=== PATIENT | female | born 1985 | race Caucasian/White ===

== ENCOUNTER 2021-10-28 14:12 | Emergency (ER) | payer OTHER, SELFPAY ==
[2021-10-28 14:22] VITALS: BP 106/66; PULSE 83; RESP 18; TEMP 37; O2SAT 99
--- NOTE | 2021-10-28 15:03 | ED.DENTAL ---
HPI - Dental/Oral General Chief complaint: Dental/Oral Stated complaint: tooth pain Time Seen by Provider: 10/28/21 14:50 Source: patient, family, RN notes reviewed and old records reviewed Mode of arrival: ambulatory Limitations: no limitations History of Present Illness HPI Narrative: 36 year old female who presents to [facility] care with complaints of dental pain to right upper gum area for the past 2 days with swelling to gum area with redness and raised area along side of gum by #14 tooth which is broken off at the gum line. Patient reports that she has some swelling noted to her left cheek also, denies any known fever chills or sweats.Patient denies any difficulty with her breathing or with swallowing. She denies any fevers chills or sweats or any difficulty with opening her mouth. Location: Tooth # (on gum above #14 tooth) Onset (ago): day(s) (2) Severity scale (1-10): 3 Treatment prior to arrival: oral analgesic Related Data Home Medications Medication Instructions Recorded Confirmed escitalopram oxalate 20 mg tablet 20 mg PO DAILY 08/21/21 10/28/21 trazodone 50 mg tablet 50 mg PO QHS PRN Anxiety 08/21/21 10/28/21 Allergies Allergy/AdvReac Type Severity Reaction Status Date / Time No Known Allergies Allergy Unknown Verified 10/28/21 14:25 Review of Systems Review of Systems: CONSTITUTIONAL: Denies fever, chills, or sweats. EYES: Denies visual changes, redness, or discharge. ENT: Denies rhinorrhea, congestion, sore throat, or otalgia.pain to gum area above #14 tooth with swelling and redness of gum CARDIOVASCULAR: Denies chest pain, palpitations, or edema. RESPIRATORY: Denies cough or dyspnea. GASTROINTESTINAL: Denies abdominal pain, nausea, vomiting, or diarrhea. GENITOURINARY: Denies dysuria or hematuria. SKIN: Denies rash or itching. MUSCULOSKELETAL: Denies back pain, joint pain, or myalgia. NEUROLOGIC: Denies headache, numbness, or weakness. PSYCHIATRIC: Positive for anxiety or depression. All systems reviewed & are unremarkable except as noted in HPI and below PMFSH Past Medical History Medical History Anxiety Arm fracture Depression Frequent UTI Nexplanon insertion (12/18/12) Nexplanon removal (12/23/15) Pneumonia Surgical History Surgical History History of bilateral breast reduction surgery (06/23/12) History of 04/10/07 primary c/s--arrest of descent 11/30/10 rpt c/s w/tubal ligation History of dilation and curettage (05/17/16) hscope d&c/endometrial ablation--menometrorrhagia, dysmenorrhea--benign History of ovarian cystectomy (09/25/12) rt ovarian cystectomy History of tonsillectomy (~2002) History of tubal ligation (11/30/10) Family History Family History Grandparent Hypertension paternal grandfather paternal grandmother Diabetes mellitus paternal grandmother paternal grandfather Cerebrovascular accident maternal grandmother paternal grandmother Heart disease paternal grandfather Mother Alcoholism Social History Social History (Updated 08/21/21 @ 08:58 by MARK Dimas) Smoking status: Former smoker Alcohol intake: current Alcohol use details: 1-2 year Substance use: never Substance use type: does not use Additional living arrangements comments: 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 There is no relevant family history pertinent to the presenting complaint Exam Narrative: GENERAL: Well-appearing, well-nourished, and in no acute distress. HEAD: Normocephalic, atraumatic.
== END 2021-10-28 15:15 | disposition home or self-care (01) ==
PROVIDERS: Emergency Provider Registered Nurse
DX: K04.7 Periapical abscess without sinus (principal); K02.9 Dental caries, unspecified; Z87.891 Personal history of nicotine dependence; F41.9 Anxiety disorder, unspecified; F32.A Depression, unspecified
CPT/HCPCS: 99213; G0463

== ENCOUNTER 2021-11-06 11:02 | Outpatient (CLI) | payer OTHER, SELFPAY ==
[2021-11-06 11:48] LABS: Hematocrit 38.7 % (37.0-47.0); Hemoglobin 12.7 g/dL (12.0-15.0); Mean Corpuscular HGB Conc 32.8 g/dl (32-36); Mean Corpuscular Hemoglobin 30.8 pg (26-34); Mean Corpuscular Volume 93.7 fl (80-100); Mean Platelet Volume 9.8 fl (7.4-10.4); Platelet Count Result 231 k/mm3 (150-375); Red Blood Count 4.13 M/mm3 (4.2-5.4); Red Cell Distribution Width 11.9 % (11.5-14.5); White Blood Count 9.9 K/mm3 (4.5-10.0)
== END 2021-11-06 11:03 | disposition home or self-care (01) ==
LOC: ANHLAB 11:06
PROVIDERS: Visit Provider Obstetrics & Gynecology
DX: N92.1 Excessive and frequent menstruation with irregular cycle (principal)
CPT/HCPCS: 36415; 85027

== ENCOUNTER 2021-11-10 13:06 | Outpatient (CLI) | payer OTHER, SELFPAY ==
--- NOTE | ~2021-11-10 | US_ITS ---
EXAMINATION: US pelvic complete w TV DATE: 11/10/2021 13:58 INDICATION: Excessive and frequent and irregular menstruation. TECHNIQUE: Multiple transabdominal and transvaginal sonographic images of the pelvis were obtained. COMPARISON: None. FINDINGS: TRANSABDOMINAL ULTRASOUND: The uterus measures 7.4 x 3.8 x 3.5 cm. There is no free fluid in the pelvis. TRANSVAGINAL ULTRASOUND: The endometrial complex measures 6 mm in thickness. There is a 1.3 cm intramural fibroid. There are n abothian cysts in the cervix. The right ovary measures 2.8 x 1.8 x 1.9 cm. The left ovary measures 3. 4 x 1.8 x 2.8 cm. There is normal vascular flow in the ovaries. IMPRESSION: 1. 1.3 cm uterine fibroid. Reviewed, dictated and finalized at location A. IMPRESSION: 1. 1.3 cm uterine fibroid.
== END 2021-11-10 13:07 | disposition home or self-care (01) ==
PROVIDERS: PCP Internal Medicine; Visit Provider Obstetrics & Gynecology
DX: N92.1 Excessive and frequent menstruation with irregular cycle (principal); D25.9 Leiomyoma of uterus, unspecified
CPT/HCPCS: 76830; 76856

== ENCOUNTER 2021-12-15 12:33 | Emergency (ER) | payer OTHER, SELFPAY ==
[2021-12-15 12:43] VITALS: BP 105/63; PULSE 83; RESP 18; TEMP 37.2; O2SAT 98
--- NOTE | 2021-12-15 13:21 | ED.NAVMDI ---
HPI - Nausea/Vomiting/Diarrhea General Chief complaint: Nausea/Vomiting/Diarrhea Stated complaint: nausea headache aches Time Seen by Provider: 12/15/21 13:22 Source: patient, RN notes reviewed and old records reviewed Mode of arrival: ambulatory Limitations: no limitations History of Present Illness HPI Narrative: 36 year old female presents to [facility] care with complaints of f nausea this morning with headache all weak ,diarrhea X3 yesterday and body aches. Patient denies any known ill contacts, has had Covid vaccinations and flu shot. Patient reports that she has taken Ibuprofen and aso some TUMs for her symptoms. MD elicited complaint: nausea, diarrhea and other (headache and body aches) Onset (ago): day(s) (day 2 of symptoms) Pain scale (0-10): 4 Treatment prior to arrival: NSAIDs and other (Tums) Related Data Home Medications Medication Instructions Recorded Confirmed escitalopram oxalate 20 mg tablet 20 mg PO DAILY 08/21/21 12/15/21 trazodone 50 mg tablet 50 mg PO QHS PRN Anxiety 08/21/21 12/15/21 Allergies Allergy/AdvReac Type Severity Reaction Status Date / Time No Known Allergies Allergy Unknown Verified 12/15/21 12:59 Review of Systems Review of Systems: CONSTITUTIONAL: Denies malaise, chills, sweats, or fever. EYES: Denies visual changes, redness, or discharge. ENT: Reports rhinorrhea, congestion, sinus pain, otalgia and sore throat. CARDIOVASCULAR: Denies chest pain, palpitations, or edema. RESPIRATORY:Denies cough.? Denies dyspnea. GASTROINTESTINAL: Denies abdominal pain, reports nausea, no vomiting reports episodes of diarrhea X3 yesterday. SKIN: Denies rash or itching. MUSCULOSKELETAL: Reports myalgia. NEUROLOGIC: Reports headache. All systems reviewed & are unremarkable except as noted in HPI and below PMFSH Past Medical History Medical History Anxiety Arm fracture Depression Encounter for annual routine gynecological examination Frequent UTI Nexplanon insertion (12/18/12) Nexplanon removal (12/23/15) Pneumonia Surgical History Surgical History History of bilateral breast reduction surgery (06/23/12) History of 04/10/07 primary c/s--arrest of descent 11/30/10 rpt c/s w/tubal ligation History of dilation and curettage (05/17/16) hscope d&c/endometrial ablation--menometrorrhagia, dysmenorrhea--benign History of ovarian cystectomy (09/25/12) rt ovarian cystectomy History of tonsillectomy (~2002) History of tubal ligation (11/30/10) Family History Family History Grandparent Hypertension paternal grandfather paternal grandmother Diabetes mellitus paternal grandmother paternal grandfather Cerebrovascular accident maternal grandmother paternal grandmother Heart disease paternal grandfather Mother Alcoholism Social History Social History (Updated 12/17/21 @ 18:55 by Charis Hager NP) Smoking status: Former smoker Alcohol intake: current Alcohol use details: 1-2 year Substance use: never Substance use type: does not use Gender identity (if verbalized by the patient): Female Sexual Orientation (if Verbalized by the Patient): Straight or Heterosexual Comments At time of signature, agree with nursing past medical, surgical, social and family history. There is no relevant family history pertinent to the presenting complaint Exam Narrative: GENERAL: Well-appearing, well-nourished, and in no acute distress. HEAD: Normocephalic EYES: PERRLA, conjunctivae clear ENT: Nares clear, turbinates edematous and erythematous, clear discharge. Mucous membranes moist. TM pearly verduzco with dull light reflex bilaterally; no tragal tenderness. Oropharynx pink without lesions. Tonsils not present and without exudate tp pharynx, no drooling, no
== END 2021-12-15 14:10 | disposition home or self-care (01) ==
PROVIDERS: Emergency Provider Registered Nurse; PCP Internal Medicine
DX: K52.9 Noninfective gastroenteritis and colitis, unspecified (principal); Z20.822 Contact with and (suspected) exposure to COVID-19; Z87.891 Personal history of nicotine dependence; F41.9 Anxiety disorder, unspecified; F32.A Depression, unspecified
CPT/HCPCS: 87426; 87804; 99213; C9803; G0463

== ENCOUNTER 2022-01-07 18:22 | Emergency (ER) | payer OTHER, SELFPAY ==
--- NOTE | ~2022-01-07 | XR_ITS ---
XR heel RT min 2V DATE: 01/07/2022 18:48 INDICATION: Plantar heel pain with standing TECHNIQUE: Axial and lateral views COMPARISON: None FINDINGS: Minimal plantar calcaneal enthesopathy without associated erosive change or periostitis. No fracture or bone destruction of the calcaneus. IMPRESSION: Minimal plantar calcaneal enthesopathy Reviewed, dictated and finalized at location A. 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
[2022-01-07 18:26] VITALS: BP 102/70; PULSE 84; RESP 20; TEMP 36.8; O2SAT 100
--- NOTE | 2022-01-07 18:30 | ED.EXTPRO ---
HPI - Extremity Problem General Chief complaint: Extremity Problem,Nontraumatic Stated complaint: bottom of right foot pain Time Seen by Provider: 01/07/22 18:33 Source: patient, RN notes reviewed and old records reviewed Mode of arrival: ambulatory Limitations: no limitations History of Present Illness HPI Narrative: 36-year-old female presents to the [facility] with complaints of calcaneal distal aspect pain for 3 days. has taken Tylenol. Related Data Home Medications Medication Instructions Recorded Confirmed buspirone 10 mg tablet 10 mg PO BID 01/07/22 01/07/22 escitalopram oxalate 20 mg tablet 20 mg PO DAILY 01/07/22 01/07/22 hydroxyzine HCl 25 mg tablet 25 mg PO BID 01/07/22 01/07/22 Allergies Allergy/AdvReac Type Severity Reaction Status Date / Time No Known Allergies Allergy Unknown Verified 01/07/22 18:50 Review of Systems Review of Systems: All systems reviewed & are unremarkable except as noted in HPI and below Constitutional: Constitutional: Reports no additional constitutional complaints, Denies chills and Denies fever(s) Eyes: Eyes: Reports no additional eye complaints ENT: Reports system reviewed and no additional complaints, except as documented Cardiovascular: Cardiovascular: Reports no additional cardiovascular complaints Respiratory: Respiratory: Reports no additional respiratory complaints Gastrointestinal: Gastrointestinal: Reports no additional gastrointestinal complaints Musculoskeletal: Musculoskeletal: Reports as per HPI Integumentary/Breasts: Skin/Breast: Reports system reviewed and no additional complaints, except as docu Neurologic: Reports system reviewed and no additional complaints, except as documented Psychiatric: Psychiatric: Reports no additional psychiatric complaints Allergic/Immunologic: Allergic/Immunologic: Reports no additional allergic/immunologic complaints [facility] Past Medical History Medical History Anxiety Arm fracture Depression Encounter for annual routine gynecological examination Frequent UTI Nexplanon insertion (12/18/12) Nexplanon removal (12/23/15) Pneumonia Surgical History Surgical History History of bilateral breast reduction surgery (06/23/12) History of 04/10/07 primary c/s--arrest of descent 11/30/10 rpt c/s w/tubal ligation History of dilation and curettage (03/23/17) hscope d&c/endometrial ablation--menometrorrhagia, dysmenorrhea--benign History of ovarian cystectomy (09/25/12) rt ovarian cystectomy History of tonsillectomy (~2002) History of tubal ligation (11/30/10) Family History Family History Grandparent Hypertension paternal grandfather paternal grandmother Diabetes mellitus paternal grandmother paternal grandfather Cerebrovascular accident maternal grandmother paternal grandmother Heart disease paternal grandfather Mother Alcoholism Social History Social History Smoking status: Former smoker Alcohol intake: current Alcohol use details: 1-2 year Substance use: never Substance use type: does not use Gender identity (if verbalized by the patient): Female Sexual Orientation (if Verbalized by the Patient): Straight or Heterosexual Comments At the time of my signature, I reviewed and agree with the nursing past medical, surgical, social, and family history. There is no relevant family history pertinent to the patient complaint. Exam Const: General: healthy appearing, comfortable, no acute distress, well developed, alert and well nourished Nutritional Appearance: well nourished and obese Orientation/consciousness: patient oriented x3 Limitations: no limitations HENMT: Head: normal to inspection Ears: external ears normal Eyes:
[2022-01-07 18:48] VITALS: BP 102/70; PULSE 84; RESP 20; TEMP 36.8; O2SAT 100
== END 2022-01-07 19:00 | disposition home or self-care (01) ==
PROVIDERS: Emergency Provider Nurse Practitioner; PCP Internal Medicine
DX: M77.31 Calcaneal spur, right foot (principal); Z87.891 Personal history of nicotine dependence; F41.9 Anxiety disorder, unspecified; F32.A Depression, unspecified
CPT/HCPCS: 73650; 99213; G0463

== ENCOUNTER 2022-02-02 19:21 | Emergency (ER) | payer OTHER, SELFPAY ==
[2022-02-02 19:25] VITALS: BP 123/72; PULSE 104; RESP 16; TEMP 37.7; O2SAT 99
--- NOTE | 2022-02-02 19:38 | ED.URI ---
HPI - URI/Sore Throat General Chief Complaint: Upper Respiratory Infection Stated Complaint: cough Time Seen by Provider: 02/02/22 19:30 Source: patient and RN notes reviewed Mode of arrival: ambulatory Limitations: no limitations History of Present Illness HPI Narrative: 36-year-old female presents with concern for cough. Reports symptoms started yesterday. She reports she has been taking ibuprofen. She reports body aches. Denies fever, chills, sweats, shortness of breath. Reports she had COVID at the end of December. MD elicited complaint: cough Related Data Home Medications Medication Instructions Recorded Confirmed buspirone 10 mg tablet 10 mg PO BID 01/07/22 02/02/22 escitalopram oxalate 20 mg tablet 20 mg PO DAILY 01/07/22 02/02/22 hydroxyzine HCl 25 mg tablet 25 mg PO BID 01/07/22 02/02/22 trazodone 100 mg tablet 100 mg PO HS 02/02/22 02/02/22 Allergies Allergy/AdvReac Type Severity Reaction Status Date / Time No Known Allergies Allergy Unknown Verified 02/02/22 19:35 Review of Systems Review of Systems: CONSTITUTIONAL: Denies malaise, chills, sweats, or fever. EYES: Denies visual changes, redness, or discharge. ENT: Reports rhinorrhea, congestion. Denies sinus pain, otalgia and sore throat. CARDIOVASCULAR: Denies chest pain, palpitations, or edema. RESPIRATORY: Reports cough. Denies dyspnea. GASTROINTESTINAL: Denies abdominal pain, nausea, vomiting, diarrhea SKIN: Denies rash or itching. MUSCULOSKELETAL: Reports myalgia. NEUROLOGIC: Denies headache. All systems reviewed & are unremarkable except as noted in HPI and below PMFSH Past Medical History Medical History Anxiety Arm fracture Depression Encounter for annual routine gynecological examination Frequent UTI Nexplanon insertion (12/18/12) Nexplanon removal (12/23/15) Pneumonia Surgical History Surgical History History of bilateral breast reduction surgery (06/23/12) History of 04/10/07 primary c/s--arrest of descent 11/30/10 rpt c/s w/tubal ligation History of dilation and curettage (05/17/16) hscope d&c/endometrial ablation--menometrorrhagia, dysmenorrhea--benign History of ovarian cystectomy (09/25/12) rt ovarian cystectomy History of tonsillectomy (~2002) History of tubal ligation (11/30/10) Family History Family History Grandparent Hypertension paternal grandfather paternal grandmother Diabetes mellitus paternal grandmother paternal grandfather Cerebrovascular accident maternal grandmother paternal grandmother Heart disease paternal grandfather Mother Alcoholism Social History Social History Smoking status: Former smoker Alcohol intake: current Alcohol use details: 1-2 year Substance use: never Substance use type: does not use Gender identity (if verbalized by the patient): Female Sexual Orientation (if Verbalized by the Patient): Straight or Heterosexual Comments At time of signature, agree with nursing past medical, surgical, social and family history. There is no relevant family history pertinent to the presenting complaint Exam Narrative: GENERAL: Well-appearing, well-nourished, and in no acute distress. HEAD: Normocephalic EYES: PERRLA, conjunctivae clear ENT: Nares clear, clear discharge. Mucous membranes moist. TM pearly verduzco with sharp light reflex bilaterally; no tragal tenderness. Oropharynx not erythematous without lesions. Tonsils not enlarged and without exudate, no drooling, no hoarseness, no trismus, uvula midline. NECK: Supple. No lymphadenopathy CHEST: Clear to auscultation, breath sounds equal. No wheezing, rhonchi, rales, or stridor. No respiratory distress, speaks in full sentences. Cough noted HEART: Regular rat
== END 2022-02-02 19:50 | disposition home or self-care (01) ==
PROVIDERS: Emergency Provider Nurse Practitioner; PCP Internal Medicine
DX: J06.9 Acute upper respiratory infection, unspecified (principal); Z87.891 Personal history of nicotine dependence
CPT/HCPCS: 87804; 99213; G0463

== ENCOUNTER 2022-04-05 01:13 | Day surgery (SDC) | payer OTHER, SELFPAY ==
--- NOTE | 2022-03-26 13:58 | PC.NURSE ---
Report to the Outpatient Waiting Room, entrance under the green pavilion located off [facility], at time _0600_ on date _04/05/22_. Planned Procedure Time: _0730__. Time changes happen often and if your time is changed the preop area will call you the afternoon before. - You and your visitor will be asked to self-screen and do not enter if you have any COVID symptoms. - Only one visitor is requested with a max of two and NO children visitors are allowed at this time. - The patient visitor may be requested to leave or wait in car when not with patient due to distancing restrictions. - A mask is optional within the hospital at this time. Patients may have clear liquids (water, carbonated beverages, clear teas, apple juice) until 3 hours prior to surgery with a maximum of 20 ounces. - No food from midnight until time of surgery - Infants may have breast milk until 4 hours before surgery, formula 6 hours prior to surgery. - Children will be allowed to drink immediately following surgery. If applicable, please bring a bottle or sippy cup to assist with drinking. Juice, water, soda, and popsicles are readily available. For infants on formula, please bring formula the day of surgery. Pacifiers are allowed. Take the following medications with a SIP of water the morning of surgery: _Buspirone and Hydoxyzine___ DO NOT STOP ANY OF YOUR OTHER PRESCRIPTION MEDICATIONS PRIOR TO SURGERY ?EXCEPT THE FOLLOWING Medications to discontinue per physician __vitamins or supplements 3 days prior___ Date to take last dose Please no make-up, nail cymraes, hairspray, perfume, deodorant, or body powder the day of surgery. No jewelry (including any body piercings) or valuables the day of surgery, leave them at home. Please take a shower or bath the night before, or the morning of, surgery with an antibacterial soap. Wear comfortable, loose fitting clothing. Children are encouraged to wear pajamas. - Jewelry must be removed prior to entering the operating room. Rings and piercings that are not removed may be cut off. - The hospital will not accept responsibility for valuables. - Please leave all valuables, including medications, at home the day of surgery. If you are going home after surgery, a licensed delivery route driver must drive you home. - NO public transportation without another adult if you receive anesthesia. - We recommend that an adult stay with you for 24 hours following discharge. - We also recommend that you do not drive, make important decision, drink alcoholic beverages, or take any drugs that were not prescribed by your health care provider for at least 24 hours after your discharge time. For Pediatric surgeries, we recommend two adults accompany the child home. Follow any additional instructions given to you from your surgeon. If you or anyone in your household have experienced Covid symptoms in the past week, please notify your surgeon or the nurse liaison at the phone number below for possible testing. Telephone instructions given to _patient__and asked if any additional questions and then verbalized understanding. Patient advised to call surgeon office or pre surgery nurse liaison [phone] if any additional questions.
[2022-03-26 14:05] VITALS: BMI 33.9
[2022-04-05] VITALS (11 sets, daily range): BP systolic 97–130; BP diastolic 45–74; PULSE 68–95; RESP 12–18; TEMP 36.5–36.9; O2SAT 95–100; BMI 34.2
[2022-04-05] MEDS: LACTATED RINGERS 1,000 ML 30 ML IV CONT ×2 (06:25→09:35)
--- NOTE | 2022-04-05 06:34 | WPDANESEPPF ---
Anes - Initial Pre Proc Eval Procedure: Operation Date: 04/05/22 07:30 Proposed Procedures p Robotic Assisted Total Laparoscopic Hysterectomy, Bilateral Salpingectomy - Perry Marvin MD Date/Time: 04/05/22 06:34 Surgeon: Perry Marvin MD Pre Op Diagnosis: uterine fibroid Patient Data Age: 37 Gender: F Height: 1.5 m Weight: 76.2 kg Allergies Allergy/AdvReac Type Severity Reaction Status Date / Time No Known Allergies Allergy Unknown Verified 03/30/22 10:46 Home Medications Medication Instructions Recorded Confirmed Type buspirone 10 mg tablet 10 mg PO BID 01/07/22 03/30/22 History escitalopram oxalate 20 mg tablet 20 mg PO DAILY 01/07/22 03/30/22 History hydroxyzine HCl 25 mg tablet 25 mg PO BID 01/07/22 03/30/22 History trazodone 100 mg tablet 100 mg PO HS 02/02/22 03/30/22 History Patient hx anesthesia problems: none Family hx anesthesia problems: none Results Review: All pre-operative results and documents have been reviewed as part of the pre-operative evaluation. [facility] Past Medical History Medical History Anxiety Arm fracture Depression Encounter for annual routine gynecological examination Frequent UTI Nexplanon insertion (12/18/12) Nexplanon removal (12/23/15) Pneumonia Surgical History Surgical History History of bilateral breast reduction surgery (06/23/12) History of 04/10/07 primary c/s--arrest of descent 11/30/10 rpt c/s w/tubal ligation History of dilation and curettage (05/17/16) hscope d&c/endometrial ablation--menometrorrhagia, dysmenorrhea--benign History of ovarian cystectomy (09/25/12) rt ovarian cystectomy History of tonsillectomy (~2002) History of tubal ligation (11/30/10) Family History Family History Grandparent Hypertension paternal grandfather paternal grandmother Diabetes mellitus paternal grandmother paternal grandfather Cerebrovascular accident maternal grandmother paternal grandmother Heart disease paternal grandfather Mother Alcoholism Social History Social History Smoking status: Former smoker Tobacco type: cigarettes Additional smoking assessment comments: Pt stated on and off socially, does not currently Alcohol intake: never Alcohol use details: 1-2 year Substance use: never Substance use type: does not use Living arrangements: with roommate(s) Additional living arrangements comments: Occupation/Education: unemployed 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 Gender identity (if verbalized by the patient): Female Sexual Orientation (if Verbalized by the Patient): Straight or Heterosexual Spiritual care concerns: No Anes - Eval Final PreProcedure Day of Procedure 04/05/22 06:34 Patient weight: obese Heart: regular rate and rhythm Lungs: clear to auscultation Airway: Mallampati scale class II and special considerations poor dentition Neurological: alert and oriented Last oral intake: >/= 8 hours ASA classification: II Emergent: no Anesthetic plan: proceed Anesthesia type and monitoring: general ETT and standard monitoring Results Review: All pre-operative results and documents have been reviewed as part of the pre-operative evaluation. Informed Consent: The patient's anesthetic plan and its attendant risks and benefits were discussed with the patient/family/POA. Questions were solicited and answers provided to the satisfaction of the patient/family/POA.
[2022-04-05 06:36] LABS: Hematocrit 42.1 % (37.0-47.0); Hemoglobin 13.9 g/dL (12.0-15.0); Mean Corpuscular Volume 93.8 fl (80-100); Mean Platelet Volume 9.4 fl (7.4-10.4); Platelet Count Result 244 k/mm3 (150-375); Red Blood Count 4.49 M/mm3 (4.2-5.4); Red Cell Distribution Width 12.1 % (11.5-14.5); White Blood Count 8.7 K/mm3 (4.5-10.0)
[2022-04-05] MEDS: ACETAMINOPHEN 500 MG TABLET 1000 MG PO (06:45)
[2022-04-05] MEDS: KETOROLAC 15 MG/ML VIAL (*BKC) IV PUSH (06:45)
--- NOTE | 2022-04-05 07:18 | WPDHPUPDATE1 ---
History and Physical Update Update Date/Time: 04/05/22 07:18 Plan: Robotic total hysterectomy/ovarian preservation. Tubal segment removal if present. History and Physical has been reviewed, including an updated exam of the patient. There are NO changes in the patient's condition. Risks, benefits, and alternatives have been discussed and questions answered. Patient agrees to proceed with procedure.
[2022-04-05] MEDS: ceFAZolin 2 GM/D5W 50 ML 2 GM/50 ML BAG IVPB (07:27)
[2022-04-05] MEDS: METHYLENE BLUE 0.5% INJ 10 ML AMPULE 5 ML IRRIGATION (09:05)
--- NOTE | 2022-04-05 09:06 | W.PM.PROC2 ---
Procedure Note - Detailed Date of Procedure 04/05/22 Pre-op Diagnosis 1. Enlarged uterus 2. Uterine fibroid 3. Menometrorrhagia 4. Prior section x2 Post-op Diagnosis Same Procedure Performed 1. Robotic assisted total laparoscopic hysterectomy 2. Bilateral salpingectomy Surgeon Perry Marvin MD Anesthesia General Findings 1. Uterus mildly enlarged 2. Adhesions her bladder flap to the anterior portion of the uterus 3. Bilateral tubal distal segments noted Description of Procedure Patient was prepped in usual manner for this procedure. Cervical instruments were placed for uterine mobility throughout the case. Abdominal trocar sites were then marked and placed under direct visualization. Patient was placed in Trendelenburg position and the DA Denise system was attached to the trocars, followed by instruments being placed under direct visualization. Surgeon moved to the console and mesial salpinx bilaterally was cauterized and cut and tubal segments were removed. Utero-ovarian ligament was then cauterized and cut bilaterally round ligament cauterized and cut bilaterally. Bladder flap was developed. Scarring was noted on the bladder flap with this was dissected sharply and bluntly and bladder ultimately was readily deflected out of the operative field. Uterine vessels were skeletonized cauterized and cut and at this point the posterior colpotomy incision was made. This was then carried around circumferentially to separate the cervix from the vagina. Uterus was delivered into the vagina. Cuff was closed using V lock suture from the right angle to midline and from the left angle to the midline as well. Bladder was back filled and distended without evidence of leakage. Ute was then placed on all the raw surgical areas with good hemostasis noted. Patient trocars were then removed and incisions approximated using 4-0 Monocryl. Patient was then sent to the recovery room in stable condition. Estimated Blood Loss 120 Drains No Packing No Pathology Yes Complications No immediate complications Condition Stable Disposition PACU [facility] Billing Surgery - Charge Forward: Surgery Billing
[2022-04-05] MEDS: fentaNYL CITRATE INJ (*CRX) 100 MCG/2 ML VIAL 25 MCG IV PUSH ×5 (09:52→10:39)
--- NOTE | 2022-04-05 11:18 | PC.NURSE ---
This patient, Amie East, was received from PACU via abed on 04/05/22 at 1118. Patient/family oriented to unit policies and routines.
[2022-04-05] MEDS: KETOROLAC 30 MG/ML VIAL (*BKC) IV PUSH (11:58)
[2022-04-05] MEDS: DEXTROSE 5%/LACTATED RINGERS 1,000 ML 125 ML IV CONT (11:59)
[2022-04-05] MEDS: HYDROcodone/acetaminophen (*CRX) 5-325 MG TABLET 1 TAB PO ×2 (12:55→16:42)
[2022-04-05] MEDS: hydrOXYzine HCL 25 MG TABLET PO (16:42)
[2022-04-05] MEDS: busPIRone HCL 10 MG TABLET PO (16:42)
[2022-04-05] MEDS: traZODone HCL 50 MG TABLET 100 MG PO (20:00)
[2022-04-06] MEDS: IBUPROFEN 600 MG TABLET PO ×2 (01:15→08:13)
[2022-04-06] MEDS: HYDROcodone/acetaminophen (*CRX) 5-325 MG TABLET 1 TAB PO ×2 (01:15→10:16)
[2022-04-06 05:00] VITALS: BP 110/66; PULSE 77; RESP 16; TEMP 36.7
[2022-04-06 05:39] LABS: Basophils Percent Auto 0.1 % (0.2-1.2); Eosinophils Percent Auto 0.1 % (0-4.4); Hematocrit 36.4 % (37.0-47.0); Hemoglobin 11.9 g/dL (12.0-15.0); Immature Granulocyte Absolute 0.09 K/mm3 (0.00-0.031); Immature Granulocyte Percent A 0.5 % (0-0.5); Lymphocytes Percent Auto 12.5 % (18.3-44.2); Mean Corpuscular HGB Conc 32.7 g/dl (32-36); Mean Corpuscular Hemoglobin 30.4 pg (26-34); Mean Corpuscular Volume 93.1 fl (80-100); Mean Platelet Volume 9.7 fl (7.4-10.4); Monocytes Absolute Auto 1.1 K/mm3 (0.1-0.6); Monocytes Percent Auto 5.5 % (2.6-8.5); Neutrophils Absolute Auto 15.7 K/mm3 (1.3-6.7); Neutrophils Percent Auto 81.3 % (45.5-73.1); Platelet Count Result 280 k/mm3 (150-375); Red Blood Count 3.91 M/mm3 (4.2-5.4); Red Cell Distribution Width 11.9 % (11.5-14.5); White Blood Count 19.2 K/mm3 (4.5-10.0)
[2022-04-06 07:36] VITALS: BP 124/58; PULSE 91; RESP 16; TEMP 36.3; O2SAT 97
[2022-04-06] MEDS: hydrOXYzine HCL 25 MG TABLET PO (08:12)
[2022-04-06] MEDS: busPIRone HCL 10 MG TABLET PO (08:13)
--- NOTE | 2022-04-06 09:09 | P.PNAN_ITS ---
Anes - Prog Note Post-Op Date/Time: 04/06/22 09:09 Cardiovascular status: normal Respiratory status: normal Airway patency: baseline Mental status: baseline Post-Op hydration status: normal Vital Signs: Last Vital Signs Temp 97.4 F L 04/06/22 07:36 Pulse 91 04/06/22 07:36 Resp 16 04/06/22 07:36 BP 124/58 L 04/06/22 07:36 Pulse Ox 97 04/06/22 07:36 O2 Del Method Room Air 04/05/22 11:00 O2 Flow Rate 8 04/05/22 09:45 Pain Score (VAS): 2 I/O: Intake & Output 04/05/22 04/06/22 04/06/22 23:59 07:59 15:59 Intake Total 580 Balance 580 Laboratory Tests 04/06/22 05:02 04/06/22 05:02 WBC 19.2 H RBC 3.91 L Hgb 11.9 L Hct 36.4 L MCV 93.1 MCH 30.4 MCHC 32.7 RDW 11.9 Plt Count 280 MPV 9.7 Immature Gran % (Auto) 0.5 Neut % (Auto) 81.3 H Lymph % (Auto) 12.5 L [place] % (Auto) 5.5 Eos % (Auto) 0.1 Baso % (Auto) 0.1 L Lymph # (Auto) 2.40 [place] # (Auto) 1.1 H Eos # (Auto) 0.0 Baso # (Auto) 0.0 Abs Immat Gran (auto) 0.09 H Absolute Neuts (auto) 15.7 H Absolute Nucleated RBC 0.0 Nucleated RBC % 0.0 Patient Feedback: Patient satisfied with anesthetic care.
== END 2022-04-06 10:18 | disposition home or self-care (01) ==
LOC: ANHSURGERY 05:58 → ANHOB2 14:01
PROVIDERS: PCP Internal Medicine; Visit Provider Obstetrics & Gynecology
PROC: (CPT 58571; principal; 2022-04-05 07:30)
DX: N92.1 Excessive and frequent menstruation with irregular cycle (principal); N72 Inflammatory disease of cervix uteri; N83.8 Other noninflammatory disorders of ovary, fallopian tube and broad ligament; N73.6 Female pelvic peritoneal adhesions (postinfective); N76.89 Other specified inflammation of vagina and vulva; F32.A Depression, unspecified; F41.9 Anxiety disorder, unspecified; Z87.891 Personal history of nicotine dependence; E66.9 Obesity, unspecified; Z68.34 Body mass index [BMI] 34.0-34.9, adult
CPT/HCPCS: 58571; S2900; 36415; 85025; 85027; 86850; 86900; 86901; 88307; 99199; A9270; J0690; J1100; J1170; J1885; J2250; J2370; J2405; J2704; J2710; J3010; J7030; J7120; J7121; Q9968

== ENCOUNTER 2022-10-01 09:03 | Emergency (ER) | payer OTHER, SELFPAY ==
[2022-10-01 09:10] VITALS: BP 120/63; PULSE 86; RESP 20; TEMP 37.1; O2SAT 100
--- NOTE | 2022-10-01 09:25 | ED.FEMALEGU ---
HPI - Female Genitourinary General Chief complaint: Urogenital-Female Stated complaint: Urinary Problem Time Seen by Provider: 10/01/22 09:25 Source: patient Mode of arrival: ambulatory Limitations: no limitations History of Present Illness HPI Narrative: 37-year-old female presents with complaint urinary frequency, dysuria, urgency for 1 week. No abdominal or back pain. Also concerned she has vaginal yeast infection. Reports itching, irritation. Took an [id number] yeast pill from [facility] that she states is not helping. Reports white discharge. No concern for STI. All systems reviewed and negative except as noted above. Related Data Home Medications Medication Instructions Recorded Confirmed escitalopram oxalate 20 mg tablet 20 mg PO DAILY 01/07/22 10/01/22 hydroxyzine HCl 25 mg tablet 25 mg PO BID 01/07/22 10/01/22 trazodone 100 mg tablet 100 mg PO HS 02/02/22 10/01/22 aripiprazole 5 mg tablet (Abilify) 5 mg PO DAILY 05/22/22 10/01/22 Allergies Allergy/AdvReac Type Severity Reaction Status Date / Time No Known Allergies Allergy Unknown Verified 10/01/22 09:24 Review of Systems Review of Systems: CONSTITUTIONAL: Denies fever, chills, or sweats. EYES: Denies visual changes, redness, or discharge. ENT: Denies rhinorrhea, congestion, sore throat, or otalgia. CARDIOVASCULAR: Denies chest pain, palpitations, or edema. RESPIRATORY: Denies cough or dyspnea. GASTROINTESTINAL: Denies abdominal pain, nausea, vomiting, or diarrhea. GENITOURINARY: Reports dysuria, frequency, urgency. Denies hematuria. Reports vaginal itching and irritation. SKIN: Denies rash or itching. MUSCULOSKELETAL: Denies back pain, joint pain, or myalgia. NEUROLOGIC: Denies headache, numbness, or weakness. PSYCHIATRIC: Denies anxiety or depression. All other systems reviewed are negative, except as documented in HPI. [facility] Past Medical History Medical History Anxiety Arm fracture Depression Encounter for annual routine gynecological examination Frequent UTI Nexplanon insertion (12/18/12) Nexplanon removal (12/23/15) Pneumonia Surgical History Surgical History History of bilateral breast reduction surgery (06/23/12) History of 04/10/07 primary c/s--arrest of descent 11/30/10 rpt c/s w/tubal ligation History of dilation and curettage (05/17/16) hscope d&c/endometrial ablation--menometrorrhagia, dysmenorrhea--benign History of ovarian cystectomy (09/25/12) rt ovarian cystectomy History of robot-assisted laparoscopic hysterectomy (04/05/22) Robotic assisted total laparoscopic hysterectomy Bilateral salpingectomy History of tonsillectomy (~2002) History of tubal ligation (11/30/10) Family History Family History Grandparent Hypertension paternal grandfather paternal grandmother Diabetes mellitus paternal grandmother paternal grandfather Cerebrovascular accident maternal grandmother paternal grandmother Heart disease paternal grandfather Mother Alcoholism Social History Social History Smoking status: Former smoker Tobacco type: cigarettes Additional smoking assessment comments: Pt stated on and off socially, does not currently Alcohol intake: never Alcohol use details: 1-2 year Substance use: never Substance use type: does not use Living arrangements: with roommate(s) Additional living arrangements comments: Occupation/Education: unemployed 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
== END 2022-10-01 09:47 | disposition home or self-care (01) ==
PROVIDERS: Emergency Provider Nurse Practitioner Family; PCP Internal Medicine
DX: B37.31 Acute candidiasis of vulva and vagina (principal); N39.0 Urinary tract infection, site not specified; Z87.891 Personal history of nicotine dependence; F41.9 Anxiety disorder, unspecified
CPT/HCPCS: 81003; 87077; 87086; 87186; 99213; G0463

== ENCOUNTER 2023-08-07 12:47 | Emergency (ER) | payer OTHER, SELFPAY ==
[2023-08-07 12:56] VITALS: BP 116/65; PULSE 83; RESP 16; TEMP 37.1; O2SAT 100
--- NOTE | 2023-08-07 13:36 | PC.NURSE ---
not in rm upon initial exam, was seen by other staff leaving. no exam done.
== END 2023-08-07 13:37 | disposition left against medical advice (07) ==
PROVIDERS: Emergency Provider Nurse Practitioner Family
DX: Z53.21 Procedure and treatment not carried out due to patient leaving prior to being seen by health care provider (principal)
CPT/HCPCS: 99199

== ENCOUNTER 2023-08-16 12:40 | Emergency (ER) | payer OTHER, SELFPAY ==
[2023-08-16 12:45] VITALS: BP 124/74; PULSE 76; RESP 18; TEMP 36.3; O2SAT 100
--- NOTE | 2023-08-16 13:56 | ED.NAVMDI ---
HPI - Nausea/Vomiting/Diarrhea General Chief complaint: Nausea/Vomiting/Diarrhea Stated complaint: nausea Time Seen by Provider: 08/16/23 13:30 Source: patient, RN notes reviewed and old records reviewed Mode of arrival: ambulatory Limitations: no limitations History of Present Illness HPI Narrative: 38-year-old female who presents [facility] complaints nausea starting yesterday evening. Patient reports no vomiting,diarrhea, no fevers, denies any abdominal pain or any burning with urination.Patient reports no changes in elimination last BM yesterday.. 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 She reports that she went to work this morning and was so nauseated she had to leave. Patient has had a hysterectomy, abdomen is soft with no pain on palpation.. MD elicited complaint: nausea Onset (ago): day(s) (1) Associated nausea: Yes Treatment prior to arrival: none Related Data Home Medications Medication Instructions Recorded Confirmed escitalopram oxalate 20 mg tablet 20 mg PO DAILY 01/07/22 10/01/22 trazodone 100 mg tablet 100 mg PO HS 02/02/22 10/01/22 aripiprazole 5 mg tablet (Abilify) 5 mg PO DAILY 05/22/22 10/01/22 clonidine HCl 0.1 mg tablet mg 08/07/23 fluoxetine 20 mg capsule mg 08/07/23 tizanidine 4 mg tablet mg 08/07/23 Allergies Allergy/AdvReac Type Severity Reaction Status Date / Time No Known Allergies Allergy Unknown Verified 08/16/23 13:14 Review of Systems Review of Systems: CONSTITUTIONAL: Denies fever, chills, or sweats. EYES: Denies visual changes, redness, or discharge. ENT: Denies rhinorrhea, congestion, sore throat, or otalgia. CARDIOVASCULAR: Denies chest pain, palpitations, or edema. RESPIRATORY: Denies cough or dyspnea. GASTROINTESTINAL: Denies abdominal pain, positive for nausea,no vomiting, or diarrhea. GENITOURINARY: Denies dysuria or hematuria. SKIN: Denies rash or itching. MUSCULOSKELETAL: reports chronic back pain,no joint pain, or myalgia. NEUROLOGIC: Denies headache, numbness, or weakness. PSYCHIATRIC: Positive for history of anxiety or depression. All systems reviewed & are unremarkable except as noted in HPI and below PMFSH Past Medical History Medical History (Updated 08/17/23 @ 18:39 by Charis Hager NP) Anxiety Arm fracture Back pain Depression Encounter for annual routine gynecological examination Frequent UTI Nexplanon insertion (12/18/12) Nexplanon removal (12/23/15) Pneumonia Surgical History Surgical History History of bilateral breast reduction surgery (06/23/12) History of 04/10/07 primary c/s--arrest of descent 11/30/10 rpt c/s w/tubal ligation History of dilation and curettage (05/17/16) hscope d&c/endometrial ablation--menometrorrhagia, dysmenorrhea--benign History of ovarian cystectomy (09/25/12) rt ovarian cystectomy History of robot-assisted laparoscopic hysterectomy (04/05/22) Robotic assisted total laparoscopic hysterectomy Bilateral salpingectomy History of tonsillectomy (~2002) History of tubal ligation (11/30/10) Family History Family History Grandparent Hypertension paternal grandfather paternal grandmother Diabetes mellitus paternal grandmother paternal grandfather Cerebrovascular accident maternal grandmother paternal grandmother Heart disease paternal grandfather Mother Alcoholism Social History Social History (Updated 08/17/23 @ 18:40 by Charis Hager NP) Smoking status: Former smoker Tobacco type: cigarettes Additional smoking assessment comments: Pt stated on and off socially, does not currently Alcohol intake: current Alcohol use details: 1-2 year rare use Substance use: never Substance use type: does not use Living arrangements: with roomma
== END 2023-08-16 14:20 | disposition home or self-care (01) ==
PROVIDERS: Emergency Provider Registered Nurse
DX: R11.0 Nausea (principal); Z87.891 Personal history of nicotine dependence; F41.9 Anxiety disorder, unspecified; F32.A Depression, unspecified; Z87.440 Personal history of urinary (tract) infections
CPT/HCPCS: 87081; 87880; 99213; G0463

== ENCOUNTER 2023-09-19 15:07 | Emergency (ER) | payer OTHER, SELFPAY ==
[2023-09-19 15:15] VITALS: BP 129/57; PULSE 80; RESP 18; TEMP 36.6; O2SAT 100
--- NOTE | 2023-09-19 15:53 | ED.URI ---
HPI - URI/Sore Throat General Chief Complaint: Upper Respiratory Infection Stated Complaint: Headache/Nausea/Sore Throat/Fever History of Present Illness HPI Narrative: Patient is a 38-year-old female, presents to [facility] with approximately 4 hour history of URI symptoms, including sore throat, nasal congestion, body aches, nausea and malaise. She has a slight cough. She states that she woke this morning feeling well and took a nap, waking feeling unwell. She schedule work tomorrow, prompting her visit. She denies known sick contacts, she has not taken any medication for symptom relief. She has not tested for COVID at home. She has no additional complaints. She is not . Related Data Home Medications Medication Instructions Recorded Confirmed escitalopram oxalate 20 mg tablet 20 mg PO DAILY 01/07/22 10/01/22 trazodone 100 mg tablet 100 mg PO HS 02/02/22 10/01/22 aripiprazole 5 mg tablet (Abilify) 5 mg PO DAILY 05/22/22 10/01/22 clonidine HCl 0.1 mg tablet mg 08/07/23 fluoxetine 20 mg capsule mg 08/07/23 tizanidine 4 mg tablet mg 08/07/23 methocarbamol 750 mg tablet mg 09/19/23 naproxen 500 mg tablet mg 09/19/23 Allergies Allergy/AdvReac Type Severity Reaction Status Date / Time No Known Allergies Allergy Unknown Verified 08/16/23 13:14 Review of Systems ENT: Comments: Refer to HPI Respiratory: Comments: refer to HPI Musculoskeletal: Comments: refer to HPI [facility] Past Medical History Medical History (Updated 09/19/23 @ 16:28 by CONSUELO Hauser) Anxiety Arm fracture Back pain Depression Encounter for annual routine gynecological examination Frequent UTI Nexplanon insertion (12/18/12) Nexplanon removal (12/23/15) Pneumonia Surgical History Surgical History History of bilateral breast reduction surgery (06/23/12) History of 04/10/07 primary c/s--arrest of descent 11/30/10 rpt c/s w/tubal ligation History of dilation and curettage (05/17/16) hscope d&c/endometrial ablation--menometrorrhagia, dysmenorrhea--benign History of ovarian cystectomy (09/25/12) rt ovarian cystectomy History of robot-assisted laparoscopic hysterectomy (04/05/22) Robotic assisted total laparoscopic hysterectomy Bilateral salpingectomy History of tonsillectomy (~2002) History of tubal ligation (11/30/10) Family History Family History Grandparent Hypertension paternal grandfather paternal grandmother Diabetes mellitus paternal grandmother paternal grandfather Cerebrovascular accident maternal grandmother paternal grandmother Heart disease paternal grandfather Mother Alcoholism Social History Social History (Updated 08/17/23 @ 18:40 by Charis Hager NP) Smoking status: Former smoker Tobacco type: cigarettes Additional smoking assessment comments: Pt stated on and off socially, does not currently Alcohol intake: current Alcohol use details: 1-2 year rare use Substance use: never Substance use type: does not use Living arrangements: with roommate(s) Additional living arrangements comments: Occupation/Education: unemployed 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
--- NOTE | 2023-09-24 12:44 | PC.NURSE ---
poc covid order vorb from 09/19/23 reordered and entered per [facility] manager developmental.
== END 2023-09-19 16:32 | disposition home or self-care (01) ==
PROVIDERS: Emergency Provider Nurse Practitioner Family
DX: J06.9 Acute upper respiratory infection, unspecified (principal); Z87.891 Personal history of nicotine dependence; F41.9 Anxiety disorder, unspecified; F32.A Depression, unspecified
CPT/HCPCS: 87426; 87636; 99213; G0463

== ENCOUNTER 2023-09-22 13:33 | Emergency (ER) | payer OTHER, SELFPAY ==
[2023-09-22 13:38] VITALS: BP 120/53; PULSE 78; RESP 20; TEMP 36.6; O2SAT 99
--- NOTE | 2023-09-22 13:44 | ED.URI ---
HPI - URI/Sore Throat General Chief Complaint: Upper Respiratory Infection Stated Complaint: throat/cough History of Present Illness HPI Narrative: Patient was here 3 days ago with same symptoms. Patient presents today with continued sore throat nasal congestion and cough. No fever no body aches no shortness of breath and no chest pain. Patient is not taking anything [id number] for her symptoms. Patient is here today requesting a work note. Related Data Home Medications Medication Instructions Recorded Confirmed clonidine HCl 0.1 mg tablet 0.1 mg PO DAILY 09/22/23 09/22/23 fluoxetine 20 mg capsule 20 mg PO DAILY 09/22/23 09/22/23 methocarbamol 750 mg tablet See Rx Instructions .Route .COMPLEX 09/22/23 09/22/23 naproxen 500 mg tablet See Rx Instructions .Route .COMPLEX 09/22/23 09/22/23 tizanidine 4 mg tablet 4 mg PO BID 09/22/23 09/22/23 trazodone 50 mg tablet 50 mg PO DAILY 09/22/23 09/22/23 Allergies Allergy/AdvReac Type Severity Reaction Status Date / Time No Known Allergies Allergy Unknown Verified 09/22/23 13:40 Review of Systems Review of Systems: CONSTITUTIONAL: Denies fever, chills, or sweats. EYES: Denies visual changes, redness, or discharge. ENT: Denies rhinorrhea, congestion, sore throat, or otalgia. CARDIOVASCULAR: Denies chest pain, palpitations, or edema. RESPIRATORY: Denies cough or dyspnea. GASTROINTESTINAL: Denies abdominal pain, nausea, vomiting, or diarrhea. GENITOURINARY: Denies dysuria or hematuria. SKIN: Denies rash or itching. MUSCULOSKELETAL: Denies back pain, joint pain, or myalgia. NEUROLOGIC: Denies headache, numbness, or weakness. PSYCHIATRIC: Denies anxiety or depression. [facility] Past Medical History Medical History (Updated 09/22/23 @ 13:53 by CONSUELO Tanner) Anxiety Arm fracture Back pain Depression Encounter for annual routine gynecological examination Frequent UTI Nexplanon insertion (12/18/12) Nexplanon removal (12/23/15) Pneumonia Surgical History Surgical History History of bilateral breast reduction surgery (06/23/12) History of 02/14/08 primary c/s--arrest of descent 11/30/10 rpt c/s w/tubal ligation History of dilation and curettage (05/17/16) hscope d&c/endometrial ablation--menometrorrhagia, dysmenorrhea--benign History of ovarian cystectomy (09/25/12) rt ovarian cystectomy History of robot-assisted laparoscopic hysterectomy (04/05/22) Robotic assisted total laparoscopic hysterectomy Bilateral salpingectomy History of tonsillectomy (~2002) History of tubal ligation (11/30/10) Family History Family History Grandparent Hypertension paternal grandfather paternal grandmother Diabetes mellitus paternal grandmother paternal grandfather Cerebrovascular accident maternal grandmother paternal grandmother Heart disease paternal grandfather Mother Alcoholism Social History Social History (Updated 08/17/23 @ 18:40 by Charis Hager NP) Smoking status: Former smoker Tobacco type: cigarettes Additional smoking assessment comments: Pt stated on and off socially, does not currently Alcohol intake: current Alcohol use details: 1-2 year rare use Substance use: never Substance use type: does not use Living arrangements: with roommate(s) Additional living arrangements comments: Occupation/Education: unemployed Additional occupation/education comments: [employer] Gender identity (if verbalized by the patient): Female Sexual Orientation (if Verbalized by the Patient): Straight or Heterosexual Spiritual care concerns: No Comments At time of signature, agree with nursing past medical, surgical, social and family history. There is no relevant family history pertinent to the presenting complaint Exam Narrative: The patient is a well-developed, w
== END 2023-09-22 14:10 | disposition home or self-care (01) ==
PROVIDERS: Emergency Provider Nurse Practitioner Family
DX: J02.9 Acute pharyngitis, unspecified (principal); J06.9 Acute upper respiratory infection, unspecified; Z87.891 Personal history of nicotine dependence; F41.9 Anxiety disorder, unspecified; F32.A Depression, unspecified
CPT/HCPCS: 87070; 99213; G0463

== ENCOUNTER 2023-09-25 12:27 | Emergency (ER) | payer OTHER, SELFPAY ==
[2023-09-25 12:36] VITALS: BP 113/53; PULSE 74; RESP 16; TEMP 36.6; O2SAT 99
[2023-09-25 12:59] LABS: EDUAAPPEAR Cloudy; EDUABILI Negative; EDUABLOOD Trace; EDUACOLOR1 Yellow; EDUAGLUCOSE Negative; EDUAKETONE Negative; EDUALEUKO 3+; EDUANITRATE Positive; EDUAPROTEIN Negative; EDUAUROBILI 0.2
--- NOTE | 2023-09-25 13:02 | ED.FEMALEGU ---
HPI - Female Genitourinary General Chief complaint: Urogenital-Female Stated complaint: poss UTI Source: patient and RN notes reviewed Mode of arrival: ambulatory Limitations: no limitations History of Present Illness HPI Narrative: 30-year-old female presented for complaint of burning with urination, onset over the past few days. States she noted urine to be cloudy with foul odor And white vaginal discharge with occasional itching today. denies hematuria, nausea, vomiting, abdominal pain, flank pain, constipation, diarrhea, fevers or chills. history of hysterectomy. Denies concern for STD. Related Data Home Medications Medication Instructions Recorded Confirmed clonidine HCl 0.1 mg tablet 0.1 mg PO DAILY 09/22/23 09/22/23 fluoxetine 20 mg capsule 20 mg PO DAILY 09/22/23 09/22/23 methocarbamol 750 mg tablet See Rx Instructions .Route .COMPLEX 09/22/23 09/22/23 naproxen 500 mg tablet See Rx Instructions .Route .COMPLEX 09/22/23 09/22/23 tizanidine 4 mg tablet 4 mg PO BID 09/22/23 09/22/23 trazodone 50 mg tablet 50 mg PO DAILY 09/22/23 09/22/23 Allergies Allergy/AdvReac Type Severity Reaction Status Date / Time No Known Allergies Allergy Unknown Verified 09/22/23 13:40 Review of Systems Review of Systems: CONSTITUTIONAL: Denies body aches, fever, chills, or sweats. CARDIOVASCULAR: Denies chest pain, palpitations, or edema. RESPIRATORY: Denies cough or dyspnea. GASTROINTESTINAL: Denies abdominal pain, nausea, vomiting, or diarrhea. GENITOURINARY: Reports dysuria, frequency, urgency, denieshematuria, flank pain SKIN: Denies rash, itching, or wounds. MUSCULOSKELETAL: Denies back pain or myalgia. [facility] Past Medical History Medical History Anxiety Arm fracture Back pain Depression Encounter for annual routine gynecological examination Frequent UTI Nexplanon insertion (12/18/12) Nexplanon removal (12/23/15) Pneumonia Surgical History Surgical History History of bilateral breast reduction surgery (06/23/12) History of 04/10/07 primary c/s--arrest of descent 11/30/10 rpt c/s w/tubal ligation History of dilation and curettage (05/17/16) hscope d&c/endometrial ablation--menometrorrhagia, dysmenorrhea--benign History of ovarian cystectomy (09/25/12) rt ovarian cystectomy History of robot-assisted laparoscopic hysterectomy (04/05/22) Robotic assisted total laparoscopic hysterectomy Bilateral salpingectomy History of tonsillectomy (~2002) History of tubal ligation (11/30/10) Family History Family History Grandparent Hypertension paternal grandfather paternal grandmother Diabetes mellitus paternal grandmother paternal grandfather Cerebrovascular accident maternal grandmother paternal grandmother Heart disease paternal grandfather Mother Alcoholism Social History Social History Smoking status: Former smoker Tobacco type: cigarettes Additional smoking assessment comments: Pt stated on and off socially, does not currently Alcohol intake: current Alcohol use details: 1-2 year rare use Substance use: never Substance use type: does not use Living arrangements: with roommate(s) Additional living arrangements comments: Occupation/Education: unemployed 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 Please see nursing chart for further information. There is no relevant family history pertinent t
== END 2023-09-25 13:18 | disposition home or self-care (01) ==
PROVIDERS: Emergency Provider Nurse Practitioner Family
DX: N39.0 Urinary tract infection, site not specified (principal); B96.20 Unspecified Escherichia coli [E. coli] as the cause of diseases classified elsewhere; Z87.891 Personal history of nicotine dependence; F41.9 Anxiety disorder, unspecified; F32.A Depression, unspecified
CPT/HCPCS: 81003; 87077; 87086; 87088; 87186; 99213; G0463

== ENCOUNTER 2023-11-21 11:12 | Emergency (ER) | payer OTHER, SELFPAY ==
[2023-11-21 11:18] VITALS: BP 112/43; PULSE 73; RESP 20; TEMP 37.1; O2SAT 100
--- NOTE | 2023-11-21 11:35 | ED.UPPEXIN ---
HPI - Extremity Injury (Upper) General Chief Complaint: Extremity Injury, Upper Stated Complaint: WC left shoulder injury Time Seen by Provider: 11/21/23 11:35 Source: patient Mode of arrival: ambulatory Limitations: no limitations History of Present Illness HPI narrative: 38 yo F presents with c/o pain to L shoulder. Thinks he pulled a muscle. Was transferring a pt from his bed to a chair. Was not using any type of lift machine or gait belt. States she she turned with pt and sat him into chair with felt pulling in L shoulder. Was sent her by her work due to injury. All systems reviewed and negative except as noted above. Related Data Home Medications Medication Instructions Recorded Confirmed clonidine HCl 0.1 mg tablet 0.1 mg PO DAILY 09/22/23 09/22/23 fluoxetine 20 mg capsule 20 mg PO DAILY 09/22/23 09/22/23 methocarbamol 750 mg tablet See Rx Instructions .Route .COMPLEX 09/22/23 09/22/23 naproxen 500 mg tablet See Rx Instructions .Route .COMPLEX 09/22/23 09/22/23 tizanidine 4 mg tablet 4 mg PO BID 09/22/23 09/22/23 trazodone 50 mg tablet 50 mg PO DAILY 09/22/23 09/22/23 Allergies Allergy/AdvReac Type Severity Reaction Status Date / Time No Known Allergies Allergy Unknown Verified 09/22/23 13:40 Review of Systems Review of Systems: CONSTITUTIONAL: Denies fever, chills, or sweats. EYES: Denies visual changes, redness, or discharge. ENT: Denies rhinorrhea, congestion, sore throat, or otalgia. CARDIOVASCULAR: Denies chest pain, palpitations, or edema. RESPIRATORY: Denies cough or dyspnea. GASTROINTESTINAL: Denies abdominal pain, nausea, vomiting, or diarrhea. GENITOURINARY: Denies dysuria or hematuria. SKIN: Denies rash or itching. MUSCULOSKELETAL: Denies back pain or myalgia. Reports left shoulder pain. NEUROLOGIC: Denies headache, numbness, or weakness. PSYCHIATRIC: Denies anxiety or depression. All other systems reviewed are negative, except as documented in HPI. [facility] Past Medical History Medical History Anxiety Arm fracture Back pain Depression Encounter for annual routine gynecological examination Frequent UTI Nexplanon insertion (12/18/12) Nexplanon removal (12/23/15) Pneumonia Surgical History Surgical History History of bilateral breast reduction surgery (06/23/12) History of 04/10/07 primary c/s--arrest of descent 11/30/10 rpt c/s w/tubal ligation History of dilation and curettage (05/17/16) hscope d&c/endometrial ablation--menometrorrhagia, dysmenorrhea--benign History of ovarian cystectomy (09/25/12) rt ovarian cystectomy History of robot-assisted laparoscopic hysterectomy (04/05/22) Robotic assisted total laparoscopic hysterectomy Bilateral salpingectomy History of tonsillectomy (~2002) History of tubal ligation (11/30/10) Family History Family History Grandparent Hypertension paternal grandfather paternal grandmother Diabetes mellitus paternal grandmother paternal grandfather Cerebrovascular accident maternal grandmother paternal grandmother Heart disease paternal grandfather Mother Alcoholism Social History Social History Smoking status: Former smoker Tobacco type: cigarettes Additional smoking assessment comments: Pt stated on and off socially, does not currently Alcohol intake: current Alcohol use details: 1-2 year rare use Substance use: never Substance use type: does not use Living arrangements: with roommate(s) Additional living arrangements comments: Occupation/Education: unemployed Additional occupation/education comments: [employer] Gender identity (if verbalized by the patient): Female Sexual Orientation (if Verbalized by the Patient): Straight or Heterosexual
== END 2023-11-21 11:51 | disposition home or self-care (01) ==
PROVIDERS: Emergency Provider Nurse Practitioner Family
DX: S46.912A Strain of unspecified muscle, fascia and tendon at shoulder and upper arm level, left arm, initial encounter (principal); Z87.891 Personal history of nicotine dependence; X50.9XXA Other and unspecified overexertion or strenuous movements or postures, initial encounter; Y99.0 Civilian activity done for income or pay
CPT/HCPCS: 99212; G0463

== ENCOUNTER 2024-01-09 11:45 | Emergency (ER) | payer OTHER, SELFPAY ==
--- NOTE | 2024-01-09 12:09 | ED.GENADULT ---
HPI - General Adult General Chief complaint: Nausea/Vomiting/Diarrhea Stated complaint: Nausea/Chills/Body Aches/Headache Time Seen by Provider: 01/09/24 12:09 Source: patient, RN notes reviewed and old records reviewed Mode of arrival: ambulatory Limitations: no limitations History of Present Illness HPI narrative: 38-year-old female to Express Care with complaint headache and loose stools since Saturday, subjective fever, and vomiting once today while at work. Patient has not attempted to treat symptoms at home. Patient denies pertinent medical history, allergies, abdominal pain. Patient resting comfortably in exam room in no acute distress. Patient requesting work note. Related Data Home Medications Medication Instructions Recorded Confirmed clonidine HCl 0.1 mg tablet 0.1 mg PO DAILY 09/22/23 09/22/23 fluoxetine 20 mg capsule 20 mg PO DAILY 09/22/23 09/22/23 methocarbamol 750 mg tablet See Rx Instructions .Route .COMPLEX 09/22/23 09/22/23 naproxen 500 mg tablet See Rx Instructions .Route .COMPLEX 09/22/23 09/22/23 tizanidine 4 mg tablet 4 mg PO BID 09/22/23 09/22/23 trazodone 50 mg tablet 50 mg PO DAILY 09/22/23 09/22/23 Allergies Allergy/AdvReac Type Severity Reaction Status Date / Time No Known Allergies Allergy Unknown Verified 09/22/23 13:40 Review of Systems Review of Systems: All systems reviewed & are unremarkable except as noted in HPI and below Constitutional: Constitutional: Reports as per HPI, Reports fever(s) ( Subjective) and Reports headache(s) Eyes: Eyes: Reports no additional eye complaints ENT: Reports system reviewed and no additional complaints, except as documented Cardiovascular: Cardiovascular: Reports no additional cardiovascular complaints, Denies chest pain and Denies dyspnea Respiratory: Respiratory: Reports no additional respiratory complaints, Denies cough and Denies dyspnea Gastrointestinal: Gastrointestinal: Reports as per HPI, Reports loose stools and Reports vomiting Musculoskeletal: Musculoskeletal: Reports no additional musculoskeletal complaints Neurologic: Reports system reviewed and no additional complaints, except as documented Psychiatric: Psychiatric: Reports no additional psychiatric complaints PMFSH Past Medical History Medical History Anxiety Arm fracture Back pain Depression Encounter for annual routine gynecological examination Frequent UTI Nexplanon insertion (12/18/12) Nexplanon removal (12/23/15) Pneumonia Surgical History Surgical History History of bilateral breast reduction surgery (06/23/12) History of 04/10/07 primary c/s--arrest of descent 11/30/10 rpt c/s w/tubal ligation History of dilation and curettage (05/17/16) hscope d&c/endometrial ablation--menometrorrhagia, dysmenorrhea--benign History of ovarian cystectomy (09/25/12) rt ovarian cystectomy History of robot-assisted laparoscopic hysterectomy (04/05/22) Robotic assisted total laparoscopic hysterectomy Bilateral salpingectomy History of tonsillectomy (~2002) History of tubal ligation (11/30/10) Family History Family History Grandparent Hypertension paternal grandfather paternal grandmother Diabetes mellitus paternal grandmother paternal grandfather Cerebrovascular accident maternal grandmother paternal grandmother Heart disease paternal grandfather Mother Alcoholism Social History Social History Smoking status: Former smoker Tobacco type: cigarettes Additional smoking assessment comments: Pt stated on and off socially, does not currently Alcohol intake: current Alcohol use details: 1-2 year rare use Substance use: never Substance use type: does not use Living arrangements: with roommate(s) Additional living arrangements comments: Occupation/Education: unemployed 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 There is no relevant family history pertinent to the patient complaint. Exam Const: General: cooperative, comfortable, no acute distress, alert and well nourished Nutritional Appearance: well nourished Orientation/consciousness: patient oriented x3 Limitations: no limitations HENMT: Head: normal to inspection Ears: external ears normal Face/Nose/Sinus: Normal external nose present, Normal nares present, normal facial exam, No erythema and No edema Face and sinus: normal facial exam, no erythema and no edema Mouth: Yes Normal oral and palatal mucosa present Eyes: General: appearance normal, both eyes and all related structures Neck: Neck: normal visual inspection, full ROM and no meningeal signs Lymphatic: no lymphadenopathy noted and no lymphedema noted Chest: Chest palpation & inspection: normal inspection of the chest Resp: Effort & Inspection: normal respiratory effort and able to speak in complete sentences Auscultation: clear to auscultation bilaterally Cardio: Jugular venous distension: no JVD Rate: regular rate Rhythm: regular rhythm GI: Inspection: normal to inspection Back/Spine/Pelvis: Cervical Spine: cervical ROM normal Skin: General skin exam: normal color, no rashes or lesions noted and turgor normal Neuro: General: patient oriented x3, gait normal, moves all extremities and no meningeal signs Speech: normal speech Gait exam (Neuro): Normal gait present Extrem: General: normal to inspection, full ROM and capillary refill normal Psych: Appearance: grossly normal and well kempt Course Course Emergency Course: Some parts of this dictation were generated by voice recognition software and may contain typographical and/or grammatical inaccuracies. Level of Care: Express Care Visit Vital Signs Vital signs: Vital Signs Temperature 36.7 C 01/09/24 12:13 Pulse Rate 77 01/09/24 12:13 Respiratory Rate 20 01/09/24 12:13 Blood Pressure 101/52 L 01/09/24 12:13 Pulse Oximetry 100 01/09/24 12:13 Oxygen Delivery Room Air 01/09/24 12:13 Temperature 36.7 C 01/09/24 12:13 Pulse Rate 77 01/09/24 12:13 Respiratory Rate 20 01/09/24 12:13 Blood Pressure 101/52 L 01/09/24 12:13 Pulse Oximetry 100 01/09/24 12:13 Oxygen Delivery Room Air 01/09/24 12:13 reviewed Medical Decision Making MDM Narrative Medical decision making narrative: 38-year-old female to Express Care with complaint headache and loose stools since Saturday, subjective fever, and vomiting once today while at work. Patient has not attempted to treat symptoms at home. Patient denies pertinent medical history, allergies, abdominal pain. Patient resting comfortably in exam room in no acute distress. Patient requesting work note. Patient is sitting comfortably in exam room nontoxic in appearance. patient exam unremarkable. Patient appropriate for outpatient treatment and follow-up. Discharge instructions reviewed with patient, as well as provided in writing per nursing staff. The instructions also include specific and strict return/GO TO THE ER as well as f/u information. All questions have been answered, and the patient deny any further questions with discharge and discharge plan. Some parts of this dictation were generated by voice recognition software and may contain typographical and/or grammatical inaccuracies. Differential Diagnosis Differential Diagnosis: Gastroenteritis, viral infection, appendicitis, food poisoning, COVID, influenza Vital Signs Vital Signs: Vital Signs Temperature 36.7 C 01/09/24 12:13 Pulse Rate 77 01/09/24 12:13 Respiratory Rate 20 01/09/24 12:13 Blood Pressure 101/52 L 01/09/24 12:13 Pulse Oximetry 100 01/09/24 12:13 Oxygen Delivery Room Air 01/09/24 12:13 Temperature 36.7 C 01/09/24 12:13 Pulse Rate 77 01/09/24 12:13 Respiratory Rate 20 01/09/24 12:13 Blood Pressure 101/52 L 01/09/24 12:13 Pulse Oximetry 100 01/09/24 12:13 Oxygen Delivery Room Air 01/09/24 12:13 Discharge Plan Discharge Clinical Impression: Gastroenteritis Patient Disposition: Home, Self-Care Condition: Stable Instructions: Gastroenteritis (ED) Additional Instructions: please review attached instructions regarding gastroenteritis implement suggestions as tolerated for new or worsening symptoms go directly to the emergency department Prescriptions: No Action clonidine HCl 0.1 mg tablet 0.1 mg PO DAILY trazodone 50 mg tablet 50 mg PO DAILY fluoxetine 20 mg capsule 20 mg PO DAILY tizanidine 4 mg tablet 4 mg PO BID methocarbamol 750 mg tablet See Rx Instructions .ROUTE .COMPLEX Rx Instructions: as prescribed naproxen 500 mg tablet See Rx Instructions .ROUTE .COMPLEX Rx Instructions: as prescribed fluticasone propionate [Flonase Allergy Relief] 50 mcg/actuation spray,suspension 2 spray NASAL BID 14 Days Qty: 9.9 0RF Rx Instructions: administer into each nostril nitrofurantoin monohyd/m-cryst [Macrobid] 100 mg capsule 100 mg PO Q12H 5 Days Qty: 10 0RF Rx Instructions: must administer with a meal/food Follow-up/Referrals: Mary Ellen Kim, RN [Primary Care Provider] - Stand Alone Forms: Work/School Release IP
[2024-01-09 12:13] VITALS: BP 101/52; PULSE 77; RESP 20; TEMP 36.7; O2SAT 100
== END 2024-01-09 12:41 | disposition home or self-care (01) ==
PROVIDERS: Emergency Provider Nurse Practitioner Family
DX: K52.9 Noninfective gastroenteritis and colitis, unspecified (principal); Z87.891 Personal history of nicotine dependence; F41.9 Anxiety disorder, unspecified; F32.A Depression, unspecified
CPT/HCPCS: 99211; G0463

== ENCOUNTER 2024-03-09 12:35 | Emergency (ER) | payer OTHER, SELFPAY ==
[2024-03-09 12:42] VITALS: BP 130/57; PULSE 81; RESP 20; TEMP 36.8; O2SAT 100
--- NOTE | 2024-03-09 12:54 | ED.DIZZY ---
HPI - Dizziness General Chief Complaint: Dizziness Stated Complaint: dizzy/nausea/vertigo Time Seen by Provider: 03/09/24 12:55 Source: patient and RN notes reviewed Mode of arrival: ambulatory Limitations: no limitations History of Present Illness HPI Narrative: 39-year-old female presented for complaint of dizziness since 0600 today. Patient says she was at work when it started, when she stood up from a chair. Dizziness was worse with movement of the head or walking. Described as room spinning sensation earlier, rating it 7/10 but is now improving. Also reports feeling off balance. States she was scheduled with her PCP today for this complaint, but did not feel safe to drive to the PCP office due to the dizziness. Pt states this is the 3rd episode of dizziness in the past few months, has had normal labs and EKG. Scheduled with occupational therapy tomorrow per pt. Took 2 meclizine since onset. Denies associated chest pain, palpitations, nausea, vomiting, sweating, cough or fever. Related Data Home Medications ?Medication ?Instructions ?Recorded ?Confirmed ?Last Taken ?Type fluoxetine 20 mg capsule 20 mg PO DAILY 09/22/23 09/22/23 Unknown History trazodone 50 mg tablet 50 mg PO DAILY 09/22/23 09/22/23 Unknown History amitriptyline 10 mg tablet 10 mg PO DAILY 03/09/24 Unknown History meloxicam 15 mg tablet 15 mg PO DAILY 03/09/24 Unknown History Allergies Allergy/AdvReac Type Severity Reaction Status Date / Time No Known Allergies Allergy Unknown Verified 03/09/24 12:48 Review of Systems Review of Systems: CONSTITUTIONAL: Denies body aches, fever, chills, or sweats. EYES: Denies visual changes, photophobia, redness, or discharge. ENT: Denies rhinorrhea, congestion, sore throat, or otalgia. CARDIOVASCULAR: Denies chest pain, palpitations, or edema. RESPIRATORY: Denies cough or dyspnea. GASTROINTESTINAL: Denies abdominal pain, nausea, vomiting, or diarrhea. SKIN: Denies rash MUSCULOSKELETAL: Denies back pain, joint pain, or myalgia. NEUROLOGIC: Endorses dizziness denies headache, numbness, tingling, or weakness, All systems reviewed & are unremarkable except as noted in HPI and below PMFSH Past Medical History Medical History Back pain Encounter for annual routine gynecological examination Nexplanon removal (12/23/15) Nexplanon insertion (12/18/12) Arm fracture Pneumonia Frequent UTI Depression Anxiety Surgical History Surgical History History of robot-assisted laparoscopic hysterectomy (04/05/22) Robotic assisted total laparoscopic hysterectomy Bilateral salpingectomy History of dilation and curettage (05/17/16) hscope d&c/endometrial ablation--menometrorrhagia, dysmenorrhea--benign History of ovarian cystectomy (09/25/12) rt ovarian cystectomy History of bilateral breast reduction surgery (06/23/12) History of tubal ligation (11/30/10) History of 04/10/07 primary c/s--arrest of descent 11/30/10 rpt c/s w/tubal ligation History of tonsillectomy (~2002) Family History Family History Grandparent Hypertension paternal grandfather paternal grandmother Diabetes mellitus paternal grandmother paternal grandfather Cerebrovascular accident maternal grandmother paternal grandmother Heart disease paternal grandfather Mother Alcoholism Social History Social History Smoking status: Former smoker Tobacco type: cigarettes Additional smoking assessment comments: Pt stated on and off socially, does not currently Alcohol intake: current Alcohol use details: 1-2 year rare use Substance use: never Substance use type: does not use Living arrangements: with roommate(s) Additional living arrangements comments: Occupation/Education: unemployed 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 Please see nursing chart for further information. There is no relevant family history pertinent to the presenting complaint Exam Narrative: GENERAL: Well-appearing HEAD: Normocephalic, atraumatic. EYES: PERRLA, EOMI. ENT: Mucous membranes pink and moist. No rhinorrhea. TMs normal bilaterally. NECK: Normal AROM. Supple. No lymphadenopathy. CHEST: No respiratory distress. Clear to auscultation. HEART: Regular rate and rhythm. No murmur appreciated. Normal peripheral pulses. ABDOMEN: Soft, nontender, nondistended, normal active bowel sounds. SKIN: Warm, dry, no rash. Capillary refill normal. Normal skin turgor. NEURO:No focal deficits. Alert and oriented x3. Finger to nose intact bilaterally. EOMs intact without nystagmus. No facial droop/asymmetry noted bilaterally. Grimace intact. Intact sensation in face. Hearing intact bilaterally. Shoulder shrug intact. Strength 5/5 bilateral upper extremities. Strength 5/5 bilateral lower extremities. Ambulatory exam with a normal based, steady gait. PSYCH: Normal affect. No signs of depression or anxiety. Course Course Emergency Course: Patient is aware of diagnosis, understands and agrees to treatment plan. Anticipatory guidance given. Patient agrees to follow-up as directed and is aware of reasons to seek care at the emergency department. Portions of this record may have been created with voice recognition software Level of Care: Express Care Visit Vital Signs Vital signs: Vital Signs Temperature 98.3 F 03/09/24 12:42 Pulse Rate 81 03/09/24 12:42 Respiratory Rate 20 03/09/24 12:42 Blood Pressure 130/57 L 03/09/24 12:42 Pulse Oximetry 100 03/09/24 12:42 Oxygen Delivery Room Air 03/09/24 12:42 Temperature 98.3 F 03/09/24 12:42 Pulse Rate 81 03/09/24 12:42 Respiratory Rate 20 03/09/24 12:42 Blood Pressure 130/57 L 03/09/24 12:42 Pulse Oximetry 100 03/09/24 12:42 Oxygen Delivery Room Air 03/09/24 12:42 MDM - Dizziness MDM Narrative Medical decision making narrative: Discussed physical exam findings, most c/w bppv. Offered ER transfer, pt declined stating symptoms are better and she just mostly needs a work note for today. Advised against driving. Reviewed RX and Yesika maneuver. Advised supportive measures and signs/symptoms to go to the ER. Pt is appropriate for outpt treatment and f/u with pcp cirilo. Differential Diagnosis Differential diagnosis: Likely benign paroxysmal positional vertigo, orthostatic hypotension, vertebral basilar insufficiency, cerebrovascular accident, acute vestibular neuronitis and transient cerebral ischemia Discharge Plan Discharge Clinical Impression: Benign paroxysmal positional vertigo Qualifiers: Laterality: unspecified laterality Qualified Code(s): H81.10 - Benign paroxysmal vertigo, unspecified ear Patient Disposition: Home, Self-Care Condition: Stable Instructions: Antibiotic Form, Benign Paroxysmal Positional Vertigo (ED) Additional Instructions: Do not drive when you are feeling dizzy. Change positions slowly Sit down immediately if you feel dizzy or lightheaded Increase water intake, stay hydrated Take medication as directed You can try the repositioning maneuvers Watch for worsening symptoms (headache, vision changes, dizziness that does not go away, chest pain, heart racing, sweating) Go to the ER for these symptoms or any other concerns. follow-up with your primary care provider, call today to schedule an appointment. Patient Language: Serbian Prescriptions: New meclizine 25 mg tablet 25 mg PO TID Qty: 30 0RF No Action trazodone 50 mg tablet 50 mg PO DAILY fluoxetine 20 mg capsule 20 mg PO DAILY amitriptyline 10 mg tablet 10 mg PO DAILY meloxicam 15 mg tablet 15 mg PO DAILY Follow-up/Referrals: Mary Ellen Kim RN [Primary Care Provider] - Stand Alone Forms: Work/School Release IP Quality Bowman Coma Scale Verbal: Oriented and Alert Motor: Follows Commands Acute Stroke Pre-Treatment Evaluation Acute Ischemic Stroke Pretreatment Evaluation: Acute Ischemic Stroke Pre-Treatment Evaluation Inclusion Criteria (must answer yes to questions 1 and 2) 1. Age 18 Years Or Older: No 2. Onset Of Stroke Symptoms Well Established To Be Less Than 3 Hours: No 3. Clinical Diagnosis Of Ischemic Stroke Causing Measureable Neurological Deficit And A Non-Contrast Head CT Showing NO Hemorrage: No Contraindications (0-3 Hours) 5. Stroke Or Severe Head Trauma Within Past 3 Months: No 6. Known History Of Intracranial Hemorrage: No 7. Symptoms Or Clinical Presentation Suggestion Of Subarachnoid hemorrhage: No 8. Gastrointestinal Or Urinary Tract hemorrhage Within 21 Days: No 9. Prothrombin Time (TP) Greater Than 15 Seconds or An INR Greater Than 1.7 Or An Elevated Activated Partial Throboplastin Time (aPTT): No 10. Platelet Count <100,000/ml: No 11. Glucose Lower Than 50mg/dl Or Greater than 400mg/dl: No 12. Seizure At Onset Stroke: No 13. Acute Myocardial Infarction Or Post Myocardial Infarction Pericarditis: No 14. Arterial Puncture At A Non-Compressible Site, Biopsy of Internal Organ, Within The Preceding 7 Days: No 15. Major Surgery Or Serious Trauma (Besides Head) In The Previous 14 Days: No 16. Uncontrolled Or Sustained SBP (systolic>185 mmHg) or DBP (diastolic>110 mmHg) Or Requiring Aggressive Treatment To Lower: No 17. : No Contraindications (3-4.5 Hours) 1. Age Less Than 18 or Greater Than 80 years: No 2. Severe Stroke Assessed Clinically (NIHSS Score Greater Than 25): No 3. Combination Or Previous Stroke Or Diabetes Mellitus: No 4. Symptoms Minor Or Rapidly Improving: No
== END 2024-03-09 13:15 | disposition home or self-care (01) ==
PROVIDERS: Emergency Provider Nurse Practitioner Family
DX: H81.10 Benign paroxysmal vertigo, unspecified ear (principal); Z87.891 Personal history of nicotine dependence; F41.9 Anxiety disorder, unspecified; F32.A Depression, unspecified
CPT/HCPCS: 99213; G0463

== ENCOUNTER 2024-03-23 13:17 | Emergency (ER) | payer OTHER, SELFPAY ==
[2024-03-23 13:25] VITALS: BP 131/71; PULSE 90; RESP 20; TEMP 36.6; O2SAT 98
--- OUTSIDE RECORDS SUMMARY | 2024-03-23 13:58 | XMS_ITS | Continuity of Care Document ---
Author Organization [facility] Address [address] [place] [address] Phone Care Team Providers Care Private Investigator Surveillance Name Role Phone Ara Herman DO Unavailable [...] Diagnoses Date Provider Providers Copied on Encounter [facility], [address], [place], [place], [id number] , [place] tel:[phone] [facility] No Information 2 Batsheva Bullock. [address], [place], [place], [id number] , [place]. tel:[phone] [facility], [address], [place], [place], [id number] , [place] tel: [phone] [facility] No Information 2 Batsheva Ara. [address], [place], [place], [address] , [place]. tel: [phone] [facility], [address], [place], [place], [id number] , [place] tel: [phone] [facility] No Information 2 Batsheva Ara. [address], [place], [place], [id number] , [place]. tel: [phone] [facility], [address], [place], [place], [id number] , [place] tel: [phone] [facility] No Information 2 Batsheva Ara. [address], [place], [place], [id number] , [place]. tel: [phone] [facility], [address], [place], [place], [address] , [place] tel: [phone] [facility] No Information 1 Batsheva Ara. [address], [place], [place], [address] , [place]. tel: [phone] OFFICE/OUTPA TIENT VISIT, [facility] IV [facility], [address], [place], [place], [address] , [place] tel: [phone] [facility] anxiety (chief complaint) insomnia (chief complaint) Body mass index (BMI) 33.0-33.9, adultAnxiety and depressionSituational insomnia 1 Batsheva Ara. [address], [place], [place], [id number] , [place]. tel: [phone] Referring Provider: Ara Mann, [address], [place], [address] . tel:[phone] OFFICE/OUTPA TIENT VISIT, NEW IV [facility], [address], [place], [place], [address] , tel:[phone] [facility] anxiety (chief complaint) Anxiety and depressionDepression, unspecifiedSituationa l insomnia Batsheva Bullock. [address], [place], [place], [address] , [place]. tel:[phone] Referring Provider: Ara Mann, [address], [place], [address] . tel:[phone] Family History Family Member Type Diagnosis Age At Onset Father Problem alcoholism Mother Problem alcoholism Father Problem depression Mother Problem depression Immunizations Vaccine Date Status Comments Influenza, injectable, MDCK, preservative free, quadrivalent administered Source: Other Provider Influenza, injectable, quadr ivalent with preservative, MDCK, 0.5 mL dosage, Flucelvax Quad administered Source: Public Agency Payers Payer name Insurance type Covered republican ID Authorarnolda marii(s) [facility] [id number] Social History Type Description Quantity Date Captured [...] Influenza vaccine. Due on No due Goal Td vaccine. Due on due Goal Lifestyle education mathew [...]
--- OUTSIDE RECORDS SUMMARY | 2024-03-23 13:58 | XMS_ITS | Continuity of Care Document ---
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 [address], [address], [place], [place], [address] , [place]. tel:[phone] Referring Provider: [address], [place], [place], [address]. tel:[phone] OFFICE/OUTPA TIENT VISIT, [facility], [address], [place], [place], [address], [place] tel:[phone] [facility] UTI1 (chief complaint) insmonia1 (chief complaint) anxiety1 (chief complaint) Generalized Anxiety DisorderInsomniaUri nary tract infection Alexandre Rae. [address], [address], [place], [place], [address] , [place]. [phone] Referring Provider: [address], [place], [place], [address]. tel:[phone] OFFICE/OUTPA TIENT VISIT, [facility], [address], [place], [place], [address], [place] tel:[phone] [facility] anxiety1 (chief complaint) sleep apnea1 (chief complaint) InsomniaGeneralized Anxiety DisorderBody mass index (BMI) 32.0-32.9, adult Alexandre Cabrera [address], [address], [place], [place], [address] , [place]. tel:[phone] Referring Provider: [address], [place], [place], [address]. tel:[phone] OFFICE/OUTPA TIENT VISIT, [facility], [address], [place], [place], [address], [place] tel:[phone] [facility] HLP (chief complaint) vitmai D (chief complaint) anxiety1 (chief complaint) insomnia1 (chief complaint) hand weakness1 (chief complaint) InsomniaHyperlipide miaVitamin D deficiency, unspecifiedGenerali zed Anxiety Disorder Alexandre Cabrera [address], [address], [place], [place], [address] , [place]. tel:[phone] Referring Provider: [address], [place], [place], [address]. tel:[phone] PREV VISIT, NEW, AGE 18-39 [facility], [address], [place], [place], [address], [place] tel:[phone] [facility] Physical (chief complaint) Encounter for general adult medical exam w abnormal findingsGeneralized Anxiety DisorderInsomniaSle ep apnea May-0 7 Aelxandre Rae. [address], [address], [place], [place], [address] , [place]. [phone] Referring Provider: [address], [place], [place], [address]. tel:[phone] PREV VISIT, EST, AGE 18-39 [facility], [address], [place], [place], [address], [place] tel:[phone] [facility] Physical (chief complaint) Dietary surveillance and counselingRoutine Medical ExamRoutine Medical Exam Sep-0 3 Alexandre Rae. [address], [address], [place], [place], [address] , [place]. [phone] Referring Provider: [address], [place], [place], [address]. tel:[phone] OFFICE/OUTPA TIENT VISIT, EST [facility], [address], [place], [place], [address], [place] [phone] [facility] ganglion cyst (chief complaint) Dietary surveillance and counselingGanglion, unspecified 3 Alexandre Rae. [address], [address], [place], [place], [address] , [place]. [phone] Referring Provider: [address], [place], [place], [address]. tel:[phone] Family History Family Member Type Diagnosis Age At Onset Mother Problem (finding) cancer, skin Brother Problem (finding) Alive and well Father Problem (finding) early age unknown causes Payers Payer name Insurance type Covered green party ID Authoralex colvin(s) No Information Social [...] Insomnia) ordered Referral Referred To: SARAH CASAREZ [id number] [facility]
[address], [id number] Ordered: Referrals: SARAH CASAREZ. Evaluate and treat ordered Referral Ordered: Otolaryngology (related to Sleep apnea) ordered Referral Ordered: Referrals: Otolaryngology. Evaluate and treat ordered Referral Ordered: Referral: Plastic Surg. ordered History Of Present Illness Encounter Date Complaint History Of Prese nt Illness anxiety1 Pt has chronic a nxiety and [...] Pt denies any suicidal or homicdial thought insmonia1 pt takse ativan qhs PRN for insomnia Pt states that she has been taking 1-2 per day due to severe anxiety recenlty pt has depression also. Pt also takes lexapro. Pt denies any suicidal or homicidal thought Pt run out of ativan. . UTI1 Pt states that s he notices urinary burning and frequency for 4 days. Pt denies any flank pain, fever, chill. Pt denies any pelvic pain anxiety1 Pt has been havi ng anxiety and depression Pt is getting and she has been having severe stress at work. Pt works up to 80 hours per week at the [employer]. Pt recently had a emotinal breakdown at [...] and ativan and doing ok until recenlty sleep apnea1 Pt has snoring a nd fatigue and he has not done the sleep study yet Pt states that she is too busy at work to make appointment with [facility] hand weakness1 Pt states that s he has mild bilateral hand weakness. NO numbness for several months. Pt denies any wiggins or injury insomnia1 Pt states that a tivan is helping her falling asleep but she keeps waking up at night. Pt does snore. Pt feels fatigue in AM anxiety1 Pt has chronic a nxiety and depression Pt states that lexapro is helping her pt denies any suicidal or homicidal thought vitmai D Pt has low D. Pt denies any bony fracture HLP Pt has mild HLP. pt is not on any diet Physical Pt needs annual physical. Pt has [...]
--- OUTSIDE RECORDS SUMMARY | 2024-03-23 13:58 | XMS_ITS | Clinical Summary ---
Author Organization [facility] Address [address] [place] [address] Phone Care Team Providers Care Client Operations Manager Name Role Phone Sasha Martinez DPM Unavailable [phone] Mary Ellen Kim RETORT FEEDER GROUND BONE, VALET RUNNER Primary Care Provider + Allergies No known active allergies Medications Diclofenac Sodium (VOLTAREN) 1 % Gel Apply 2 g 4 times daily. 1 g 1 4 Active Additional Information Patient not taking.Reported on 03/10/2024 FLUoxetine (PROzac) 20 MG CapsuleIndicati ons:Major depressive disorder, recurrent episode, moderate (HCC) Take 1 Capsule by mouth daily. 90 Capsule 1 4 Active meclizine (ANTIVERT) 25 MG TabletIndicatio ns:Vertigo Take 1 Tablet by mouth 3 times daily as needed for Dizziness. Indications: Sensation of Spinning or Whirling 30 Tablet 4 Active amitriptyline (ELAVIL) 10 MG TabletIndicatio ns:Insomnia, unspecified type Take 1 Tablet by mouth nightly. 90 Tablet 5 Active meloxicam (MOBIC) 15 MG Tablet 5 Active traZODone (DESYREL) 50 MG Tablet Take 1 Tablet by mouth nightly. 30 Tablet 4 025 Discontin ued(Med List Clean Up) Active Problems No known active problems Encounters Date Type Department Care Team Description 03/21/2024 Travel 03/12/2024 Refill [facility] [address] [place] [address] Mary Ellen Kim APRN, EMILY Medication Refill 03/10/2024 10:30 AM CREW TRAINER Occupational Therapy [facility] [address], [place] [address] [place] [address] Justa Frances PAC Embyessica, Kim, OT Vertigo Discharge Disposition: Discharged to home or Selfcare 03/10/2024 8:30 AM CREW TRAINER Office Visit [facility] [address] [place] [address] Tuan Vasquez APRN, EMILY Vertigo (Primary Dx) Discharge Disposition: Discharged to home or Selfcare 03/10/2024 Plan of Care Documentation [facility] at [address], [address] [place] [address] 03/10/2024 Travel 03/06/2024 10:45 AM CREW TRAINER Office Visit [facility] [address] [place] [address] Mary Ellen Kim APRN, EMILY Anxiety (Primary Dx); Major depressive disorder, recurrent episode, moderate (HCC); Insomnia, unspecified type; Dental caries; Acute pain of right shoulder; Obesity (BMI 30-39.9) Discharge Disposition: Discharged to home or Selfcare 03/06/2024 Travel 03/01/2024 [facility]phone [facility] [address], [place] [address] [place] [address] Alin Pretty, WILDLIFE MANAGEMENT PROFESSOR Appointment 02/25/2024 Telephone [facility] [address], [place] [address] [place] [address] Embyessica, Kim, OT cancel 02/11/2024 Results Follow-Up [facility] [address] [place] [address] Mary Ellen Kim APRN, EMILY Hematuria, unspecified type (Primary Dx) 02/11/2024 [facility] [address] [place] [address] Mary Ellen Kim APRN, EMILY Dizziness 02/07/2024 11:15 AM CREW TRAINER Office Visit [facility] [address] [place] [address] Justa Frances PAC Vertigo (Primary Dx) Discharge Disposition: Discharged to home or Selfcare 02/07/2024 9:11 AM CREW TRAINER - 02/07/2024 11:59 PM CREW TRAINER Hospital Encounter [facility] [address] [place] [address] Mary Ellen Kim APRN, VALET RUNNER Discharge Disposition: Discharged to home or Selfcare 02/07/2024 Travel 02/01/2024 Travel 01/31/2024 3:15 PM CREW TRAINER Office Visit [facility] [address] [place] [address] Mary Ellen Kim APRN, EMILY Dizziness (Primary Dx); Anxiety Discharge Disposition: Discharged to home or Selfcare 01/28/2024 1:00 PM CREW TRAINER Office Visit [facility] [address] [place] [address] Mary Ellen Kim APRN, VALET RUNNER Left arm pain (Primary Dx) Discharge Disposition: Discharged to home or Selfcare 01/28/2024 7:45 AM CREW TRAINER Physical Therapy [facility] at [address], [address] [address] Mary Ellen Kim, RETORT FEEDER GROUND BONE, VALET RUNNER Magdalena Fitzpatrick, PT Abnormal posture (Primary Dx); Weakness; Left arm pain Discharge Disposition: Discharged to home or Selfcare 01/28/2024 [facility] [place] [address] [place] [address] Mary Ellen Kim, YEISON, VALET RUNNER Medication Refill 01/28/2024 Travel 01/24/2024 8:30 AM CREW TRAINER Clinical Support [facility] [address] [place] [phone] Nurse, [facility] Visit for TB skin test Discharge Disposition: Discharged to home or Selfcare 01/24/2024 7:30 AM CREW TRAINER Physical Therapy [facility] [address], [address] [place] [address] Mary Ellen Kim, YEISON, VALET RUNNER Magdalena Fitzpatrick, PT Discharge Disposition: Discharged to home or Selfcare 01/22/2024 3:00 PM CREW TRAINER [facility] [place] [address] [place] [address] [employer] [place], Primary Seo Assistant Clinic Visit for TB skin test (Primary Dx) Discharge Disposition: Discharged to home or Selfcare 01/22/2024 Travel 01/15/2024 10:45 AM CREW TRAINER Physical Therapy [facility] [address], [address] [address] [place] [phone] Mary Ellen Kim APRN, VALET RUNNER Alin Pretty, WILDLIFE MANAGEMENT PROFESSOR Left arm pain (Primary Dx) Discharge Disposition: Discharged to home or Selfcare 01/15/2024 Travel 01/13/2024 Telephone [facility] [address], [place] [address] [place] [phone] Alin Pretty, WILDLIFE MANAGEMENT PROFESSOR Appointment 01/08/2024 7:45 AM CREW TRAINER Physical Therapy [facility] [address], [place] [address] [place] [address] Mary Ellen KimYEISON, Alin Oneal, WILDLIFE MANAGEMENT PROFESSOR Left arm pain (Primary Dx) Discharge Disposition: Discharged to home or Selfcare 01/07/2024 Plan of Care [facility]ation [facility] [address], [place] [address] [place] [address] 01/06/2024 11:30 AM CREW TRAINER Physical Therapy [facility] [address], [place] [address] [place] [address] Mary Ellen Kim APRN, Magdalena Boateng, PT Abnormal posture (Primary Dx); Left arm pain; Weakness Discharge Disposition: Discharged to home or Selfcare 01/06/2024 Travel 01/01/2024 7:00 AM CREW TRAINER Office Visit [facility] [address] [place] [address] Mary Ellen Kim APRN, CNP Left arm pain (Primary Dx) Discharge Disposition: Discharged to home or Selfcare 01/01/2024 Travel 12/31/2023 Telephone [facility] Central Call Center [address] [place] [address] Mary Ellen Kim APRN, CNP 12/24/2023 7:15 AM CDT Office Visit [facility] [address] [place] [address] Mary Ellen Kim APRN, CNP Left arm pain (Primary Dx) Discharge Disposition: Discharged to home or Selfcare 12/24/2023 Travel from Last 3 Months Immunizations Immunization Administration Dates Next Due Influenza Vaccine, MDCK,quadrivalent, pres free 10/12/2021 Influenza, Injectable, Quadrivalent 01/01/2023 Influenza, Seasonal, Injectable, Undefined 12/11 Influenza, Trivalent, Adjuvanted, PF 10/26/2021 TDAP Vaccine 01/14/2016 Family History Medical History Relation Name Comments No Known Problems Brother No Known Problems Father Anxiety disorder Maternal Grandfather Jc Diabetes Maternal Grandfather Jc Stroke Maternal Grandmother Shelley Patience erickson rokes Skin Cancer Mother Depression Paternal Aunt Congestive Heart Failure Paternal Grandfather Jc Diabetes Paternal Grandfather cJ High Cholesterol Paternal Grandfather Jc Hypertension Paternal Grandfather Jc Anxiety disorder Paternal Grandmother Shelley Depression Paternal Grandmother Shelley Diabetes Paternal Grandmother Shelley High Cholesterol Paternal Grandmother Shelley Hypertension Paternal Grandmother Shelley No Known Problems Sister Relation Name Status Comments Brother Alive Father Maternal Grandfather Jc Maternal Grandmother Shelley Mother Alive Paternal Aunt Paternal Grandfather Jc Paternal Grandmother Shelley Sister Alive Social History Tobacco Use Types Packs/Day Years Used Date Smoking Tobacco: Never Smokeless Tobacco: Never Tobacco Cessation:Counseling Given: No Alcohol Use Standard Drinks/Week Comments Not Currently 0 (1 standard drink = 0.6 oz pure alcohol) occasionally, three times per year [facility] Utilities Answer Date Recorded In the past 12 months has e electric, gas, oil, or water company threatened to shut off services in your home? No 03/10/2024 Social Connection and Isolation Panel [NHANES] A nswer Date Recorded In a typical week, how many times do you talk on the phone with family, friends, or neighbors? Once a week 03/10/19 How often do you get togethe r with friends or relatives? Once a week 03/10/2024 How often do you attend chur ch or presybeterian services? Never 03/10/2024 Do you belong to any clubs o r organizations such as amish groups, unions, fraternal or athletic groups, or school groups? No 03/10/2024 How often do you attend meet ings of the clubs or organizations you belong to? Never 03/10/2024 Are you , , di vorced, , never , or living with a partner? Living with partner 03/10/2024 AUDIT-C Answer Date Recorded Q1: How often do you have a drink containing alcohol? Never 03/10/2024 Q2: How many drinks containi ng alcohol do you have on a typical day when you are drinking? Patient does not drink Q3: How often do you have si x or more drinks on one occasion? Never 03/10/2024 Overall Financial Resource Strain (CARDIA) Answe r Date Recorded How hard is it for you to pa y for the very basics like food, housing, medical care, and heating? Not hard at all 03/10/2024 PHQ-2 Answer Date Recorded Total Score - Questions 1-9 0 02/25 [facility] - Occupational Stress Questionnaire Answer Date Recorded Do you feel stress - tense, restless, nervous, or anxious, or unable to sleep at night because your mind is troubled all the time - these days? To some extent 03/10/2024 Exercise Vital Sign Answer Date Recorde d On average, how many days pe r week do you engage in moderate to strenuous exercise (like a brisk walk)? 5 days 03/10/2024 On average, how many minutes do you engage in exercise at this level? 30 min 03/10/2024 Hunger Vital Sign Answer Date Recorded Within the past 12 months, y ou worried that your food would run out before you got the money to buy more. Never true 03/10/19 25 Within the past 12 months, t he food you bought just didn't last and you didn't have money to get more. Never true 03/10/2024 PRAPARE - Transportation Answer Date Re corded In the past 12 months, has l ack of transportation kept you from medical appointments or from getting medications? No 02/25 In the past 12 months, has l ack of transportation kept you from meetings, work, or from getting things needed for daily living? No 03/10/2024 Housing Stability Vital Sign Answer Jayce e Recorded In the last 12 months, was t here a time when you were not able to pay the mortgage or rent on time? No 03/10/2024 In the past 12 months, how m any times have you moved where you were living? 1 03/10/2024 At any time in the past 12 m [facility], were you homeless or living in a snf (including now)? No 03/10/2024 Sexually Active Control Partners Comments Yes Other Male Hysterectomy Comments No Sex and Gender Information Value Date Recorded Sex Assigned at Female 01/06/2023 5:01 AM CREW TRAINER Legal Sex Female 11:17 PM CDT Gender Identity Female 01/06/2023 5:01 AM CREW TRAINER Sexual Orientation Not on file Last Filed Vital Signs Vital Sign Reading Time Taken Comments Blood Pressure 122/78 03/10/2024 8:19 AM CREW TRAINER Pulse 81 03/10/2024 8:19 AM CREW TRAINER Temperature 36.6 ??C (97.8 ??F) 03/10/2024 8:19 AM CS T Respiratory Rate 16 03/10/2024 8:19 AM CREW TRAINER Oxygen Saturation 99% 03/10/2024 8:19 AM CREW TRAINER Inhaled Oxygen Concentration - - Weight 73.8 kg (162 lb 9.6 oz) 03/10/2024 8:19 A M CREW TRAINER Height 149.9 cm (4' 11 ) 03/10/2024 8:19 AM CREW TRAINER Body Mass Index 32.84 03/10/2024 8:19 AM CREW TRAINER Plan of Treatment Upcoming Encounters Date Type Department Care Team (Latest Contact Info) Description 03/24/2024 4:00 PM CREW TRAINER [facility]ational [facility] [address], [place] [address] [address] Justa Frances, PAC [address] [place] [address] Kim Leary, OT [place] Discharge Disposition: Discharged to home or Selfcare 03/31/2024 3:15 PM CREW TRAINER Occupational Therapy [facility] at [address], [place] [address] [address] Justa Frances, PAC [address] [place] [address] Kim Leary, OT [place] 04/07/2024 4:00 PM CREW TRAINER Occupational Therapy [facility] [address], [place] [address] [place] [address] Justa Frances, PAC [address] [place] [address] Kim Leary, OT [place] 04/08/2024 8:15 AM CREW TRAINER Office Visit [facility] [address] [place] [address] Geoff Wood MD [address] [facility] [address] [place] [address] 04/14/2024 4:00 PM CREW TRAINER Occupational Therapy [facility] [address], [facility] [address] [place] [address] Justa Frances, PAC [address] [place] [address] Kim Leary OT [place] 04/22/2024 12:30 PM CREW TRAINER [facility] [place] [address] [place] [address] Mary Ellen Kim, RETORT FEEDER GROUND BONE, VALET RUNNER [address] [place] [address] Health Maintenance Due Date Last Done Comments Hepatitis B Immunization (1 of 3 - 19+ 3-dose series) 02/15/2004 Influenza Immunization (#1) 2023 11/0 08/2022, 10/26/2021, 10/12/2021 SARS-COV-2 Immunization ( - 2023- season) 2023 02/11/2021, 03/04/2020 Td Immunization Every 10 Years (Adults With 1 Tdap) 01/13/2026 01/14/2016 Respiratory Syncytial Virus (RSV) Immunization (Adult) (1 - 1-dose 75+ series) 02/15/2060 DTaP/Tdap/Td Immunization Discontinued 01/14/2016 Hepatitis C Virus (HCV) Screening Completed 06/26/2023 Meningococcal Immunization (ACWY) Aged Out No longer eligible based on patient's age to complete this topic Pneumococcal Immunization Combined Aged Out No longer eligible based on patient's age to complete this topic Rotavirus Immunization Aged Out No lo nger eligible based on patient's age to complete this topic Goals Goal Patient Goal Type Associated Problems Recent Progress Patient-Stated? 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 Procedures Procedure Name Priority Date/Time Associated Diagnosis Comments LIPID PANEL Routine 03/21/2024 8:26 AM CREW TRAINER Obesity (BMI 30-39.9) EKG 12 LEAD Routine 02/07/2024 9:15 AM CREW TRAINER Dizziness THYROID SCREEN WITH REFLEX Routine 02/01/2024 8:15 AM CREW TRAINER Dizziness CBC WITH AUTO DIFFERENTIAL Routine 02/01/2024 8:15 AM CREW TRAINER Dizziness URINALYSIS REFLEX IF INDICATED BY ABNORMAL RESULTS Routine 02/01/2024 8:15 AM CREW TRAINER Dizziness THYROID SCREEN WITH REFLEX Routine 02/01/2024 8:15 AM CREW TRAINER Dizziness COMPLETE BLOOD COUNT (CBC) WITH DIFF Routine 02/01/2024 8:15 AM CREW TRAINER Dizziness CMP (COMPREHENSIVE METABOLIC PANEL) Routine 02/01/2024 8:15 AM CREW TRAINER Dizziness TB INTRADERMAL TEST Routine 01/24/2024 8 :27 AM CREW TRAINER Visit for TB skin test HEPATITIS C ANTIBODY Routine 06/26/2023 8:04 AM CDT Need for hepatitis C screening test from Last 3 Months or Most Recently Relevant to Health Maintenance Results * (ABNORMAL) LIPID PANEL (03/21/2024 8:26 AM CREW TRAINER) CHOLESTEROL 201(H) <200 mg/dL 03/21/2024 9:44 AM CREW TRAINER [facility] TRIGLYCERIDES 100 <150 mg/dL 03/21/2024 9:44 AM CREW TRAINER [facility] HDL CHOLESTEROL 48 >40 mg/dL 9:44 AM CREW TRAINER [facility] LDL 133(H) <130 mg/dL 03/21/2024 9:44 AM CREW TRAINER [facility] VLDL 20 10 - 50 mg/dL 03/21/2024 9:44 AM [facility] CHOL/HDL RATIO 4.2 0.0 - 4.4 03/21/2024 9:44 AM [facility] NON-HDL CHOLESTEROL 153(H) <130 mg/dL 03/21/2024 9:44 AM [facility] IS THE PATIENT REQUIRED TO BE FASTING? Yes 03/21/2024 9:44 AM [facility] HAS THE PATIENT BEEN FASTING? Yes 03/21/2024 9:44 AM [facility] Blood Venipuncture / Unknown 03/21/2024 8:26 AM CREW TRAINER 03/21/2024 9:22 AM CREW TRAINER us Mary Ellen Kim RETORT FEEDER GROUND BONE, VALET RUNNER CHEMISTRY ORDERABLES Fin al Result [facility] [address] [place] [address] * EKG 12 LEAD (02/07/2024 9:15 AM CREW TRAINER) Ventricular Rate 86 BPM EXTERNAL EKG Atrial Rate 86 BPM EXTERNAL EKG P-R Interval 120 ms EXTERNAL EKG QRS Duration 70 ms EXTERNAL EKG Q-T Duration 354 ms EXTERNAL EKG QTC CALCULATION 423 ms EXTERNAL EKG P [place] 23 degrees EXTERNAL EKG R [place] 2 degrees EXTERNAL EKG T [place] 22 degrees EXTERNAL EKG 02/07/2024 9:15 AM CREW TRAINER Impressions EXTERNAL EKG - 02/08/2024 9:49 PM CREW TRAINER Normal sinus rhythm Normal ECG When compared with ECG of 31-OCT-2023 10:44, No significant change was found Confirmed by Fabio Pelaez ([id number]) on 02/08/2024 9:49:05 PM Narrative Procedure Note Fabio Pelaez MD PhD - 02/08/2024 IMPRESSION: Normal sinus rhythm Normal ECG When compared with ECG of 31-OCT-2023 10:44, No significant change was found Confirmed by Fabio Pelaez ([id number]) on 02/08/2024 9:49:05 PM Mary Ellen Kim APRN, VALET RUNNER IMG ECG ORDERABLES Final Result Performing Organization Address City/[facility] Co de Phone Number EXTERNAL EKG * THYROID SCREEN WITH REFLEX (02/01/2024 8:15 AM CREW TRAINER) Pathologist [facility] TSH 1.556 0.300 - 5.000 mIU/L 02/01/2024 9:24 AM CREW TRAINER [facility] Blood Venipuncture / Unknown 02/01/2024 8:15 AM CREW TRAINER 02/01/2024 8:38 AM CREW TRAINER Mary Ellen Kim APRN, EMILY CHEMISTRY ORDERABLES Fin al Result Performing Organization Address [facility] de Phone Number [facility] [address] [place] [address] * (ABNORMAL) URINALYSIS REFLEX IF INDICATED BY ABNORMAL RESULTS (02/01/2024 8:15 AM CREW TRAINER) Pathologist [facility] SPECIFIC GRAVITY 1.010 1.003 - 1.030 02/01/2024 9:53 AM CREW TRAINER [facility] URINE PH 7.0 5.0 - 9.0 02/01/2024 9:53 AM CREW TRAINER [facility] WBC ESTERASE Negative Negative 02/01/2024 9:53 AM CREW TRAINER [facility] NITRITE Negative Negative 02/01/2024 9:53 AM CREW TRAINER [facility] PROTEIN, RANDOM URINE 15 mg/dL(A) Negative 02/01/2024 9:53 AM CREW TRAINER [facility] URINE GLUCOSE, QUAL Negative Negative 02/01/2024 9:53 AM CREW TRAINER [facility] URINE KETONES Negative Negative 02/01/2024 9:53 AM CREW TRAINER [facility] UROBILINOGEN Normal Normal mg/dL 02/01/2024 9:53 AM CREW TRAINER [facility] URINE BLOOD 25 /uL(A) Negative young/ul 02/01/2024 9:53 AM CREW TRAINER [facility] URINALYSIS COLOR Yellow 02/01/20 9:53 AM CREW TRAINER [facility] URINALYSIS CLARITY Clear 02/01/2024 9:53 AM CREW TRAINER [facility] WBC (Urine) 0-5 Negative, 0-5 /hpf 02/01/2024 9:53 AM CREW TRAINER [facility] URINE RBC'S 0-2 Negative, 0-2 /hpf 02/01/2024 9:53 AM CREW TRAINER [facility] EPITHELIAL CELLS Small amount /lpf 2023 9:53 AM CREW TRAINER [facility] BACTERIA, URINE Negative Negative /hpf 02/01/2024 9:53 AM [facility] Urine URINE SPECIMEN COLLECTION, CLEAN CATCH / Unknown Non-Phlebotomy Collection / Unknown 02/01/2024 8:15 AM CREW TRAINER 02/01/2024 8:38 AM CREW TRAINER us Mary Ellen Kim RETORT FEEDER GROUND BONE, VALET RUNNER URINE ORDERABLES Final R esult [facility] [address] [place] [address] * (ABNORMAL) CBC WITH AUTO DIFFERENTIAL (02/01/2024 8:15 AM CREW TRAINER) WBC 10.22 4.00 - 12.00 10(3)/mcL 02/01/2024 8:42 AM CREW TRAINER [facility] RBC 4.76 3.80 - 5.30 10(6)/mcL 02/01/2024 8:42 AM CREW TRAINER [facility] HEMOGLOBIN (HGB) 14.1 12.0 - 15.8 g/dL 02/01/2024 8:42 AM [facility] HEMATOCRIT (HCT) 44.2 36.0 - 47.0 % 02/01/2024 8:42 AM [facility] MCV 92.9 82.0 - 96.0 fL 02/01/2024 8:42 AM [facility] MCH 29.6 26.0 - 34.0 pg 02/01/2024 8:42 AM [facility] MCHC 31.9 31.0 - 36.0 g/dL 02/01/2024 8:42 AM [facility] PLATELET COUNT 394 140 - 440 10(3)/mcL 02/01/2024 8:42 AM [facility] RDW 11.9 11.8 - 15.5 % 02/01/2024 8:42 AM [facility] MPV 9.6(L) 9.7 - 12.4 fL 02/01/2024 8:42 AM [facility] NEUTROPHILS 67.3 47.0 - 73.0 % 02/01/2024 8:42 AM [facility] LYMPHOCYTES 26.4 18.0 - 42.0 % 02/01/2024 8:42 AM [facility] MONOCYTES 4.9 4.0 - 12.0 % 02/01/2024 8:42 AM [facility] EOSINOPHILS 1.2 0.0 - 5.0 % 02/01/2024 8:42 AM [facility] BASOPHILS 0.2 0.0 - 1.0 % 02/01/2024 8:42 AM [facility] ABSOLUTE NEUTROPHILS 6.88 1.60 - 7.70 10(3)/mcL 02/01/2024 8:42 AM [facility] ABSOLUTE LYMPHOCYTES 2.70 1.30 - 3.20 10(3)/mcL 02/01/2024 8:42 AM [facility] ABSOLUTE MONOCYTES 0.50 0.20 - 1.00 10(3)/mcL 02/01/2024 8:42 AM CREW TRAINER [facility] ABSOLUTE EOSINOPHIL 0.12 0.00 - 0.40 10(3)/mcL 02/01/2024 8:42 AM CREW TRAINER [facility] ABSOLUTE BASOPHILS 0.02 0.00 - 0.10 10(3)/mcL 02/01/2024 8:42 AM CREW TRAINER [facility] NRBC PER 100 WBC 0 02/01/20 8:42 AM CREW TRAINER [facility] Blood Venipuncture / Unknown 02/01/2024 8:15 AM CREW TRAINER 02/01/2024 8:38 AM CREW TRAINER us Mary Ellen Kim RETORT FEEDER GROUND BONE, VALET RUNNER HEMATOLOGY ORDERABLES Fi nal Result [facility] [address] [place] [address] * CMP (COMPREHENSIVE METABOLIC PANEL) (02/01/2024 8:15 AM CREW TRAINER) SODIUM 139 136 - 145 mmol/L 02/01/2024 9:11 AM [facility] POTASSIUM 3.9 3.5 - 5.1 mmol/L 02/01/2024 9:11 AM [facility] CHLORIDE 106 98 - 107 mmol/L 02/01/2024 9:11 AM [facility] CO2, VENOUS 24 22 - 30 mmol/L 02/01/2024 9:11 AM [facility] ANION GAP 12.9 <18.0 mmol/L 02/01/2024 9:11 AM [facility] GLUCOSE 90 70 - 99 mg/dL 02/01/2024 9:11 AM [facility] BUN 13 5 - 18 mg/dL 02/01/2024 9:11 AM [facility] CREATININE, BLOOD 0.83 0.60 - 1.00 mg/dL 02/01/2024 9:11 AM [facility] BUN/CREATININE RATIO 16 12 - 20 ratio 02/01/2024 9:11 AM [facility] TOTAL PROTEIN 8.0 6.3 - 8.2 g/dL 02/01/2024 9:11 AM [facility] ALBUMIN 4.4 3.5 - 5.0 g/dL 02/01/2024 9:11 AM [facility] A/G RATIO 1.2 1.0 - 2.2 02/01/2024 9:11 AM [facility] CALCIUM 9.3 8.7 - 10.5 mg/dL 02/01/2024 9:11 AM [facility] T BILI 0.5 0.2 - 1.2 mg/dL 02/01/2024 9:11 AM [facility] SGOT (AST) 16 5 - 34 U/L 02/01/2024 9:11 AM [facility] SGPT (ALT) 17 0 - 55 U/L 02/01/2024 9:11 AM [facility] ALKALINE PHOSPHATASE 91 40 - 150 U/L 02/01/2024 9:11 AM [facility] IS THE PATIENT REQUIRED TO BE FASTING? No 02/01/2024 9:11 AM [facility] GFR, ESTIMATED >60 >=60 02/01/2024 9:11 AM [facility] Comment: Creatinine Clearance is the preferred criteria for selecting drug dose adjustments in renally impaired patients. ??The GFR is provided as additional pertinent clinical information. GFR is reported in mL/min/1.73 sq m. Calculation based on the Chronic Kidney Disease Epidemiology Collaboration (CKD- EPI) equation refit without adjustment for race. GFR, EST. >60 >=60 024 9:11 AM [facility] GFR, EST. NONAFRICAN >60 >=60 02/01/2024 9:11 AM [facility] Blood Venipuncture / Unknown 02/01/2024 8:15 AM CREW TRAINER 02/01/2024 8:38 AM CREW TRAINER Mary Ellen Kim RETORT FEEDER GROUND BONE, VALET RUNNER CHEMISTRY ORDERABLES Fin al Result [facility] [address] [place] [address] * TB INTRADERMAL TEST (01/24/2024 8:27 AM CREW TRAINER) TB SKIN TEST 0 mm Comment:negative 01/24/2024 8:27 AM CREW TRAINER Mary Ellen Kim RETORT FEEDER GROUND BONE, VALET RUNNER POINT OF CARE TESTING (M ANUAL) Final Result * HEPATITIS C ANTIBODY (06/26/2023 8:04 AM CDT) hepatitis C antibody 0.08 <1 S/CO 06/26/2023 11:33 PM CDT [facility] Comment: Signal/Cutoff ratio ??< 0.79 is Nondetected Signal/Cutoff ratio 0.80-0.99 is Grayzone Signal/Cutoff ratio > 0.99 is Detected Supplemental assays are recommended if signal/cutoff ratio is >/=1.00. ??Signal/cutoff ratio result >/= 5.00 is 97% predictive of positivity for recombinant immunoblot assay (RIBA) and will be reported to the [place] Department of Public Health as required. Blood Venipuncture / Unknown 06/26/2023 8:04 AM CDT 06/26/2023 8:05 AM CDT Mary Ellen Kim RETORT FEEDER GROUND BONE, VALET RUNNER CHEMISTRY ORDERABLES Fin al Result [facility] [address] [place] [address], [place] from Last 3 Months or Most Recently Relevant to Health Maintenance Insurance MEDICAID [place] Care Teams Client Operations Manager Relationship Specialty Start Date End Date Mary Ellen Kim, RETORT FEEDER GROUND BONE, VALET RUNNER [address] [place] [address] PCP - General Advanced Practice Nurse 02/08/23 Sasha Martinez DPM Consulting Physician Podiatry 02/27/22
--- OUTSIDE RECORDS SUMMARY | 2024-03-23 13:58 | XMS_ITS | Encounter Summary ---
Author Organization [facility] Address [address] [place] [address] Phone Care Team Providers Care Store Stock Associate Name Role Phone MichelleSasha Chuck DPM Unavailable [phone] Mary Ellen Kim SPLICER APPRENTICE, CLINIC ASSISTANT Primary Care Provider + Reason for Visit * Reason Comments Medication Refill Encounter Details Date Type Department Care Team (Late st Contact Info) Description 01/28/2024 [facility]ill [facility] [address] [place] [address] Mary Ellen Kim, YEISON, CLINIC ASSISTANT [address] [place] [address] Medication Refill Social History Tobacco Use Types Packs/Day Years Used Date Smoking Tobacco: Never Smokeless Tobacco: Never Alcohol Use Standard Drinks/Week Comments Not Currently 0 (1 standard drink = 0.6 oz pure alcohol) occasionally, three times per year [facility] Utilities Answer Date Recorded In the past 12 months has [employer], gas, oil, or water [employer] threatened to shut off services in your home? Patient declined 10/30/2023 Social Connection and Isolation Panel [NHANES] A nswer Date Recorded In a typical week, how many times do you talk on the phone with family, friends, or neighbors? Patient declined 10/30/2023 How often do you get togethe r with friends or relatives? Patient declined 10/30/2023 How often do you attend congregational or lutheran serv ices? Patient declined 10/30/2023 Do you belong to any clubs o r organizations such as congregational groups, unions, fraternal or athletic groups, or school groups? Patient declined 10/30/2023 How often do you attend meet ings of the clubs or organizations you belong to? Patient declined 10/30/2023 Are you , , di vorced, , never , or living with a partner? Patient declined 10/30/2023 AUDIT-C Answer Date Recorded Q1: How often do you have a drink containing alcohol? Never 10/30/2023 Q2: How many drinks containi ng alcohol do you have on a typical day when you are drinking? Patient does not drink Q3: How often do you have si x or more drinks on one occasion? Never 10/30/2023 Overall Financial Resource Strain (CARDIA) Answe r Date Recorded How hard is it for you to pa y for the very basics like food, housing, medical care, and heating? Patient declined 10/30/2023 PHQ-2 Answer Date Recorded Total Score - Questions 1-9 0 11/25 [facility] - Occupational Stress Questionnaire Answer Date Recorded Do you feel stress - tense, restless, nervous, or anxious, or unable to sleep at night because your mind is troubled all the time - these days? Patient declined 10/30/2023 Exercise Vital Sign Answer Date Recorde d On average, how many days pe r week do you engage in moderate to strenuous exercise (like a brisk walk)? Patient declined On average, how many minutes do you engage in exercise at this level? Patient declined 10/30/2023 Hunger Vital Sign Answer Date Recorded Within the past 12 months, y ou worried that your food would run out before you got the money to buy more. Patient declined Within the past 12 months, t he food you bought just didn't last and you didn't have money to get more. Patient declined 05/2023 PRAPARE - Transportation Answer Date Re corded In the past 12 months, has l ack of transportation kept you from medical appointments or from getting medications? Patient declined 10/30/2023 In the past 12 months, has l ack of transportation kept you from meetings, work, or from getting things needed for daily living? Patient declined 10/30/2023 Housing Stability Vital Sign Answer Jayce e Recorded In the last 12 months, was t here a time when you were not able to pay the mortgage or rent on time? Patient declined 10/30/19 24 Number of Times Moved in the Last Year Not on fi le 10/30/2023 At any time in the past 12 m ont, were you homeless or living in a [place] (including now)? Patient declined 10/30/2023 Sexually Active Control Partners Comments Yes Other Male Hysterectomy Comments No Sex and Gender Information Value Date Recorded Sex Assigned at Female 01/06/2023 5:01 AM PHOTOENGRAVING SUPERVISOR Legal Sex Female 11:17 PM CDT Gender Identity Female 01/06/2023 5:01 AM PHOTOENGRAVING SUPERVISOR Sexual Orientation Not on file documented as of this encounter Plan of Treatment Upcoming Encounters Date Type Department Care Team (Latest Contact Info) Description 03/24/2024 4:00 PM PHOTOENGRAVING SUPERVISOR Occupational [facility] [address], [place] [address] [address] Justa Frances, PAC [address] [place] [address] Kim Leary OT [place] Discharge Disposition: Discharged to home or Selfcare 03/31/2024 3:15 PM PHOTOENGRAVING SUPERVISOR Occupational Therapy [facility] at [address], [place] [address] [address] Justa Frances, PAC [address] [place] [address] Kim Leary, OT [place] 04/07/2024 4:00 PM PHOTOENGRAVING SUPERVISOR Occupational Therapy [facility] [address], [place] [address] [place] [address] Jusat Frances, PAC [address] [place] [address] Kim Leary, OT [place] 04/08/2024 8:15 AM PHOTOENGRAVING SUPERVISOR Office Visit [facility] [address] [place] [address] Geoff Wood MD [address]2 [facility], [facility] [address] [place] [address] 04/14/2024 4:00 PM PHOTOENGRAVING SUPERVISOR Occupational Therapy [facility] [address], [facility] [address] [place] [address] Justa Frances, [facility] [address] [place] [address] Kim Leary, OT [place] 04/22/2024 12:30 PM PHOTOENGRAVING SUPERVISOR Office Visit [facility] - Family Medicine - [address] [place] [address] Mary Ellen Kmi, SPLICER APPRENTICE, CLINIC ASSISTANT [address] [place] [address] documented as of this encounter Goals Goal Patient Goal Type Associated Problems Recent Progress Patient-Stated? Author Behavioral Health Behavioral Health Yes Fish Deras, LICENSED MIDWIFE Note: I need reassurance that all the bad things that have happened to me are not my fault. documented as of this encounter Visit Diagnoses Not on filedocumented in this encounter Additional Health Concerns Assessment Noted Time PHQ-9 Depression Total Score: 0 12/09/19 24 2:58 PM CDT documented as of this encounter Care Teams Store Stock Associate Relationship Specialty Start Date End Date Mary Ellen Kim, SPLICER APPRENTICE, CLINIC ASSISTANT [address] [place] [address] PCP - General Advanced Practice Nurse 02/08/23 Sasha Martinez DPM Consulting Physician Podiatry 02/27/22 documented as of this encounter
--- OUTSIDE RECORDS SUMMARY | 2024-03-23 13:58 | XMS_ITS | Encounter Summary ---
Author Organization [facility] Address [address] [place] [address] Phone Care Team Providers Care Investment Strategist Name Role Phone MichelleSasha Chuck DPM Unavailable [phone] Mary Ellen Kim AIRWAYS OPERATIONS SPECIALIST, EDGER LINER Primary Care Provider + Reason for Visit * Reason Comments Medication Refill Encounter Details Date Type Department Care Team (Late st Contact Info) Description 03/12/2024 Refill [facility] [address] [place] [address] Mary Ellen Kim, YEISON, EDGER LINER [address] [place] [address] Medication Refill Social History Tobacco Use Types Packs/Day Years Used Date Smoking Tobacco: Never Smokeless Tobacco: Never Alcohol Use Standard Drinks/Week Comments Not Currently 0 (1 standard drink = 0.6 oz pure alcohol) occasionally, three times per year [facility] Utilities Answer Date Recorded In the past 12 months has [employer], gas, oil, or water [employer] threatened to shut off services in your home? No 03/10/2024 Social Connection and Isolation Panel [NHANES] A nswer Date Recorded In a typical week, how many times do you talk on the phone with family, friends, or neighbors? Once a week 03/10/19 How often do you get togethe r with friends or relatives? Once a week 03/10/2024 How often do you attend [facility] or pentecostal services? Never 03/10/2024 Do you belong to any clubs o r organizations such as shinto groups, unions, fraternal or athletic groups, or [...] Total Score - Questions 1-9 0 02/25 [facility] Occupat ional Health - Occupational Stress [...] any time in the past 12 m onths, were you homeless or living in a prison (including now)? No 03/10/2024 Sexually Active Control Partners Comments Yes Other Male Hysterectomy Comments No Sex and Gender Information Value Date Recorded Sex Assigned at Female 01/06/2023 5:01 AM TELEPHONE CLERKS SUPERVISOR Legal Sex Female 11:17 PM CDT Gender Identity Female 01/06/2023 5:01 AM TELEPHONE CLERKS SUPERVISOR Sexual Orientation Not on file documented as of this encounter Miscellaneous Notes * Telephone Encounter - Norma Pan RN - 03/12/2024 11:18 AM CST Name from pharmacy: TRAZODONE 50 MG TABLET Will file in chart as: traZODone (DESYREL) 50 MG Tablet The original prescription was discontinued on 03/06/2024 by Mary Ellen Kim, AIRWAYS OPERATIONS SPECIALIST, EDGER LINER Insomnia. Taking Trazodone 50 mg nightly. Medication is no longer helpful. Difficulty falling asleep. No problem staying asleep. PHONE CLERKS SUPERVISOR documented in this encounter Plan of Treatment Upcoming Encounters Date Type Department Care Team (Latest Contact Info) Description 03/24/2024 4:00 PM TELEPHONE CLERKS SUPERVISOR [facility] [address], [place] [address] [place] [address] Justa Frances, PAC [address] [place] [address] Kim Leary OT [place] Discharge Disposition: Discharged to home or Selfcare 03/31/2024 3:15 PM TELEPHONE CLERKS SUPERVISOR Occupational [facility] [address], [place] [address] [place] [address] Justa Frances, PAC [address] [place] [address] Kim Leary, OT [place] 04/07/2024 4:00 PM TELEPHONE CLERKS SUPERVISOR Occupational Therapy [facility] [address] [facility], [place] [address] [place] [address] Justa Frances, PAC [address] [place] [address] Kim Leary, OT [place] 04/08/2024 8:15 AM TELEPHONE CLERKS SUPERVISOR Office Visit [facility] [address] [place] [phone] Geoff Wood MD [address] [phone] 04/14/2024 4:00 PM TELEPHONE CLERKS SUPERVISOR Occupational Therapy [facility] at [address], [place] [address] [place] [address] Justa Frances, PAC [address] [place] [address] Kim Leary, OT [place] 04/22/2024 12:30 PM TELEPHONE CLERKS SUPERVISOR Office Visit [facility] - [facility] [address] [place] [address] Mary Ellen Kim APRN, EDGER LINER [address] [place] [address] documented as of this encounter Goals Goal Patient Goal Type Associated Problems Recent Progress Patient-Stated? Author Behavioral Health Behavioral Health Yes Deras, Kren K, INSPECTOR FIREARMS Note: I need reassurance that all the bad things that have happened to me are not my fault. documented as of this encounter Visit Diagnoses Not on filedocumented in this encounter Additional Health Concerns Assessment Noted Time PHQ-9 Depression Total Score: 0 03/10/19 25 8:19 AM TELEPHONE CLERKS SUPERVISOR documented as of this encounter Care Teams Investment Strategist Relationship Specialty Start Date End Date Mary Ellen Kim, AIRWAYS OPERATIONS SPECIALIST, EDGER LINER [address] [place] [address] PCP - General Advanced Practice Nurse 02/08/23 Sasha Martinez DPM Consulting Physician Podiatry 02/27/22 documented as of this encounter
--- OUTSIDE RECORDS SUMMARY | 2024-03-23 14:00 | XMS_ITS | Continuity of Care Document ---
Author Organization [facility] Address [address] [place] [address] Phone Care Team Providers Care Rn Transfer Name Role Phone Ara Herman DO Unavailable [...] Diagnoses Date Provider Providers Copied on Encounter [facility], [address], [place], [place], [id number] , [place] tel:[phone] [facility] No Information 2 Batsheva Bullock. [address], [place], [place], [address] , [place]. tel:[phone] [facility], [address], [place], [place], [address] , [place] tel: [phone] [facility] No Information 2 Batsheva Ara. [address], [place], [place], [address] , [place]. tel: [phone] [facility], [address], [place], [place], [address] , [place] tel: [phone] [facility] No Information 2 Batsheva Ara. [address], [place], [place], [address] , [place]. tel: [phone] [facility], [address], [place], [place], [address] , [place] tel: [phone] [facility] No Information 2 Batsheva Ara. [address], [place], [place], [address] , [place]. tel: [phone] [facility], [address], [place], [place], [address] , [place] tel: [phone] [facility] No Information 1 Batsheva Ara. [address], [place], [place], [address] , [place]. tel: [phone] OFFICE/OUTPA TIENT VISIT, [facility] IV [facility], [address], [place], [place], [address] , [place] tel: [phone] [facility] anxiety (chief complaint) insomnia (chief complaint) Body mass index (BMI) 33.0-33.9, adultAnxiety and depressionSituational insomnia 1 Batsheva Ara. [address], [place], [place], [address] , [place]. tel: [phone] Referring Provider: Ara Mann, [address], [place], [address] . tel:[phone] OFFICE/OUTPA TIENT VISIT, NEW [facility], [address], [place], [place], [address] , tel:[phone] [facility] anxiety (chief complaint) Anxiety and depressionDepression, unspecifiedSituationa l insomnia Batsehva Bullock. [address], [place], [place], [address] , [place]. tel:[phone] Referring Provider: Ara Mann, [address], [place], [address] . tel:[phone] Family History Family Member Type Diagnosis Age At Onset Father Problem alcoholism Mother Problem alcoholism Father Problem depression Mother Problem depression Immunizations Vaccine Date Status Comments Influenza, injectable, MDCK, preservative free, quadrivalent administered Source: Other Provider Influenza, injectable, quadr ivalent with preservative, MDCK, 0.5 mL dosage, Flucelvax Quad administered Source: Public Agency Payers Payer name Insurance type Covered green party ID Authorarnolda marii(s) [facility] [id number] Social History Type Description Quantity Date Captured Comments Sex Female Smoking Status No Information Gender Identity Female Chief Complaint And Reason For Visit No Information Reason For Referral Reason For Referral No Information Plan Of Treatment Date Type Action Status Goal Pap/HPV testing. Due on due Goal Influenza vaccine. Due on No due Goal Tdap. Due on due Goal Td vaccine. Due on due Goal Td vaccine. Due on due Goal Influenza vaccine. Due [...]
--- OUTSIDE RECORDS SUMMARY | 2024-03-23 14:00 | XMS_ITS | Continuity of Care Document ---
Author Organization [facility] Address [address] [facility] [place] [address] Phone Care Team Providers Care Agile Tester Name Role Phone Butch Schroeder MD Unavailable [...] Diagnoses Date Provider Providers Copied on Encounter [facility], [address] [place], [place], [address], [place] tel:[phone] [facility] No Information Alexandre Rae. [address], [place], [place], [address] , [place]. tel:[phone] Referring Provider: [address], [place], [place], [address]. tel:[phone] OFFICE/OUTPA TIENT VISIT, [facility], [address], [place], [place], [address], [place] tel:[phone] [facility] UTI1 (chief complaint) insmonia1 (chief complaint) anxiety1 (chief complaint) Generalized Anxiety DisorderInsomniaUri nary tract infection Alexandre Rae. [address], [place], [place], [address] , [place]. [phone] Referring Provider: [address], [place], [place], [address]. tel:[phone] OFFICE/OUTPA TIENT VISIT, [facility], [address], [place], [place], [address], [place] tel:[phone] [facility] anxiety1 (chief complaint) sleep apnea1 (chief complaint) InsomniaGeneralized Anxiety DisorderBody mass index (BMI) 32.0-32.9, adult Alexandre Cabrera [address], [place], [place], [address] , [place]. tel:[phone] Referring Provider: [address], [place], [place], [address]. tel:[phone] OFFICE/OUTPA TIENT VISIT, [facility], [address], [place], [place], [address], [place] tel:[phone] [facility] HLP (chief complaint) vitmai D (chief complaint) anxiety1 (chief complaint) insomnia1 (chief complaint) hand weakness1 (chief complaint) InsomniaHyperlipide miaVitamin D deficiency, unspecifiedGenerali zed Anxiety Disorder Alexandre Cabrera [address], [place], [place], [address] , [place]. tel:[phone] Referring Provider: [address], [place], [place], [address]. tel:[phone] PREV VISIT, NEW, AGE 18-39 [facility], [address], [place], [place], [address], [place] tel:[phone] [facility] Physical (chief complaint) Encounter for general adult medical exam w abnormal findingsGeneralized Anxiety DisorderInsomniaSle ep apnea May-0 7 Alexandre Rae. [address], [place], [place], [address] , [place]. [phone] Referring Provider: [address], [place], [place], [address]. tel:[phone] PREV VISIT, EST, AGE 18-39 [facility], [address], [place], [place], [address], [place] tel:[phone] [facility] Physical (chief complaint) Dietary surveillance and counselingRoutine Medical ExamRoutine Medical Exam Sep-0 3 Alexandre Rae. [address], [place], [place], [address] , [place]. [phone] Referring Provider: [address], [place], [place], [address]. tel:[phone] OFFICE/OUTPA TIENT VISIT, EST [facility], [address], [place], [place], [address], [place] [phone] [facility] ganglion cyst (chief complaint) Dietary surveillance and counselingGanglion, unspecified 3 Alexandre Rae. [address], [place], [place], [address] , [place]. [phone] Referring Provider: [address], [place], [place], [address]. tel:[phone] Family History Family Member Type Diagnosis Age [...] Insomnia) ordered Referral Referred To: SARAH CASAREZ [id number] [facility]
[address], [id number] Ordered: Referrals: SARAH CASAREZ. Evaluate and treat [...] busy at work to make appointment with [facility] anxiety1 Pt has been havi ng anxiety and depression Pt is getting and she has been having severe stress at work. 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 Pt recently had a emotinal breakdown at [...]
== END 2024-03-23 14:17 | disposition left against medical advice (07) ==
PROVIDERS: Emergency Provider Registered Nurse
DX: Z53.21 Procedure and treatment not carried out due to patient leaving prior to being seen by health care provider (principal)
CPT/HCPCS: 99199

== ENCOUNTER 2024-03-24 08:41 | Emergency (ER) | payer OTHER, SELFPAY ==
[2024-03-24 08:49] VITALS: BP 129/65; PULSE 86; RESP 16; TEMP 36.6; O2SAT 100
--- OUTSIDE RECORDS SUMMARY | 2024-03-24 08:55 | XMS_ITS | Clinical Summary ---
Author Organization [facility] Address [address] [place] [address] Phone Care Team Providers Care Ultrasonic Hand Solderer Name Role Phone Sasha Martinez DPM Unavailable [phone] Mary Ellen Kim LAND SALES AGENT, SURGICAL SERVICES MANAGER Primary Care Provider + Allergies No known [...] Refill [facility] [address] [place] [address] Mary Ellen Kim APRN, EMILY Medication Refill 03/10/2024 10:30 AM PRODUCTION SUPPORT ENGINEER Occupational Therapy [facility] [address], [place] [address] [place] [address] Justa Frances PAC Embyessica, Kim, OT Vertigo Discharge Disposition: Discharged to home or Selfcare 03/10/2024 8:30 AM PRODUCTION SUPPORT ENGINEER Office Visit [facility] [address] [place] [address] Tuan Vasquez APRN, EMILY Vertigo (Primary Dx) Discharge Disposition: Discharged to home or Selfcare 03/10/2024 Plan of Care Documentation [facility] at [address], [address] [place] [address] 03/10/2024 Travel 03/06/2024 10:45 AM PRODUCTION SUPPORT ENGINEER Office Visit [facility] [address] [place] [address] Mary Ellen Kim APRN, EMILY Anxiety (Primary Dx); Major depressive disorder, recurrent episode, moderate (HCC); Insomnia, unspecified type; Dental caries; Acute pain of right shoulder; Obesity (BMI 30-39.9) Discharge Disposition: Discharged to home or Selfcare 03/06/2024 Travel 03/01/2024 [facility]phone [facility] [address], [place] [address] [place] [address] Alin Pretty, COOKER [employer]AL Appointment 02/25/2024 Telephone [facility] [address], [place] [address] [place] [address] Embyessica, Kim, OT cancel 02/11/2024 Results Follow-Up [facility] [address] [place] [address] Mary Ellen Kim APRN, EMILY Hematuria, unspecified type (Primary Dx) 02/11/2024 [facility] [address] [place] [address] Mary Ellen Kim APRN, EMILY Dizziness 02/07/2024 11:15 AM PRODUCTION SUPPORT ENGINEER Office Visit [facility] [address] [place] [address] Justa Frances PAC Vertigo (Primary Dx) Discharge Disposition: Discharged to home or Selfcare 02/07/2024 9:11 AM PRODUCTION SUPPORT ENGINEER - 02/07/2024 11:59 PM PRODUCTION SUPPORT ENGINEER Hospital Encounter [facility] [address] [place] [address] Mary Ellen Kim APRN, SURGICAL SERVICES MANAGER Discharge Disposition: Discharged to home or Selfcare 02/07/2024 Travel 02/01/2024 Travel 01/31/2024 3:15 PM PRODUCTION SUPPORT ENGINEER Office Visit [facility] [address] [place] [address] Mary Ellen Kim APRN, EMILY Dizziness (Primary Dx); Anxiety Discharge Disposition: Discharged to home or Selfcare 01/28/2024 1:00 PM PRODUCTION SUPPORT ENGINEER Office Visit [facility] [address] [place] [address] Mary Ellen Kim APRN, SURGICAL SERVICES MANAGER Left arm pain (Primary Dx) Discharge Disposition: Discharged to home or Selfcare 01/28/2024 7:45 AM PRODUCTION SUPPORT ENGINEER Physical Therapy [facility] at [address], [address] [address] Mary Ellen Kim, LAND SALES AGENT, SURGICAL SERVICES MANAGER Magdalena Fitzpatrick, PT Abnormal posture (Primary Dx); Weakness; Left arm pain Discharge Disposition: Discharged to home or Selfcare 01/28/2024 [facility] [place] [address] [place] [address] Mary Ellen Kim, YEISON, SURGICAL SERVICES MANAGER Medication Refill 01/28/2024 Travel 01/24/2024 8:30 AM PRODUCTION SUPPORT ENGINEER Clinical Support [facility] [place] [address] [place] [phone] Nurse, [facility] Visit for TB skin test Discharge Disposition: Discharged to home or Selfcare 01/24/2024 7:30 AM PRODUCTION SUPPORT ENGINEER [facility] [address], [place] [address] [place] [address] Mary Ellen Kim, YEISON, SURGICAL SERVICES MANAGER Magdalena Fitzpatrick, PT Discharge Disposition: Discharged to home or Selfcare 01/22/2024 3:00 PM PRODUCTION SUPPORT ENGINEER [facility] [place] [address] [place] [address] [employer] [place], 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 Visit for TB skin test (Primary Dx) Discharge Disposition: Discharged to home or Selfcare 01/22/2024 Travel 01/15/2024 10:45 AM PRODUCTION SUPPORT ENGINEER Physical Therapy [facility] [address], [place] [address] [place] [phone] Mary Ellen Kim APRN, SURGICAL SERVICES MANAGER Alin Pretty, COOKER MEAL Left arm pain (Primary Dx) Discharge Disposition: Discharged to home or Selfcare 01/15/2024 Travel 01/13/2024 Telephone [facility] [address], [place] [address] [place] [address] Alin Pretty, COOKER [employer]AL Appointment 01/08/2024 7:45 AM PRODUCTION SUPPORT ENGINEER Physical Therapy [facility] [address], [place] [address] [place] [phone] Mary Ellen KimYEISON, Alin Oneal, COOKER MEAL Left arm pain (Primary Dx) Discharge Disposition: Discharged to home or Selfcare 01/07/2024 Plan of Care Documentation [facility] [address], [place] [address] [place] [address] 01/06/2024 11:30 AM PRODUCTION SUPPORT ENGINEER Physical Therapy [facility] [address], [place] [address] [place] [address] Mary Ellen Kim APRN, Magdalena Boateng, PT Abnormal posture (Primary Dx); Left arm pain; Weakness Discharge Disposition: Discharged to home or Selfcare 01/06/2024 Travel 01/01/2024 7:00 AM PRODUCTION SUPPORT ENGINEER Office Visit [facility] [address] [place] [address] Mary Ellen Kim APRN, CNP Left arm pain (Primary Dx) Discharge Disposition: Discharged to home or Selfcare 01/01/2024 Travel 12/31/2023 Telephone [facility] [address] [place] [address] Mary Ellen Kim APRN, CNP 12/24/2023 7:15 AM CDT Office Visit [facility] [address] [place] [address] Mary Ellen Kim APRN, CNP Left arm [...] Failure Paternal Grandfather Jc Diabetes Paternal Grandfather Jc High Cholesterol Paternal Grandfather Jc Hypertension Paternal [...] pure alcohol) occasionally, three times per year [facility] Utilities Answer Date Recorded In the [...] often do you attend chur ch or tenriism services? Never 03/10/2024 Do you belong to any clubs o r organizations such as worship groups, unions, fraternal or athletic groups, or [...] Total Score - Questions 1-9 0 02/25 [facility] - Occupational Stress [...] any time in the past 12 m [facility], were you homeless or living in a snf (including now)? No 03/10/2024 Sexually Active Control Partners Comments Yes Other Male Hysterectomy Comments No Sex and Gender Information Value Date Recorded Sex Assigned at Female 01/06/2023 5:01 AM PRODUCTION SUPPORT ENGINEER Legal Sex Female 11:17 PM CDT Gender Identity Female 01/06/2023 5:01 AM PRODUCTION SUPPORT ENGINEER Sexual Orientation Not on file Last Filed Vital Signs Vital Sign Reading Time Taken Comments Blood Pressure 122/78 03/10/2024 8:19 AM PRODUCTION SUPPORT ENGINEER Pulse 81 03/10/2024 8:19 AM PRODUCTION SUPPORT ENGINEER Temperature 36.6 ??C (97.8 ??F) 03/10/2024 8:19 AM CS T Respiratory Rate 16 03/10/2024 8:19 AM PRODUCTION SUPPORT ENGINEER Oxygen Saturation 99% 03/10/2024 8:19 AM PRODUCTION SUPPORT ENGINEER Inhaled Oxygen Concentration - - Weight 73.8 kg (162 lb 9.6 oz) 03/10/2024 8:19 A M PRODUCTION SUPPORT ENGINEER Height 149.9 cm (4' 11 ) 03/10/2024 8:19 AM PRODUCTION SUPPORT ENGINEER Body Mass Index 32.84 03/10/2024 8:19 AM PRODUCTION SUPPORT ENGINEER Plan of Treatment Upcoming Encounters Date Type Department Care Team (Latest Contact Info) Description 03/24/2024 4:00 PM PRODUCTION SUPPORT ENGINEER [facility] [address], [place] [address] [address] Justa Frances, PAC [address] [place] [address] Kim Leary, OT [place] Discharge Disposition: Discharged to home or Selfcare 03/31/2024 3:15 PM PRODUCTION SUPPORT ENGINEER Occupational Therapy [facility] at [address], [place] [address] [address] Justa Frances, PAC [address] [place] [address] Kim Leary, OT [place] 04/07/2024 4:00 PM PRODUCTION SUPPORT ENGINEER [facility]ational [facility] [address], [place] [address] [place] [address] Justa Frances, PAC [address] [place] [address] Kim Leary, OT [place] 04/08/2024 8:15 AM PRODUCTION SUPPORT ENGINEER Office Visit [facility] [address] [place] [address] Geoff Wood MD #[address] [facility], [facility] [address] [place] [address] 04/14/2024 4:00 PM PRODUCTION SUPPORT ENGINEER Occupational [facility] [address], [facility] [address] [place] [address] Justa Frances, PAC [address] [place] [address] Kim Leary OT [place] 04/22/2024 12:30 PM PRODUCTION SUPPORT ENGINEER [facility] [place] [address] [place] [address] Mary Ellen Kim, LAND SALES AGENT, SURGICAL SERVICES MANAGER [address] [place] [address] Health Maintenance Due Date Last Done Comments [...] Behavioral Health Behavioral Health Yes Fish Deras, BIG DATA SOLUTIONS ARCHITECT Note: I need reassurance that all the bad things that have happened to me are not my fault. Procedures Procedure Name Priority Date/Time Associated Diagnosis Comments LIPID PANEL Routine 03/21/2024 8:26 AM PRODUCTION SUPPORT ENGINEER Obesity (BMI 30-39.9) EKG 12 LEAD Routine 02/07/2024 9:15 AM PRODUCTION SUPPORT ENGINEER Dizziness THYROID SCREEN WITH REFLEX Routine 02/01/2024 8:15 AM PRODUCTION SUPPORT ENGINEER Dizziness CBC WITH AUTO DIFFERENTIAL Routine 02/01/2024 8:15 AM PRODUCTION SUPPORT ENGINEER Dizziness URINALYSIS REFLEX IF INDICATED BY ABNORMAL RESULTS Routine 02/01/2024 8:15 AM PRODUCTION SUPPORT ENGINEER Dizziness THYROID SCREEN WITH REFLEX Routine 02/01/2024 8:15 AM PRODUCTION SUPPORT ENGINEER Dizziness COMPLETE BLOOD COUNT (CBC) WITH DIFF Routine 02/01/2024 8:15 AM PRODUCTION SUPPORT ENGINEER Dizziness CMP (COMPREHENSIVE METABOLIC PANEL) Routine 02/01/2024 8:15 AM PRODUCTION SUPPORT ENGINEER Dizziness TB INTRADERMAL TEST Routine 01/24/2024 8 :27 AM PRODUCTION SUPPORT ENGINEER Visit for TB skin test HEPATITIS C ANTIBODY Routine 06/26/2023 8:04 AM CDT Need for hepatitis C screening test from Last 3 Months or Most Recently Relevant to Health Maintenance Results * (ABNORMAL) LIPID PANEL (03/21/2024 8:26 AM PRODUCTION SUPPORT ENGINEER) CHOLESTEROL 201(H) <200 mg/dL 03/21/2024 9:44 AM PRODUCTION SUPPORT ENGINEER [facility] TRIGLYCERIDES 100 <150 mg/dL 03/21/2024 9:44 AM PRODUCTION SUPPORT ENGINEER [facility] HDL CHOLESTEROL 48 >40 mg/dL 9:44 AM PRODUCTION SUPPORT ENGINEER [facility] LDL 133(H) <130 mg/dL 03/21/2024 9:44 AM PRODUCTION SUPPORT ENGINEER [facility] VLDL 20 10 - 50 mg/dL 03/21/2024 9:44 AM [facility] CHOL/HDL RATIO 4.2 0.0 - 4.4 03/21/2024 9:44 AM [facility] NON-HDL CHOLESTEROL 153(H) <130 mg/dL 03/21/2024 9:44 AM [facility] IS THE PATIENT REQUIRED TO BE FASTING? Yes 03/21/2024 9:44 AM [facility] HAS THE PATIENT BEEN FASTING? Yes 03/21/2024 9:44 AM [facility] Blood Venipuncture / Unknown 03/21/2024 8:26 AM PRODUCTION SUPPORT ENGINEER 03/21/2024 9:22 AM PRODUCTION SUPPORT ENGINEER us Mary Ellen Kim LAND SALES AGENT, SURGICAL SERVICES MANAGER CHEMISTRY ORDERABLES Fin al Result [facility] [address] [place] [address] * EKG 12 LEAD (02/07/2024 9:15 AM PRODUCTION SUPPORT ENGINEER) Ventricular Rate 86 BPM EXTERNAL EKG Atrial Rate 86 BPM EXTERNAL EKG P-R Interval 120 ms EXTERNAL EKG QRS Duration 70 ms EXTERNAL EKG Q-T Duration 354 ms EXTERNAL EKG QTC CALCULATION 423 ms EXTERNAL EKG P [place] 23 degrees EXTERNAL EKG R [place] 2 degrees EXTERNAL EKG T [place] 22 degrees EXTERNAL EKG 02/07/2024 9:15 AM PRODUCTION SUPPORT ENGINEER Impressions EXTERNAL EKG - 02/08/2024 9:49 PM PRODUCTION SUPPORT ENGINEER Normal sinus rhythm Normal ECG When compared with ECG of 31-OCT-2023 10:44, No significant change was found Confirmed by Fabio Pelaez ([id number]) on 02/08/2024 9:49:05 PM Narrative Procedure Note Fabio Pelaez MD PhD - 02/08/2024 IMPRESSION: Normal sinus rhythm Normal ECG When compared with ECG of 31-OCT-2023 10:44, No significant change was found Confirmed by Fabio Pelaez ([id number]) on 02/08/2024 9:49:05 PM Mary Ellen Kim APRN, SURGICAL SERVICES MANAGER IMG ECG ORDERABLES Final Result Performing Organization Address [facility] Co de Phone Number EXTERNAL EKG * THYROID SCREEN WITH REFLEX (02/01/2024 8:15 AM PRODUCTION SUPPORT ENGINEER) Pathologist [facility] TSH 1.556 0.300 - 5.000 mIU/L 02/01/2024 9:24 AM PRODUCTION SUPPORT ENGINEER [facility] Blood Venipuncture / Unknown 02/01/2024 8:15 AM PRODUCTION SUPPORT ENGINEER 02/01/2024 8:38 AM PRODUCTION SUPPORT ENGINEER Mary Ellen Kim APRN, EMILY CHEMISTRY ORDERABLES Fin al Result Performing Organization Address [facility]/[place] de Phone Number [facility] [address] [place] [address] * (ABNORMAL) URINALYSIS REFLEX IF INDICATED BY ABNORMAL RESULTS (02/01/2024 8:15 AM PRODUCTION SUPPORT ENGINEER) Pathologist [facility] SPECIFIC GRAVITY 1.010 1.003 - 1.030 02/01/2024 9:53 AM PRODUCTION SUPPORT ENGINEER [facility] URINE PH 7.0 5.0 - 9.0 02/01/2024 9:53 AM PRODUCTION SUPPORT ENGINEER [facility] WBC ESTERASE Negative Negative 02/01/2024 9:53 AM PRODUCTION SUPPORT ENGINEER [facility] NITRITE Negative Negative 02/01/2024 9:53 AM PRODUCTION SUPPORT ENGINEER [facility] PROTEIN, RANDOM URINE 15 mg/dL(A) Negative 02/01/2024 9:53 AM PRODUCTION SUPPORT ENGINEER [facility] URINE GLUCOSE, QUAL Negative Negative 02/01/2024 9:53 AM PRODUCTION SUPPORT ENGINEER [facility] URINE KETONES Negative Negative 02/01/2024 9:53 AM PRODUCTION SUPPORT ENGINEER [facility] UROBILINOGEN Normal Normal mg/dL 02/01/2024 9:53 AM PRODUCTION SUPPORT ENGINEER [facility] URINE BLOOD 25 /uL(A) Negative young/ul 02/01/2024 9:53 AM PRODUCTION SUPPORT ENGINEER [facility] URINALYSIS COLOR Yellow 02/01/20 9:53 AM PRODUCTION SUPPORT ENGINEER [facility] URINALYSIS CLARITY Clear 02/01/2024 9:53 AM PRODUCTION SUPPORT ENGINEER [facility] WBC (Urine) 0-5 Negative, 0-5 /hpf 02/01/2024 9:53 AM PRODUCTION SUPPORT ENGINEER [facility] URINE RBC'S 0-2 Negative, 0-2 /hpf 02/01/2024 9:53 AM PRODUCTION SUPPORT ENGINEER [facility] EPITHELIAL CELLS Small amount /lpf 2023 9:53 AM PRODUCTION SUPPORT ENGINEER [facility] BACTERIA, URINE Negative Negative /hpf 02/01/2024 9:53 AM [facility] Urine URINE SPECIMEN COLLECTION, CLEAN CATCH / Unknown Non-Phlebotomy Collection / Unknown 02/01/2024 8:15 AM PRODUCTION SUPPORT ENGINEER 02/01/2024 8:38 AM PRODUCTION SUPPORT ENGINEER us Mary Ellen Kim LAND SALES AGENT, SURGICAL SERVICES MANAGER URINE ORDERABLES Final R esult [facility] [address] [place] [address] * (ABNORMAL) CBC WITH AUTO DIFFERENTIAL (02/01/2024 8:15 AM PRODUCTION SUPPORT ENGINEER) WBC 10.22 4.00 - 12.00 10(3)/mcL 02/01/2024 8:42 AM PRODUCTION SUPPORT ENGINEER [facility] RBC 4.76 3.80 - 5.30 10(6)/mcL 02/01/2024 8:42 AM PRODUCTION SUPPORT ENGINEER [facility] HEMOGLOBIN (HGB) 14.1 12.0 - 15.8 g/dL 02/01/2024 8:42 AM [facility] HEMATOCRIT (HCT) 44.2 36.0 - 47.0 % 02/01/2024 8:42 AM [facility] MCV 92.9 82.0 - 96.0 fL 02/01/2024 8:42 AM [facility] MCH 29.6 26.0 - 34.0 pg 02/01/2024 8:42 AM [facility] MCHC 31.9 31.0 - 36.0 g/dL 02/01/2024 8:42 AM [facility] PLATELET COUNT 394 140 - 440 10(3)/mcL 02/01/2024 8:42 AM [facility] RDW 11.9 11.8 - 15.5 % 02/01/2024 8:42 AM [facility] MPV 9.6(L) 9.7 - 12.4 fL 02/01/2024 8:42 AM [facility] NEUTROPHILS 67.3 47.0 - 73.0 % 02/01/2024 8:42 AM [facility] LYMPHOCYTES 26.4 18.0 - 42.0 % 02/01/2024 8:42 AM [facility] MONOCYTES 4.9 4.0 - 12.0 % 02/01/2024 8:42 AM [facility] EOSINOPHILS 1.2 0.0 - 5.0 % 02/01/2024 8:42 AM [facility] BASOPHILS 0.2 0.0 - 1.0 % 02/01/2024 8:42 AM [facility] ABSOLUTE NEUTROPHILS 6.88 1.60 - 7.70 10(3)/mcL 02/01/2024 8:42 AM [facility] ABSOLUTE LYMPHOCYTES 2.70 1.30 - 3.20 10(3)/mcL 02/01/2024 8:42 AM [facility] ABSOLUTE MONOCYTES 0.50 0.20 - 1.00 10(3)/mcL 02/01/2024 8:42 AM PRODUCTION SUPPORT ENGINEER [facility] ABSOLUTE EOSINOPHIL 0.12 0.00 - 0.40 10(3)/mcL 02/01/2024 8:42 AM PRODUCTION SUPPORT ENGINEER [facility] ABSOLUTE BASOPHILS 0.02 0.00 - 0.10 10(3)/mcL 02/01/2024 8:42 AM PRODUCTION SUPPORT ENGINEER [facility] NRBC PER 100 WBC 0 02/01/20 8:42 AM PRODUCTION SUPPORT ENGINEER [facility] Blood Venipuncture / Unknown 02/01/2024 8:15 AM PRODUCTION SUPPORT ENGINEER 02/01/2024 8:38 AM PRODUCTION SUPPORT ENGINEER us Mary Ellen Kim LAND SALES AGENT, SURGICAL SERVICES MANAGER HEMATOLOGY ORDERABLES Fi nal Result [facility] [address] [place] [address] * CMP (COMPREHENSIVE METABOLIC PANEL) (02/01/2024 8:15 AM PRODUCTION SUPPORT ENGINEER) SODIUM 139 136 - 145 mmol/L 02/01/2024 9:11 AM [facility] POTASSIUM 3.9 3.5 - 5.1 mmol/L 02/01/2024 9:11 AM [facility] CHLORIDE 106 98 - 107 mmol/L 02/01/2024 9:11 AM [facility] CO2, VENOUS 24 22 - 30 mmol/L 02/01/2024 9:11 AM [facility] ANION GAP 12.9 <18.0 mmol/L 02/01/2024 9:11 AM [facility] GLUCOSE 90 70 - 99 mg/dL 02/01/2024 9:11 AM [facility] BUN 13 5 - 18 mg/dL 02/01/2024 9:11 AM [facility] CREATININE, BLOOD 0.83 0.60 - 1.00 mg/dL 02/01/2024 9:11 AM [facility] BUN/CREATININE RATIO 16 12 - 20 ratio 02/01/2024 9:11 AM [facility] TOTAL PROTEIN 8.0 6.3 - 8.2 g/dL 02/01/2024 9:11 AM [facility] ALBUMIN 4.4 3.5 - 5.0 g/dL 02/01/2024 9:11 AM [facility] A/G RATIO 1.2 1.0 - 2.2 02/01/2024 9:11 AM [facility] CALCIUM 9.3 8.7 - 10.5 mg/dL 02/01/2024 9:11 AM [facility] T BILI 0.5 0.2 - 1.2 mg/dL 02/01/2024 9:11 AM [facility] SGOT (AST) 16 5 - 34 U/L 02/01/2024 9:11 AM [facility] SGPT (ALT) 17 0 - 55 U/L 02/01/2024 9:11 AM [facility] ALKALINE PHOSPHATASE 91 40 - 150 U/L 02/01/2024 9:11 AM [facility] IS THE PATIENT REQUIRED TO BE FASTING? No 02/01/2024 9:11 AM [facility] GFR, ESTIMATED >60 >=60 02/01/2024 9:11 AM [facility] Comment: Creatinine Clearance is the preferred criteria for selecting drug dose adjustments in renally impaired patients. ??The GFR is provided as additional pertinent clinical information. GFR is reported in mL/min/1.73 sq m. Calculation based on the Chronic Kidney Disease Epidemiology Collaboration (CKD- EPI) equation refit without adjustment for race. GFR, EST. >60 >=60 024 9:11 AM [facility] GFR, EST. NONAFRICAN >60 >=60 02/01/2024 9:11 AM [facility] Blood Venipuncture / Unknown 02/01/2024 8:15 AM PRODUCTION SUPPORT ENGINEER 02/01/2024 8:38 AM PRODUCTION SUPPORT ENGINEER Mary Ellen Kim LAND SALES AGENT, SURGICAL SERVICES MANAGER CHEMISTRY ORDERABLES Fin al Result [facility] [address] [place] [address] * TB INTRADERMAL TEST (01/24/2024 8:27 AM PRODUCTION SUPPORT ENGINEER) TB SKIN TEST 0 mm Comment:negative 01/24/2024 8:27 AM PRODUCTION SUPPORT ENGINEER Mary Ellen Kim LAND SALES AGENT, SURGICAL SERVICES MANAGER POINT OF CARE TESTING (M ANUAL) Final Result * HEPATITIS C ANTIBODY (06/26/2023 8:04 AM CDT) hepatitis C antibody 0.08 <1 S/CO 06/26/2023 11:33 PM CDT [facility] Comment: Signal/Cutoff ratio ??< 0.79 is Nondetected Signal/Cutoff ratio 0.80-0.99 is Grayzone Signal/Cutoff ratio > 0.99 is Detected Supplemental assays are recommended if signal/cutoff ratio is >/=1.00. ??Signal/cutoff ratio result >/= 5.00 is 97% predictive of positivity for recombinant immunoblot assay (RIBA) and will be reported to the [place] Department [facility] Public [facility] as required. Blood Venipuncture / Unknown 06/26/2023 8:04 AM CDT 06/26/2023 8:05 AM CDT Mary Ellen Kim LAND SALES AGENT, SURGICAL SERVICES MANAGER CHEMISTRY ORDERABLES Fin al Result [facility] [address] [place] [address], [place] from Last 3 Months or Most Recently Relevant to Health Maintenance Insurance [place]ICAID [place] Care Teams Ultrasonic Hand Solderer Relationship Specialty Start Date End Date Mary Ellen Kim, LAND SALES AGENT, SURGICAL SERVICES MANAGER [address] [place] [address] PCP - General Advanced Practice Nurse 02/08/23 Sasha Martinez DPM Consulting Physician Podiatry 02/27/22
--- OUTSIDE RECORDS SUMMARY | 2024-03-24 08:55 | XMS_ITS | Continuity of Care Document ---
Author Organization [facility] Address [address] [place] [address] Phone Care Team Providers Care Behavioral Health Consultant Name Role Phone Ara Herman DO Unavailable [...] Diagnoses Date Provider Providers Copied on Encounter [facility], [address], [place], [place], [address] , [place] tel:[phone] [facility] No Information 2 Batsheva Bullock. [address], [place], [place], [address] , [place]. tel:[phone] [facility], [address], [place], [place], [address] , [place] tel: [phone] [facility] No Information 2 Batsheva Ara. [address], [place], [place], [address] , [place]. tel: [phone] [facility], [address], [place], [place], [address] , [place] tel: [phone] [facility] No Information 2 Batsheva Ara. [address], [place], [place], [address] , [place]. tel: [phone] [facility], [address], [place], [place], [address] , [place] tel: [phone] [facility] No Information 2 Batsheva Ara. [address], [place], [place], [address] , [place]. tel: [phone] [facility], [address], [place], [place], [address] , [place] tel: [phone] [facility] No Information 1 Batsheva Ara. [address], [place], [place], [address] , [place]. tel: [phone] OFFICE/OUTPA TIENT VISIT, [facility] IV [facility], [address], [place], [place], [address] , [place] tel: [phone] [facility] anxiety (chief complaint) insomnia (chief complaint) Body mass index (BMI) 33.0-33.9, adultAnxiety and depressionSituational insomnia 1 Batsheva Ara. [address], [place], [place], [address] , [place]. tel: [phone] Referring Provider: Ara Mann, [address], [place], [address] . tel:[phone] OFFICE/OUTPA TIENT VISIT, NEW [facility], [address], [place], [place], [address] , tel:[phone] [facility] anxiety (chief complaint) Anxiety and depressionDepression, unspecifiedSituationa l insomnia Batsheva Bullock. [address], [place], [place], [address] , [place]. tel:[phone] Referring Provider: Ara Mann, [address], [place], [address] . tel:[phone] Family History Family Member Type Diagnosis Age At Onset Father Problem alcoholism Mother Problem alcoholism Father Problem depression Mother Problem depression Immunizations Vaccine Date Status Comments Influenza, injectable, MDCK, preservative free, quadrivalent administered Source: Other Provider Influenza, injectable, quadr ivalent with preservative, MDCK, 0.5 mL dosage, Flucelvax Quad administered Source: Public Agency Payers Payer name Insurance type Covered alliance party ID Authorarnolda marii(s) [facility] [id number] Social History Type Description Quantity Date Captured [...]
--- OUTSIDE RECORDS SUMMARY | 2024-03-24 08:55 | XMS_ITS | Encounter Summary ---
Author Organization [facility] Address [address] [place] [address] Phone Care Team Providers Care Prison Warden Name Role Phone MichelleSasha Chuck DPM Unavailable [phone] Mary Ellen Kim INFRASTRUCTURE DEVELOPER, HOMEMAKER COMPANION Primary Care Provider + Reason for Visit * Reason Comments Medication Refill Encounter Details Date Type Department Care Team (Late st Contact Info) Description 03/12/2024 [facility]ill [facility] [address] [place] [address] Mary Ellen Kim, YEISON, HOMEMAKER COMPANION [address] [place] [address] Medication Refill Social History Tobacco Use Types Packs/Day Years Used Date Smoking Tobacco: Never Smokeless Tobacco: Never Alcohol Use Standard Drinks/Week Comments Not Currently 0 (1 standard drink = 0.6 oz pure alcohol) occasionally, three times per year [facility] Utilities Answer Date Recorded In the past 12 months has [employer], gas, oil, or water [employer] threatened to shut off services in your home? No 03/10/2024 Social Connection and Isolation Panel [NHANES] A nswer Date Recorded In a typical week, how many times do you talk on the phone with family, friends, or neighbors? Once a week 03/10/19 How often do you get togethe r with friends or relatives? Once a week 03/10/2024 How often do you attend [facility] or hinduism services? Never 03/10/2024 Do you belong to any clubs o r organizations such as religion groups, unions, fraternal or athletic groups, or [...] Total Score - Questions 1-9 0 02/25 [facility] - Occupational [...] were you homeless or living in a usp (including now)? No 03/10/2024 Sexually Active Control Partners Comments Yes Other Male Hysterectomy Comments No Sex and Gender Information Value Date Recorded Sex Assigned at Female 01/06/2023 5:01 AM POUCH MAKER Legal Sex Female 11:17 PM CDT Gender Identity Female 01/06/2023 5:01 AM POUCH MAKER Sexual Orientation Not on file documented as of this encounter Miscellaneous Notes * Telephone Encounter - Norma Pan RN - 03/12/2024 11:18 AM CST Name from pharmacy: TRAZODONE 50 MG TABLET Will file in chart as: traZODone (DESYREL) 50 MG Tablet The original prescription was discontinued on 03/06/2024 by Mary Ellen Kim, INFRASTRUCTURE DEVELOPER, HOMEMAKER COMPANION Insomnia. Taking Trazodone 50 mg nightly. Medication is no longer helpful. Difficulty falling asleep. No problem staying asleep. H MAKER documented in this encounter Plan of Treatment Upcoming Encounters Date Type Department Care Team (Latest Contact Info) Description 03/24/2024 4:00 PM POUCH MAKER Occupational [facility] [address], [address] [place] [address] Justa Frances, PAC [address] [place] [address] Kim Leary OT [place] Discharge Disposition: Discharged to home or Selfcare 03/31/2024 3:15 PM POUCH MAKER Occupational Therapy [facility] at [facility] [address], [address] [place] [address] Justa Frances, PAC [address] [place] [address] Kim Leary, OT [place] 04/07/2024 4:00 PM POUCH MAKER Occupational Therapy [facility] at [facility] [address] [facility] [address] [place] [address] Justa Frances, PAC [address] [place] [address] Kim Leary, OT [place] 04/08/2024 8:15 AM POUCH MAKER Office Visit [facility] [address] [place] [address] Geoff Wood MD [address] [id number] 04/14/2024 4:00 PM POUCH MAKER Occupational Therapy [facility] at [address], [address] [place] [address] Justa Frances, PAC [address] [place] [address] Kim Leary, OT [place] 04/22/2024 12:30 PM POUCH MAKER Office Visit [facility] - Family Medicine [facility] [address] [place] [address] Mary Ellen Kim APRN, HOMEMAKER COMPANION [address] [place] [address] documented as of this encounter Goals Goal Patient Goal Type Associated Problems Recent Progress Patient-Stated? Author Behavioral Health Behavioral Health Yes Deras, Kren K, COMPOSITE LAMINATOR Note: I need reassurance that all the bad things that have happened to me are not my fault. documented as of this encounter Visit Diagnoses Not on filedocumented in this encounter Additional Health Concerns Assessment Noted Time PHQ-9 Depression Total Score: 0 03/10/19 25 8:19 AM POUCH MAKER documented as of this encounter Care Teams Prison Warden Relationship Specialty Start Date End Date Mary Ellen Kim, INFRASTRUCTURE DEVELOPER, HOMEMAKER COMPANION [address] [place] [address] PCP - General Advanced Practice Nurse 02/08/23 Sasha Martinez DPM Consulting Physician Podiatry 02/27/22 documented as of this encounter
--- OUTSIDE RECORDS SUMMARY | 2024-03-24 08:55 | XMS_ITS | Encounter Summary ---
Author Organization [facility] Address [address] [place] [address] Phone Care Team Providers Care Lehr Operator Name Role Phone MichelleSasha Chuck DPM Unavailable [phone] Mary Ellen Kim STAFF INTERPRETER, LEHR ATTENDANT Primary Care Provider + Reason for Visit * Reason Comments Medication Refill Encounter Details Date Type Department Care Team (Late st Contact Info) Description 01/28/2024 Refill [facility] [address] [place] [address] Mary Ellen Kim, YEISON, LEHR ATTENDANT [address] [place] [address] Medication Refill Social History Tobacco Use Types Packs/Day Years Used Date Smoking Tobacco: Never Smokeless Tobacco: Never Alcohol Use Standard Drinks/Week Comments Not Currently 0 (1 standard drink = 0.6 oz pure alcohol) occasionally, three times per year [facility] Utilities Answer Date Recorded In the past 12 months has [employer], gas, oil, or water [employer] threatened to shut off services in your home? Patient declined 10/30/2023 Social Connection and Isolation Panel [NHANES] A nswer Date Recorded In a typical week, how many times do you talk on the phone with family, friends, or neighbors? Patient declined 10/30/2023 How often do you get togethe r with friends or relatives? Patient declined 10/30/2023 How often do you attend mormonism or taoism serv ices? Patient declined 10/30/2023 Do you belong to any clubs o r organizations such as mormonism groups, unions, fraternal or athletic groups, or [...] Total Score - Questions 1-9 0 11/25 [facility] ional [facility] - Occupational Stress Questionnaire Answer Date Recorded [...] were you homeless or living in a skilled nursing (including now)? Patient declined 10/30/2023 Sexually Active Control Partners Comments Yes Other Male Hysterectomy Comments No Sex and Gender Information Value Date Recorded Sex Assigned at Female 01/06/2023 5:01 AM EVENT SPECIALIST Legal Sex Female 11:17 PM CDT Gender Identity Female 01/06/2023 5:01 AM EVENT SPECIALIST Sexual Orientation Not on file documented as of this encounter Plan of Treatment Upcoming Encounters Date Type Department Care Team (Latest Contact Info) Description 03/24/2024 4:00 PM EVENT SPECIALIST Occupational [facility] at [address], [place] [address] [address] Justa Frances, PAC [address] [place] [address] Kim Leary OT [place] Discharge Disposition: Discharged to home or Selfcare 03/31/2024 3:15 PM EVENT SPECIALIST Occupational [facility] at [address], [place] [address] [address] Justa Frances, PAC [address] [place] [address] Kim Leary, OT [place] 04/07/2024 4:00 PM EVENT SPECIALIST Occupational Therapy [facility] at [facility] [address], [address] [place] [address] Justa Frances, PAC [address] [place] [address] Kim Leary, OT [place] 04/08/2024 8:15 AM EVENT SPECIALIST Office Visit [facility] [address]2 [facility] [place] [address] Geoff Wood MD [address]2 [facility] [address] [place] [address] 04/14/2024 4:00 PM EVENT SPECIALIST Occupational Therapy [facility] at [facility] [address] [facility] [address] [place] [address] Justa Frances, [facility] [address] [place] [address] Kim Leary, OT [place] 04/22/2024 12:30 PM EVENT SPECIALIST Office Visit [facility] Medical Group - Family Medicine - [address] [place] [address] Mary Ellen Kim, STAFF INTERPRETER, LEHR ATTENDANT [address] [place] [address] documented as of this encounter Goals Goal Patient Goal Type Associated Problems Recent Progress Patient-Stated? Author Behavioral Health Behavioral Health Yes Fish Deras, BULB ASSEMBLER Note: I need reassurance that all the bad things that have happened to me are not my fault. documented as of this encounter Visit Diagnoses Not on filedocumented in this encounter Additional Health Concerns Assessment Noted Time PHQ-9 Depression Total Score: 0 12/09/19 24 2:58 PM CDT documented as of this encounter Care Teams Lehr Operator Relationship Specialty Start Date End Date Mary Ellen Kim, STAFF INTERPRETER, LEHR ATTENDANT [address] [place] [address] PCP - General Advanced Practice Nurse 02/08/23 Sasha Martinez DPM Consulting Physician Podiatry 02/27/22 documented as of this encounter
--- OUTSIDE RECORDS SUMMARY | 2024-03-24 08:55 | XMS_ITS | Continuity of Care Document ---
Author Organization [facility] Address [address] [place] [address] Phone Care Team Providers Care Housekeeping Supervisor Hotel Name Role Phone Butch Schroedre MD Unavailable Unavailable Allergies, Adverse Reactions, Alerts [...] Diagnoses Date Provider Providers Copied on Encounter [facility], [address] [place], [place], [address], [place] tel:[phone] [facility] No Information Alexandre Rae. [address], [place], [place], [address] , [place]. tel:[phone] Referring Provider: [address], [place], [place], [address]. tel:[phone] OFFICE/OUTPA TIENT VISIT, [facility] [place], [address], [place], [place], [address], [place] tel:[phone] [facility] UTI1 (chief complaint) insmonia1 (chief complaint) anxiety1 (chief complaint) Generalized Anxiety DisorderInsomniaUri nary tract infection Alexandre Rae. [address], [place], [place], [address] , [place]. [phone] Referring Provider: [address], [place], [place], [address]. tel:[phone] OFFICE/OUTPA TIENT VISIT, [facility] [place], [address], [place], [place], [address], [place] tel:[phone] [facility] anxiety1 (chief complaint) sleep apnea1 (chief complaint) InsomniaGeneralized Anxiety DisorderBody mass index (BMI) 32.0-32.9, adult Alexandre Cabrera [address], [place], [place], [address] , [place]. tel:[phone] Referring Provider: [address], [place], [address]. tel:[phone] OFFICE/OUTPA TIENT VISIT, [facility] [place], [address], [place], [place], [address], [place] tel:[phone] [facility] HLP (chief complaint) vitmai D (chief complaint) anxiety1 (chief complaint) insomnia1 (chief complaint) hand weakness1 (chief complaint) InsomniaHyperlipide miaVitamin D deficiency, unspecifiedGenerali zed Anxiety Disorder Alexandre Cabrera [address], [place], [place], [address] , [place]. tel:[phone] Referring Provider: [address], [place], [place], [address]. tel:[phone] PREV VISIT, NEW, AGE 18-39 [facility], [address], [place], [place], [address], [place] tel:[phone] [facility] Physical (chief complaint) Encounter for general adult medical exam w abnormal findingsGeneralized Anxiety DisorderInsomniaSle ep apnea May-0 7 Alexandre Rae. [address], [place], [place], [address] , [place]. [phone] Referring Provider: [address], [place], [place], [address]. tel:[phone] PREV VISIT, EST, AGE 18-39 [facility], [address], [place], [place], [address], [place] tel:[phone] [facility] Physical (chief complaint) Dietary surveillance and counselingRoutine Medical ExamRoutine Medical Exam Sep-0 3 Alexandre Rae. [address], [place], [place], [address] , [place]. [phone] Referring Provider: [address], [place], [place], [address]. tel:[phone] OFFICE/OUTPA TIENT VISIT, EST [facility], [address], [place], [place], [address], [place] [phone] [facility] ganglion cyst (chief complaint) Dietary surveillance and counselingGanglion, unspecified 3 Alexandre Rae. [address], [place], [place], [address] , [place]. [phone] Referring Provider: [address], [place], [place], [address]. tel:[phone] Family History Family Member Type Diagnosis Age At Onset Mother Problem (finding) cancer, skin Brother Problem (finding) Alive and well Father Problem (finding) early age unknown causes Payers Payer name Insurance type Covered democrat ID Authoralex colvin(s) No Information Social History [...] Insomnia) ordered Referral Referred To: SARAH CASAREZ [id number], [id number] Ordered: Referrals: SARAH CASAREZ. Evaluate and treat [...] busy at work to make appointment with [facility] anxiety1 Pt has been havi ng anxiety and depression Pt is getting and she has been having severe stress at work. 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 Pt recently had a emotinal breakdown [...]
--- OUTSIDE RECORDS SUMMARY | 2024-03-24 08:57 | XMS_ITS | Continuity of Care Document ---
Author Organization [facility] Address [address] [place] [address] Phone Care Team Providers Care Manager Of Creative Services Name Role Phone Ara Herman DO Unavailable [...] Diagnoses Date Provider Providers Copied on Encounter [facility], [address], [place], [place], [address] , [place] tel:[phone] [facility] No Information 2 Batsheva Bullock. [address], [place], [place], [address] , [place]. tel:[phone] [facility], [address], [place], [place], [address] , [place] tel: [phone] [facility] No Information 2 Batsheva Ara. [address], [place], [place], [address] , [place]. tel: [phone] [facility], [address], [place], [place], [address] , [place] tel: [phone] [facility] No Information 2 Batsheva Ara. [address], [place], [place], [address] , [place]. tel: [phone] [facility], [address], [place], [place], [address] , [place] tel: [phone] [facility] No Information 2 Batsheva Ara. [address], [place], [place], [address] , [place]. tel: [phone] [facility], [address], [place], [place], [address] , [place] tel: [phone] [facility] No Information 1 Batsheva Ara. [address], [place], [place], [address] , [place]. tel: [phone] OFFICE/OUTPA TIENT VISIT, [facility] IV [facility], [address], [place], [place], [address] , [place] tel: [phone] [facility] anxiety (chief complaint) insomnia (chief complaint) Body mass index (BMI) 33.0-33.9, adultAnxiety and depressionSituational insomnia 1 Batsheva Ara. [address], [place], [place], [address] , [place]. tel: [phone] Referring Provider: Ara Mann, [address], [place], [address] . tel:[phone] OFFICE/OUTPA TIENT VISIT, NEW IV [facility], [address], [place], [place], [address] , tel:[phone] [facility] anxiety (chief complaint) Anxiety and depressionDepression, unspecifiedSituationa l insomnia Batsheva Bullock. [address], [place], [place], [address] , [place]. tel:[phone] Referring Provider: Ara Mann, [address], [place], [address] . tel:[phone] Family History Family Member Type Diagnosis Age At Onset Father Problem alcoholism Mother Problem alcoholism Father Problem depression Mother Problem depression Immunizations Vaccine Date Status Comments Influenza, injectable, MDCK, preservative free, quadrivalent administered Source: Other Provider Influenza, injectable, quadr ivalent with preservative, MDCK, 0.5 mL dosage, Flucelvax Quad administered Source: Public Agency Payers Payer name Insurance type Covered democrat ID Authorarnolda marii(s) [facility] [id number] Social History Type Description Quantity Date Captured [...]
--- OUTSIDE RECORDS SUMMARY | 2024-03-24 08:57 | XMS_ITS | Continuity of Care Document ---
Author Organization [facility] Address [address] [place] [address] Phone Care Team Providers Care School Traffic Guard Name Role Phone Butch Schroeder MD Unavailable [...] Diagnoses Date Provider Providers Copied on Encounter [facility], [address], [place], [address], [place] tel:[phone] [facility] No Information Alexandre Rae. [address], [place], [place], [address] , [place]. tel:[phone] Referring Provider: [address], [place], [place], [address]. tel:[phone] OFFICE/OUTPA TIENT VISIT, [facility] [place], [address], [place], [place], [address], [place] tel:[phone] [facility] UTI1 (chief complaint) insmonia1 (chief complaint) anxiety1 (chief complaint) Generalized Anxiety DisorderInsomniaUri nary tract infection Alexandre Rae. [address], [place], [place], [address] , [place]. [phone] Referring Provider: More [address], [place], [place], [address]. tel:[phone] OFFICE/OUTPA TIENT VISIT, [facility] [place], [address], [place], [place], [address], [place] tel:[phone] [facility] anxiety1 (chief complaint) sleep apnea1 (chief complaint) InsomniaGeneralized Anxiety DisorderBody mass index (BMI) 32.0-32.9, adult Alexandre Cabrera [address], [place], [place], [address] , [place]. tel:[phone] Referring Provider: [address], [place], [place], [address]. tel:[phone] OFFICE/OUTPA TIENT VISIT, [facility] [place], [address], [place], [place], [address], [place] tel:[phone] [facility] HLP (chief complaint) vitmai D (chief complaint) anxiety1 (chief complaint) insomnia1 (chief complaint) hand weakness1 (chief complaint) InsomniaHyperlipide miaVitamin D deficiency, unspecifiedGenerali zed Anxiety Disorder Alexandre Cabrera [address], [place], [place], [address] , [place]. tel:[phone] Referring Provider: [address], [place], [place], [address]. tel:[phone] PREV VISIT, NEW, AGE 18-39 [facility], [address], [place], [place], [address], [place] tel:[phone] [facility] Physical (chief complaint) Encounter for general adult medical exam w abnormal findingsGeneralized Anxiety DisorderInsomniaSle ep apnea May-0 7 Alexandre Rae. [address], [place], [place], [address] , [place]. [phone] Referring Provider: [address], [place], [place], [address]. tel:[phone] PREV VISIT, EST, AGE 18-39 [facility], [address], [place], [place], [address], [place] tel:[phone] [facility] Physical (chief complaint) Dietary surveillance and counselingRoutine Medical ExamRoutine Medical Exam Sep-0 3 Alexandre Rae. [address], [place], [place], [address] , [place]. [phone] Referring Provider: [address], [place], [place], [address]. tel:[phone] OFFICE/OUTPA TIENT VISIT, EST [facility], [address], [place], [place], [address], [place] [phone] [facility] ganglion cyst (chief complaint) Dietary surveillance and counselingGanglion, unspecified 3 Alexandre Rae. [address], [place], [place], [address] , [place]. [phone] Referring Provider: [address], [place], [place], [address]. tel:[phone] Family History Family Member Type Diagnosis Age [...] Insomnia) ordered Referral Referred To: SARAH CASAREZ [id number] [facility]
[address], [id number] Ordered: Referrals: SARAH CASAREZ. Evaluate and treat [...] busy at work to make appointment with [facility] anxiety1 Pt has been havi ng anxiety and depression Pt is getting and she has been having severe stress at work. Pt works up to 80 hours per week at the [employer]. Pt recently had a emotinal breakdown at [...]
[2024-03-24 09:02] LABS: EDUAAPPEAR Cloudy; EDUABILI Negative (Negative); EDUABLOOD 1+ (Negative); EDUACOLOR1 Yellow; EDUAGLUCOSE Negative (Negative); EDUAKETONE Negative (Negative); EDUALEUKO 1+ (Negative); EDUANITRATE Negative (Negative); EDUAPROTEIN Trace (Negative); EDUAUROBILI 0.2
--- NOTE | 2024-03-24 09:50 | ED.DENTAL ---
HPI - Dental/Oral General Chief complaint: Dental/Oral Stated complaint: Jaw Pain Right/Urinary Problem Source: patient Mode of arrival: ambulatory Limitations: no limitations History of Present Illness HPI Narrative: Patient presents for evaluation of dental pain and urinary symptoms. She has experienced right lower dental pain for the last week. She had seen a dentist for a general check-up a day before symptom onset. She reports swelling in the right side of her jaw. No fever, chills, nausea, vomiting, sore throat. She also reports dysuria for the past two days. No abdominal pain, low back pain, urinary frequency, hematuria or other urinary symptoms. She has had urinary tract infections in the past and this seems similar. Related Data Home Medications ?Medication ?Instructions ?Recorded ?Confirmed ?Last Taken ?Type fluoxetine 20 mg capsule 20 mg PO DAILY 09/22/23 09/22/23 Unknown History amitriptyline 10 mg tablet 10 mg PO DAILY 03/09/24 Unknown History Allergies Allergy/AdvReac Type Severity Reaction Status Date / Time No Known Allergies Allergy Unknown Verified 03/23/24 13:31 Review of Systems Review of Systems: CONSTITUTIONAL: Denies fever, chills, or sweats. EYES: Denies visual changes, redness, or discharge. ENT: Reports right lower dental pain and swelling in the jaw. Denies rhinorrhea, congestion, sore throat, or otalgia. CARDIOVASCULAR: Denies chest pain, palpitations, or edema. RESPIRATORY: Denies cough or dyspnea. GASTROINTESTINAL: Denies abdominal pain, nausea, vomiting, or diarrhea. GENITOURINARY: Reports dysuria. Denies hematuria, urinary frequency or other urinary symptoms. SKIN: Denies rash or itching. MUSCULOSKELETAL: Denies back pain, joint pain, or myalgia. NEUROLOGIC: Denies headache, numbness, dizziness, or weakness. PSYCHIATRIC: Denies anxiety or depression. COUNT INCLUDES [facility] Past Medical History Medical History Back pain Encounter for annual routine gynecological examination Nexplanon removal (12/23/15) Nexplanon insertion (12/18/12) Arm fracture Pneumonia Frequent UTI Depression Anxiety Surgical History Surgical History History of robot-assisted laparoscopic hysterectomy (04/05/22) Robotic assisted total laparoscopic hysterectomy Bilateral salpingectomy History of dilation and curettage (05/17/16) hscope d&c/endometrial ablation--menometrorrhagia, dysmenorrhea--benign History of ovarian cystectomy (09/25/12) rt ovarian cystectomy History of bilateral breast reduction surgery (06/23/12) History of tubal ligation (11/30/10) History of 04/10/07 primary c/s--arrest of descent 11/30/10 rpt c/s w/tubal ligation History of tonsillectomy (~2002) Family History Family History Grandparent Hypertension paternal grandfather paternal grandmother Diabetes mellitus paternal grandmother paternal grandfather Cerebrovascular accident maternal grandmother paternal grandmother Heart disease paternal grandfather Mother Alcoholism Social History Social History Smoking status: Former smoker Tobacco type: cigarettes Additional smoking assessment comments: Pt stated on and off socially, does not currently Alcohol intake: current Alcohol use details: 1-2 year rare use Substance use: never Substance use type: does not use Living arrangements: with roommate(s) Additional living arrangements comments: Occupation/Education: unemployed 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 HEAD: Normocephalic, atraumatic. EYES: PERRLA and EOMI. ENT: Nares clear, no rhinorrhea or epistaxis. Mucous membranes moist. Oropharynx without tonsillar hypertrophy exudate or other lesions. Poor dentition. There is decay of tooth #27 and tooth #28. No visible or palpable abscess. Bilateral TMs pearly verduzco nonbulging NECK: Supple. No adenopathy or masses. No carotid bruits or JVD CHEST: Clear to auscultation. No respiratory distress. No wheezes rales or rhonchi HEART: Regular rate and rhythm. No murmur heard. Normal peripheral pulses. ABDOMEN: Soft, nontender, nondistended, normal active bowel sounds. BACK: No CVA tenderness EXTREMITIES: Normal range of motion. No edema. SKIN: Warm, dry, no rash. NEURO: No focal deficits. Alert and oriented x3. PSYCH: Normal mood and affect. Course Course Emergency Course: This is a 39 year old female who presented for evaluation of urinary symptoms and dental pain. She has evidence of UTI today on dipstick. Will send urine culture. Will tx dental pain and UTI with cefdinir. Increase hydration. [id number] agents for symptom management. Follow up with primary provider. Go to the ER for worsening symptoms. Patient in agreement with plan of care. Level of Care: Express Care Visit Vital Signs Vital signs: Vital Signs Temperature 36.6 C 03/24/24 08:49 Pulse Rate 86 03/24/24 08:49 Respiratory Rate 16 03/24/24 08:49 Blood Pressure 129/65 03/24/24 08:49 Pulse Oximetry 100 03/24/24 08:49 Oxygen Delivery Room Air 03/24/24 08:49 Temperature 36.6 C 03/24/24 08:49 Pulse Rate 86 03/24/24 08:49 Respiratory Rate 16 03/24/24 08:49 Blood Pressure 129/65 03/24/24 08:49 Pulse Oximetry 100 03/24/24 08:49 Oxygen Delivery Room Air 03/24/24 08:49 MDM - Dental/Oral Lab Data Labs: Lab Results 03/24/24 Range/Units 09:00 POC Urine Color Yellow POC Urine Clarity Cloudy POC Urine pH 7.0 POC Ur Specif Embudo 1.020 POC Urine Protein Trace (Negative) POC Ur Glucose (UA) Negative (Negative) POC Urine Ketones Negative (Negative) POC Urine Blood 1+ (Negative) POC Urine Nitrite Negative (Negative) POC Urine Bilirubin Negative (Negative) POC Urine Urobilinogen 0.2 POC U Leukocyte Esteras 1+ (Negative) Discharge Plan Discharge Clinical Impression: Dental decay, UTI (urinary tract infection) Patient Disposition: Home, Self-Care Condition: Stable Instructions: Antibiotic Form, Urinary Tract Infection in Women (DC), Toothache (ED) Patient Language: Persian Prescriptions: New cefdinir 300 mg capsule 300 mg PO Q12H Qty: 20 0RF phenazopyridine [Pyridium] 200 mg tablet 200 mg PO TID Qty: 6 0RF No Action fluoxetine 20 mg capsule 20 mg PO DAILY amitriptyline 10 mg tablet 10 mg PO DAILY meclizine 25 mg tablet 25 mg PO TID Qty: 30 0RF Follow-up/Referrals: Mary Ellen Kim RN [Primary Care Provider] - Stand Alone Forms: Work/School Release IP Time of Disposition: 09:13
== END 2024-03-24 09:19 | disposition home or self-care (01) ==
PROVIDERS: Emergency Provider Nurse Practitioner
DX: K02.9 Dental caries, unspecified (principal); N39.0 Urinary tract infection, site not specified; B96.20 Unspecified Escherichia coli [E. coli] as the cause of diseases classified elsewhere; Z87.891 Personal history of nicotine dependence; F41.9 Anxiety disorder, unspecified; F32.A Depression, unspecified
CPT/HCPCS: 81003; 87086; 87186; 99213; G0463

== ENCOUNTER 2024-04-01 09:14 | Emergency (ER) | payer OTHER, SELFPAY ==
[2024-04-01 09:17] VITALS: BP 128/58; PULSE 83; RESP 16; TEMP 36.8; O2SAT 99
--- OUTSIDE RECORDS SUMMARY | 2024-04-01 09:42 | XMS_ITS | Encounter Summary ---
Author Organization [facility] Address [address] [place] [address] Phone Care Team Providers Care Health Plan Advisor Name Role Phone MichelleSasha Chuck DPM Unavailable [phone] Mary Ellen Kim DOCTOR OF VETERINARY MEDICINE, INSPECTOR CASING Primary Care Provider + Reason for Visit * Reason Comments Medication Refill Encounter Details Date Type Department Care Team (Late st Contact Info) Description 01/28/2024 Refill [facility] [address] [place] [address] Mary Ellen Kim, YEISON, INSPECTOR CASING [address] [place] [address] Medication Refill Social History Tobacco Use Types Packs/Day Years Used Date Smoking Tobacco: Never Smokeless Tobacco: Never Alcohol Use Standard Drinks/Week Comments Not Currently 0 (1 standard drink = 0.6 oz pure alcohol) occasionally, three times per year [facility] Utilities Answer Date Recorded In the past 12 months has [employer], gas, oil, or water [employer] threatened to shut off services in your home? Patient declined 10/30/2023 Social Connection and Isolation Panel [NHANES] A nswer Date Recorded In a typical week, how many times do you talk on the phone with family, friends, or neighbors? Patient declined 10/30/2023 How often do you get togethe r with friends or relatives? Patient declined 10/30/2023 How often do you attend anglican or presybeterian serv ices? Patient declined 10/30/2023 Do you belong to any clubs o r organizations such as anglican groups, unions, fraternal or athletic groups, or [...] [facility] of Occupat ional [facility] - Occupational Stress Questionnaire Answer Date Recorded [...] or living in a prison (including now)? Patient declined 10/30/2023 Sexually Active Control Partners Comments Yes Other Male Hysterectomy Comments No Sex and Gender Information Value Date Recorded Sex Assigned at Female 01/06/2023 5:01 AM CONTINUITY PERSON Legal Sex Female 11:17 PM CDT Gender Identity Female 01/06/2023 5:01 AM CONTINUITY PERSON Sexual Orientation Not on file documented as of this encounter Plan of Treatment Upcoming Encounters Date Type Department Care Team (Late st Contact Info) Description 04/07/2024 4:00 PM CONTINUITY PERSON Occupational Therapy [facility] [address], [facility] [address] [place] [address] Justa Frances, PAC [address] [place] [address] Kim Leary, OT [place] 04/08/2024 8:15 AM CONTINUITY PERSON Office Visit [facility] [address] [place] [address] Geoff Wood MD [address] [facility] [address] [place] [address] 04/14/2024 4:00 PM CONTINUITY PERSON Occupational Therapy [facility] [address], [address] [place] [address] Justa Frances, PAC [address] [place] [address] EmbKim juan OT [place] 04/22/2024 12:30 PM CONTINUITY PERSON Office Visit [facility] [address] [place] [address] Mary Ellen Kim, DOCTOR OF VETERINARY MEDICINE, INSPECTOR CASING [address] [place] [address] documented as of this encounter Goals Goal Patient Goal Type Associated Problems Recent Progress Patient-Stated? Author Behavioral Health Behavioral Health Yes Fish Deras, [employer] OFFICER Note: I need reassurance that all the bad things that have happened to me are not my fault. documented as of this encounter Visit Diagnoses Not on filedocumented in this encounter Additional Health Concerns Assessment Noted Time PHQ-9 Depression Total Score: 0 12/09/19 24 2:58 PM CDT documented as of this encounter Care Teams Health Plan Advisor Relationship Specialty Start Date End Date Mary Ellen Kim, DOCTOR OF VETERINARY MEDICINE, INSPECTOR CASING [address] [place] [address] PCP - General Advanced Practice Nurse 02/08/23 Sasha Martinez DPM Consulting Physician Podiatry 02/27/22 documented as of this encounter
--- OUTSIDE RECORDS SUMMARY | 2024-04-01 09:42 | XMS_ITS | Continuity of Care Document ---
Author Organization [facility] Address [address] [place] [address] Phone Care Team Providers Care Supervisor Metal Cans Name Role Phone Ara Herman DO Unavailable [...] Diagnoses Date Provider Providers Copied on Encounter [facility], [address], [place], [place], [address] , [place] tel:[phone] [facility] No Information 2 Batsheva Bullock. [address], [place], [place], [address] , [place]. tel:[phone] [facility], [address], [place], [place], [address] , [place] tel: [phone] [facility] No Information 2 Batsheva Ara. [address], [place], [place], [address] , [place]. tel: [phone] [facility], [address], [place], [place], [address] , [place] tel: [phone] [facility] No Information 2 Batsheva Ara. [address], [place], [place], [address] , [place]. tel: [phone] [facility], [address], [place], [place], [address] , [place] tel: [phone] [facility] No Information 2 Batsheva Ara. [address], [place], [place], [address] , [place]. tel: [phone] [facility], [address], [place], [place], [address] , [place] tel: [phone] [facility] No Information 1 Batsheva Ara. [address], [place], [place], [address] , [place]. tel: [phone] OFFICE/OUTPA TIENT VISIT, [facility] IV [facility], [address], [place], [place], [address] , [place] tel: [phone] [facility] anxiety (chief complaint) insomnia (chief complaint) Body mass index (BMI) 33.0-33.9, adultAnxiety and depressionSituational insomnia 1 Batsheva Ara. [address], [place], [place], [address] , [place]. tel: [phone] Referring Provider: Ara Mann, [address], [place], [address] . tel:[phone] OFFICE/OUTPA TIENT VISIT, [facility], [address], [place], [place], [address] , tel:[phone] [facility] anxiety (chief complaint) Anxiety and depressionDepression, unspecifiedSituationa l insomnia Batsheva Bullock. [address], [place], [place], [address] , [place]. tel:[phone] Referring Provider: Ara Mann, [address], [place], [address] . tel:[phone] Family History Family Member Type Diagnosis Age At Onset Father Problem alcoholism Mother Problem alcoholism Father Problem depression Mother Problem depression Immunizations Vaccine Date Status Comments Influenza, injectable, MDCK, preservative free, quadrivalent administered Source: Other Provider Influenza, injectable, quadr ivalent with preservative, MDCK, 0.5 mL dosage, Flucelvax Quad administered Source: Public Agency Payers Payer name Insurance type Covered constitution party ID Authorarnolda marii(s) [facility] [id number] Social History Type Description Quantity Date Captured [...]
--- OUTSIDE RECORDS SUMMARY | 2024-04-01 09:42 | XMS_ITS | Clinical Summary ---
Author Organization [facility] Address [address] [facility] [place] [address] Phone Care Team Providers Care Die Sinker Name Role Phone Sasha Martinez DPM Unavailable [phone] Mary Ellen Kim MACHINE FILLER SHREDDER, GAMING COMMISSIONER Primary Care Provider + Allergies No known [...] Encounters Date Type Department Care Team Description 03/31/2024 Telephone [facility] Re[facility] at [facility] [address] [place] [address] Embick, Kim, OT cancel 03/26/2024 Telephone [facility] Call [facility] [address] [place] [phone] Mary Ellen Kim, YEISON, GAMING COMMISSIONER Referral 03/24/2024 4:00 PM TRANSPORTATION AGENT Occupational Therapy [facility] Rehab at [facility] [address] [place] [address] Justa Frances, PAC Embick, Kim, OT Discharge Disposition: Discharged to home or Selfcare 03/21/2024 Travel 03/12/2024 Refill [facility] [address] [place] [address] Mary Ellen Kim APRN, GAMING COMMISSIONER Medication Refill 03/10/2024 10:30 AM TRANSPORTATION AGENT Occupational Therapy [facility] Rehab at [facility] [address] [address] Justa Frances, PAC Embick, Kim, OT Vertigo Discharge Disposition: Discharged to home or Selfcare 03/10/2024 8:30 AM TRANSPORTATION AGENT Office Visit [facility] [address] [place] [address] Tuan Vasquez APRN, EMILY Vertigo (Primary Dx) Discharge Disposition: Discharged to home or Selfcare 03/10/2024 Plan of Care Documentation [facility] Rehab at [facility] [address] [place] [address] 03/10/2024 Travel 03/06/2024 10:45 AM TRANSPORTATION AGENT Office Visit [facility] [address] [place] [address] Mary Ellen Kim APRN, GAMING COMMISSIONER Anxiety (Primary Dx); Major depressive disorder, recurrent episode, moderate (HCC); Insomnia, unspecified type; Dental caries; Acute pain of right shoulder; Obesity (BMI 30-39.9) Discharge Disposition: Discharged to home or Selfcare 03/06/2024 Travel 03/01/2024 Telephone [facility] Rehab at [facility] [address] [place] [phone] Alin Pretty, ASSISTANT SERVICE MANAGER Appointment 02/25/2024 Telephone [facility]hab at [facility] [address] [place] [phone] Kim Leary, OT cancel 02/11/2024 Results Follow-Up [facility] [address] [place] [address] Mary Ellen Kim APRN, EMILY Hematuria, unspecified type (Primary Dx) 02/11/2024 Nurse Triage [facility] Central Call Center [address] [place] [phone] Mary Ellen Kim APRN, GAMING COMMISSIONER Dizziness 02/07/2024 11:15 AM TRANSPORTATION AGENT Office Visit [facility] [address] [place] [phone] Justa Frances PAC Vertigo (Primary Dx) Discharge Disposition: Discharged to home or Selfcare 02/07/2024 9:11 AM TRANSPORTATION AGENT - 02/07/2024 11:59 PM TRANSPORTATION AGENT Hospital Encounter [facility] Cardiology Services [address] [place] [phone] Mary Ellen Kim APRN, GAMING COMMISSIONER Discharge Disposition: Discharged to home or Selfcare 02/07/2024 Travel 02/01/2024 Travel 01/31/2024 3:15 PM TRANSPORTATION AGENT Office Visit [facility] [place] [address] [place] [phone] Mary Ellen Kim APRN, GAMING COMMISSIONER Dizziness (Primary Dx); Anxiety Discharge Disposition: Discharged to home or Selfcare 01/28/2024 1:00 PM TRANSPORTATION AGENT Office Visit [facility] [address] [place] [address] Mary Ellen Kim APRN, EMILY Left arm pain (Primary Dx) Discharge Disposition: Discharged to home or Selfcare 01/28/2024 7:45 AM TRANSPORTATION AGENT Physical Therapy [facility] at [facility] [address] [place] [address] Mary Ellen Kim, MACHINE FILLER SHREDDER, Magdalena Boateng, PT Abnormal posture (Primary Dx); Weakness; Left arm pain Discharge Disposition: Discharged to home or Selfcare 01/28/2024 Refill [facility] [address] [place] [address] Mary Ellen Kim APRN, GAMING COMMISSIONER Medication Refill 01/28/2024 Travel 01/24/2024 8:30 AM TRANSPORTATION AGENT Clinical Support [facility] [address] [place] [phone] NurseNadine [facility] Visit for TB skin test Discharge Disposition: Discharged to home or Selfcare 01/24/2024 7:30 AM TRANSPORTATION AGENT Physical Therapy [facility] Rehab at [facility] [address] [place] [phone] Mary Ellen Kim, MACHINE FILLER SHREDDER, GAMING COMMISSIONER Magdalena Fitzpatrick, PT Discharge Disposition: Discharged to home or Selfcare 01/22/2024 3:00 PM TRANSPORTATION AGENT Immunization [facility] [address] [place] [address] [facility] Visit for TB skin test (Primary Dx) Discharge Disposition: Discharged to home or Selfcare 01/22/2024 Travel 01/15/2024 10:45 AM TRANSPORTATION AGENT Physical Therapy [facility] Rehab at [place] [address] [facility], [address] [place] [address] Mary Ellen Kim, MACHINE FILLER SHREDDER, Alin Oneal, ASSISTANT SERVICE MANAGER Left arm pain (Primary Dx) Discharge Disposition: Discharged to home or Selfcare 01/15/2024 Travel 01/13/2024 [facility]phone [facility] [address] [facility], [address] [place] [phone] Alin Pretty, ASSISTANT SERVICE MANAGER Appointment 01/08/2024 7:45 AM TRANSPORTATION AGENT [facility] at [address], [address] [place] [phone] Mary Ellen Kim, MACHINE FILLER SHREDDER, Alin Oneal, ILZ Left arm pain (Primary Dx) Discharge Disposition: Discharged to home or Selfcare 01/07/2024 Plan of Care Documentation [facility] [address] [facility], [address] [place] [phone] 01/06/2024 11:30 AM TRANSPORTATION AGENT Physical Therapy [facility] at [address], [address] [place] [phone] Mary Ellen Kim, MACHINE FILLER SHREDDER, GAMING COMMISSIONER Magdalena Fitzpatrick, PT Abnormal posture (Primary Dx); Left arm pain; Weakness Discharge Disposition: Discharged to home or Selfcare 01/06/2024 Travel 01/01/2024 7:00 AM TRANSPORTATION AGENT Office Visit [facility] - [facility] [address] [place] [address] Mary Ellen Kim, MACHINE FILLER SHREDDER, GAMING COMMISSIONER Left arm pain (Primary Dx) Discharge Disposition: Discharged to home or Selfcare 01/01/2024 Travel 12/31/2023 [facility] [address] [place] [address] Mary Ellen Kim, MACHINE FILLER SHREDDER, GAMING COMMISSIONER from Last 3 Months Immunizations Immunization Administration Dates Next Due Influenza Vaccine, MDCK,quadrivalent, pres free 10/12/2021 Influenza, Injectable, Quadrivalent 01/01/2023 Influenza, Seasonal, Injectable, Undefined 12/11 Influenza, Trivalent, Adjuvanted, PF 10/26/2021 TDAP Vaccine 01/14/2016 Family History Medical History Relation Name Comments No Known Problems Brother No Known Problems Father Anxiety disorder Maternal Grandfather Jc Diabetes Maternal Grandfather Jc Stroke Maternal Grandmother Shelley Mini st rokes Skin Cancer Mother Depression Paternal Aunt [...] pure alcohol) occasionally, three times per year [place] Utilities Answer Date Recorded In the past 12 months has [place], gas, oil, or water L2 threatened to shut off services in your [...] often do you attend chur ch or confucianist services? Never 03/10/2024 Do you belong to any clubs o r organizations such as voodoo groups, unions, fraternal or athletic groups, or [...] Total Score - Questions 1-9 0 02/25 [facility] of Occupat ional [facility] - Occupational Stress Questionnaire Answer Date Recorded [...] any time in the past 12 m [facility], were you homeless or living in a nursing home (including now)? No 03/10/2024 Sexually Active Control Partners Comments Yes Other Male Hysterectomy Comments No Sex and Gender Information Value Date Recorded Sex Assigned at Female 01/06/2023 5:01 AM TRANSPORTATION AGENT Legal Sex Female 11:17 PM CDT Gender Identity Female 01/06/2023 5:01 AM TRANSPORTATION AGENT Sexual Orientation Not on file Last Filed Vital Signs Vital Sign Reading Time Taken Comments Blood Pressure 122/78 03/10/2024 8:19 AM TRANSPORTATION AGENT Pulse 81 03/10/2024 8:19 AM TRANSPORTATION AGENT Temperature 36.6 ??C (97.8 ??F) 03/10/2024 8:19 AM CS T Respiratory Rate 16 03/10/2024 8:19 AM TRANSPORTATION AGENT Oxygen Saturation 99% 03/10/2024 8:19 AM TRANSPORTATION AGENT Inhaled Oxygen Concentration - - Weight 73.8 kg (162 lb 9.6 oz) 03/10/2024 8:19 A M TRANSPORTATION AGENT Height 149.9 cm (4' 11 ) 03/10/2024 8:19 AM TRANSPORTATION AGENT Body Mass Index 32.84 03/10/2024 8:19 AM TRANSPORTATION AGENT Plan of Treatment Upcoming Encounters Date Type Department Care Team (Late st Contact Info) Description 04/07/2024 4:00 PM TRANSPORTATION AGENT Occupational [facility] [address] [facility], [address] [address] Justa Frances, PAC [address] [place] [address] Kim Leary OT [place] 04/08/2024 8:15 AM TRANSPORTATION AGENT Office Visit [facility] #2 [place] [phone] Geoff Wood MD [address] [phone] 04/14/2024 4:00 PM TRANSPORTATION AGENT Occupational Therapy [facility] at [facility] [address] [place] [phone] Justa Frances, PAC [address] [place] [address] TerranceyessicaKim OT [place] 04/22/2024 12:30 PM TRANSPORTATION AGENT Office Visit [facility] [address] [address] [place] [address] Mary Ellen Kim, MACHINE FILLER SHREDDER, GAMING COMMISSIONER [address] [place] [address] Health Maintenance Due Date Last Done Comments Hepatitis B Immunization (1 of 3 - 19+ 3-dose series) 02/15/2004 Influenza Immunization (#1) 10/27/20230 08/2022, 10/26/2021, 10/12/2021 SARS-COV-2 Immunization (2023- season) 2023 02/11/2021, 03/04/2020 Td Immunization Every [...] Behavioral Health Behavioral Health Yes Fish Deras, AERIAL APPLICATOR PILOT Note: I need reassurance that all the bad things that have happened to me are not my fault. Procedures Procedure Name Priority Date/Time Associated Diagnosis Comments LIPID PANEL Routine 03/21/2024 8:26 AM TRANSPORTATION AGENT Obesity (BMI 30-39.9) EKG 12 LEAD Routine 02/07/2024 9:15 AM TRANSPORTATION AGENT Dizziness THYROID SCREEN WITH REFLEX Routine 02/01/2024 8:15 AM TRANSPORTATION AGENT Dizziness CBC WITH AUTO DIFFERENTIAL Routine 02/01/2024 8:15 AM TRANSPORTATION AGENT Dizziness URINALYSIS REFLEX IF INDICATED BY ABNORMAL RESULTS Routine 02/01/2024 8:15 AM TRANSPORTATION AGENT Dizziness THYROID SCREEN WITH REFLEX Routine 02/01/2024 8:15 AM TRANSPORTATION AGENT Dizziness COMPLETE BLOOD COUNT (CBC) WITH DIFF Routine 02/01/2024 8:15 AM TRANSPORTATION AGENT Dizziness CMP (COMPREHENSIVE METABOLIC PANEL) Routine 02/01/2024 8:15 AM TRANSPORTATION AGENT Dizziness TB INTRADERMAL TEST Routine 01/24/2024 8 :27 AM TRANSPORTATION AGENT Visit for TB skin test HEPATITIS C ANTIBODY Routine 06/26/2023 8:04 AM CDT Need for hepatitis C screening test from Last 3 Months or Most Recently Relevant to Health Maintenance Results * (ABNORMAL) LIPID PANEL (03/21/2024 8:26 AM TRANSPORTATION AGENT) CHOLESTEROL 201(H) <200 mg/dL 03/21/2024 9:44 AM TRANSPORTATION AGENT [facility] TRIGLYCERIDES 100 <150 mg/dL 03/21/2024 9:44 AM TRANSPORTATION AGENT [facility] HDL CHOLESTEROL 48 >40 mg/dL 9:44 AM TRANSPORTATION AGENT [facility] LDL 133(H) <130 mg/dL 03/21/2024 9:44 AM TRANSPORTATION AGENT [facility] VLDL 20 10 - 50 mg/dL 03/21/2024 9:44 AM TRANSPORTATION AGENT [facility] CHOL/HDL RATIO 4.2 0.0 - 4.4 03/21/2024 9:44 AM TRANSPORTATION AGENT [facility] NON-HDL CHOLESTEROL 153(H) <130 mg/dL 03/21/2024 9:44 AM TRANSPORTATION AGENT [facility] IS THE PATIENT REQUIRED TO BE FASTING? Yes 03/21/2024 9:44 AM TRANSPORTATION AGENT [facility] HAS THE PATIENT BEEN FASTING? Yes 03/21/2024 9:44 AM TRANSPORTATION AGENT [facility] Blood Venipuncture / Unknown 03/21/2024 8:26 AM TRANSPORTATION AGENT 03/21/2024 9:22 AM TRANSPORTATION AGENT us Mary Ellen Kim APRN, GAMING COMMISSIONER CHEMISTRY ORDERABLES Fin al Result Performing Organization Address [facility] Co de Phone Number [facility] [facility] [place] [address] * EKG 12 LEAD (02/07/2024 9:15 AM TRANSPORTATION AGENT) Ventricular Rate 86 BPM EXTERNAL EKG Atrial Rate 86 BPM EXTERNAL EKG P-R Interval 120 ms EXTERNAL EKG QRS Duration 70 ms EXTERNAL EKG Q-T Duration 354 ms EXTERNAL EKG QTC CALCULATION 423 ms EXTERNAL EKG P [place] 23 degrees EXTERNAL EKG R [place] 2 degrees EXTERNAL EKG T [place] 22 degrees EXTERNAL EKG 02/07/2024 9:15 AM TRANSPORTATION AGENT Impressions EXTERNAL EKG - 02/08/2024 9:49 PM TRANSPORTATION AGENT Normal sinus rhythm Normal ECG When compared with ECG of 31-OCT-2023 10:44, No significant change was found Confirmed by Fabio Pelaez ([id number]) on 02/08/2024 9:49:05 PM Narrative Procedure Note Fabio Pelaez MD PhD - 02/08/2024 IMPRESSION: Normal sinus rhythm Normal ECG When compared with ECG of 31-OCT-2023 10:44, No significant change was found Confirmed by Fabio Pelaez ([id number]) on 02/08/2024 9:49:05 PM us Mary Ellen Kim APRN, GAMING COMMISSIONER IMG ECG ORDERABLES Final Result EXTERNAL EKG * THYROID SCREEN WITH REFLEX (02/01/2024 8:15 AM TRANSPORTATION AGENT) Pathologist [facility] TSH 1.556 0.300 - 5.000 mIU/L 02/01/2024 9:24 AM TRANSPORTATION AGENT [facility] Blood Venipuncture / Unknown 02/01/2024 8:15 AM TRANSPORTATION AGENT 02/01/2024 8:38 AM TRANSPORTATION AGENT us Mary Ellen Kim MACHINE FILLER SHREDDER, GAMING COMMISSIONER CHEMISTRY ORDERABLES Fin al Result [facility] [address] [place] [address] * (ABNORMAL) URINALYSIS REFLEX IF INDICATED BY ABNORMAL RESULTS (02/01/2024 8:15 AM TRANSPORTATION AGENT) Pathologist [facility] SPECIFIC GRAVITY 1.010 1.003 - 1.030 02/01/2024 9:53 AM TRANSPORTATION AGENT [facility] URINE PH 7.0 5.0 - 9.0 02/01/2024 9:53 AM TRANSPORTATION AGENT [facility] WBC ESTERASE Negative Negative 02/01/2024 9:53 AM TRANSPORTATION AGENT [facility] NITRITE Negative Negative 02/01/2024 9:53 AM TRANSPORTATION AGENT [facility] PROTEIN, RANDOM URINE 15 mg/dL(A) Negative 02/01/2024 9:53 AM TRANSPORTATION AGENT [facility] URINE GLUCOSE, QUAL Negative Negative 02/01/2024 9:53 AM TRANSPORTATION AGENT [facility] URINE KETONES Negative Negative 02/01/2024 9:53 AM TRANSPORTATION AGENT [facility] UROBILINOGEN Normal Normal mg/dL 02/01/2024 9:53 AM TRANSPORTATION AGENT [facility] URINE BLOOD 25 /uL(A) Negative young/ul 02/01/2024 9:53 AM TRANSPORTATION AGENT [facility] URINALYSIS COLOR Yellow 02/01/20 9:53 AM TRANSPORTATION AGENT [facility] URINALYSIS CLARITY Clear 02/01/2024 9:53 AM TRANSPORTATION AGENT [facility] WBC (Urine) 0-5 Negative, 0-5 /hpf 02/01/2024 9:53 AM TRANSPORTATION AGENT [facility] URINE RBC'S 0-2 Negative, 0-2 /hpf 02/01/2024 9:53 AM TRANSPORTATION AGENT [facility] EPITHELIAL CELLS Small amount /lpf 2023 9:53 AM TRANSPORTATION AGENT [facility] BACTERIA, URINE Negative Negative /hpf 02/01/2024 9:53 AM TRANSPORTATION AGENT [facility] Urine URINE SPECIMEN COLLECTION, CLEAN CATCH / Unknown Non-Phlebotomy Collection / Unknown 02/01/2024 8:15 AM TRANSPORTATION AGENT 02/01/2024 8:38 AM TRANSPORTATION AGENT us Mary Ellen Kim MACHINE FILLER SHREDDER, GAMING COMMISSIONER URINE ORDERABLES Final R esult [facility] [address] [place] [address] * (ABNORMAL) CBC WITH AUTO DIFFERENTIAL (02/01/2024 8:15 AM TRANSPORTATION AGENT) WBC 10.22 4.00 - 12.00 10(3)/mcL 02/01/2024 8:42 AM TRANSPORTATION AGENT [facility] RBC 4.76 3.80 - 5.30 10(6)/mcL 02/01/2024 8:42 AM TRANSPORTATION AGENT [facility] HEMOGLOBIN (HGB) 14.1 12.0 - 15.8 g/dL 02/01/2024 8:42 AM TRANSPORTATION AGENT [facility] HEMATOCRIT (HCT) 44.2 36.0 - 47.0 % 02/01/2024 8:42 AM TRANSPORTATION AGENT [facility] MCV 92.9 82.0 - 96.0 fL 02/01/2024 8:42 AM [facility] MCH 29.6 26.0 - 34.0 pg 02/01/2024 8:42 AM TRANSPORTATION AGENT [facility] MCHC 31.9 31.0 - 36.0 g/dL 02/01/2024 8:42 AM [facility] PLATELET COUNT 394 140 - 440 10(3)/[facility] 02/01/2024 8:42 AM [facility] RDW 11.9 11.8 - 15.5 % 02/01/2024 8:42 AM [facility] MPV 9.6(L) 9.7 - 12.4 fL 02/01/2024 8:42 AM [facility] NEUTROPHILS 67.3 47.0 - 73.0 % 02/01/2024 8:42 AM [facility] LYMPHOCYTES 26.4 18.0 - 42.0 % 02/01/2024 8:42 AM [facility] MONOCYTES 4.9 4.0 - 12.0 % 02/01/2024 8:42 AM [facility] EOSINOPHILS 1.2 0.0 - 5.0 % 02/01/2024 8:42 AM [facility] BASOPHILS 0.2 0.0 - 1.0 % 02/01/2024 8:42 AM [facility] ABSOLUTE NEUTROPHILS 6.88 1.60 - 7.70 10(3)/[facility] 02/01/2024 8:42 AM [facility] ABSOLUTE LYMPHOCYTES 2.70 1.30 - 3.20 10(3)/[facility] 02/01/2024 8:42 AM [facility] ABSOLUTE MONOCYTES 0.50 0.20 - 1.00 10(3)/[facility] 02/01/2024 8:42 AM [facility] ABSOLUTE EOSINOPHIL 0.12 0.00 - 0.40 10(3)/[facility] 02/01/2024 8:42 AM [facility] ABSOLUTE BASOPHILS 0.02 0.00 - 0.10 10(3)/[facility] 02/01/2024 8:42 AM [facility] NRBC PER 100 WBC 0 02/01/20 8:42 AM [facility] Blood Venipuncture / Unknown 02/01/2024 8:15 AM TRANSPORTATION AGENT 02/01/2024 8:38 AM TRANSPORTATION AGENT us Mary Ellen Kim APRN, GAMING COMMISSIONER HEMATOLOGY ORDERABLES Fi nal Result [facility] [address] [place] [address] * CMP (COMPREHENSIVE METABOLIC PANEL) (02/01/2024 8:15 AM TRANSPORTATION AGENT) SODIUM 139 136 - 145 mmol/L 02/01/2024 9:11 AM [facility] POTASSIUM 3.9 3.5 - 5.1 mmol/L 02/01/2024 9:11 AM [facility] CHLORIDE 106 98 - 107 mmol/L 02/01/2024 9:11 AM [facility] CO2, VENOUS 24 22 - 30 mmol/L 02/01/2024 9:11 AM [facility] ANION GAP 12.9 <18.0 mmol/L 02/01/2024 9:11 AM [facility] GLUCOSE 90 70 - 99 mg/dL 02/01/2024 9:11 AM [facility] BUN 13 5 - 18 mg/dL 02/01/2024 9:11 AM [facility] CREATININE, BLOOD 0.83 0.60 - 1.00 mg/dL 02/01/2024 9:11 AM [facility] BUN/CREATININE RATIO 16 12 - 20 ratio 02/01/2024 9:11 AM [facility] TOTAL PROTEIN 8.0 6.3 - 8.2 g/dL 02/01/2024 9:11 AM [facility] ALBUMIN 4.4 3.5 - 5.0 g/dL 02/01/2024 9:11 AM [facility] A/G RATIO 1.2 1.0 - 2.2 02/01/2024 9:11 AM [facility] CALCIUM 9.3 8.7 - 10.5 mg/dL 02/01/2024 9:11 AM TRANSPORTATION AGENT [facility] T BILI 0.5 0.2 - 1.2 mg/dL 02/01/2024 9:11 AM TRANSPORTATION AGENT [facility] SGOT (AST) 16 5 - 34 U/L 02/01/2024 9:11 AM [facility] SGPT (ALT) 17 0 - 55 U/L 02/01/2024 9:11 AM TRANSPORTATION AGENT [facility] ALKALINE PHOSPHATASE 91 40 - 150 U/L 02/01/2024 9:11 AM [facility] IS THE PATIENT REQUIRED TO BE FASTING? No 02/01/2024 9:11 AM [facility] GFR, ESTIMATED >60 >=60 02/01/2024 9:11 AM [facility] Comment: Creatinine Clearance is the preferred criteria for selecting drug dose adjustments in renally impaired patients. ??The GFR is provided as additional pertinent clinical information. GFR is reported in mL/min/1.73 sq m. Calculation based on the Chronic Kidney Disease Epidemiology Collaboration (CKD- EPI) equation refit without adjustment for race. GFR, EST. >60 >=60 024 9:11 AM [facility] GFR, EST. NONAFRICAN >60 >=60 02/01/2024 9:11 AM [facility] Blood Venipuncture / Unknown 02/01/2024 8:15 AM TRANSPORTATION AGENT 02/01/2024 8:38 AM TRANSPORTATION AGENT us Mary Ellen Kim MACHINE FILLER SHREDDER, GAMING COMMISSIONER CHEMISTRY ORDERABLES Fin al Result [facility] [address] [place] [address] * TB INTRADERMAL TEST (01/24/2024 8:27 AM TRANSPORTATION AGENT) TB SKIN TEST 0 mm Comment:negative 01/24/2024 8:27 AM TRANSPORTATION AGENT Mary Ellen Kim APRN, CNP POINT OF CARE TESTING (M ANUAL) Final Result * HEPATITIS C ANTIBODY (06/26/2023 8:04 AM CDT) hepatitis C antibody 0.08 <1 S/CO 06/26/2023 11:33 PM CDT [facility] Comment: Signal/Cutoff ratio ??< 0.79 is Nondetected Signal/Cutoff ratio 0.80-0.99 is Grayzone Signal/Cutoff ratio > 0.99 is Detected Supplemental assays are recommended if signal/cutoff ratio is >/=1.00. ??Signal/cutoff ratio result >/= 5.00 is 97% predictive of positivity for recombinant immunoblot assay (RIBA) and will be reported to the [place] Department of Public Health as required. Blood Venipuncture / Unknown 06/26/2023 8:04 AM CDT 06/26/2023 8:05 AM CDT Mary Ellen Kim APRN, CNP CHEMISTRY ORDERABLES Fin al Result [facility] [address] [place] [address], from Last 3 Months or Most Recently Relevant to Health Maintenance Insurance [place] Care Teams Die Sinker Relationship Specialty Start Date End Date Mary Ellen Kim, MACHINE FILLER SHREDDER, GAMING COMMISSIONER [address] [place] [address] PCP - General Advanced Practice Nurse 02/08/23 Sasha Martinez DPM Consulting Physician Podiatry 02/27/22
--- OUTSIDE RECORDS SUMMARY | 2024-04-01 09:42 | XMS_ITS | Encounter Summary ---
Author Organization [facility] Address [address] [place] [address] Phone Care Team Providers Care Senior Product Consultant Name Role Phone MichelleSasha Chuck DPM Unavailable Mary Ellen Kim MENTALLY RETARDED TEACHER, JEWEL CUPPING MACHINE OPERATOR Primary Care Provider + Reason for Visit * Reason Comments Medication Refill Encounter Details Date Type Department Care Team (Late st Contact Info) Description 03/12/2024 [facility]ill [facility] [address] [place] [address] Mary Ellen Kim, YEISON, JEWEL CUPPING MACHINE OPERATOR [address] [place] [address] Medication Refill Social History Tobacco Use Types Packs/Day Years Used Date Smoking Tobacco: Never Smokeless Tobacco: Never Alcohol Use Standard Drinks/Week Comments Not Currently 0 (1 standard drink = 0.6 oz pure alcohol) occasionally, three times per year [facility] Utilities Answer Date Recorded In the past 12 months has [employer], gas, oil, or water [employer] threatened to shut off services in your home? No 03/10/2024 Social Connection and Isolation Panel [NHANES] A nswer Date Recorded In a typical week, how many times do you talk on the phone with family, friends, or neighbors? Once a week 03/10/19 How often do you get togethe r with friends or relatives? Once a week 03/10/2024 How often do you attend [facility] or caodaism services? Never 03/10/2024 Do you belong to any clubs o r organizations such as rastafari groups, unions, fraternal or athletic groups, or [...] Total Score - Questions 1-9 0 02/25 [facility] - [...] a [place] health care facility (including now)? No 03/10/2024 Sexually Active Control Partners Comments Yes Other Male Hysterectomy Comments No Sex and Gender Information Value Date Recorded Sex Assigned at Female 01/06/2023 5:01 AM DEVOPS CONSULTANT Legal Sex Female 11:17 PM CDT Gender Identity Female 01/06/2023 5:01 AM DEVOPS CONSULTANT Sexual Orientation Not on file documented as of this encounter Miscellaneous Notes * Telephone Encounter - Norma Pan RN - 03/12/2024 11:18 AM CST Name from pharmacy: TRAZODONE 50 MG TABLET Will file in chart as: traZODone (DESYREL) 50 MG Tablet The original prescription was discontinued on 03/06/2024 by Mary Ellen Kim, MENTALLY RETARDED TEACHER, JEWEL CUPPING MACHINE OPERATOR Insomnia. Taking Trazodone 50 mg nightly. Medication is no longer helpful. Difficulty falling asleep. No problem staying asleep. PS CONSULTANT documented in this encounter Plan of Treatment Upcoming Encounters Date Type Department Care Team (Late st Contact Info) Description 04/07/2024 4:00 PM DEVOPS CONSULTANT Occupational Therapy [facility] at [facility] [address], [address] [place] [address] Justa Frances, PAC [address] [place] [address] Kim Leary OT [place] 04/08/2024 8:15 AM DEVOPS CONSULTANT Office Visit [facility] [address] [place] [address] Geoff Wood MD [address]2 [facility], [address] [place] [address] 04/14/2024 4:00 PM DEVOPS CONSULTANT [facility] [address] [place] [address] Justa Frances, LISA [address] [place] [address] Kim Leary OT [place] 04/22/2024 12:30 PM DEVOPS CONSULTANT Office Visit [facility] - Family Medicine - [place] [address] [place] [address] Mary Ellen Kim, YEISON, JEWEL CUPPING MACHINE OPERATOR [address] [place] [address] documented as of this encounter Goals Goal Patient Goal Type Associated Problems Recent Progress Patient-Stated? Author Behavioral Health Behavioral Health Yes Fish Deras, FOLDER SEAMER AUTOMATIC Note: I need reassurance that all the bad things that have happened to me are not my fault. documented as of this encounter Visit Diagnoses Not on filedocumented in this encounter Additional Health Concerns Assessment Noted Time PHQ-9 Depression Total Score: 0 03/10/19 25 8:19 AM DEVOPS CONSULTANT documented as of this encounter Care Teams Senior Product Consultant Relationship Specialty Start Date End Date Mary Ellen Kim, MENTALLY RETARDED TEACHER, JEWEL CUPPING MACHINE OPERATOR [address] [place] [address] PCP - General Advanced Practice Nurse 02/08/23 Sasha Martinez DPM Consulting Physician Podiatry 02/27/22 documented as of this encounter
--- OUTSIDE RECORDS SUMMARY | 2024-04-01 09:42 | XMS_ITS | Continuity of Care Document ---
Author Organization [facility] Address [address] [place] [address] Phone Care Team Providers Care Lawn Caretaker Name Role Phone Butch Schroeder MD Unavailable [...] Diagnoses Date Provider Providers Copied on Encounter [facility] [place], [address], [place], [address], [place] tel:[phone] [facility] [place] No Information Alexandre Rae. [address], [place], [place], [address] , [place]. tel:[phone] Referring Provider: [address], [place], [place], [address]. tel:[phone] OFFICE/OUTPA TIENT VISIT, [facility] [place], [address], [place], [place], [address], [place] tel:[phone] [facility] [place] UTI1 (chief complaint) insmonia1 (chief complaint) anxiety1 (chief complaint) Generalized Anxiety DisorderInsomniaUri nary tract infection Alexandre Rae. [address], [place], [place], [address] , [place]. [phone] Referring Provider: [address], [place], [place], [address]. tel:[phone] OFFICE/OUTPA TIENT VISIT, [facility] [place], [address], [place], [place], [address], [place] tel:[phone] [facility] [place] anxiety1 (chief complaint) sleep apnea1 (chief complaint) InsomniaGeneralized Anxiety DisorderBody mass index (BMI) 32.0-32.9, adult Alexandre Cabrera [address], [place], [place], [address] , [place]. tel:[phone] Referring Provider: [address], [place], [place], [address]. tel:[phone] OFFICE/OUTPA TIENT VISIT, [facility] [place], [address], [place], [place], [address], [place] tel:[phone] [facility] [place] HLP (chief complaint) vitmai D (chief complaint) anxiety1 (chief complaint) insomnia1 (chief complaint) hand weakness1 (chief complaint) InsomniaHyperlipide miaVitamin D deficiency, unspecifiedGenerali zed Anxiety Disorder Alexandre Cabrera [address], [address], [place], [place], [address] , [place]. tel:[phone] Referring Provider: [address], [place], [place], [address]. tel:[phone] PREV VISIT, NEW, AGE 18-39 [facility], [address], [place], [place], [address], [place] tel:[phone] [facility] Physical (chief complaint) Encounter for general adult medical exam w abnormal findingsGeneralized Anxiety DisorderInsomniaSle ep apnea May-0 7 Alexandre Rae. [address], [place], [place], [address] , [place]. [phone] Referring Provider: [address], [place], [place], [address]. tel:[phone] PREV VISIT, EST, AGE 18-39 [facility] [place], [address], [place], [place], [address], [place] tel:[phone] [facility] [place] Physical (chief complaint) Dietary surveillance and counselingRoutine Medical ExamRoutine Medical Exam Sep-0 3 Alexandre Rae. [address], [place], [place], [address] , [place]. [phone] Referring Provider: [address], [place], [place], [address]. tel:[phone] OFFICE/OUTPA TIENT VISIT, EST [facility] [place], [address], [place], [place], [address], [place] [phone] [facility] [place] ganglion cyst (chief complaint) Dietary surveillance and counselingGanglion, unspecified 3 Alexandre Rae. [address], [place], [place], [address] , [place]. [phone] Referring Provider: [address], [place], [place], [address]. tel:[phone] Family History Family Member Type Diagnosis Age At Onset Mother Problem (finding) cancer, skin Brother Problem (finding) Alive and well Father Problem (finding) early age unknown causes Payers Payer name Insurance type Covered alliance party ID Authoralex colvin(s) No Information Social [...] Insomnia) ordered Referral Referred To: SARAH CASAREZ [id number], [phone] Ordered: Referrals: SARAH CASAREZ. 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 Pt recently had a emotinal breakdown at [...] busy at work to make appointment with [facility] hand weakness1 Pt states that s he [...]
--- OUTSIDE RECORDS SUMMARY | 2024-04-01 09:42 | XMS_ITS | Encounter Summary ---
Author Organization [facility] Address [address] [place] [address] Phone Care Team Providers Care Accounts Payable Coordinator Name Role Phone MichelleGrantharesh Woods DPM Unavailable [phone] Mary Ellen Kim APRN, OPERATIONS LIEUTENANT Primary Care Provider + Reason for Visit * Reason Onset Date Comments cancel 03/31/2024 Encounter Details Date Type Department Care Team (Late st Contact Info) Description 03/31/2024 Telephone [facility] Rehab at [facility] [address], [address] [place] [address] Kim Leary OT [place] cancel Social History Tobacco Use Types Packs/Day Years Used Date Smoking Tobacco: Never Smokeless Tobacco: Never Alcohol Use Standard Drinks/Week Comments Not Currently 0 (1 standard drink = 0.6 oz pure alcohol) occasionally, three times per year [facility] Utilities Answer Date Recorded In the past 12 months has [employer], gas, oil, or water [employer] threatened to shut off services in your [...] often do you attend chur ch or anabaptist services? Never 03/10/2024 Do you belong to any clubs o r organizations such as cheondoism groups, unions, fraternal or athletic groups, or [...] Total Score - Questions 1-9 0 02/25 [facility] - Occupational Stress Questionnaire Answer Date Recorded [...] time in the past 12 m [facility], were you homeless or living in a correction (including now)? No 03/10/2024 Sexually Active Control Partners Comments Yes Other Male Hysterectomy Comments No Sex and Gender Information Value Date Recorded Sex Assigned at Female 01/06/2023 5:01 AM PRINT SUPPORT SPECIALIST Legal Sex Female 11:17 PM CDT Gender Identity Female 01/06/2023 5:01 AM PRINT SUPPORT SPECIALIST Sexual Orientation Not on file documented as of this encounter Miscellaneous Notes * Telephone Encounter - Kim Leary OT - 03/31/2024 8:58 AM CST From: Amie Hodges Sent: 03/31/2024 6:11 AM PRINT SUPPORT SPECIALIST To: [facility] Rehab Pool Subject: Appointment canceled Appointment canceled for Amie Hodges ([id number]) Visit type: OCCUPATIONAL THERAPY TREATMENT 03/31/2024 3:15 PM (45 minutes) with Kim in [facility] OT REHAB Reason for cancellation: Patient-Illness (Patient or Family) KIM LEARY OT T SUPPORT SPECIALIST documented in this encounter Plan of Treatment Upcoming Encounters Date Type Department Care Team (Late st Contact Info) Description 04/07/2024 4:00 PM PRINT SUPPORT SPECIALIST Occupational Therapy [facility] Rehab at [facility] [address] [facility], [address] [address] Justa Frances, PAC [address] [place] [address] Kim Leary OT [place] 04/08/2024 8:15 AM PRINT SUPPORT SPECIALIST Office Visit [facility]Y [address] [place] [address] Geoff Wood MD [address]2 [facility], [address] [place] [address] 04/14/2024 4:00 PM PRINT SUPPORT SPECIALIST Occupational [facility] at [facility] [address] [place] [address] Justa Frances, [facility] [address] [place] [address] Kim Leary, OT [place] 04/22/2024 12:30 PM PRINT SUPPORT SPECIALIST Office Visit [facility] - [facility] [address] [place] [address] Mary Ellen Kim, BUFFING WHEEL OPERATOR, OPERATIONS LIEUTENANT [address] [place] [address] documented as of this encounter Goals Goal Patient Goal Type Associated Problems Recent Progress Patient-Stated? Author Behavioral Health Behavioral Health Yes Fish Deras, PERCUSSION INSTRUMENT REPAIRER Note: I need reassurance that all the bad things that have happened to me are not my fault. documented as of this encounter Visit Diagnoses Not on filedocumented in this encounter Additional Health Concerns Assessment Noted Time PHQ-9 Depression Total Score: 0 03/10/19 25 8:19 AM PRINT SUPPORT SPECIALIST documented as of this encounter Care Teams Accounts Payable Coordinator Relationship Specialty Start Date End Date Mary Ellen Kim, BUFFING WHEEL OPERATOR, OPERATIONS LIEUTENANT [address] [place] [address] PCP - General Advanced Practice Nurse 02/08/23 Sasha Martinez, DPM Consulting Physician Podiatry 02/27/22 documented as of this encounter
--- OUTSIDE RECORDS SUMMARY | 2024-04-01 09:44 | XMS_ITS | Continuity of Care Document ---
Author Organization [facility] Address [address] [place] [address] Phone Care Team Providers Care Guide Plant Name Role Phone Ara Herman DO Unavailable [...] [facility], [address], [place], [place], [address] , [place] tel:[phone] [facility] No Information 2 Batsheva Bullock. [address], [place], [place], [address] , [place]. tel:[phone] [facility], [address], [place], [place], [address] , [place] tel: [phone] [facility] No Information 2 Batsheva Ara. [address], [place], [place], [address] , [place]. tel: [phone] [facility], [address], [place], [place], [address] , [place] tel: [phone] [facility] No Information 2 Batsheva Ara. [address], [place], [place], [address] , [place]. tel: [phone] [facility], [address], [place], [place], [address] , [place] tel: [phone] [facility] No Information 2 Batsheva Ara. [address], [place], [place], [address] , [place]. tel: [phone] [facility], [address], [place], [place], [address] , [place] tel: [phone] [facility] No Information 1 Batsheva Ara. [address], [place], [place], [address] , [place]. tel: [phone] OFFICE/OUTPA TIENT VISIT, [facility] IV [facility], [address], [place], [place], [address] , [place] tel: [phone] [facility] anxiety (chief complaint) insomnia (chief complaint) Body mass index (BMI) 33.0-33.9, adultAnxiety and depressionSituational insomnia 1 Batsheva Ara. [address], [place], [place], [address] , [place]. tel: [phone] Referring Provider: Ara Mann, [address], [place], [address] . tel:[phone] OFFICE/OUTPA TIENT VISIT, NEW IV [facility], [address], [place], [place], [address] , tel:[phone] [facility] anxiety (chief complaint) Anxiety and depressionDepression, unspecifiedSituationa l insomnia Batsheva Bullock. [address], [place], [place], [address] , [place]. tel:[phone] Referring Provider: Ara Mann, [address], [place], [address] . tel:[phone] Family History Family Member Type Diagnosis Age At Onset Father Problem alcoholism Mother Problem alcoholism Father Problem depression Mother Problem depression Immunizations Vaccine Date Status Comments Influenza, injectable, MDCK, preservative free, quadrivalent administered Source: Other Provider Influenza, injectable, quadr ivalent with preservative, MDCK, 0.5 mL dosage, Flucelvax Quad administered Source: Public Agency Payers Payer name Insurance type Covered alliance party ID Authorarnolda marii(s) [facility] [id number] Social History Type Description Quantity Date Captured [...]
--- OUTSIDE RECORDS SUMMARY | 2024-04-01 09:44 | XMS_ITS | Continuity of Care Document ---
Author Organization [facility] Address [address] [place] [address] Phone Care Team Providers Care Assistant Art Director Name Role Phone Butch Schroeder MD Unavailable [...] Diagnoses Date Provider Providers Copied on Encounter [facility], [address] [place], [place], [address], [place] tel:[phone] [facility] No Information Alexandre Rae. [address], [place], [place], [address] , [place]. tel:[phone] Referring Provider: [address], [place], [place], [address]. tel:[phone] OFFICE/OUTPA TIENT VISIT, [facility], [address], [place], [place], [address], [place] tel:[phone] [facility] UTI1 (chief complaint) insmonia1 (chief complaint) anxiety1 (chief complaint) Generalized Anxiety DisorderInsomniaUri nary tract infection Alexandre Rae. [address], [place], [place], [address] , [place]. [phone] Referring Provider: [address], [place], [place], [address]. tel:[phone] OFFICE/OUTPA TIENT VISIT, [facility], [address], [place], [place], [address], [place] tel:[phone] [facility] anxiety1 (chief complaint) sleep apnea1 (chief complaint) InsomniaGeneralized Anxiety DisorderBody mass index (BMI) 32.0-32.9, adult Alexandre Cabrera [address], [place], [place], [address] , [place]. tel:[phone] Referring Provider: [address], [place], [place], [address]. tel:[phone] OFFICE/OUTPA TIENT VISIT, [facility], [address], [place], [place], [address], [place] tel:[phone] [facility] HLP (chief complaint) vitmai D (chief complaint) anxiety1 (chief complaint) insomnia1 (chief complaint) hand weakness1 (chief complaint) InsomniaHyperlipide miaVitamin D deficiency, unspecifiedGenerali zed Anxiety Disorder Alexandre Cabrera [address], [place], [place], [address] , [place]. tel:[phone] Referring Provider: [address], [place], [place], [address]. tel:[phone] PREV VISIT, NEW, AGE 18-39 [facility], [address], [place], [place], [address], [place] tel:[phone] [facility] Physical (chief complaint) Encounter for general adult medical exam w abnormal findingsGeneralized Anxiety DisorderInsomniaSle ep apnea May-0 7 Alexandre Rae. [address], [place], [place], [address] , [place]. [phone] Referring Provider: More [address], [place], [place], [address]. tel:[phone] PREV VISIT, EST, AGE 18-39 [facility], [address], [place], [place], [address], [place] tel:[phone] [facility] Physical (chief complaint) Dietary surveillance and counselingRoutine Medical ExamRoutine Medical Exam Sep-0 3 Alexandre Rae. [address], [place], [place], [address] , [place]. [phone] Referring Provider: More [address], [place], [place], [address]. tel:[phone] OFFICE/OUTPA TIENT VISIT, EST [facility], [address], [place], [place], [address], [place] [phone] [facility] ganglion cyst (chief complaint) Dietary surveillance and counselingGanglion, unspecified 3 Alexandre Rae. [address], [place], [place], [address] , [place]. [phone] Referring Provider: [address], [place], [place], [address]. tel:[phone] Family History Family Member Type Diagnosis Age [...] Insomnia) ordered Referral Referred To: SARAH CASAREZ [id number], [phone] Ordered: Referrals: SARAH CASAREZ. Evaluate and treat [...] work to make appointment with [facility] anxiety1 Pt has been havi ng anxiety and depression Pt is getting and she has been having severe stress at work. 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 Pt recently had a emotinal breakdown at [...] numbness for several months. Pt denies any wigigns or injury Physical Pt needs annual physical. [...]
--- NOTE | 2024-04-01 09:51 | ED_ITS ---
HPI - URI/Sore Throat General Chief Complaint: Upper Respiratory Infection Stated Complaint: Body Aches/Congestion/Cough/Nausea Time Seen by Provider: 04/01/24 09:51 Source: patient Mode of arrival: ambulatory Limitations: no limitations History of Present Illness HPI Narrative: 39 year old female who presents to [facility] Care complaints of headaches, body aches, cough and fevers up to 99.7F with some sinus congestion, and nausea for the past 3 days. Patient reports that she was recently treated with Cefdinir for UTI and bad tooth on 03/24/2024 for 10 day script.Patient reports that she has taken Ibuprofen, DayQuil and NyQuil for her symptoms. MD elicited complaint: fever (low grade), cough, rhinorrhea, nasal congestion and other (body aches and headache) Pertinent past history: other (Tonsillectomy) Onset (ago): day(s) (3) Pain scale (0-10): 5 Able to tolerate fluids by mouth: Yes Treatments prior to arrival: ibuprofen, antibiotics (cefdinir) and other (DayQuil and NyQuil) Related Data Home Medications ?Medication ?Instructions ?Recorded ?Confirmed ?Last Taken ?Type fluoxetine 20 mg capsule 20 mg PO DAILY 09/22/23 09/22/23 Unknown History amitriptyline 10 mg tablet 10 mg PO DAILY 03/09/24 Unknown History Allergies Allergy/AdvReac Type Severity Reaction Status Date / Time No Known Allergies Allergy Unknown Verified 04/01/24 09:51 Review of Systems Review of Systems: CONSTITUTIONAL: Reports malaise, chills, sweats, or fever. EYES: Denies visual changes, redness, or discharge. ENT: Reports rhinorrhea, congestion, sinus pain, no otalgia and no sore throat. CARDIOVASCULAR: Denies chest pain, palpitations, or edema. RESPIRATORY: Reports cough.? Denies dyspnea. GASTROINTESTINAL: Denies abdominal pain, states some nausea, no vomiting, no diarrhea SKIN: Denies rash or itching. MUSCULOSKELETAL: reports myalgia. NEUROLOGIC:reports headache. All systems reviewed & are unremarkable except as noted in HPI and below PMFSH Past Medical History Medical History Back pain Encounter for annual routine gynecological examination Nexplanon removal (12/23/15) Nexplanon insertion (12/18/12) Arm fracture Pneumonia Frequent UTI Depression Anxiety Surgical History Surgical History History of robot-assisted laparoscopic hysterectomy (04/05/22) Robotic assisted total laparoscopic hysterectomy Bilateral salpingectomy History of dilation and curettage (05/17/16) hscope d&c/endometrial ablation--menometrorrhagia, dysmenorrhea--benign History of ovarian cystectomy (09/25/12) rt ovarian cystectomy History of bilateral breast reduction surgery (06/23/12) History of tubal ligation (11/30/10) History of 04/10/07 primary c/s--arrest of descent 11/30/10 rpt c/s w/tubal ligation History of tonsillectomy (~2002) Family History Family History Grandparent Hypertension paternal grandfather paternal grandmother Diabetes mellitus paternal grandmother paternal grandfather Cerebrovascular accident maternal grandmother paternal grandmother Heart disease paternal grandfather Mother Alcoholism Social History Social History Smoking status: Former smoker Tobacco type: cigarettes Additional smoking assessment comments: Pt stated on and off socially, does not currently Alcohol intake: current Alcohol use details: 1-2 year rare use Substance use: never Substance use type: does not use Living arrangements: with roommate(s) Additional living arrangements comments: Occupation/Education: unemployed 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 There is no relevant family history pertinent to the presenting complaint Exam Narrative: GENERAL: Well-appearing, well-nourished, and in no acute distress. HEAD: Normocephalic EYES: PERRLA, conjunctivae clear ENT: Nares clear, turbinates edematous and erythematous, clear discharge sinus pressure and headache Mucous membranes moist. TM pearly verduzco with dull light reflex bilaterally; no tragal tenderness. Oropharynx erythematous without lesions. Tonsils not present and throat without exudate, no drooling, no hoarseness, no trismus, uvula midline, sinus drainage. NECK: Supple. No lymphadenopathy CHEST: Clear to auscultation, breath sounds equal. No wheezing, rhonchi, rales, or stridor. No respiratory distress, speaks in full sentences.dry cough SAO2 99% on room air HEART: Regular rate and rhythm. No murmur heard. SKIN: Warm, dry, no rash. NEURO: Alert and oriented x3. PSYCH: Normal mood and affect Course Course Emergency Course: Patient is aware of diagnosis, understands and agrees to treatment plan.? Anticipatory guidance given.? Patient agrees to follow-up as directed and is aware of reasons to seek care at the emergency department. Portions of this record may have been created with voice recognition software Level of Care: Express Care Visit Vital Signs Vital signs: Vital Signs Temperature 36.8 C 04/01/24 09:17 Pulse Rate 83 04/01/24 09:17 Respiratory Rate 16 04/01/24 09:17 Blood Pressure 128/58 L 04/01/24 09:17 Pulse Oximetry 99 04/01/24 09:17 Temperature 36.8 C 04/01/24 09:17 Pulse Rate 83 04/01/24 09:17 Respiratory Rate 16 04/01/24 09:17 Blood Pressure 128/58 L 04/01/24 09:17 Pulse Oximetry 99 04/01/24 09:17 Reviewed MDM - URI/Sore Throat MDM Narrative Medical decision making narrative: Differential diagnosis considered: Martin virus, strep pharyngitis, allergic rhinitis, upper respiratory tract infection, sinusitis, rhinosinusitis, na sopharyngitis. viral pharyngitis, otitis media, otitis externa, pneumonia, bronchitis, viral cough syndrome, viral syndrome, and influenza.? Exam findings show no acute concerns or changes; patient is non-toxic appearing and is in no distress.? Patient is appropriate for outpatient treatment and follow-up. Differential Diagnosis Differential diagnosis: Likely upper respiratory infection, sinusitis, viral infection, influenza and other (covid) Medical Records Attestation: I reviewed the patient's medical records. Lab Data Attestation: I reviewed the patient's lab results. Lab results narrative: Influenza A negative, Influenza B negative, COVID antigen negative Labs: Lab Results 04/01/24 Range/Units 09:59 POC Influenza A Ag Negative (Negative) POC Influenza B Ag Negative (Negative) POC SARS CoV-2 Ag Negative (Negative) Critical Care Time Critical Care Time Critical Care Time: No Discharge Plan Discharge Clinical Impression: Viral syndrome Patient Disposition: Home, Self-Care Condition: Stable Instructions: Antibiotic Form, Viral Syndrome (ED) Additional Instructions: Increase fluids especially juices and water [id number] cough and cold medicine of your choice for your symptoms Zyrtec Claritin or Radha daily Tylenol or ibuprofen for any fever pain heat to the face 20-30 minutes 4-6 times a day for pain Salt water gargles, throat lozenges or throat sprays as desired Delsym or Robitussin cough syrup You must be fever free for 24 hours without use of Tylenol or ibuprofen before you can return to work If your symptoms persist, change or worsen significantly before you can contact your personal physician then please, without delay, go to the emergency department for further evaluation. Follow-up with PCP in 7-10 days or sooner if needed Follow up with PCP soon in regards to your blood pressure which is elevated above threshold for referral. Blood pressure above 120/80 may indicate pre-hypertension. Minimal systolic elevation at 128/58 Patient Language: Bengali Prescriptions: No Action fluoxetine 20 mg capsule 20 mg PO DAILY amitriptyline 10 mg tablet 10 mg PO DAILY meclizine 25 mg tablet 25 mg PO TID Qty: 30 0RF cefdinir 300 mg capsule 300 mg PO Q12H Qty: 20 0RF phenazopyridine [Pyridium] 200 mg tablet 200 mg PO TID Qty: 6 0RF Follow-up/Referrals: Mary Ellen Kim RN [Primary Care Provider] - Stand Alone Forms: Work/School Release IP Time of Disposition: 10:06 Quality Vashon Coma Scale Eyes: Open Verbal: Oriented and Alert Motor: Follows Commands Vashon Coma Total Score: 15
--- NOTE | 2024-04-01 09:53 | ED.URI ---
HPI - URI/Sore Throat General Chief Complaint: Upper Respiratory Infection Stated Complaint: Body Aches/Congestion/Cough/Nausea Time Seen by Provider: 04/01/24 09:51 Source: patient Mode of arrival: ambulatory Limitations: no limitations Related Data Home Medications ?Medication ?Instructions ?Recorded ?Confirmed ?Last Taken ?Type fluoxetine 20 mg capsule 20 mg PO DAILY 09/22/23 09/22/23 Unknown History amitriptyline 10 mg tablet 10 mg PO DAILY 03/09/24 Unknown History Allergies Allergy/AdvReac Type Severity Reaction Status Date / Time No Known Allergies Allergy Unknown Verified 04/01/24 09:51 [facility] Past Medical History Medical History Back pain Encounter for annual routine gynecological examination Nexplanon removal (12/23/15) Nexplanon insertion (12/18/12) Arm fracture Pneumonia Frequent UTI Depression Anxiety Surgical History Surgical History History of robot-assisted laparoscopic hysterectomy (04/05/22) Robotic assisted total laparoscopic hysterectomy Bilateral salpingectomy History of dilation and curettage (05/17/16) hscope d&c/endometrial ablation--menometrorrhagia, dysmenorrhea--benign History of ovarian cystectomy (09/25/12) rt ovarian cystectomy History of bilateral breast reduction surgery (06/23/12) History of tubal ligation (11/30/10) History of 04/10/07 primary c/s--arrest of descent 11/30/10 rpt c/s w/tubal ligation History of tonsillectomy (~2002) Family History Family History Grandparent Hypertension paternal grandfather paternal grandmother Diabetes mellitus paternal grandmother paternal grandfather Cerebrovascular accident maternal grandmother paternal grandmother Heart disease paternal grandfather Mother Alcoholism Social History Social History Smoking status: Former smoker Tobacco type: cigarettes Additional smoking assessment comments: Pt stated on and off socially, does not currently Alcohol intake: current Alcohol use details: 1-2 year rare use Substance use: never Substance use type: does not use Living arrangements: with roommate(s) Additional living arrangements comments: Occupation/Education: unemployed 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 Gender identity (if verbalized by the patient): Female Sexual Orientation (if Verbalized by the Patient): Straight or Heterosexual Spiritual care concerns: No Course Vital Signs Vital signs: Vital Signs Temperature 36.8 C 04/01/24 09:17 Pulse Rate 83 04/01/24 09:17 Respiratory Rate 16 04/01/24 09:17 Blood Pressure 128/58 L 04/01/24 09:17 Pulse Oximetry 99 04/01/24 09:17 Temperature 36.8 C 04/01/24 09:17 Pulse Rate 83 04/01/24 09:17 Respiratory Rate 16 04/01/24 09:17 Blood Pressure 128/58 L 04/01/24 09:17 Pulse Oximetry 99 04/01/24 09:17 Discharge Plan Discharge Patient Disposition: Home, Self-Care Condition: Stable Instructions: Antibiotic Form Patient Language: Panamanian Prescriptions: No Action fluoxetine 20 mg capsule 20 mg PO DAILY amitriptyline 10 mg tablet 10 mg PO DAILY meclizine 25 mg tablet 25 mg PO TID Qty: 30 0RF cefdinir 300 mg capsule 300 mg PO Q12H Qty: 20 0RF phenazopyridine [Pyridium] 200 mg tablet 200 mg PO TID Qty: 6 0RF Follow-up/Referrals: Mary Ellen Kim RN [Primary Care Provider] -
[2024-04-01 10:01] LABS: EDCOVIDSCREEN Negative (Negative); EDINFLUASCREEN Negative (Negative); EDINFLUBSCREEN Negative (Negative)
== END 2024-04-01 10:09 | disposition home or self-care (01) ==
PROVIDERS: Emergency Provider Registered Nurse
DX: B34.9 Viral infection, unspecified (principal); Z87.891 Personal history of nicotine dependence; Z20.822 Contact with and (suspected) exposure to COVID-19
CPT/HCPCS: 87426; 87804; 99212; G0463

== ENCOUNTER 2024-04-16 12:14 | Emergency (ER) | payer OTHER, SELFPAY ==
--- OUTSIDE RECORDS SUMMARY | 2024-04-16 12:17 | XMS_ITS | Continuity of Care Document ---
Author Organization [facility] Address [address] [place] [address] Phone Care Team Providers Care Estimator And Drafter Name Role Phone Butch Schroeder MD Unavailable [...] Provider Providers Copied on Encounter [facility], [address], [place], [address], [place] tel:[phone] [facility] No Information Alexandre Rae. [address], [address], [place], [place], [address] , [place]. tel:[phone] Referring Provider: [address], [place], [place], [address]. tel:[phone] OFFICE/OUTPA TIENT VISIT, [facility], [address], [place], [place], [address], [place] tel:[phone] [facility] UTI1 (chief complaint) insmonia1 (chief complaint) anxiety1 (chief complaint) Generalized Anxiety DisorderInsomniaUri nary tract infection Alexandre Rae. [address], [address], [place], [place], [address] , [place]. [phone] Referring Provider: [address], [place], [place], [address]. tel:[phone] OFFICE/OUTPA TIENT VISIT, [facility], [address], [place], [place], [address], [place] tel:[phone] [facility] anxiety1 (chief complaint) sleep apnea1 (chief complaint) InsomniaGeneralized Anxiety DisorderBody mass index (BMI) 32.0-32.9, adult Alexandre Cabrera [address], [address], [place], [place], [address] , [place]. tel:[phone] Referring Provider: [address], [place], [place], [address]. tel:[phone] OFFICE/OUTPA TIENT VISIT, [facility], [address], [place], [place], [address], [place] tel:[phone] [facility] HLP (chief complaint) vitmai D (chief complaint) anxiety1 (chief complaint) insomnia1 (chief complaint) hand weakness1 (chief complaint) InsomniaHyperlipide miaVitamin D deficiency, unspecifiedGenerali zed Anxiety Disorder Alexandre Cabrera [address], [address], [place], [place], [address] , [place]. tel:[phone] Referring Provider: [address], [place], [place], [address]. tel:[phone] PREV VISIT, NEW, AGE 18-39 [facility], [address], [place], [place], [address], [place] tel:[phone] [facility] Physical (chief complaint) Encounter for general adult medical exam w abnormal findingsGeneralized Anxiety DisorderInsomniaSle ep apnea May-0 7 Alexandre Rae. [address], [address], [place], [place], [address] , [place]. [phone] Referring Provider: [address], [place], [place], [address]. tel:[phone] PREV VISIT, EST, AGE 18-39 [facility], [address], [place], [place], [address], [place] tel:[phone] [facility] Physical (chief complaint) Dietary surveillance and counselingRoutine Medical ExamRoutine Medical Exam Sep-0 3 Alexandre Rae. [address], [address], [place], [place], [address] , [place]. [phone] Referring Provider: [address], [place], [place], [address]. tel:[phone] OFFICE/OUTPA TIENT VISIT, EST [facility], [address], [place], [place], [address], [place] [phone] [facility] ganglion cyst (chief complaint) Dietary surveillance and counselingGanglion, unspecified 3 Alexandre Rae. [address], [place], [place], [address] , [place]. [phone] Referring Provider: [address], [place], [place], [address]. tel:[phone] Family History Family Member Type Diagnosis Age [...] Insomnia) ordered Referral Referred To: SARAH CASAREZ [id number] [facility]
[address], [phone] Ordered: Referrals: SARAH CASAREZ. Evaluate and treat [...] busy at work to make appointment with [facility] anxiety1 Pt has been havi ng anxiety and depression Pt is getting and she has been having severe stress at work. Pt works up to 80 hours per week at the [employer]. Pt recently had a emotinal breakdown at [...]
--- OUTSIDE RECORDS SUMMARY | 2024-04-16 12:17 | XMS_ITS | Encounter Summary ---
Author Organization [facility] Address [address] [place] [address] Phone Care Team Providers Care Supply Crib Attendant Name Role Phone Michelle Sasha D DPM Unavailable [phone] Mary Ellen Kim SMALL BUSINESS SALES REPRESENTATIVE, CHARTER SCHOOL EXECUTIVE DIRECTOR Primary Care Provider + Geoff Wood MD Unavailable Reason for Visit * Reason Comments Medication Refill Encounter Details Date Type Department Care Team (Late st Contact Info) Description 03/12/2024 Refill [facility] - [facility] [address] [place] [address] Mary Ellen Kim, YEISON, CHARTER SCHOOL EXECUTIVE DIRECTOR [address] [place] [address] Medication Refill Social History Tobacco Use Types Packs/Day Years Used Date Smoking Tobacco: Never Smokeless Tobacco: Never Alcohol Use Standard Drinks/Week Comments Not Currently 0 (1 standard drink = 0.6 oz pure alcohol) occasionally, three times per year [facility] Utilities Answer Date Recorded In the past 12 months has [employer] electric, gas, oil, or water company threatened [...] week 03/10/2024 How often do you attend [facility] or pentecostal services? Never 03/10/2024 Do [...] - Questions 1-9 0 02/25 [facility] - Occupational [...] any time in the past 12 m [facility], were you homeless or living in a care home (including now)? No 03/10/2024 Sexually Active Control Partners Comments Yes Other Male Hysterectomy Comments No Sex and Gender Information Value Date Recorded Sex Assigned at Female 01/06/2023 5:01 AM OSTEOLOGIST Legal Sex Female 11:17 PM CDT Gender Identity Female 01/06/2023 5:01 AM OSTEOLOGIST Sexual Orientation Not on file documented as of this encounter Miscellaneous Notes * Telephone Encounter - Norma Pan RN - 03/12/2024 11:18 AM CST Name from pharmacy: TRAZODONE 50 MG TABLET Will file in chart as: traZODone (DESYREL) 50 MG Tablet The original prescription was discontinued on 03/06/2024 by Mary Ellen Kim, SMALL BUSINESS SALES REPRESENTATIVE, CHARTER SCHOOL EXECUTIVE DIRECTOR Insomnia. Taking Trazodone 50 mg nightly. Medication is no longer helpful. Difficulty falling asleep. No problem staying asleep. OLOGIST documented in this encounter Plan of Treatment Upcoming Encounters Date Type Department Care Team (Late st Contact Info) Description 05/02/2024 8:00 AM OSTEOLOGIST Appointment [facility] [address] [facility] [place] [address] Geoff Wood MD [address] [address] Discharge Disposition: Discharged to home or Selfcare 05/06/2024 9:30 AM CDT Procedure Visit [facility] [address] [place] [address] Geoff Wood [facility] [address] [facility] [address] [place] [address] 05/27/2024 11:15 AM CDT Office Visit [facility] [address] [place] [address] Mary Ellen Kim, SMALL BUSINESS SALES REPRESENTATIVE, CHARTER SCHOOL EXECUTIVE DIRECTOR [address] [place] [address] documented as of this encounter Goals Goal Patient Goal Type Associated Problems Recent Progress Patient-Stated? Author Behavioral Health Behavioral Health Yes Fish Deras, PEER SPECIALIST Note: I need reassurance that all the bad things that have happened to me are not my fault. documented as of this encounter Visit Diagnoses Not on filedocumented in this encounter Additional Health Concerns Assessment Noted Time PHQ-9 Depression Total Score: 0 03/10/19 25 8:19 AM OSTEOLOGIST documented as of this encounter Care Teams Supply Crib Attendant Relationship Specialty Start Date End Date Mary Ellen Kim, SMALL BUSINESS SALES REPRESENTATIVE, CHARTER SCHOOL EXECUTIVE DIRECTOR [address] [place] [address] PCP - General Advanced Practice Nurse 02/08/23 Sasha Martinez DPM Consulting Physician Podiatry 02/27/22 Geoff Wood MD [address] [facility] [address] [place] [address] Consulting Physician Urology 04/10/24 documented as of this encounter
--- OUTSIDE RECORDS SUMMARY | 2024-04-16 12:17 | XMS_ITS | Continuity of Care Document ---
Author Organization [facility] Address [address] [place] [address] Phone Care Team Providers Care Manager Digital Ad Operations Name Role Phone Ara Herman DO Unavailable [...] Diagnoses Date Provider Providers Copied on Encounter [facility], [address], [place], [place], [address] , [place] tel:[phone] [facility] No Information 2 Batsheva Bullock. [address], [place], [place], [address] , [place]. tel:[phone] [facility], [address], [place], [place], [address] , [place] tel: [phone] [facility] No Information 2 Batsheva Ara. [address], [place], [place], [address] , [place]. tel: [phone] [facility], [address], [place], [place], [address] , [place] tel: [phone] [facility] No Information 2 Batsheva Ara. [address], [place], [place], [address] , [place]. tel: [phone] [facility], [address], [place], [place], [address] , [place] tel: [phone] [facility] No Information 2 Batsheva Ara. [address], [place], [place], [address] , [place]. tel: [phone] [facility], [address], [place], [place], [address] , [place] tel: [phone] [facility] No Information 1 Batsheva Ara. [address], [place], [place], [address] , [place]. tel: [phone] OFFICE/OUTPA TIENT VISIT, [facility], [address], [place], [place], [address] , [place] tel: [phone] [facility] anxiety (chief complaint) insomnia (chief complaint) Body mass index (BMI) 33.0-33.9, adultAnxiety and depressionSituational insomnia 1 Batsheva Ara. [address], [place], [place], [address] , [place]. tel: [phone] Referring Provider: Ara Mann, [address], [place], [address] . tel:[phone] OFFICE/OUTPA TIENT VISIT, NEW [facility], [address], [place], [place], [address] , tel:[phone] [facility] anxiety (chief complaint) Anxiety and depressionDepression, unspecifiedSituationa l insomnia Batsheva Bullock. [address], [place], [place], [address] , [place]. tel:[phone] Referring Provider: Ara Mann, [address], [place], [address] . tel:[phone] Family History Family Member Type Diagnosis Age At Onset Father Problem alcoholism Mother Problem alcoholism Father Problem depression Mother Problem depression Immunizations Vaccine Date Status Comments Influenza, injectable, MDCK, preservative free, quadrivalent administered Source: Other Provider Influenza, injectable, quadr ivalent with preservative, MDCK, 0.5 mL dosage, Flucelvax Quad administered Source: Public Agency Payers Payer name Insurance type Covered green party ID Authorarnolda marii(s) [facility] [id number] Social History Type Description Quantity Date Captured [...]
--- OUTSIDE RECORDS SUMMARY | 2024-04-16 12:17 | XMS_ITS | Encounter Summary ---
Author Organization [facility] Address [address] [place] [address] Phone Care Team Providers Care Health And Nutrition Specialist Name Role Phone Kei Martinezsaharesh Woods DPM Unavailable [phone] Mary Ellen Kim CATH LAB MANAGER, BLOWER ROOM ATTENDANT Primary Care Provider + Geoff Wood MD Unavailable Reason for Visit * Reason Comments Medication Refill Encounter Details Date Type Department Care Team (Late st Contact Info) Description 01/28/[address] [facility] - Family Medicine [facility] [address] [place] [address] Mary Ellen Kim, YEISON, BLOWER ROOM ATTENDANT [address] [place] [address] Medication Refill Social History Tobacco Use Types Packs/Day Years Used Date Smoking Tobacco: Never Smokeless Tobacco: Never Alcohol Use Standard Drinks/Week Comments Not Currently 0 (1 standard drink = 0.6 oz pure alcohol) occasionally, three times per year [facility] Utilities Answer Date Recorded In the past 12 months has [employer] electric, gas, oil, or water company threatened [...] declined 10/30/2023 How often do you attend caodaism or gnosticist serv ices? Patient declined 10/30/2023 Do you belong to any clubs o r organizations such as caodaism groups, unions, fraternal or athletic groups, or [...] Total Score - Questions 1-9 0 11/25 [facility] - Occupational [...] any time in the past 12 m [facility], were you homeless or living in a assisted (including now)? Patient declined 10/30/2023 Sexually Active Control Partners Comments Yes Other Male Hysterectomy Comments No Sex and Gender Information Value Date Recorded Sex Assigned at Female 01/06/2023 5:01 AM AIR BRAKE WORKER Legal Sex Female 11:17 PM CDT Gender Identity Female 01/06/2023 5:01 AM AIR BRAKE WORKER Sexual Orientation Not on file documented as of this encounter Plan of Treatment Upcoming Encounters Date Type Department Care Team (Late st Contact Info) Description 05/02/2024 8:00 AM AIR BRAKE WORKER Appointment [facility] [address] [facility] [place] [address] Geoff Wood MD [address] [address] Discharge Disposition: Discharged to home or Selfcare 05/06/2024 9:30 AM CDT Procedure Visit [facility] [address] [address] Geoff Wood MD [address] [address] 05/27/2024 11:15 AM CDT [facility] [address] [place] [address] Mary Ellen Kim, CATH LAB MANAGER, BLOWER ROOM ATTENDANT [address] [place] [address] documented as of this encounter Goals Goal Patient Goal Type Associated Problems Recent Progress Patient-Stated? Author Behavioral Health Behavioral Health Yes Fish Deras, CONTENT DIRECTOR Note: I need reassurance that all the bad things that have happened to me are not my fault. documented as of this encounter Visit Diagnoses Not on filedocumented in this encounter Additional Health Concerns Assessment Noted Time PHQ-9 Depression Total Score: 0 12/09/19 24 2:58 PM CDT documented as of this encounter Care Teams Health And Nutrition Specialist Relationship Specialty Start Date End Date Mary Ellen Kim, CATH LAB MANAGER, BLOWER ROOM ATTENDANT [address] [place] [address] PCP - General Advanced Practice Nurse 02/08/23 Sasha Martinez DPM Consulting Physician Podiatry 02/27/22 Geoff Wood MD [address] [facility], [address] [address] Consulting Physician Urology 04/10/24 documented as of this encounter
--- OUTSIDE RECORDS SUMMARY | 2024-04-16 12:17 | XMS_ITS | Clinical Summary ---
Author Organization [facility] Address [address] [place] [address] Phone Care Team Providers Care Field Adjuster Name Role Phone Sasha Martinez Chuck DPM Unavailable [phone] Mary Ellen Kim GUN MECHANIC, PROFESSOR OF MANAGEMENT Primary Care Provider + Geoff Wood MD Unavailable Allergies No known active allergies Medications Diclofenac Sodium (VOLTAREN) 1 % Gel Apply 2 g 4 times daily. 1 g 1 4 Active Additional Information Patient not taking.Reported on 04/09/2024 FLUoxetine (PROzac) 20 MG CapsuleIndicatio ns:Major depressive disorder, recurrent episode, moderate (HCC) Take 1 Capsule by mouth daily. 90 Capsule 1 4 Active meclizine (ANTIVERT) 25 MG TabletIndication s:Vertigo Take 1 Tablet by mouth 3 times daily as needed for Dizziness. Indications: Sensation of Spinning or Whirling 30 Tablet 4 Active amitriptyline (ELAVIL) 10 MG TabletIndication s:Insomnia, unspecified type Take 1 Tablet by mouth nightly. 90 Tablet 5 Active meloxicam (MOBIC) 15 MG Tablet 5 Active Active Problems No known active problems Encounters Date Type Department Care Team Description 04/09/2024 1:00 PM BEAD INSPECTOR Office Visit [facility] Neurology [facility] [address] [place] [address] Cruzito Quiroz MD Horizontal nystagmus Discharge Disposition: Discharged to home or Selfcare 04/08/2024 9:30 AM BEAD INSPECTOR Office Visit [facility] [address] [place] [address] Mary Ellen Kim APRN, EMILY Horizontal nystagmus (Primary Dx); Vertigo; Anxiety Discharge Disposition: Discharged to home or Selfcare 04/08/2024 8:15 AM BEAD INSPECTOR [facility] [address] [place] [address] Geoff Wood MD Hematuria, unspecified type (Primary Dx) Discharge Disposition: Discharged to home or Selfcare 04/07/2024 4:00 PM BEAD INSPECTOR Occupational Therapy [facility] [address] [place] [address] Justa Frances, LISA Embyessica, Kim, OT Discharge Disposition: Discharged to home or Selfcare 04/07/2024 Travel 03/31/2024 Telephone [facility] [address] [place] [address] Embyessica, Kim, OT cancel 03/26/2024 Telephone [facility] [address] [place] [phone] Mary Ellen Kim, YEISON, PROFESSOR OF MANAGEMENT Referral 03/24/2024 4:00 PM BEAD INSPECTOR Occupational Therapy [facility] [address] [place] [address] Justa Frances PAC Embyessica, Kim, OT Discharge Disposition: Discharged to home or Selfcare 03/21/2024 Travel 03/12/2024 [facility] [place] [address] Mary Ellen Kim APRN, PROFESSOR OF MANAGEMENT Medication Refill 03/10/2024 10:30 AM BEAD INSPECTOR Occupational Therapy [facility] [address], [address] [place] [address] Justa Frances PAC Embick, Alyssa, OT Vertigo Discharge Disposition: Discharged to home or Selfcare 03/10/2024 8:30 AM BEAD INSPECTOR Office Visit [facility] [address] [place] [address] Tuan Vasquez APRN, EMILY Vertigo (Primary Dx) Discharge Disposition: Discharged to home or Selfcare 03/10/2024 Plan of Care Documentation [facility] [address], [address] [place] [address] 03/10/2024 Travel 03/06/2024 10:45 AM BEAD INSPECTOR Office Visit [facility] [address] [place] [address] Mary Ellen Kim APRN, PROFESSOR OF MANAGEMENT Anxiety (Primary Dx); Major depressive disorder, recurrent episode, moderate (HCC); Insomnia, unspecified type; Dental caries; Acute pain of right shoulder; Obesity (BMI 30-39.9) Discharge Disposition: Discharged to home or Selfcare 03/06/2024 Travel 03/01/2024 Telephone [facility] [address], [address] [place] [address] Alin Prtety, SITE SAFETY REPRESENTATIVE Appointment 02/25/2024 Telephone [facility] [address], [address] [place] [address] Kim Leary, OT cancel 02/11/2024 Results Follow-Up [facility] [address] [place] [address] Mary Ellen Kim APRN, PROFESSOR OF MANAGEMENT Hematuria, unspecified type (Primary Dx) 02/11/2024 Nurse Triage [facility] [address] [place] [address] Mary Ellen Kim APRN, EMILY Dizziness 02/07/2024 11:15 AM BEAD INSPECTOR Office Visit [facility] [address] [place] [address] Justa Frances PAC Vertigo (Primary Dx) Discharge Disposition: Discharged to home or Selfcare 02/07/2024 9:11 AM BEAD INSPECTOR - 02/07/2024 11:59 PM BEAD INSPECTOR Hospital Encounter [facility] [address] [place] [address] Mary Ellen Kim APRN, EMILY Discharge Disposition: Discharged to home or Selfcare 02/07/2024 Travel 02/01/2024 Travel 01/31/2024 3:15 PM BEAD INSPECTOR Office Visit [facility] [address] [place] [address] Mary Ellen Kim APRN, EMILY Dizziness (Primary Dx); Anxiety Discharge Disposition: Discharged to home or Selfcare 01/28/2024 1:00 PM BEAD INSPECTOR Office Visit [facility] [address] [place] [address] Mary Ellen Kim APRN, PROFESSOR OF MANAGEMENT Left arm pain (Primary Dx) Discharge Disposition: Discharged to home or Selfcare 01/28/2024 7:45 AM BEAD INSPECTOR Physical Therapy [facility] [address] [phone] Mary Ellen Kim APRN, Magdalena Boateng, PT Abnormal posture (Primary Dx); Weakness; Left arm pain Discharge Disposition: Discharged to home or Selfcare 01/28/2024 Refill [facility] [address] [place] [address] Mary Ellen Kim, YEISON, PROFESSOR OF MANAGEMENT Medication Refill 01/28/2024 Travel 01/24/2024 8:30 AM BEAD INSPECTOR Clinical Support [facility] [address] [place] [address] Nurse, [facility] Visit for TB skin test Discharge Disposition: Discharged to home or Selfcare 01/24/2024 7:30 AM BEAD INSPECTOR Physical Therapy [facility] [address], [address] [place] [address] Mary Ellen Kim, GUN MECHANIC, PROFESSOR OF MANAGEMENT Magdalena Fitzpatrick, PT Discharge Disposition: Discharged to home or Selfcare 01/22/2024 3:00 PM BEAD INSPECTOR Immunization [facility] [address] [place] [address] [facility] Visit for TB skin test (Primary Dx) Discharge Disposition: Discharged to home or Selfcare 01/22/2024 Travel 01/15/2024 10:45 AM BEAD INSPECTOR Physical Therapy [facility] [address] [place] [phone] Mary Ellen Kim, GUN MECHANIC, PROFESSOR OF MANAGEMENT Alin Pretty, SITE SAFETY REPRESENTATIVE Left arm pain (Primary Dx) Discharge Disposition: Discharged to home or Selfcare 01/15/2024 Travel from Last 3 Months Immunizations Immunization [...] Never Smokeless Tobacco: Never Tobacco Cessation:Counseling Given: Not Answered Alcohol Use Standard Drinks/Week Comments Not Currently 0 (1 standard drink = 0.6 oz pure alcohol) occasionally, three times per year [facility] Utilities Answer Date Recorded In the past 12 months has [employer]), gas, oil, or water company threatened to [...] often do you attend chur ch or sikh services? Never 03/10/2024 Do you belong to any clubs o r organizations such as sabianism groups, unions, fraternal or athletic groups, or [...] Total Score - Questions 1-9 0 02/25 [place] of Occupat ional Health - Occupational Stress [...] any time in the past 12 m [facility], were you homeless or living in a halfway (including now)? No 03/10/2024 Sexually Active Control Partners Comments Yes Other Male Hysterectomy Comments No Sex and Gender Information Value Date Recorded Sex Assigned at Female 01/06/2023 5:01 AM BEAD INSPECTOR Legal Sex Female 11:17 PM CDT Gender Identity Female 01/06/2023 5:01 AM BEAD INSPECTOR Sexual Orientation Not on file Last Filed Vital Signs Vital Sign Reading Time Taken Comments Blood Pressure 108/78 04/09/2024 12:56 PM BEAD INSPECTOR Pulse 76 04/09/2024 12:56 PM BEAD INSPECTOR Temperature 36.8 C (98.2 F) 04/09/2024 12:56 PM BEAD INSPECTOR Respiratory Rate 16 04/09/2024 12:56 PM BEAD INSPECTOR Oxygen Saturation 99% 04/09/2024 12:56 PM BEAD INSPECTOR Inhaled Oxygen Concentration - - Weight 74.1 kg (163 lb 6.4 oz) 04/09/2024 12:56 PM BEAD INSPECTOR Height 149.9 cm (4' 11 ) 04/09/2024 12:56 PM BEAD INSPECTOR Body Mass Index 33 04/09/2024 12:56 PM BEAD INSPECTOR Plan of Treatment Upcoming Encounters Date Type Department Care Team (Late st Contact Info) Description 05/02/2024 8:00 AM BEAD INSPECTOR Appointment [facility] [address] [place] [address] Geoff Wood MD [address] [address] Discharge Disposition: Discharged to home or Selfcare 05/06/2024 9:30 AM CDT Procedure Visit [facility] [address] [place] [address] Geoff Wood MD #[address] [address] 05/27/2024 11:15 AM CDT Office Visit [facility] [address] [place] [address] Mary Ellen Kim, GUN MECHANIC, PROFESSOR OF MANAGEMENT [address] [place] [address] Health Maintenance Due Date Last Done Comments Hepatitis B Immunization (1 of 3 - 19+ 3-dose series) 02/15/2004 Pap Smear 2006 Cervical Cancer Screening (CCS) 2015 HPV/Cotest 2015 Influenza Immunization (#1) 2023 11/0 08/2022, 10/26/2021, 10/12/2021 SARS-COV-2 Immunization ( season) 2023 02/11/2021, 03/04/2020 Td Immunization Every [...] Behavioral Health Behavioral Health Yes Fish Deras, PERMIT COORDINATOR Note: I need reassurance that all the bad things that have happened to me are not my fault. Procedures Procedure Name Priority Date/Time Associated Diagnosis Comments POCT UA AUTOMATED W/O MICRO Routine 04/08/2024 8:25 AM BEAD INSPECTOR Hematuria, unspecified type LIPID PANEL Routine 03/21/2024 8:26 AM BEAD INSPECTOR Obesity (BMI 30-39.9) EKG 12 LEAD Routine 02/07/2024 9:15 AM BEAD INSPECTOR Dizziness THYROID SCREEN WITH REFLEX Routine 02/01/2024 8:15 AM BEAD INSPECTOR Dizziness CBC WITH AUTO DIFFERENTIAL Routine 02/01/2024 8:15 AM BEAD INSPECTOR Dizziness URINALYSIS REFLEX IF INDICATED BY ABNORMAL RESULTS Routine 02/01/2024 8:15 AM BEAD INSPECTOR Dizziness THYROID SCREEN WITH REFLEX Routine 02/01/2024 8:15 AM BEAD INSPECTOR Dizziness COMPLETE BLOOD COUNT (CBC) WITH DIFF Routine 02/01/2024 8:15 AM BEAD INSPECTOR Dizziness CMP (COMPREHENSIVE METABOLIC PANEL) Routine 02/01/2024 8:15 AM BEAD INSPECTOR Dizziness TB INTRADERMAL TEST Routine 01/24/2024 8 :27 AM BEAD INSPECTOR Visit for TB skin test HEPATITIS C ANTIBODY Routine 06/26/2023 8:04 AM CDT Need for hepatitis C screening test from Last 3 Months or Most Recently Relevant to Health Maintenance Results * (ABNORMAL) POCT UA AUTOMATED W/O MICRO (04/08/2024 8:25 AM BEAD INSPECTOR) Pathologist [facility] [place] POC UA SPECIFIC GRAVITY 1.010 URINE PH 8.0 5.0 - 9.0 POC URINE LEUKOCYTES Negative Negative Melvin/uL POC URINE NITRITE Negative Negative POC URINE PROTEIN Negative Negative mg/dL POC URINE GLUCOSE Norm Negative, Norm mg/dL POC URINE KETONE Negative Negative mg/dL POC URINE UROBILINOGEN Norm Norm, 0.2 E.U./dL (mg/dL), 1 E.U./dL (mg/dL) POC URINE BILIRUBIN Negative Negative mg/dL POC URINE BLOOD INSTRUMENT 50 Heath/uL(A) Negative Heath/uL POC URINE COLOR Yellow POC URINE CLARITY Clear Urine 04/08/2024 8:25 AM BEAD INSPECTOR Geoff Wood MD POINT OF CARE TESTING (MANUAL) F inal Result * (ABNORMAL) LIPID PANEL (03/21/2024 8:26 AM BEAD INSPECTOR) [facility] CHOLESTEROL 201(H) <200 mg/dL 03/21/2024 9:44 AM BEAD INSPECTOR [facility] TRIGLYCERIDES 100 <150 mg/dL 03/21/2024 9:44 AM BEAD INSPECTOR [facility] HDL CHOLESTEROL 48 >40 mg/dL 9:44 AM BEAD INSPECTOR [facility] LDL 133(H) <130 mg/dL 03/21/2024 9:44 AM BEAD INSPECTOR [facility] VLDL 20 10 - 50 mg/dL 03/21/2024 9:44 AM BEAD INSPECTOR [facility] CHOL/HDL RATIO 4.2 0.0 - 4.4 03/21/2024 9:44 AM BEAD INSPECTOR [facility] NON-HDL CHOLESTEROL 153(H) <130 mg/dL 03/21/2024 9:44 AM BEAD INSPECTOR [facility] IS THE PATIENT REQUIRED TO BE FASTING? Yes 03/21/2024 9:44 AM BEAD INSPECTOR [facility] HAS THE PATIENT BEEN FASTING? Yes 03/21/2024 9:44 AM BEAD INSPECTOR [facility] Blood Venipuncture / Unknown 03/21/2024 8:26 AM BEAD INSPECTOR 03/21/2024 9:22 AM BEAD INSPECTOR Mary Ellen Kim GUN MECHANIC, PROFESSOR OF MANAGEMENT CHEMISTRY ORDERABLES Fin al Result [facility] [address] [place] [address] * EKG 12 LEAD (02/07/2024 9:15 AM BEAD INSPECTOR) Ventricular Rate 86 BPM EXTERNAL EKG Atrial Rate 86 BPM EXTERNAL EKG P-R Interval 120 ms EXTERNAL EKG QRS Duration 70 ms EXTERNAL EKG Q-T Duration 354 ms EXTERNAL EKG QTC CALCULATION 423 ms EXTERNAL EKG P [place] 23 degrees EXTERNAL EKG R [place] 2 degrees EXTERNAL EKG T [place] 22 degrees EXTERNAL EKG 02/07/2024 9:15 AM BEAD INSPECTOR Impressions EXTERNAL EKG - 02/08/2024 9:49 PM BEAD INSPECTOR Normal sinus rhythm Normal ECG When compared with ECG of 31-OCT-2023 10:44, No significant change was found Confirmed by Fabio Pelaez ([id number]) on 02/08/2024 9:49:05 PM Narrative Procedure Note Fabio Pelaez MD PhD - 02/08/2024 IMPRESSION: Normal sinus rhythm Normal ECG When compared with ECG of 31-OCT-2023 10:44, No significant change was found Confirmed by Fabio Pelaez ([id number]) on 02/08/2024 9:49:05 PM Mary Ellen Kim GUN MECHANIC, PROFESSOR OF MANAGEMENT IMG ECG ORDERABLES Final Result EXTERNAL EKG * THYROID SCREEN WITH REFLEX (02/01/2024 8:15 AM BEAD INSPECTOR) [facility] TSH 1.556 0.300 - 5.000 mIU/L 02/01/2024 9:24 AM BEAD INSPECTOR [facility] Blood Venipuncture / Unknown 02/01/2024 8:15 AM BEAD INSPECTOR 02/01/2024 8:38 AM BEAD INSPECTOR Mary Ellen Kim GUN MECHANIC, PROFESSOR OF MANAGEMENT CHEMISTRY ORDERABLES Fin al Result Performing Organization Address City/[facility]/ZIP Co de Phone Number [facility] [address] [place] [address] * (ABNORMAL) URINALYSIS REFLEX IF INDICATED BY ABNORMAL RESULTS (02/01/2024 8:15 AM BEAD INSPECTOR) [facility] SPECIFIC GRAVITY 1.010 1.003 - 1.030 02/01/2024 9:53 AM BEAD INSPECTOR [facility] URINE PH 7.0 5.0 - 9.0 02/01/2024 9:53 AM BEAD INSPECTOR [facility] WBC ESTERASE Negative Negative 02/01/2024 9:53 AM BEAD INSPECTOR [facility] NITRITE Negative Negative 02/01/2024 9:53 AM BEAD INSPECTOR [facility] PROTEIN, RANDOM URINE 15 mg/dL(A) Negative 02/01/2024 9:53 AM BEAD INSPECTOR [facility] URINE GLUCOSE, QUAL Negative Negative 02/01/2024 9:53 AM BEAD INSPECTOR [facility] URINE KETONES Negative Negative 02/01/2024 9:53 AM BEAD INSPECTOR [facility] UROBILINOGEN Normal Normal mg/dL 02/01/2024 9:53 AM BEAD INSPECTOR [facility] URINE BLOOD 25 /uL(A) Negative heath/ul 02/01/2024 9:53 AM BEAD INSPECTOR [facility] URINALYSIS COLOR Yellow 02/01/20 9:53 AM BEAD INSPECTOR [facility] URINALYSIS CLARITY Clear 02/01/2024 9:53 AM BEAD INSPECTOR [facility] WBC (Urine) 0-5 Negative, 0-5 /hpf 02/01/2024 9:53 AM BEAD INSPECTOR [facility] URINE RBC'S 0-2 Negative, 0-2 /hpf 02/01/2024 9:53 AM BEAD INSPECTOR [facility] EPITHELIAL CELLS Small amount /lpf 2023 9:53 AM BEAD INSPECTOR [facility] BACTERIA, URINE Negative Negative /hpf 02/01/2024 9:53 AM BEAD INSPECTOR [facility] Urine URINE SPECIMEN COLLECTION, CLEAN CATCH / Unknown Non-Phlebotomy Collection / Unknown 02/01/2024 8:15 AM BEAD INSPECTOR 02/01/2024 8:38 AM BEAD INSPECTOR us Mary Ellen Kim GUN MECHANIC, PROFESSOR OF MANAGEMENT URINE ORDERABLES Final R esult [facility] [address] [place] [address] * (ABNORMAL) CBC WITH AUTO DIFFERENTIAL (02/01/2024 8:15 AM BEAD INSPECTOR) WBC 10.22 4.00 - 12.00 10(3)/mcL 02/01/2024 8:42 AM BEAD INSPECTOR [facility] RBC 4.76 3.80 - 5.30 10(6)/mcL 02/01/2024 8:42 AM BEAD INSPECTOR [facility] HEMOGLOBIN (HGB) 14.1 12.0 - 15.8 g/dL 02/01/2024 8:42 AM BEAD INSPECTOR [facility] HEMATOCRIT (HCT) 44.2 36.0 - 47.0 % 02/01/2024 8:42 AM BEAD INSPECTOR [facility] MCV 92.9 82.0 - 96.0 fL 02/01/2024 8:42 AM BEAD INSPECTOR [facility] MCH 29.6 26.0 - 34.0 pg 02/01/2024 8:42 AM [facility] MCHC 31.9 31.0 - 36.0 g/dL 02/01/2024 8:42 AM [facility] PLATELET COUNT 394 140 - 440 10(3)/[facility] 02/01/2024 8:42 AM [facility] RDW 11.9 11.8 - 15.5 % 02/01/2024 8:42 AM [facility] MPV 9.6(L) 9.7 - 12.4 fL 02/01/2024 8:42 AM [facility] NEUTROPHILS 67.3 47.0 - 73.0 % 02/01/2024 8:42 AM [facility] LYMPHOCYTES 26.4 18.0 - 42.0 % 02/01/2024 8:42 AM [facility] MONOCYTES 4.9 4.0 - 12.0 % 02/01/2024 8:42 AM [facility] EOSINOPHILS 1.2 0.0 - 5.0 % 02/01/2024 8:42 AM [facility] BASOPHILS 0.2 0.0 - 1.0 % 02/01/2024 8:42 AM [facility] ABSOLUTE NEUTROPHILS 6.88 1.60 - 7.70 10(3)/[facility] 02/01/2024 8:42 AM [facility] ABSOLUTE LYMPHOCYTES 2.70 1.30 - 3.20 10(3)/[facility] 02/01/2024 8:42 AM [facility] ABSOLUTE MONOCYTES 0.50 0.20 - 1.00 10(3)/[facility] 02/01/2024 8:42 AM [facility] ABSOLUTE EOSINOPHIL 0.12 0.00 - 0.40 10(3)/[facility] 02/01/2024 8:42 AM [facility] ABSOLUTE BASOPHILS 0.02 0.00 - 0.10 10(3)/[facility] 02/01/2024 8:42 AM [facility] NRBC PER 100 WBC 0 12/07/20 24 8:42 AM BEAD INSPECTOR [facility] Blood Venipuncture / Unknown 02/01/2024 8:15 AM BEAD INSPECTOR 02/01/2024 8:38 AM BEAD INSPECTOR us Mary Ellen Kim GUN MECHANIC, PROFESSOR OF MANAGEMENT HEMATOLOGY ORDERABLES Fi nal Result [facility] [address] [place] [address] * CMP (COMPREHENSIVE METABOLIC PANEL) (02/01/2024 8:15 AM BEAD INSPECTOR) SODIUM 139 136 - 145 mmol/L 02/01/2024 9:11 AM [facility] POTASSIUM 3.9 3.5 - 5.1 mmol/L 02/01/2024 9:11 AM [facility] CHLORIDE 106 98 - 107 mmol/L 02/01/2024 9:11 AM [facility] CO2, VENOUS 24 22 - 30 mmol/L 02/01/2024 9:11 AM [facility] ANION GAP 12.9 <18.0 mmol/L 02/01/2024 9:11 AM [facility] GLUCOSE 90 70 - 99 mg/dL 02/01/2024 9:11 AM [facility] BUN 13 5 - 18 mg/dL 02/01/2024 9:11 AM [facility] CREATININE, BLOOD 0.83 0.60 - 1.00 mg/dL 02/01/2024 9:11 AM [facility] BUN/CREATININE RATIO 16 12 - 20 ratio 02/01/2024 9:11 AM [facility] TOTAL PROTEIN 8.0 6.3 - 8.2 g/dL 02/01/2024 9:11 AM [facility] ALBUMIN 4.4 3.5 - 5.0 g/dL 02/01/2024 9:11 AM [facility] A/G RATIO 1.2 1.0 - 2.2 02/01/2024 9:11 AM BEAD INSPECTOR [facility] CALCIUM 9.3 8.7 - 10.5 mg/dL 02/01/2024 9:11 AM [facility] T BILI 0.5 0.2 - 1.2 mg/dL 02/01/2024 9:11 AM [facility] SGOT (AST) 16 5 - 34 U/L 02/01/2024 9:11 AM [facility] SGPT (ALT) 17 0 - 55 U/L 02/01/2024 9:11 AM [facility] ALKALINE PHOSPHATASE 91 40 - 150 U/L 02/01/2024 9:11 AM [facility] IS THE PATIENT REQUIRED TO BE FASTING? No 02/01/2024 9:11 AM [facility] GFR, ESTIMATED >60 >=60 02/01/2024 9:11 AM [facility] Comment: Creatinine Clearance is the preferred criteria for selecting drug dose adjustments in renally impaired patients. The GFR is provided as additional pertinent clinical information. GFR is reported in mL/min/1.73 sq m. Calculation based on the Chronic Kidney Disease Epidemiology Collaboration (CKD- EPI) equation refit without adjustment for race. GFR, EST. >60 >=60 024 9:11 AM [facility] GFR, EST. NONAFRICAN >60 >=60 02/01/2024 9:11 AM [facility] Blood Venipuncture / Unknown 02/01/2024 8:15 AM BEAD INSPECTOR 02/01/2024 8:38 AM BEAD INSPECTOR us Mary Ellen Kim GUN MECHANIC, PROFESSOR OF MANAGEMENT CHEMISTRY ORDERABLES Fin al Result [facility] [address] [place] [address] * TB INTRADERMAL TEST (01/24/2024 8:27 AM BEAD INSPECTOR) TB SKIN TEST 0 mm Comment:negative 01/24/2024 8:27 AM BEAD INSPECTOR us Mary Ellen Kim APRN, CNP POINT OF CARE TESTING (M ANUAL) Final Result * HEPATITIS C ANTIBODY (06/26/2023 8:04 AM CDT) hepatitis C antibody 0.08 <1 S/CO 06/26/2023 11:33 PM CDT [facility] Comment: Signal/Cutoff ratio < 0.79 is Nondetected Signal/Cutoff ratio 0.80-0.99 is Grayzone Signal/Cutoff ratio > 0.99 is Detected Supplemental assays are recommended if signal/cutoff ratio is >/=1.00. Signal/cutoff ratio result >/= 5.00 is 97% predictive of positivity for recombinant immunoblot assay (RIBA) and will be reported to the [place] Department of Public Health as required. Blood Venipuncture / Unknown 06/26/2023 8:04 AM CDT 06/26/2023 8:05 AM CDT us Mary Ellen Kim APRN, CNP CHEMISTRY ORDERABLES Fin al Result [facility] [address] [place] [address], [place] from Last 3 Months or Most Recently Relevant to Health Maintenance Insurance MEDICAID [facility] Care Teams Field Adjuster Relationship Specialty Start Date End Date Mary Ellen Kim, GUN MECHANIC, PROFESSOR OF MANAGEMENT [address] [place] [address] PCP - General Advanced Practice Nurse 02/08/23 Sasha Martinez DPM Consulting Physician Podiatry 02/27/22 Geoff Wood MD #2 [facility], [address] [address] Consulting Physician Urology 04/10/24
--- OUTSIDE RECORDS SUMMARY | 2024-04-16 12:19 | XMS_ITS | Continuity of Care Document ---
Author Organization [facility] Address [address] [place] [address] Phone Care Team Providers Care Covering Machine Operator Name Role Phone Butch Schroeder MD [...] Diagnoses Date Provider Providers Copied on Encounter [facility], [address], [place], [address], [place] tel:[phone] [facility] No Information Alexandre Rae. [address], [address], [place], [place], [address] , [place]. tel:[phone] Referring Provider: [address], [place], [place], [address]. tel:[phone] OFFICE/OUTPA TIENT VISIT, [facility], [address], [place], [place], [address], [place] tel:[phone] [facility] UTI1 (chief complaint) insmonia1 (chief complaint) anxiety1 (chief complaint) Generalized Anxiety DisorderInsomniaUri nary tract infection Alexandre Rae. [address], [address], [place], [place], [address] , [place]. [phone] Referring Provider: [address], [place], [place], [address]. tel:[phone] OFFICE/OUTPA TIENT VISIT, [facility], [address], [place], [place], [address], [place] tel:[phone] [facility] anxiety1 (chief complaint) sleep apnea1 (chief complaint) InsomniaGeneralized Anxiety DisorderBody mass index (BMI) 32.0-32.9, adult Alexandre Cabrera [address], [place], [place], [address] , [place]. tel:[phone] Referring Provider: [address], [place], [place], [address]. tel:[phone] OFFICE/OUTPA TIENT VISIT, [facility], [address], [place], [place], [address], [place] tel:[phone] [facility] HLP (chief complaint) vitmai D (chief complaint) anxiety1 (chief complaint) insomnia1 (chief complaint) hand weakness1 (chief complaint) InsomniaHyperlipide miaVitamin D deficiency, unspecifiedGenerali zed Anxiety Disorder Alexandre Cabrera [address], [place], [place], [address] , [place]. tel:[phone] Referring Provider: [address], [place], [place], [address]. tel:[phone] PREV VISIT, NEW, AGE 18-39 [facility], [address], [place], [place], [address], [place] tel:[phone] [facility] Physical (chief complaint) Encounter for general adult medical exam w abnormal findingsGeneralized Anxiety DisorderInsomniaSle ep apnea May-0 7 Alexandre Rae. [address], [place], [place], [address] , [place]. [phone] Referring Provider: [address], [place], [place], [address]. tel:[phone] PREV VISIT, EST, AGE 18-39 [facility], [address], [place], [place], [address], [place] tel:[phone] [facility] Physical (chief complaint) Dietary surveillance and counselingRoutine Medical ExamRoutine Medical Exam Sep-0 3 Alexandre Rae. [address], [place], [place], [address] , [place]. [phone] Referring Provider: [address], [place], [place], [address]. tel:[phone] OFFICE/OUTPA TIENT VISIT, EST [facility], [address], [place], [place], [address], [place] [phone] [facility] ganglion cyst (chief complaint) Dietary surveillance and counselingGanglion, unspecified 3 Alexandre Rae. [address], [place], [place], [address] , [place]. [phone] Referring Provider: [address], [place], [place], [address]. tel:[phone] Family History Family Member Type Diagnosis Age [...] Insomnia) ordered Referral Referred To: SARAH CASAREZ [id number] [facility]
[address], [phone] Ordered: Referrals: SARAH CASAREZ. Evaluate and treat [...] busy at work to make appointment with [facility] anxiety1 Pt has been havi ng anxiety and depression Pt is getting and she has been having severe stress at work. 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 Pt recently had a emotinal breakdown at [...]
--- OUTSIDE RECORDS SUMMARY | 2024-04-16 12:19 | XMS_ITS | Continuity of Care Document ---
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 [address], [place], [place], [address] , [place]. tel:[phone] [facility], [address], [place], [place], [address] , [place] tel: [phone] [facility] No Information 2 Batsheva Ara. [address], [place], [place], [address] , [place]. tel: [phone] [facility], [address], [place], [place], [address] , [place] tel: [phone] [facility] No Information 2 Batsheva Ara. [address], [place], [place], [address] , [place]. tel: [phone] [facility], [address], [place], [place], [address] , [place] tel: [phone] [facility] No Information 2 Batsheva Ara. [address], [place], [place], [address] , [place]. tel: [phone] [facility], [address], [place], [place], [address] , [place] tel: [phone] [facility] No Information 1 Batsheva Ara. [address], [place], [place], [address] , [place]. tel: [phone] OFFICE/OUTPA TIENT VISIT, [facility], [address], [place], [place], [address] , [place] tel: [phone] [facility] anxiety (chief complaint) insomnia (chief complaint) Body mass index (BMI) 33.0-33.9, adultAnxiety and depressionSituational insomnia 1 Batsheva Ara. [address], [place], [place], [address] , [place]. tel: [phone] Referring Provider: Ara Mann, [address], [place], [address] . tel:[phone] OFFICE/OUTPA TIENT VISIT, NEW IV [facility], [address], [place], [place], [address] , tel:[phone] [facility] anxiety (chief complaint) Anxiety and depressionDepression, unspecifiedSituationa l insomnia Batsheva Bullock. [address], [place], [place], [address] , [place]. tel:[phone] Referring Provider: Ara Mann, [address], [place], [address] . tel:[phone] Family History Family Member Type Diagnosis Age At Onset Father Problem alcoholism Mother Problem alcoholism Father Problem depression Mother Problem depression Immunizations Vaccine Date Status Comments Influenza, injectable, MDCK, preservative free, quadrivalent administered Source: Other Provider Influenza, injectable, quadr ivalent with preservative, MDCK, 0.5 mL dosage, Flucelvax Quad administered Source: Public Agency Payers Payer name Insurance type Covered green party ID Authorarnolda marii(s) [facility] [id number] Social History Type Description Quantity Date Captured [...]
[2024-04-16 12:25] VITALS: BP 134/73; PULSE 86; RESP 20; TEMP 36.7; O2SAT 98
[2024-04-16 12:51] LABS: EDCOVIDSCREEN Negative (Negative); EDINFLUASCREEN Negative (Negative); EDINFLUBSCREEN Negative (Negative)
--- NOTE | 2024-04-16 12:55 | ED_ITS ---
HPI - URI/Sore Throat General Chief Complaint: Upper Respiratory Infection Stated Complaint: Congestion/Headache/No Taste Time Seen by Provider: 04/16/24 12:55 History of Present Illness HPI Narrative: 39-year-old female presented for complaint of nasal congestion, cough and headaches. Onset 3 days. Denies shortness of breath, wheezing nausea vomiting, diarrhea, fevers or lethargy. Taking DayQuil, NyQuil and Benadryl. Related Data Home Medications ?Medication ?Instructions ?Recorded ?Confirmed ?Last Taken ?Type fluoxetine 20 mg capsule 20 mg PO DAILY 09/22/23 04/16/24 Unknown History amitriptyline 10 mg tablet 10 mg PO DAILY 03/09/24 04/16/24 Unknown History Allergies Allergy/AdvReac Type Severity Reaction Status Date / Time No Known Allergies Allergy Unknown Verified 04/16/24 12:25 Review of Systems Review of Systems: per HPI [facility] Past Medical History Medical History Back pain Encounter for annual routine gynecological examination Nexplanon removal (12/23/15) Nexplanon insertion (12/18/12) Arm fracture Pneumonia Frequent UTI Depression Anxiety Surgical History Surgical History History of robot-assisted laparoscopic hysterectomy (04/05/22) Robotic assisted total laparoscopic hysterectomy Bilateral salpingectomy History of dilation and curettage (05/17/16) hscope d&c/endometrial ablation--menometrorrhagia, dysmenorrhea--benign History of ovarian cystectomy (09/25/12) rt ovarian cystectomy History of bilateral breast reduction surgery (06/23/12) History of tubal ligation (11/30/10) History of 04/10/07 primary c/s--arrest of descent 11/30/10 rpt c/s w/tubal ligation History of tonsillectomy (~2002) Family History Family History Grandparent Hypertension paternal grandfather paternal grandmother Diabetes mellitus paternal grandmother paternal grandfather Cerebrovascular accident maternal grandmother paternal grandmother Heart disease paternal grandfather Mother Alcoholism Social History Social History Smoking status: Former smoker Tobacco type: cigarettes Additional smoking assessment comments: Pt stated on and off socially, does not currently Alcohol intake: current Alcohol use details: 1-2 year rare use Substance use: never Substance use type: does not use Living arrangements: with roommate(s) Additional living arrangements comments: Occupation/Education: unemployed 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 EYES: conjunctivae clear ENT: Mucous membranes moist. TM pearly verduzco with normal light reflex bilater ally; no tragal tenderness. Oropharynx not erythematous without lesions. Tonsils not enlarged and without exudate. No drooling, no hoarseness, no trismus, uvula midline. No tripod positioning, hot potato voice, or soft palate swelling. NECK: Supple. No lymphadenopathy CHEST: Clear to auscultation, breath sounds equal. No respiratory distress, speaks in full sentences. HEART: Regular rate and rhythm. No murmur heard. SKIN: Warm, dry, no rash. NEURO: Alert and oriented x3. Course Course Emergency Course: Patient is aware of diagnosis, understands and agrees to treatment plan. Anticipatory guidance given. Patient agrees to follow-up as directed and is aware of reasons to seek care at the emergency department. Portions of this record may have been created with voice recognition software Level of Care: Express Care Visit Vital Signs Vital signs: Vital Signs Temperature 98.0 F 04/16/24 12:25 Pulse Rate 86 04/16/24 12:25 Respiratory Rate 20 04/16/24 12:25 Blood Pressure 134/73 04/16/24 12:25 Pulse Oximetry 98 04/16/24 12:25 Oxygen Delivery Room Air 04/16/24 12:25 Temperature 98.0 F 04/16/24 12:25 Pulse Rate 86 04/16/24 12:25 Respiratory Rate 20 04/16/24 12:25 Blood Pressure 134/73 04/16/24 12:25 Pulse Oximetry 98 04/16/24 12:25 Oxygen Delivery Room Air 04/16/24 12:25 MDM - URI/Sore Throat MDM Narrative Medical decision making narrative: flu and covid negative result reviewed with pt. Advise supportive treatments. Patient is appropriate for outpatient treatment and follow-up. Differential Diagnosis Differential diagnosis: Likely upper respiratory infection, viral infection and pharyngitis Lab Data Labs: Lab Results 04/16/24 Range/Units 12:49 POC Influenza A Ag Negative (Negative) POC Influenza B Ag Negative (Negative) POC SARS CoV-2 Ag Negative (Negative) Discharge Plan Discharge Clinical Impression: Upper respiratory infection Patient Disposition: Home, Self-Care Condition: Stable Instructions: Antibiotic Form, Upper Respiratory Infection (ED) Additional Instructions: Negative flu and COVID Recommend: Flonase spray and Zyrtec (or Claritin/Radha) over the counter Cough syrup may cause drowsiness; avoid driving or take it at night time. Tylenol 1000mg every 8 hours as needed for pain Symptomatic treatment includes: rest, fluids, and increase humidity of the air a t home. Follow up with your primary care provider in 1 week. Go to the ER for worsening symptoms or concerns. Patient Language: Serbian Prescriptions: No Action fluoxetine 20 mg capsule 20 mg PO DAILY amitriptyline 10 mg tablet 10 mg PO DAILY meclizine 25 mg tablet 25 mg PO TID Qty: 30 0RF cefdinir 300 mg capsule 300 mg PO Q12H Qty: 20 0RF phenazopyridine [Pyridium] 200 mg tablet 200 mg PO TID Qty: 6 0RF Follow-up/Referrals: Mary Ellen Kim RN [Primary Care Provider] - Stand Alone Forms: Work/School Release IP Time of Disposition: 12:59
== END 2024-04-16 13:02 | disposition home or self-care (01) ==
PROVIDERS: Emergency Provider Nurse Practitioner Family
DX: J06.9 Acute upper respiratory infection, unspecified (principal); Z20.822 Contact with and (suspected) exposure to COVID-19; Z87.891 Personal history of nicotine dependence; F41.9 Anxiety disorder, unspecified; F32.A Depression, unspecified
CPT/HCPCS: 87426; 87804; 99212; G0463

== ENCOUNTER 2024-04-24 14:55 | Emergency (ER) | payer OTHER, SELFPAY ==
[2024-04-24 15:00] VITALS: BP 128/63; PULSE 90; RESP 20; TEMP 37.1; O2SAT 100
--- NOTE | 2024-04-24 15:01 | ED.GENADULT ---
HPI - General Adult General Chief complaint: Headache Stated complaint: migraine/throbbing right eye Time Seen by Provider: 04/24/24 15:05 Source: patient, RN notes reviewed and old records reviewed Mode of arrival: ambulatory Limitations: no limitations History of Present Illness HPI narrative: 39-year-old female presents to the [facility] with complaints of a headache and nausea. States she had right eye throbbing last night, quickly went away. Woke up this morning with a generalized headache that she describes as a migraine. Also has some nausea. States that she does get headaches like this in typically she cannot rest in a cool dark room and take some Motrin and Tylenol and go away. Does reports some photo and phonosensitivity. No vomiting. Denies fevers. Denies any blurry vision or change in vision. No neurologic deficits. Onset (ago): hour(s) Related Data Home Medications ?Medication ?Instructions ?Recorded ?Confirmed ?Last Taken ?Type fluoxetine 20 mg capsule 20 mg PO DAILY 09/22/23 04/16/24 Unknown History amitriptyline 10 mg tablet 10 mg PO DAILY 03/09/24 04/16/24 Unknown History Allergies Allergy/AdvReac Type Severity Reaction Status Date / Time No Known Allergies Allergy Unknown Verified 04/24/24 15:10 Review of Systems Review of Systems: All systems reviewed & are unremarkable except as noted in HPI and below Constitutional: Constitutional: Reports as per HPI and Reports headache(s) ENT: Reports system reviewed and no additional complaints, except as documented Cardiovascular: Cardiovascular: Reports no additional cardiovascular complaints, Denies chest pain and Denies dyspnea Respiratory: Respiratory: Reports no additional respiratory complaints, Denies chest congestion, Denies cough and Denies dyspnea Gastrointestinal: Gastrointestinal: Reports as per HPI and Reports nausea Musculoskeletal: Musculoskeletal: Reports no additional musculoskeletal complaints Integumentary/Breasts: Skin/Breast: Reports system reviewed and no additional complaints, except as docu PMFSH Past Medical History Medical History Back pain Encounter for annual routine gynecological examination Nexplanon removal (12/23/15) Nexplanon insertion (12/18/12) Arm fracture Pneumonia Frequent UTI Depression Anxiety Surgical History Surgical History History of robot-assisted laparoscopic hysterectomy (04/05/22) Robotic assisted total laparoscopic hysterectomy Bilateral salpingectomy History of dilation and curettage (05/17/16) hscope d&c/endometrial ablation--menometrorrhagia, dysmenorrhea--benign History of ovarian cystectomy (09/25/12) rt ovarian cystectomy History of bilateral breast reduction surgery (06/23/12) History of tubal ligation (11/30/10) History of 04/10/07 primary c/s--arrest of descent 11/30/10 rpt c/s w/tubal ligation History of tonsillectomy (~2002) Family History Family History Grandparent Hypertension paternal grandfather paternal grandmother Diabetes mellitus paternal grandmother paternal grandfather Cerebrovascular accident maternal grandmother paternal grandmother Heart disease paternal grandfather Mother Alcoholism Social History Social History Smoking status: Former smoker Tobacco type: cigarettes Additional smoking assessment comments: Pt stated on and off socially, does not currently Alcohol intake: current Alcohol use details: 1-2 year rare use Substance use: never Substance use type: does not use Living arrangements: with roommate(s) Additional living arrangements comments: Occupation/Education: unemployed Additional occupation/education comments: [employer] Gender identity (if verbalized by the patient): Female Sexual Orientation (if Verbalized by the Patient): Straight or Heterosexual Spiritual care concerns: No Comments At the time of my signature, I reviewed and agree with the nursing past medical, surgical, social, and family history. There is no relevant family history pertinent to the patient complaint. Exam Const: General: cooperative, no acute distress, well developed, alert, uncomfortable and well nourished Nutritional Appearance: well nourished and obese Orientation/consciousness: patient oriented x3 Limitations: no limitations HENMT: Head: normal to inspection Ears: hearing grossly normal bilaterally, external ears normal, TM's normal bilaterally, EAC's normal, mastoids normal and no periauricular adenopathy Mouth: Yes Normal oral and palatal mucosa present, Yes lip normal, Yes tongue normal and Yes moist mucous membranes Teeth and gingiva: poor dentition Throat: posterior oropharynx normal, uvula midline and no uvular edema Eyes: General: appearance normal, both eyes and all related structures Alignment and Position: alignment normal Neck: Neck: normal visual inspection, full ROM, no lymphadenopathy and no meningeal signs Chest: Chest palpation & inspection: normal inspection of the chest Resp: Effort & Inspection: normal respiratory effort and able to speak in complete sentences Auscultation: clear to auscultation bilaterally, no crackles, no rales, no rhonchi and no wheezes Cardio: Rate: regular rate Skin: General skin exam: normal color and no rashes or lesions noted Neuro: General: patient oriented x3, gait normal, moves all extremities, no meningeal signs and no focal motor deficits Cognition (Neuro): normal cognition Speech: normal speech Gait exam (Neuro): Normal gait present Motor exam (neuro): Pronator motor function not present and No tremor noted Sensory Exam: normal sensation Extrem: General: normal to inspection, full ROM, capillary refill normal and normal gait Psych: Appearance: grossly normal and well kempt Mental Status: mental status grossly normal Speech and movement: Normal speech and movement present and Clear speech present Affect: normal affect Attitude: cooperative Course Course Level of Care: Express Care Visit Vital Signs Vital signs: Vital Signs Temperature 98.7 F 04/24/24 15:00 Pulse Rate 90 04/24/24 15:00 Respiratory Rate 20 04/24/24 15:00 Blood Pressure 128/63 04/24/24 15:00 Pulse Oximetry 100 04/24/24 15:00 Oxygen Delivery Room Air 04/24/24 15:00 Temperature 98.7 F 04/24/24 15:00 Pulse Rate 90 04/24/24 15:00 Respiratory Rate 20 04/24/24 15:00 Blood Pressure 128/63 04/24/24 15:00 Pulse Oximetry 100 04/24/24 15:00 Oxygen Delivery Room Air 04/24/24 15:00 Reviewed Medical Decision Making MDM Narrative Medical decision making narrative: Patient sitting comfortably in exam room. Nontoxic, vitals stable. Patient in no acute distress Patient presents for Atypical headache that is not going away with rest. Requesting A work note. No neurologic deficits. No red flecks noted on the headache. Patient was given Toradol, Zofran. Reports pain improvement and nausea is gone. patient is appropriate for outpatient treatment with strict signs and symptoms to proceed to the emergency room which she verbalized understand Discharge instructions reviewed with patient, as well as provided in writing per nursing staff. The instructions also include specific and strict return/GO TO THE ER as well as f/u information. All questions have been answered, and the patient deny any further questions with discharge and discharge plan. Some parts of this dictation were generated by voice recognition software and may contain typographical and/or grammatical inaccuracies. Differential Diagnosis Differential Diagnosis: headache, sinus congestion, URI, Medical Records Medical records reviewed: Yes I reviewed the external patient's medical records. Vital Signs Vital Signs: Vital Signs Temperature 98.7 F 04/24/24 15:00 Pulse Rate 90 04/24/24 15:00 Respiratory Rate 20 04/24/24 15:00 Blood Pressure 128/63 04/24/24 15:00 Pulse Oximetry 100 04/24/24 15:00 Oxygen Delivery Room Air 04/24/24 15:00 Temperature 98.7 F 04/24/24 15:00 Pulse Rate 90 04/24/24 15:00 Respiratory Rate 20 04/24/24 15:00 Blood Pressure 128/63 04/24/24 15:00 Pulse Oximetry 100 04/24/24 15:00 Oxygen Delivery Room Air 04/24/24 15:00 Reviewed Lab Data Lab results reviewed: Yes I reviewed the patient's lab results. Labs: Reviewed Critical Care Time Critical Care Time Critical Care Time: No Discharge Plan Discharge Clinical Impression: Headache Qualifiers: Headache type: unspecified Headache chronicity pattern: acute headache Patient Disposition: Home, Self-Care Condition: Stable Instructions: Antibiotic Form, Acute Headache (ED) Additional Instructions: rest for 24 hours in a cool dark room. Absolutely no screen time especially a tablet or a cell phone. Take Tylenol 1000mg alternating with Motrin 600mg. Take 25 mg of Benadryl take Zofran as needed for nausea follow-up with primary care provider if this becomes a worse headache of your life or your having new or worsening symptoms such as numbness or tingling or visual changes please go directly to the nearest emergency room Patient Language: Mauritian Prescriptions: New ondansetron 4 mg tablet,disintegrating 4 mg PO Q8H PRN (Reason: nausea and vomiting) Qty: 7 0RF No Action fluoxetine 20 mg capsule 20 mg PO DAILY amitriptyline 10 mg tablet 10 mg PO DAILY meclizine 25 mg tablet 25 mg PO TID Qty: 30 0RF Follow-up/Referrals: Mary Ellen Kim RN [Primary Care Provider] - Stand Alone Forms: Work/School Release IP Time of Disposition: 15:37
[2024-04-24] MEDS: KETOROLAC (*BKC) 60 MG/2 ML VIAL IM (15:23)
[2024-04-24] MEDS: ONDANSETRON HCL ODT 4 MG TABLET PO (15:23)
== END 2024-04-24 15:43 | disposition home or self-care (01) ==
PROVIDERS: Emergency Provider Nurse Practitioner
DX: R51.9 Headache, unspecified (principal); Z87.891 Personal history of nicotine dependence
CPT/HCPCS: 96372; 99213; A9270; G0463; J1885

== ENCOUNTER 2024-06-24 15:12 | Emergency (ER) | payer OTHER, SELFPAY ==
--- NOTE | 2024-06-24 15:15 | ED.DENTAL ---
HPI - Dental/Oral General Chief complaint: Dental/Oral Stated complaint: Mouth Pain Time Seen by Provider: 06/24/24 15:45 Source: patient Mode of arrival: ambulatory Limitations: no limitations History of Present Illness HPI Narrative: Judy a 39-year-old female patient presenting to the clinic today with complaints of dental pain. She reports multiple signs of dental pain in her mouth. History of teeth extraction and does have some left over remnants of teeth. Has swelling to the gums around these teeth without abscess. Teeth were extracted 1 week ago. Denies any fevers, chills, body aches. Related Data Home Medications ?Medication ?Instructions ?Recorded ?Confirmed ?Last Taken ?Type fluoxetine 20 mg capsule 20 mg PO DAILY 09/22/23 04/16/24 Unknown History amitriptyline 10 mg tablet 10 mg PO DAILY 03/09/24 04/16/24 Unknown History Allergies Allergy/AdvReac Type Severity Reaction Status Date / Time No Known Allergies Allergy Unknown Verified 06/24/24 15:47 Review of Systems Review of Systems: Pertinent positives per HPI. Patient denies any fever, chills, rash, headache, visual changes, dizziness, cough, shortness of breath, chest pain, palpitations, nausea, vomiting, diarrhea, constipation, abdominal pain, or any urinary issues. [facility] Past Medical History Medical History Back pain Encounter for annual routine gynecological examination Nexplanon removal (12/23/15) Nexplanon insertion (12/18/12) Arm fracture Pneumonia Frequent UTI Depression Anxiety Surgical History Surgical History History of robot-assisted laparoscopic hysterectomy (04/05/22) Robotic assisted total laparoscopic hysterectomy Bilateral salpingectomy History of dilation and curettage (05/17/16) hscope d&c/endometrial ablation--menometrorrhagia, dysmenorrhea--benign History of ovarian cystectomy (09/25/12) rt ovarian cystectomy History of bilateral breast reduction surgery (06/23/12) History of tubal ligation (11/30/10) History of 04/10/07 primary c/s--arrest of descent 11/30/10 rpt c/s w/tubal ligation History of tonsillectomy (~2002) Family History Family History Grandparent Hypertension paternal grandfather paternal grandmother Diabetes mellitus paternal grandmother paternal grandfather Cerebrovascular accident maternal grandmother paternal grandmother Heart disease paternal grandfather Mother Alcoholism Social History Social History Smoking status: Former smoker Tobacco type: cigarettes Additional smoking assessment comments: Pt stated on and off socially, does not currently Alcohol intake: current Alcohol use details: 1-2 year rare use Substance use: never Substance use type: does not use Living arrangements: with roommate(s) Additional living arrangements comments: Occupation/Education: unemployed Additional occupation/education comments: [employer] Gender identity (if verbalized by the patient): Female Sexual Orientation (if Verbalized by the Patient): Straight or Heterosexual Spiritual care concerns: No Comments At the time of my signature, I reviewed and agree with the nursing past medical, surgical, social, and family history. There is no relevant family history pertinent to the patient complaint. Exam Narrative: General: Well-developed, well nourished, in no apparent distress Head: Normocephalic, atraumatic Eyes: Pupils equally round and reactive to light bilaterally, EOM intact, sclera and conjunctive clear, no discharge, lids normal Ears: TMs intact and clear, ear canals clear, no drainage, grossly hearing normal. Nose: Nares patent, no discharge, no inflammation, no sinus tenderness. Mouth: Oral pharynx without lesions or masses, very poor dentition, MMM. Swelling of the gums around remnants of teeth Neck: Supple, trachea midline, no enlargement of anterior or posterior cervical nodes, no thyroid masses or goiter palpable. Cardio: Regular rate and rhythm, s1 and s2 normal, no murmur appreciated. Resp: Clear to auscultation bilaterally, no rhonchi, rales, wheezing or rubs Course Course Emergency Course: Portions of this record may have been created with voice recognition software. Level of Care: Express Care Visit Vital Signs Vital signs: Vital Signs Temperature 36.4 C 06/24/24 15:25 Pulse Rate 99 06/24/24 15:25 Respiratory Rate 16 06/24/24 15:25 Blood Pressure 133/70 06/24/24 15:25 Pulse Oximetry 99 06/24/24 15:25 Oxygen Delivery Room Air 06/24/24 15:25 Temperature 36.4 C 06/24/24 15:25 Pulse Rate 99 06/24/24 15:25 Respiratory Rate 16 06/24/24 15:25 Blood Pressure 133/70 06/24/24 15:25 Pulse Oximetry 99 06/24/24 15:25 Oxygen Delivery Room Air 06/24/24 15:25 Vital signs reviewed MDM - Dental/Oral MDM Narrative Medical decision making narrative: At the time of visit patient is resting comfortably on the exam table. Patient appears to be nontoxic. Plan: I suspect patient has a dental infection. Prescription for amoxicillin was sent to the pharmacy. Follow-up with dentist as soon as possible Supportive measures were discussed with the patient and they voiced understanding discharge instructions and agrees to treatment plan. Return precautions reviewed Differential Diagnosis Differential diagnosis: Likely gingival abscess, dental caries, toothache, dental abscess, fracture of tooth and aphthous ulcer Discharge Plan Discharge Clinical Impression: Dental infection Patient Disposition: Home Condition: Stable Instructions: Antibiotic Form, Toothache (ED) Additional Instructions: Increase fluids and stay well hydrated May apply Orajel to the affected to help alleviate pain May take Tylenol/Motrin as needed for pain or fever Take amoxicillin as prescribed Follow-up with your dentist as soon as possible Patient Language: Japanese Prescriptions: New amoxicillin 875 mg tablet 875 mg PO Q12H 10 Days Qty: 20 0RF No Action fluoxetine 20 mg capsule 20 mg PO DAILY amitriptyline 10 mg tablet 10 mg PO DAILY Follow-up/Referrals: Mary Ellen Kim RN [Primary Care Provider] - Stand Alone Forms: Work/School Release IP Time of Disposition: 15:56 Quality NIHSS Nursing Documentation ED NIHSS nursing documentation: reviewed/agree
[2024-06-24 15:25] VITALS: BP 133/70; PULSE 99; RESP 16; TEMP 36.4; O2SAT 99
--- OUTSIDE RECORDS SUMMARY | 2024-06-24 16:07 | XMS_ITS | Clinical Summary ---
Author Organization [facility] Address [address] [facility] [place] [address] Phone Care Team Providers Care Acquisitions Editor Name Role Phone Sasha Martinez Chuck DPM Unavailable Mary Ellen Kim ELECTRIC ORGAN ASSEMBLER, RAW STOCK MACHINE FEEDER Primary Care Provider + Geoff Wood MD Unavailable Allergies No known active allergies Medications FLUoxetine (PROzac) 20 MG CapsuleIndicati ons:Major depressive disorder, recurrent episode, moderate (HCC) Take 1 Capsule by mouth daily. 90 Capsule 1 4 Active meclizine (ANTIVERT) 25 MG TabletIndicatio ns:Vertigo Take 1 Tablet by mouth 3 times daily as needed for Dizziness. Indications: Sensation of Spinning or Whirling 30 Tablet 4 Active amitriptyline (ELAVIL) 25 MG Tablet Take 1 Tablet by mouth nightly. 90 Tablet 5 Active ACETAMINOPHEN PO Take by mouth as needed. Active methocarbamol (ROBAXIN) 750 MG Tablet Take 1 Tablet by mouth 4 times daily as needed (back pain). 30 Tablet 5 Active celecoxib (CeleBREX) 200 MG Capsule Take 1 Capsule by mouth 2 times daily as needed for Moderate or more severe pain. 60 Capsule 3 5 Active Diclofenac Sodium (VOLTAREN) 1 % Gel Apply 2 g 4 times daily. 1 g 1 4 05/28/19 25 Discontinu ed(Med List Clean Up) amitriptyline (ELAVIL) 10 MG TabletIndicatio ns:Insomnia, unspecified type Take 1 Tablet by mouth nightly. 90 Tablet 5 05/28/19 Discontinu ed(Dose adjustment ) meloxicam (MOBIC) 15 MG Tablet 5 05/28/19 25 Discontinu ed(Med List Clean Up) IBUPROFEN PO Take by mouth as needed. 06/05/19 Discontinu ed(Alterna te therapy) Active Problems No known active problems Encounters Date Type Department Care Team Description 06/15/2024 11:00 AM CDT Office Visit [facility] [address] [place] [address] Mary Ellen Kim, ELECTRIC ORGAN ASSEMBLER, RAW STOCK MACHINE FEEDER Piriformis syndrome of left side (Primary Dx) Discharge Disposition: Discharged to home or Selfcare 06/15/2024 Travel 06/04/2024 1:30 PM CDT Office Visit [facility] [address] [place] [address] Justa Frances PAC Left-sided low back pain without sciatica, unspecified chronicity (Primary Dx) Discharge Disposition: Discharged to home or Selfcare 06/01/2024 Nurse Triage [facility] [address] [place] [address] Mary Ellen Kim, ELECTRIC ORGAN ASSEMBLER, RAW STOCK MACHINE FEEDER Advice Only; Back Pain 06/01/2024 Travel 05/27/2024 3:15 PM CDT Office Visit [facility] [address] [place] [address] Mary Ellen Kmi, ELECTRIC ORGAN ASSEMBLER, RAW STOCK MACHINE FEEDER Insomnia, unspecified type (Primary Dx); Recurrent major depressive disorder, in full remission (HCC); Anxiety Discharge Disposition: Discharged to home or Selfcare 05/27/2024 Travel 05/26/2024 Telephone [facility] Central Call Center [address] [place] [phone] Mary Ellen Kim, ELECTRIC ORGAN ASSEMBLER, RAW STOCK MACHINE FEEDER 05/21/2024 Results Follow-Up [facility] [address] [facility] [place] [address] Mary Ellen Kim APRN, EMILY CMP (COMPREHENSIVE METABOLIC PANEL) 05/06/2024 9:30 AM CDT Procedure Visit [facility] [address] [place] [address] Geoff Wood MD Hematuria, unspecified type (Primary Dx) Discharge Disposition: Discharged to home or Selfcare 05/06/2024 Results Follow-Up [facility] [address] [place] [address] UROGRAPHY WO/W CONTRAST 05/06/2024 Travel 05/02/2024 7:26 AM ORDNANCE MECHANIC - 05/02/2024 11:59 PM ORDNANCE MECHANIC Hospital Encounter [facility] [address] [place] [address] Geoff Wood MD Discharge Disposition: Discharged to home or Selfcare 05/01/2024 Results Follow-Up [facility] - Obstetrics & Gynecology - [address] [place] [address] Mary Ellen Kim APRN, EMILY CMP (COMPREHENSIVE METABOLIC PANEL), HEMOGLOBIN A1C W/ ESTIMATED GLUCOSE, VITAMIN B12, Additional followed-up results: 5 05/01/2024 Travel 04/24/2024 Travel 04/09/2024 1:00 PM ORDNANCE MECHANIC [facility] - [address] [place] [address] Cruzito Quiroz MD Horizontal nystagmus Discharge Disposition: Discharged to home or Selfcare 04/08/2024 9:30 AM ORDNANCE MECHANIC [facility] [address] [facility] [address] Mary Ellen Kim APRN, EMILY Horizontal nystagmus (Primary Dx); Vertigo; Anxiety Discharge Disposition: Discharged to home or Selfcare 04/08/2024 8:15 AM ORDNANCE MECHANIC Office Visit [facility] [address] [place] [address] Geoff Wood MD Hematuria, unspecified type (Primary Dx) Discharge Disposition: Discharged to home or Selfcare 04/07/2024 4:00 PM ORDNANCE MECHANIC Occupational Therapy [facility] [address], [address] [place] [address] Justa Frances, PAC Embick, Kim, OT Discharge Disposition: Discharged to home or Selfcare 04/07/2024 Travel 03/31/2024 Telephone [facility] [address], [address] [place] [phone] Embick, Kim, OT cancel 03/26/2024 Telephone [facility] [address] [place] [phone] Mary Ellen Kim, ELECTRIC ORGAN ASSEMBLER, RAW STOCK MACHINE FEEDER Referral from Last 3 Months Immunizations Immunization Administration Dates Next Due Influenza Vaccine, MDCK,quadrivalent, pres free 10/12/2021 Influenza, Injectable, Quadrivalent 01/01/2023 Influenza, Seasonal, Injectable, Undefined 12/11 Influenza, Trivalent, Adjuvanted, PF 10/26/2021 TDAP Vaccine 01/14/2016 Family History Medical History Relation Name Comments No Known Problems Brother No Known Problems Father Anxiety disorder Maternal Grandfather Jc Diabetes Maternal Grandfather Jc Stroke Maternal Grandmother Shelley [facility] Skin Cancer Mother Depression Paternal Aunt Congestive [...] pure alcohol) occasionally, three times per year [facility] Utilities Answer Date Recorded In the past 12 months has th e electric, gas, oil, or water company [...] often do you attend chur ch or latter day services? Never 03/10/2024 Do you belong to any clubs o r organizations such as adventism groups, unions, fraternal or athletic groups, or [...] Total Score - Questions 1-9 0 02/25 [facility] [place] of Occupat ional Health - Occupational Stress [...] any time in the past 12 m [facility], were you homeless or living in a detention (including now)? No 03/10/2024 Sexually Active Control Partners Comments Yes Other Male Hysterectomy Comments No Sex and Gender Information Value Date Recorded Sex Assigned at Female 01/06/2023 5:01 AM ORDNANCE MECHANIC Legal Sex Female 11:17 PM CDT Gender Identity Female 01/06/2023 5:01 AM ORDNANCE MECHANIC Sexual Orientation Not on file Last Filed Vital Signs Vital Sign Reading Time Taken Comments Blood Pressure 118/76 06/15/2024 11:34 AM CDT Pulse 96 06/15/2024 11:34 AM CDT Temperature 36.3 C (97.3 F) 06/15/2024 11:34 AM CDT Respiratory Rate 16 06/15/2024 11:34 AM CDT Oxygen Saturation 98% 06/15/2024 11:34 AM CDT Inhaled Oxygen Concentration - - Weight 78.1 kg (172 lb 1.6 oz) 06/15/2024 11:34 AM CDT Height 149.9 cm (4' 11 ) 06/15/2024 11:34 AM CDT Body Mass Index 34.76 06/15/2024 11:34 AM CDT Plan of Treatment Upcoming Encounters Date Type Department Care Team (Late st Contact Info) Description 07/15/2024 4:00 PM CDT [facility] [address] [place] [address] Mary Ellen Kim, ELECTRIC ORGAN ASSEMBLER, RAW STOCK MACHINE FEEDER [address] [place] [address] Dena [place], [place] Discharge Disposition: Discharged to home or Selfcare 09/02/2024 5:15 PM CDT Office Visit [facility] [address] [place] [address] Mary Ellen Kim, ELECTRIC ORGAN ASSEMBLER, RAW STOCK MACHINE FEEDER [address] [place] [address] Health Maintenance Due Date Last Done Comments Hepatitis B Immunization (1 of 3 - 19+ 3-dose series) 02/15/2004 SARS-COV-2 Immunization ( season) 2023 02/11/2021, 03/04/2020 Influenza Immunization (Season Ended) 2024 01/01/2023, 10/26/2021, 10/12/2021, Additional history exists Td Immunization Every 10 Years (Adults With [...] Behavioral Health Behavioral Health Yes Fish Deras, APPLICATION PENETRATION TESTER Note: I need reassurance that all the bad things that have happened to me are not my fault. Procedures Procedure Name Priority Date/Time Associated Diagnosis Comments CMP (COMPREHENSIVE METABOLIC PANEL) Routine 05/09/2024 8:13 AM CDT Hypokalemia POCT UA AUTOMATED W/O MICRO Routine 05/06/2024 9:40 AM CDT Hematuria, unspecified type CYSTOURETHROSCOPY Routine 05/06/2024 9:3 0 AM CDT Hematuria, unspecified type CT UROGRAPHY WO/W CONTRAST Routine 05/02/2024 7:54 AM ORDNANCE MECHANIC Hematuria, unspecified type CBC WITH AUTO DIFFERENTIAL Routine 05/01/2024 9:26 AM ORDNANCE MECHANIC Horizontal nystagmus THYROID STIMULATING HORMONE (TSH) Routine 05/01/2024 9:26 AM ORDNANCE MECHANIC Horizontal nystagmus HIV 1 & 2 ANTIBODY & ANTIGEN SCREEN Routine 05/01/2024 9:26 AM ORDNANCE MECHANIC Horizontal nystagmus SYPHILIS IGG/IGM W/REFLEX Routine 2024 9:26 AM ORDNANCE MECHANIC Horizontal nystagmus FOLIC ACID (FOLATE) Routine 05/01/2024 9 :26 AM ORDNANCE MECHANIC Horizontal nystagmus VITAMIN B12 Routine 05/01/2024 9:26 AM ORDNANCE MECHANIC Horizontal nystagmus HEMOGLOBIN A1C W/ ESTIMATED GLUCOSE Routine 05/01/2024 9:26 AM ORDNANCE MECHANIC Horizontal nystagmus CMP (COMPREHENSIVE METABOLIC PANEL) Routine 05/01/2024 9:26 AM ORDNANCE MECHANIC Horizontal nystagmus COMPLETE BLOOD COUNT (CBC) WITH DIFF Routine 05/01/2024 9:26 AM ORDNANCE MECHANIC Horizontal nystagmus POCT UA AUTOMATED W/O MICRO Routine 04/08/2024 8:25 AM ORDNANCE MECHANIC Hematuria, unspecified type HEPATITIS C ANTIBODY Routine 06/26/2023 8:04 AM CDT Need for hepatitis C screening test from Last 3 Months or Most Recently Relevant to Health Maintenance Results * (ABNORMAL) CMP (COMPREHENSIVE METABOLIC PANEL) (05/09/2024 8:13 AM CDT) Only the most recent of2 resultswithin the time period is included. Pathologist [facility] SODIUM 139 136 - 145 mmol/L 05/09/2024 10:09 AM CDT [facility] POTASSIUM 3.4(L) 3.5 - 5.1 mmol/L 05/09/2024 10:09 AM CDT [facility] CHLORIDE 104 98 - 107 mmol/L 05/09/2024 10:09 AM CDT [facility] CO2, VENOUS 27 22 - 30 mmol/L 05/09/2024 10:09 AM CDT [facility] ANION GAP 11.4 <18.0 mmol/L 05/09/2024 10:09 AM CDT [facility] GLUCOSE 103(H) 70 - 99 mg/dL 05/09/2024 10:09 AM CDT [facility] BUN 11 5 - 18 mg/dL 05/09/2024 10:09 AM CDT [facility] CREATININE, BLOOD 0.80 0.60 - 1.00 mg/dL 05/09/2024 10:09 AM CDT [facility] BUN/CREATININE RATIO 14 12 - 20 ratio 05/09/2024 10:09 AM CDT [facility] TOTAL PROTEIN 7.6 6.0 - 8.0 g/dL 05/09/2024 10:09 AM CDT [facility] ALBUMIN 3.9 3.5 - 5.0 g/dL 05/09/2024 10:09 AM CDT [facility] A/G RATIO 1.1 1.0 - 2.2 05/09/2024 10:09 AM CDT [facility] CALCIUM 8.4(L) 8.7 - 10.5 mg/dL 05/09/2024 10:09 AM CDT [facility] T BILI 0.3 0.2 - 1.2 mg/dL 05/09/2024 10:09 AM CDT [facility] SGOT (AST) 24 <43 U/L 05/09/2024 10:09 AM CDT [facility] SGPT (ALT) 24 <56 U/L 05/09/2024 10:09 AM CDT [facility] ALKALINE PHOSPHATASE 91 40 - 150 U/L 05/09/2024 10:09 AM CDT [facility] IS THE PATIENT REQUIRED TO BE FASTING? No 05/09/2024 10:09 AM CDT [facility] GFR, ESTIMATED >60 >=60 05/09/2024 10:09 AM CDT [facility] Comment: Creatinine Clearance is the preferred criteria for selecting drug dose adjustments in renally impaired patients. The GFR is provided as additional pertinent clinical information. GFR is reported in mL/min/1.73 sq m. Calculation based on the Chronic Kidney Disease Epidemiology Collaboration (CKD- EPI) equation refit without adjustment for race. GFR, EST. >60 >=60 025 10:09 AM CDT [facility] GFR, EST. NONAFRICAN >60 >=60 05/09/2024 10:09 AM CDT [facility] Blood Venipuncture / Unknown 05/09/2024 8:13 AM CDT 05/09/2024 9:21 AM CDT us Mary Ellen Kim APRN, RAW STOCK MACHINE FEEDER CHEMISTRY ORDERABLES Fin al Result [facility] [address] [place] [address] * POCT UA AUTOMATED W/O MICRO (05/06/2024 9:40 AM CDT) Only the most recent of2 resultswithin the time period is included. POC UA SPECIFIC GRAVITY 1.000 URINE PH 7.0 5.0 - 9.0 POC URINE LEUKOCYTES Negative Negative Melvin/uL POC URINE NITRITE Negative Negative POC URINE PROTEIN Negative Negative mg/dL POC URINE GLUCOSE Norm Negative, Norm mg/dL POC URINE KETONE Negative Negative mg/dL POC URINE UROBILINOGEN Norm Norm, 0.2 E.U./dL (mg/dL), 1 E.U./dL (mg/dL) POC URINE BILIRUBIN Negative Negative mg/dL POC URINE BLOOD INSTRUMENT Negative Negative Heath/uL POC URINE COLOR Yellow POC URINE CLARITY Clear Urine 05/06/2024 9:40 AM CDT us Geoff Wood MD POINT OF CARE TESTING (MANUAL) F inal Result * CYSTOURETHROSCOPY (05/06/2024 9:30 AM CDT) Narrative Geoff Wood MD - 05/06/2024 9:30 AM CDT Geoff Wood MD 05/20/2024 9:16 AM Female Cysto - CYSTOSCOPY: Details of the procedure as well as the potential risks were discussed with the patient, including but not limited to the risks of bleeding, infection, damage to the bladder, and voiding dysfunction. She seemed to understand the risks and details of the procedure. All questions were answered to her satisfaction and she wished to proceed. Details of Procedure: Flexible cystourethroscopy was performed under sterile conditions. The bladder was systematically surveyed. Findings below: Bladder:normal Ureteral orifice: Orthotopic Urethra: Mild angulation but normal Vaginal introitus: Normal Q-tip test: Not done Impression: History of hysterectomy without oophorectomy almost cystoscopy Patient received nothing as prophylaxis. Tolerated well with no reactions us Geoff Wood MD [place] - SURGERY Final Result * CT UROGRAPHY WO/W CONTRAST (05/02/2024 7:54 AM ORDNANCE MECHANIC) Anatomical Region Laterality Modality , Abdomen N/A Computed Tomogra phy 05/06/2024 4:10 PM CDT Impressions 05/06/2024 4:12 PM CDT IMPRESSION: 1. Prominent right renal collecting system without overt hydronephrosis. Nonopacification of the mid and distal right ureter limits evaluation with possible mass effect from the adjacent right adnexa. To consider retrograde pyelogram or short-term CT follow-up. 2. Hysterectomy. Indeterminate tubular structure associated with the right adnexa could represent hydrosalpinx. Bilateral ovarian cysts are also noted. A follow-up pelvic ultrasound is recommended for further evaluation. Narrative 05/06/2024 4:12 PM CDT EXAM DESCRIPTION: CT UROGRAPHY WO/W CONTRAST REASON FOR STUDY: Micro hematuria on multiple UAs since 2021, no gross hematuria. Recurring UTIs. TECHNIQUE: Precontrast images of the abdomen. Abdomen and pelvis images with intravenous and without oral contrast using helical scanning technique with dynamic intravenous contrast injection. Combined nephrographic and excretory phase images were acquired as per split bolus protocol. Reconstructed coronal and sagittal MPR images reviewed. All images stored on PACS. Automated exposure control was used as a dose optimization technique for this examination. CONTRAST TYPE/DOSE: 150mL of IOPAMIDOL 76 % IV SOLN injected via Intravenous COMPARISON: No prior studies available for comparison FINDINGS: URINARY TRACT: KIDNEYS: The kidneys are normal in size. Noncontrast images demonstrate no stone. Symmetric bilateral renal enhancement. A subcentimeter hypoattenuating lesion is seen within the right kidney which is too small to further characterize, likely represents a cyst. URETERS AND BLADDER: The contrast images are obscured by motion. Prominent right collecting system is seen without overt hydronephrosis. There may be mass effect on the mid right ureter from the right adnexa. The mid and distal right ureter is not opacified. No left hydronephrosis is seen. Contrast within the left collecting system and left ureter is seen. Minimal opacification of the distal left ureter to the ureterovesical junction with no filling defect otherwise noted. The urinary bladder is distended on initial images without stone. No bladder wall thickening or stranding is seen. The urinary bladder is well opacified on the delayed images. No mass is seen within the contrast column. ABDOMEN/PELVIS: LOWER CHEST: A 4 mm nodule seen within the right lung base. Optional chest CT follow-up may be performed in 1 year if this patient has increased risk factors for lung malignancy (32). LIVER: The liver is normal in size. No definite liver lesion is seen. GALLBLADDER: Partially distended. BILE DUCTS: No gross biliary ductal dilatation SPLEEN: Spleen is normal in size. PANCREAS: The pancreas is normal in size without significant peripancreatic stranding or main ductal dilatation. ADRENALS: Normal. GI: Thickening of a decompressed rectosigmoid colon is likely due to under distension. The appendix is nondilated. The stomach is partially distended. The small bowel is nondilated without evidence of small-bowel obstruction. PERITONEUM: No free air or ascites. No mesenteric lymphadenopathy. RETROPERITONEUM: Subcentimeter retroperitoneal lymph nodes are noted. No inguinal lymphadenopathy REPRODUCTIVE: . the uterus is absent. Multiple cysts are seen within the ovaries bilaterally. A dilated tubular structure associated with the right ovary could represent hydrosalpinx (coronal image 45) VASCULATURE: No abdominal aortic aneurysm. MUSCULOSKELETAL: No acute findings. OTHER: No other abnormality. THIS IS AN ELECTRONICALLY VERIFIED FINAL REPORT 05/06/2024 4:10 PM - Electronically signed by Morgan Burgess M.D. AG: DANG Report ID: [id number] Reading Location: [id number] Procedure Note Morgan Burgess MD - 05/06/2024 EXAM DESCRIPTION: CT UROGRAPHY WO/W CONTRAST REASON FOR STUDY: Micro hematuria on multiple UAs since 2021, no gross hematuria. Recurring UTIs. TECHNIQUE: Precontrast images of the abdomen. Abdomen and pelvis images with intravenous and without oral contrast using helical scanning technique with dynamic intravenous contrast injection. Combined nephrographic and excretory phase images were acquired as per split bolus protocol. Reconstructed coronal and sagittal MPR images reviewed. All images stored on PACS. Automated exposure control was used as a dose optimization technique for this examination. CONTRAST TYPE/DOSE: 150mL of IOPAMIDOL 76 % IV SOLN injected via Intravenous COMPARISON: No prior studies available for comparison FINDINGS: URINARY TRACT: KIDNEYS: The kidneys are normal in size. Noncontrast images demonstrate no stone. Symmetric bilateral renal enhancement. A subcentimeter hypoattenuating lesion is seen within the right kidney which is too small to further characterize, likely represents a cyst. URETERS AND BLADDER: The contrast images are obscured by motion. Prominent right collecting system is seen without overt hydronephrosis. There may be mass effect on the mid right ureter from the right adnexa. The mid and distal right ureter is not opacified. No left hydronephrosis is seen. Contrast within the left collecting system and left ureter is seen. Minimal opacification of the distal left ureter to the ureterovesical junction with no filling defect otherwise noted. The urinary bladder is distended on initial images without stone. No bladder wall thickening or stranding is seen. The urinary bladder is well opacified on the delayed images. No mass is seen within the contrast column. ABDOMEN/PELVIS: LOWER CHEST: A 4 mm nodule seen within the right lung base. Optional chest CT follow-up may be performed in 1 year if this patient has increased risk factors for lung malignancy (32). LIVER: The liver is normal in size. No definite liver lesion is seen. GALLBLADDER: Partially distended. BILE DUCTS: No gross biliary ductal dilatation SPLEEN: Spleen is normal in size. PANCREAS: The pancreas is normal in size without significant peripancreatic stranding or main ductal dilatation. ADRENALS: Normal. GI: Thickening of a decompressed rectosigmoid colon is likely due to under distension. The appendix is nondilated. The stomach is partially distended. The small bowel is nondilated without evidence of small-bowel obstruction. PERITONEUM: No free air or ascites. No mesenteric lymphadenopathy. RETROPERITONEUM: Subcentimeter retroperitoneal lymph nodes are noted. No inguinal lymphadenopathy REPRODUCTIVE: . the uterus is absent. Multiple cysts are seen within the ovaries bilaterally. A dilated tubular structure associated with the right ovary could represent hydrosalpinx (coronal image 45) VASCULATURE: No abdominal aortic aneurysm. MUSCULOSKELETAL: No acute findings. OTHER: No other abnormality. THIS IS AN ELECTRONICALLY VERIFIED FINAL REPORT 05/06/2024 4:10 PM - Electronically signed by Morgan Burgess M.D. AG: DANG Report ID: [id number] Reading Location: [id number] IMPRESSION: 1. Prominent right renal collecting system without overt hydronephrosis. Nonopacification of the mid and distal right ureter limits evaluation with possible mass effect from the adjacent right adnexa. To consider retrograde pyelogram or short-term CT follow-up. 2. Hysterectomy. Indeterminate tubular structure associated with the right adnexa could represent hydrosalpinx. Bilateral ovarian cysts are also noted. A follow-up pelvic ultrasound is recommended for further evaluation. Geoff Wood MD IMG CT ORDERABLES Final Result * HIV 1 & 2 ANTIBODY & ANTIGEN SCREEN (05/01/2024 9:26 AM ORDNANCE MECHANIC) HIV 1 & 2 ANTIBODY & ANTIGEN SCREEN NON DETECTED NON DETECTED 05/01/2024 3:51 PM ORDNANCE MECHANIC [facility] Blood Venipuncture / Unknown 05/01/2024 9:26 AM ORDNANCE MECHANIC 05/01/2024 10:22 AM ORDNANCE MECHANIC Mary Eleln Kim APRN, CNP LAB SEND OUTS Final Re sult Performing Organization Address City/[facility]/ZIP Co de Phone Number [facility] [address] [address], [place] * SYPHILIS IGG/IGM W/REFLEX (05/01/2024 9:26 AM ORDNANCE MECHANIC) SYPHILIS IGG/IGM Nonreactive Nonreactive 05/01/2024 4:04 PM ORDNANCE MECHANIC [facility] Blood Venipuncture / Unknown 05/01/2024 9:26 AM ORDNANCE MECHANIC 05/01/2024 10:22 AM ORDNANCE MECHANIC Mary Ellen Kim APRN, CNP IMMUNOLOGY ORDERABLES Fi nal Result Performing Organization Address City/[facility] Co de Phone Number [facility] [address] [place] [address], [place] * HEMOGLOBIN A1C W/ ESTIMATED GLUCOSE (05/01/2024 9:26 AM ORDNANCE MECHANIC) HGB-A1C 4.9 4.0 - 6.0 % 05/01/2024 10:52 AM ORDNANCE MECHANIC [facility] Est Average Glucose 93.9 mg/dL 05/01/2024 10:52 AM ORDNANCE MECHANIC [facility] Blood Venipuncture / Unknown 05/01/2024 9:26 AM ORDNANCE MECHANIC 05/01/2024 10:22 AM ORDNANCE MECHANIC Narrative [facility] - 05/01/2024 10:52 AM ORDNANCE MECHANIC HEMOGLOBIN A1C: DIABETIC PATIENTS: WELL-CONTROLLED: 6.2 - 7.0 INTERMEDIATE WELL-CONTROLLED: 7.0 - 9.0 POORLY-CONTROLLED: >9.0 Specimens containing greater than 5% of Hemoglobin F may result in lower than expected % HbA1C results. us Mary Ellen Kim ELECTRIC ORGAN ASSEMBLER, RAW STOCK MACHINE FEEDER CHEMISTRY ORDERABLES Fin al Result [facility] H[facility]1 [place] [address] * CBC WITH AUTO DIFFERENTIAL (05/01/2024 9:26 AM [facility]) WBC 9.59 4.00 - 12.00 10(3)/[facility] 05/01/2024 10:26 AM [facility] RBC 4.35 3.80 - 5.30 10(6)/[facility] 05/01/2024 10:26 AM [facility] HEMOGLOBIN (HGB) 13.2 12.0 - 15.8 g/dL 05/01/2024 10:26 AM [facility] HEMATOCRIT (HCT) 40.6 36.0 - 47.0 % 05/01/2024 10:26 AM [facility] MCV 93.3 82.0 - 96.0 fL 05/01/2024 10:26 AM [facility] MCH 30.3 26.0 - 34.0 pg 05/01/2024 10:26 AM [facility] MCHC 32.5 31.0 - 36.0 g/dL 05/01/2024 10:26 AM [facility] PLATELET COUNT 359 140 - 440 10(3)/[facility] 05/01/2024 10:26 AM [facility] RDW 12.7 11.8 - 15.5 % 05/01/2024 10:26 AM [facility] MPV 10.1 9.7 - 12.4 fL 05/01/2024 10:26 AM [facility] NEUTROPHILS 68.7 47.0 - 73.0 % 05/01/2024 10:26 AM [facility] LYMPHOCYTES 24.6 18.0 - 42.0 % 05/01/2024 10:26 AM [facility] MONOCYTES 5.4 4.0 - 12.0 % 05/01/2024 10:26 AM [facility] EOSINOPHILS 1.1 0.0 - 5.0 % 05/01/2024 10:26 AM [facility] BASOPHILS 0.2 0.0 - 1.0 % 05/01/2024 10:26 AM [facility] ABSOLUTE NEUTROPHILS 6.58 1.60 - 7.70 10(3)/[facility] 05/01/2024 10:26 AM [facility] ABSOLUTE LYMPHOCYTES 2.36 1.30 - 3.20 10(3)/[facility] 05/01/2024 10:26 AM ORDNANCE MECHANIC [facility] ABSOLUTE MONOCYTES 0.52 0.20 - 1.00 10(3)/[facility] 05/01/2024 10:26 AM [facility] ABSOLUTE EOSINOPHIL 0.11 0.00 - 0.40 10(3)/[facility] 05/01/2024 10:26 AM [facility] ABSOLUTE BASOPHILS 0.02 0.00 - 0.10 10(3)/[facility] 05/01/2024 10:26 AM [facility] NRBC PER 100 WBC 0 05/02/19 10:26 AM [facility] Blood Venipuncture / Unknown 05/01/2024 9:26 AM [facility] 05/01/2024 10:22 AM ORDNANCE MECHANIC us Mary Ellen Kim ELECTRIC ORGAN ASSEMBLER, RAW STOCK MACHINE FEEDER HEMATOLOGY ORDERABLES Fi nal Result [facility] [address]1 [place] [address] * VITAMIN B12 (05/01/2024 9:26 AM ORDNANCE MECHANIC) VITAMIN B12 334 213 - 816 pg/mL 05/01/2024 11:23 AM ORDNANCE MECHANIC [facility] Blood Venipuncture / Unknown 05/01/2024 9:26 AM ORDNANCE MECHANIC 05/01/2024 10:22 AM ORDNANCE MECHANIC Mary Ellen Kim APRN, RAW STOCK MACHINE FEEDER CHEMISTRY ORDERABLES Fin al Result Performing Organization Address City/[facility] Co de Phone Number [facility] [address] [place] [address] * THYROID STIMULATING HORMONE (TSH) (05/01/2024 9:26 AM ORDNANCE MECHANIC) TSH 1.685 0.300 - 5.000 mIU/L 05/01/2024 11:10 AM ORDNANCE MECHANIC [facility] Blood Venipuncture / Unknown 05/01/2024 9:26 AM ORDNANCE MECHANIC 05/01/2024 10:21 AM ORDNANCE MECHANIC Mary Ellen Kim APRN RAW STOCK MACHINE FEEDER CHEMISTRY ORDERABLES Fin al Result Performing Organization Address City/[facility] Co de Phone Number [facility] [address] [place] [address] * FOLIC ACID (FOLATE) (05/01/2024 9:26 AM ORDNANCE MECHANIC) FOLATE 11.9 7.0 - 31.4 ng/mL 05/01/2024 11:23 AM ORDNANCE MECHANIC [facility] IS THE PATIENT REQUIRED TO BE FASTING? No 05/01/2024 11:23 AM ORDNANCE MECHANIC [facility] Blood Venipuncture / Unknown 05/01/2024 9:26 AM ORDNANCE MECHANIC 05/01/2024 10:22 AM ORDNANCE MECHANIC Mary Ellen Kim APRN, RAW STOCK MACHINE FEEDER CHEMISTRY ORDERABLES Fin al Result Performing Organization Address City/[facility] Co de Phone Number [facility] [address] [place] [address] * HEPATITIS C ANTIBODY (06/26/2023 8:04 AM CDT) hepatitis C antibody 0.08 <1 S/CO 06/26/2023 11:33 PM CDT [facility] Comment: Signal/Cutoff ratio < 0.79 is Nondetected Signal/Cutoff ratio 0.80-0.99 is Grayzone Signal/Cutoff ratio > 0.99 is Detected Supplemental assays are recommended if signal/cutoff ratio is >/=1.00. Signal/cutoff ratio result >/= 5.00 is 97% predictive of positivity for recombinant immunoblot assay (RIBA) and will be reported to the [place] Department of Public [facility] as required. Blood Venipuncture / Unknown 06/26/2023 8:04 AM CDT 06/26/2023 8:05 AM CDT us Mary Ellen Kim ELECTRIC ORGAN ASSEMBLER, RAW STOCK MACHINE FEEDER CHEMISTRY ORDERABLES Fin al Result Performing Organization Address [facility] Co de Phone Number [facility] [address] [place] [address], from Last 3 Months or Most Recently Relevant to Health Maintenance Insurance MEDICAID [place] Care Teams Acquisitions Editor Relationship Specialty Start Date End Date Mary Ellen Kim, ELECTRIC ORGAN ASSEMBLER, RAW STOCK MACHINE FEEDER [address] [place] [address] PCP - General Advanced Practice Nurse 02/08/23 Sasha Martinez DPDonita Consulting Physician Podiatry 02/27/22 Geoff Wood MD [address] [address] Consulting Physician Urology 04/10/24
--- OUTSIDE RECORDS SUMMARY | 2024-06-24 16:07 | XMS_ITS | Encounter Summary ---
Author Organization [facility] Address [address] [place] [address] Phone Care Team Providers Care Sorting Livestock Worker Name Role Phone Kei Martinezsaharesh Woods DPM Unavailable [phone] Mary Ellen Kim MICROBIOLOGY SOIL SCIENTIST, ROAD CROSSING GUARD Primary Care Provider + Geoff Wood MD Unavailable Reason for Visit * Reason Comments Medication Refill Encounter Details Date Type Department Care Team (Late st Contact Info) Description 01/28/2024 Refill [facility] - Family Medicine [facility] [address] [place] [address] Mary Ellen Kim, YEISON, ROAD CROSSING GUARD [address] [place] [address] Medication Refill Social History Tobacco Use Types Packs/Day Years Used Date Smoking Tobacco: Never Smokeless Tobacco: Never Alcohol Use Standard Drinks/Week Comments Not Currently 0 (1 standard drink = 0.6 oz pure alcohol) occasionally, three times per year [facility] Utilities Answer Date Recorded In the past 12 months has [employer] electric, gas, oil, or water company threatened [...] declined 10/30/2023 How often do you attend anabaptism or confucianism serv ices? Patient declined 10/30/2023 Do you belong to any clubs o r organizations such as anabaptism groups, unions, fraternal or athletic groups, or [...] Total Score - Questions 1-9 0 11/25 [facility] ional Health - [...] any time in the past 12 m [facility], were you homeless or living in a long-term (including now)? Patient declined 10/30/2023 Sexually Active Control Partners Comments Yes Other Male Hysterectomy Comments No Sex and Gender Information Value Date Recorded Sex Assigned at Female 01/06/2023 5:01 AM IMPLEMENTATION PROJECT MANAGER Legal Sex Female 11:17 PM CDT Gender Identity Female 01/06/2023 5:01 AM IMPLEMENTATION PROJECT MANAGER Sexual Orientation Not on file documented as of this encounter Plan of Treatment Upcoming Encounters Date Type Department Care Team (Late st Contact Info) Description 07/15/2024 4:00 PM CDT [facility] [address], [place] [address] [address] Mary Ellen Kim, MICROBIOLOGY SOIL SCIENTIST, ROAD CROSSING GUARD [address] [place] [address] Dena Washington, [place] Discharge Disposition: Discharged to home or Selfcare 09/02/2024 5:15 PM CDT [facility] Visit [facility] [address] [place] [address] Mary Ellen Kim M, MICROBIOLOGY SOIL SCIENTIST, ROAD CROSSING GUARD [address] [place] [address] documented as of this encounter Goals Goal Patient Goal Type Associated Problems Recent Progress Patient-Stated? Author Behavioral Health Behavioral Health Yes Fish Deras, DEPUTY ATTORNEY GENERAL Note: I need reassurance that all the bad things that have happened to me are not my fault. documented as of this encounter Visit Diagnoses Not on filedocumented in this encounter Additional Health Concerns Assessment Noted Time PHQ-9 Depression Total Score: 0 12/09/19 24 2:58 PM CDT documented as of this encounter Care Teams Sorting Livestock Worker Relationship Specialty Start Date End Date Mary Ellen Kim APRN, ROAD CROSSING GUARD [address] [place] [address] PCP - General Advanced Practice Nurse 02/08/23 Sasha Martinez DPM Consulting Physician Podiatry 02/27/22 Geoff Wood MD [address]2 [facility] [address] [address] Consulting Physician Urology 04/10/24 documented as of this encounter
--- OUTSIDE RECORDS SUMMARY | 2024-06-24 16:07 | XMS_ITS | Continuity of Care Document ---
Author Organization [facility] Address [address] [place] [address] Phone Care Team Providers Care Service Center Assistant Name Role Phone Ara Herman DO Unavailable [...] Diagnoses Date Provider Providers Copied on Encounter [facility], [address], [place], [place], [id number] , [place] tel:[phone] [facility] No Information 2 Batsheva Bullock. [address], [place], [place], [id number] , [place]. tel:[phone] [facility], [address], [place], [place], [id number] , [place] tel: [phone] [facility] No Information 2 Batsheva Ara. [address], [place], [place], [address] , [place]. tel: [phone] [facility], [address], [place], [place], [address] , [place] tel: [phone] [facility] No Information 2 Batsheva Ara. [address], [place], [place], [address] , [place]. tel: [phone] [facility], [address], [place], [place], [address] , [place] tel: [phone] [facility] No Information 2 Batsheva Ara. [address], [place], [place], [address] , [place]. tel: [phone] [facility], [address], [place], [place], [address] , [place] tel: [phone] [facility] No Information 1 Batsheva Ara. [address], [place], [place], [address] , [place]. tel: [phone] OFFICE/OUTPA TIENT VISIT, [facility] IV [facility], [address], [place], [place], [address] , [place] tel: [phone] [facility] anxiety (chief complaint) insomnia (chief complaint) Body mass index (BMI) 33.0-33.9, adultAnxiety and depressionSituational insomnia 1 Batsheva Ara. [address], [place], [place], [address] , [place]. tel: [phone] Referring Provider: Ara Mann, [address], [place], [address] . tel:[phone] OFFICE/OUTPA TIENT VISIT, NEW [facility], [address], [place], [place], [address] , tel:[phone] [facility] anxiety (chief complaint) Anxiety and depressionDepression, unspecifiedSituationa l insomnia Batsheva Bullock. [address], [place], [place], [address] , [place]. tel:[phone] Referring Provider: Ara Mann, [address], [place], [address] . tel:[phone] Family History Family Member Type Diagnosis Age At Onset Father Problem alcoholism Mother Problem alcoholism Father Problem depression Mother Problem depression Immunizations Vaccine Date Status Comments Influenza, injectable, MDCK, preservative free, quadrivalent administered Source: Other Provider Influenza, injectable, quadr ivalent with preservative, MDCK, 0.5 mL dosage, Flucelvax Quad administered Source: Public Agency Payers Payer name Insurance type Covered libertarian ID Authorarnolda marii(s) [facility] [id number] Social History Type Description Quantity Date Captured [...]
--- OUTSIDE RECORDS SUMMARY | 2024-06-24 16:07 | XMS_ITS | Encounter Summary ---
Author Organization [facility] Address [address] [place] [address] Phone Care Team Providers Care Brand Inspector Name Role Phone Michelle Sasha D DPM Unavailable [phone] Mary Ellen Kim TOUR PRODUCTION SUPERVISOR, CONSERVATION COORDINATOR Primary Care Provider + Geoff Wood MD Unavailable Reason for Visit * Reason Comments Medication Refill Encounter Details Date Type Department Care Team (Late st Contact Info) Description 03/12/[address] [facility] Medical [facility] - Family Medicine [facility] [address] [place] [address] Mary Ellen Kim, YEISON, CONSERVATION COORDINATOR [address] [place] [address] Medication Refill Social History Tobacco Use Types Packs/Day Years Used Date Smoking Tobacco: Never Smokeless Tobacco: Never Alcohol Use Standard Drinks/Week Comments Not Currently 0 (1 standard drink = 0.6 oz pure alcohol) occasionally, three times per year [facility] Utilities Answer Date Recorded In the past 12 months has [employer] electric, gas, oil, or water company threatened [...] week 03/10/2024 How often do you attend [facility] or tenriism services? Never 03/10/2024 Do you belong to any clubs o r organizations such as hindu groups, unions, fraternal or athletic groups, or [...] Total Score - Questions 1-9 0 02/25 [facility] ional Health - Occupational [...] time in the past 12 m [facility], were you homeless or living in a fpc (including now)? No 03/10/2024 Sexually Active Control Partners Comments Yes Other Male Hysterectomy Comments No Sex and Gender Information Value Date Recorded Sex Assigned at Female 01/06/2023 5:01 AM FOOD SANITARIAN Legal Sex Female 11:17 PM CDT Gender Identity Female 01/06/2023 5:01 AM FOOD SANITARIAN Sexual Orientation Not on file documented as of this encounter Miscellaneous Notes * Telephone Encounter - Norma Pan RN - 03/12/2024 11:18 AM CST Name from pharmacy: TRAZODONE 50 MG TABLET Will file in chart as: traZODone (DESYREL) 50 MG Tablet The original prescription was discontinued on 03/06/2024 by Mary Ellen Kim APRN, CONSERVATION COORDINATOR Insomnia. Taking Trazodone 50 mg nightly. Medication is no longer helpful. Difficulty falling asleep. No problem staying asleep. SANITARIAN documented in this encounter Plan of Treatment Upcoming Encounters Date Type Department Care Team (Late st Contact Info) Description 07/15/2024 4:00 PM CDT [facility] [address], [place] [address] [place] [address] Mary Ellen Kim APRN, CONSERVATION COORDINATOR [address] [place] [address] Dena Washington, PT [place] Discharge Disposition: Discharged to home or Selfcare 09/02/2024 5:15 PM CDT Office Visit [facility] - [place] [address] [place] [address] Mary Ellen Kim, TOUR PRODUCTION SUPERVISOR, CONSERVATION COORDINATOR [address] [place] [address] documented as of this encounter Goals Goal Patient Goal Type Associated Problems Recent Progress Patient-Stated? Author Behavioral Health Behavioral Health Yes Fish Deras, TETRYL SCREEN OPERATOR Note: I need reassurance that all the bad things that have happened to me are not my fault. documented as of this encounter Visit Diagnoses Not on filedocumented in this encounter Additional Health Concerns Assessment Noted Time PHQ-9 Depression Total Score: 0 03/10/19 25 8:19 AM FOOD SANITARIAN documented as of this encounter Care Teams Brand Inspector Relationship Specialty Start Date End Date Mary Ellen Kim, TOUR PRODUCTION SUPERVISOR, CONSERVATION COORDINATOR [address] [place] [address] PCP - General Advanced Practice Nurse 02/08/23 Sasha Martinez DPM Consulting Physician Podiatry 02/27/22 Geoff Wood MD [address] [address] Consulting Physician Urology 04/10/24 documented as of this encounter
--- OUTSIDE RECORDS SUMMARY | 2024-06-24 16:07 | XMS_ITS | Encounter Summary ---
Author Organization [facility] Address [address] [place] [address] Phone Care Team Providers Care Maintenance Mill[place] Name Role Phone Michelle Sasha D DPM Unavailable [phone] Mary Ellen Kim GANG SUPERVISOR, RING MAKER Primary Care Provider + Geoff Wood MD Unavailable Encounter Details Date Type Department Care Team (Late st Contact Info) Description 05/21/2024 Results Follow-Up [facility] - Family Medicine [facility] [address] [place] [address] Mary Ellen Kim, YEISON, RING MAKER [address] [place] [address] CMP (COMPREHENSIVE METABOLIC PANEL) Social History Tobacco Use Types Packs/Day Years Used Date Smoking Tobacco: Never Smokeless Tobacco: Never Alcohol Use Standard Drinks/Week Comments Not Currently 0 (1 standard drink = 0.6 oz pure alcohol) occasionally, three times per year [facility] Utilities Answer Date Recorded In the past 12 months has [employer], gas, oil, or water company threatened to [...] week 03/10/2024 How often do you attend [facility] or christian services? Never 03/10/2024 Do you belong to any clubs o r organizations such as baptist groups, unions, fraternal or athletic groups, or [...] Total Score - Questions 1-9 0 02/25 [facility] - Occupational Stress Questionnaire Answer Date [...] any time in the past 12 m [facility], were you homeless or living in a fpc (including now)? No 03/10/2024 Sexually Active Control Partners Comments Yes Other Male Hysterectomy Comments No Sex and Gender Information Value Date Recorded Sex Assigned at Female 01/06/2023 5:01 AM ZOO KEEPER Legal Sex Female 11:17 PM CDT Gender Identity Female 01/06/2023 5:01 AM ZOO KEEPER Sexual Orientation Not on file documented as of this encounter Plan of Treatment Upcoming Encounters Date Type Department Care Team (Late st Contact Info) Description 07/15/2024 4:00 PM CDT [facility] [address], [place] [address] [address] Mary Ellen Kim, GANG SUPERVISOR, RING MAKER [address] [place] [address] Dena Washington, PT [place] Discharge Disposition: Discharged to home or Selfcare 09/02/2024 5:15 PM CDT Office Visit [facility] [address] [place] [address] Mary Ellen Kim, GANG SUPERVISOR, RING MAKER [address] [place] [address] documented as of this encounter Goals Goal Patient Goal Type Associated Problems Recent Progress Patient-Stated? Author Behavioral Health Behavioral Health Yes Fish Deras, FLOORING SALES MANAGER Note: I need reassurance that all the bad things that have happened to me are not my fault. documented as of this encounter Visit Diagnoses Not on filedocumented in this encounter Additional Health Concerns Assessment Noted Time PHQ-9 Depression Total Score: 0 03/10/19 25 8:19 AM ZOO KEEPER documented as of this encounter Care Teams Maintenance Millwright Relationship Specialty Start Date End Date Mary Ellen Kim APRN, RING MAKER [address] [place] [address] PCP - General Advanced Practice Nurse 02/08/23 Sasha Martinez DPM Consulting Physician Podiatry 02/27/22 Geoff Wood MD #2 [facility] [address] [address] Consulting Physician Urology 04/10/24 documented as of this encounter
--- OUTSIDE RECORDS SUMMARY | 2024-06-24 16:07 | XMS_ITS | Continuity of Care Document ---
Author Organization [facility] Address [address] [facility] [place] [address] Phone Care Team Providers Care Front End Developer Name Role Phone Butch Schroeder MD Unavailable [...] Diagnoses Date Provider Providers Copied on Encounter [facility], [address] [place], [place], [address], [place] tel:[phone] [facility] No Information Alexandre Rae. [address], [place], [place], [address] , [place]. tel:[phone] Referring Provider: [address], [place], [place], [address]. tel:[phone] OFFICE/OUTPA TIENT VISIT, [facility], [address], [place], [place], [address], [place] tel:[phone] [facility] UTI1 (chief complaint) insmonia1 (chief complaint) anxiety1 (chief complaint) Generalized Anxiety DisorderInsomniaUri nary tract infection Alexandre Rae. [address], [place], [place], [address] , [place]. [phone] Referring Provider: More Lay [address], [place], [place], [address]. tel:[phone] OFFICE/OUTPA TIENT VISIT, [facility], [address], [place], [place], [address], [place] tel:[phone] [facility] anxiety1 (chief complaint) sleep apnea1 (chief complaint) InsomniaGeneralized Anxiety DisorderBody mass index (BMI) 32.0-32.9, adult Alexandre Cabrera [address], [place], [place], [address] , [place]. tel:[phone] Referring Provider: [address], [place], [place], [address]. tel:[phone] OFFICE/OUTPA TIENT VISIT, [facility], [address], [place], [place], [address], [place] tel:[phone] [facility] HLP (chief complaint) vitmai D (chief complaint) anxiety1 (chief complaint) insomnia1 (chief complaint) hand weakness1 (chief complaint) InsomniaHyperlipide miaVitamin D deficiency, unspecifiedGenerali zed Anxiety Disorder Alexandre Cabrera [address], [place], [place], [address] , [place]. tel:[phone] Referring Provider: More Lay [address], [place], [place], [address]. tel:[phone] PREV VISIT, NEW, AGE 18-39 [facility], [address], [place], [place], [address], [place] tel:[phone] [facility] Physical (chief complaint) Encounter for general adult medical exam w abnormal findingsGeneralized Anxiety DisorderInsomniaSle ep apnea May-0 7 Alexandre Rae. [address], [place], [place], [address] , [place]. [phone] Referring Provider: More Lay [address], [place], [place], [address]. tel:[phone] PREV VISIT, EST, AGE 18-39 [facility], [address], [place], [place], [address], [place] tel:[phone] [facility] Physical (chief complaint) Dietary surveillance and counselingRoutine Medical ExamRoutine Medical Exam Sep-0 3 Alexandre Rae. [address], [place], [place], [address] , [place]. [phone] Referring Provider: More Lay [address], [place], [place], [address]. tel:[phone] OFFICE/OUTPA TIENT VISIT, EST [facility], [address], [place], [place], [address], [place] [phone] [facility] ganglion cyst (chief complaint) Dietary surveillance and counselingGanglion, unspecified 3 Alexandre Rae. [address], [place], [place], [address] , [place]. [phone] Referring Provider: More Lay [address], [place], [place], [address]. tel:[phone] Family History Family Member Type Diagnosis Age [...] Insomnia) ordered Referral Referred To: SARAH CASAREZ [address] [facility]
[address], [phone] Ordered: Referrals: SARAH CASAREZ. Evaluate and treat [...] to 80 hours per week at the residential. Pt recently had a emotinal breakdown at [...] busy at [facility] hand weakness1 Pt states that s he [...]
--- OUTSIDE RECORDS SUMMARY | 2024-06-24 16:07 | XMS_ITS | Encounter Summary ---
Author Organization [facility] Address [address] [place] [address] Phone Care Team Providers Care Family Law Specialist Name Role Phone MichelleSasha Chuck DPM Unavailable [phone] Mary Ellen Kim MARKETING DATA SPECIALIST, UROLOGIC NURSE Primary Care Provider + Geoff Wood MD Unavailable Encounter Details Date Type Department Care Team (Late st Contact Info) Description 05/06/2024 Results Follow-Up [facility] [address] [place] [address] Geoff Wood MD [address] [address] [address] UROGRAPHY WO/W CONTRAST Social History Tobacco Use Types Packs/Day Years Used Date Smoking Tobacco: Never Smokeless Tobacco: Never Alcohol Use Standard Drinks/Week Comments Not Currently 0 (1 standard drink = 0.6 oz pure alcohol) occasionally, three times per year [facility] Utilities Answer Date Recorded In the past 12 months has [employer], gas, oil, or water company threatened [...] week 03/10/2024 How often do you attend [facility] or mu-ism services? Never 03/10/2024 Do you belong to any clubs o r organizations such as alevism groups, unions, fraternal or athletic groups, or [...] Total Score - Questions 1-9 0 02/25 [facility] - Occupational Stress Questionnaire Answer Date [...] were you homeless or living in a chcf (including now)? No 03/10/2024 Sexually Active Control Partners Comments Yes Other Male Hysterectomy Comments No Sex and Gender Information Value Date Recorded Sex Assigned at Female 01/06/2023 5:01 AM RESEARCH ANALYST Legal Sex Female 11:17 PM CDT Gender Identity Female 01/06/2023 5:01 AM RESEARCH ANALYST Sexual Orientation Not on file documented as of this encounter Plan of Treatment Upcoming Encounters Date Type Department Care Team (Late st Contact Info) Description 07/15/2024 4:00 PM CDT Physical [facility] [address], [place] [address] [address] Mary Ellen Kim, MARKETING DATA SPECIALIST, UROLOGIC NURSE [address] [place] [address] Dena [place], [place] Discharge Disposition: Discharged to home or Selfcare 09/02/2024 5:15 PM CDT Office Visit [facility] [address] [place] [address] Mary Ellen Kim, MARKETING DATA SPECIALIST, UROLOGIC NURSE [address] [place] [address] documented as of this encounter Goals Goal Patient Goal Type Associated Problems Recent Progress Patient-Stated? Author Behavioral Health Behavioral Health Yes Fish Deras, TURN LASTER Note: I need reassurance that all the bad things that have happened to me are not my fault. documented as of this encounter Visit Diagnoses Not on filedocumented in this encounter Additional Health Concerns Assessment Noted Time PHQ-9 Depression Total Score: 0 03/10/19 25 8:19 AM RESEARCH ANALYST documented as of this encounter Care Teams Family Law Specialist Relationship Specialty Start Date End Date Mary Ellen Kim, MARKETING DATA SPECIALIST, UROLOGIC NURSE [address] [place] [address] PCP - General Advanced Practice Nurse 02/08/23 Sasha Martinez DPM Consulting Physician Podiatry 02/27/22 Geoff Wood MD [address]2 [facility], [address] [address] Consulting Physician Urology 04/10/24 documented as of this encounter
--- OUTSIDE RECORDS SUMMARY | 2024-06-24 16:08 | XMS_ITS | Continuity of Care Document ---
Author Organization [facility] Address [address] [facility] [place] [address] Phone Care Team Providers Care Site Safety Manager Name Role Phone Butch Schroeder MD Unavailable [...] Diagnoses Date Provider Providers Copied on Encounter [facility], [address] [place], [place], [address], [place] tel:[phone] [facility] No Information Alexandre Rae. [address], [place], [place], [address] , [place]. tel:[phone] Referring Provider: [address], [place], [place], [address]. tel:[phone] OFFICE/OUTPA TIENT VISIT, [facility], [address], [place], [place], [address], [place] tel:[phone] [facility] UTI1 (chief complaint) insmonia1 (chief complaint) anxiety1 (chief complaint) Generalized Anxiety DisorderInsomniaUri nary tract infection Alexandre Rae. [address], [place], [place], [address] , [place]. [phone] Referring Provider: [address], [place], [place], [address]. tel:[phone] OFFICE/OUTPA TIENT VISIT, [facility], [address], [place], [place], [address], [place] tel:[phone] [facility] anxiety1 (chief complaint) sleep apnea1 (chief complaint) InsomniaGeneralized Anxiety DisorderBody mass index (BMI) 32.0-32.9, adult Alexandre Cabrera [address], [address], [place], [place], [address] , [place]. tel:[phone] Referring Provider: [address], [place], [place], [address]. tel:[phone] OFFICE/OUTPA TIENT VISIT, [facility], [address], [place], [place], [address], [place] tel:[phone] [facility] HLP (chief complaint) vitmai D (chief complaint) anxiety1 (chief complaint) insomnia1 (chief complaint) hand weakness1 (chief complaint) InsomniaHyperlipide miaVitamin D deficiency, unspecifiedGenerali zed Anxiety Disorder Alexandre Cabrera [address], [place], [place], [address] , [place]. tel:[phone] Referring Provider: More Lay [address], [place], [place], [address]. tel:[phone] PREV VISIT, NEW, AGE 18-39 [facility], [address], [place], [place], [address], [place] tel:[phone] [facility] Physical (chief complaint) Encounter for general adult medical exam w abnormal findingsGeneralized Anxiety DisorderInsomniaSle ep apnea May-0 7 Alexandre Rae. [address], [address], [place], [place], [address] , [place]. [phone] Referring Provider: More [address], [place], [place], [address]. tel:[phone] PREV VISIT, EST, AGE 18-39 [facility], [address], [place], [place], [address], [place] tel:[phone] [facility] Physical (chief complaint) Dietary surveillance and counselingRoutine Medical ExamRoutine Medical Exam Sep-0 3 Alexandre Rae. [address], [place], [place], [address] , [place]. [phone] Referring Provider: [address], [place], [place], [address]. tel:[phone] OFFICE/OUTPA TIENT VISIT, EST [facility], [address], [place], [place], [address], [place] [phone] [facility] ganglion cyst (chief complaint) Dietary surveillance and counselingGanglion, unspecified 3 Alexandre Rae. [address], [place], [place], [address] , [place]. [phone] Referring Provider: More Lay [address], [place], [place], [address]. tel:[phone] Family History Family Member Type Diagnosis Age [...] Insomnia) ordered Referral Referred To: SARAH CASAREZ [address] [facility]
[address], [phone] Ordered: Referrals: SARAH CASAREZ. Evaluate and treat [...] busy at work to make appointment with [facility] anxiety1 Pt has been havi ng [...]
--- OUTSIDE RECORDS SUMMARY | 2024-06-24 16:08 | XMS_ITS | Continuity of Care Document ---
Author Organization [facility] Address [address] [place] [address] Phone Care Team Providers Care Rabble Furnace Tender Name Role Phone Ara Herman DO Unavailable [...] Provider Providers Copied on Encounter [facility], [address], [place], [place], [address] , [place] tel:[phone] [facility] No Information 2 Batsheva Bullock. [address], [place], [place], [address] , [place]. tel:[phone] [facility], [address], [place], [place], [address] , [place] tel: [phone] [facility] No Information 2 Batsheva Ara. [address], [place], [place], [address] , [place]. tel: [phone] [facility], [address], [place], [place], [address] , [place] tel: [phone] [facility] No Information 2 Batsheva Ara. [address], [place], [place], [address] , [place]. tel: [phone] [facility], [address], [place], [place], [address] , [place] tel: [phone] [facility] No Information 2 Batsheva Ara. [address], [place], [place], [address] , [place]. tel: [phone] [facility], [address], [place], [place], [address] , [place] tel: [phone] [facility] No Information 1 Batsheva Ara. [address], [place], [place], [address] , [place]. tel: [phone] [facility], [address], [place], [place], [address] , [place] tel: [phone] [facility] anxiety (chief complaint) insomnia (chief complaint) Body mass index (BMI) 33.0-33.9, adultAnxiety and depressionSituational insomnia 1 Batsheva Ara. [address], [place], [place], [address] , [place]. tel: [phone] Referring Provider: Ara Mann, [address], [place], [address] . tel:[phone] OFFICE/OUTPA TIENT VISIT, NEW IV [facility], [address], [place], [place], [address] , tel:[phone] [facility] anxiety (chief complaint) Anxiety and depressionDepression, unspecifiedSituationa l insomnia Batsheva Bullock. [address], [place], [place], [address] , [place]. tel:[phone] Referring Provider: Ara Mann, [address], [place], [address] . tel:[phone] Family History Family Member Type Diagnosis Age At Onset Father Problem alcoholism Mother Problem alcoholism Father Problem depression Mother Problem depression Immunizations Vaccine Date Status Comments Influenza, injectable, MDCK, preservative free, quadrivalent administered Source: Other Provider Influenza, injectable, quadr ivalent with preservative, MDCK, 0.5 mL dosage, Flucelvax Quad administered Source: Public Agency Payers Payer name Insurance type Covered republican ID Authorarnolda marii(s) [facility] [id number] Social History Type Description Quantity Date Captured [...]
== END 2024-06-24 16:00 | disposition home or self-care (01) ==
PROVIDERS: Emergency Provider Nurse Practitioner Family
DX: T81.40XA Infection following a procedure, unspecified, initial encounter (principal); Z98.818 Other dental procedure status; Z87.891 Personal history of nicotine dependence; F41.9 Anxiety disorder, unspecified; F32.A Depression, unspecified
CPT/HCPCS: 99213; G0463

== ENCOUNTER 2024-07-09 11:03 | Emergency (ER) | payer OTHER, SELFPAY ==
--- OUTSIDE RECORDS SUMMARY | 2024-07-09 11:08 | XMS_ITS | Referral Summary ---
Author Organization [facility] Address [address] [place] [address] Care Team Providers Care Rn Transitional Care Name Role Phone Mary Ellen Kim NP Primary Care Provider [phone] No, Physician Unavailable Encounters Date Type Department Care Team Description 07/07/2024 12:15 PM CDT Office Visit [facility] [place] [address] [place] [phone] Fiona Joya NP Abdominal pain (Primary Dx); Nausea 04/15/2024 Telephone [facility] [address] [place] [address] Heriberto George MD Scheduling Appointments from Last 3 Months Allergies No known active allergies Medications ondansetron ODT (ZOFRAN-ODT) 4 mg disintegrating tablet Dissolve 1 tablet oral every 4 hours as needed for nausea or vomiting. 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 OFFICER Gender Identity Not on file Sexual Orientation Not on file Last Filed Vital Signs Vital Sign Reading Time Taken Comments Blood Pressure 120/84 07/07/2024 12:19 PM CDT Pulse 90 07/07/2024 12:19 PM CDT Temperature 36.6 C (97.9 F) 07/07/2024 12:19 PM CDT Respiratory Rate 20 07/07/2024 12:19 PM CDT Oxygen Saturation 98% 07/07/2024 12:19 PM CDT Inhaled Oxygen Concentration - - Weight 78.5 kg (173 lb) 07/07/2024 12:19 PM CDT Height 149.9 cm (4' 11 ) 07/07/2024 12:19 PM CDT Body Mass Index 34.94 07/07/2024 12:19 PM CDT Plan of Treatment Not on file Procedures Procedure Name Priority Date/Time Associated Diagnosis Comments POCT URINALYSIS DIPSTICK Routine 07/07/2024 12:26 PM CDT Abdominal pain from Last 3 Months Results * (ABNORMAL) POCT urinalysis dipstick (07/07/2024 12:26 PM CDT) Color, Urine, POC Yellow Clarity, ur, POC Clear Clear Glucose, ur, POC Negative Negative Bilirubin, ur, POC Negative Negative Ketones, ur, POC Negative Negative Specific [place], POC 1.025 1.003 - 1.030 Blood, ur, POC Small(A) Negative pH, ur, POC 7.0 5.0 - 8.0 Protein, ur, POC Negative Negative Urobilinogen, urine, POC 0.2 0.2 - 1.0 mg/dL Nitrite, ur, POC Negative Negative Leukocytes, ur, POC Negative Negative Lot Number [id number] Urine 07/07/2024 12:2 6 PM CDT Fiona Joya NP POINT OF CARE TEST ORDERABLES Ed ited Result - Final from Last 3 Months Insurance Care Teams Rn Transitional Care Relationship Specialty Start Date End Date Mary Ellen Kim NP [address] [place] [address] PCP - General Family Medicine 04/17/24 No, Physician 04/17/24
--- OUTSIDE RECORDS SUMMARY | 2024-07-09 11:08 | XMS_ITS | Encounter Summary ---
Author Organization [facility] Address [address] [place] [address] Phone Care Team Providers Care Animal Control Officer Name Role Phone Michelle Sasha D DPM Unavailable [phone] Mary Ellen Kim CRUSHER SETTER, CRM COORDINATOR Primary Care Provider + Geoff Wood MD Unavailable Reason for Visit * Reason Comments Medication Refill Encounter Details Date Type Department Care Team (Late st Contact Info) Description 03/12/[address] [facility] - [facility] [address] [place] [address] Mary Ellen Kim, YEISON, CRM COORDINATOR [address] [place] [address] Medication Refill Social History Tobacco Use Types Packs/Day Years Used Date Smoking Tobacco: Never Smokeless Tobacco: Never Alcohol Use Standard Drinks/Week Comments Not Currently 0 (1 standard drink = 0.6 oz pure alcohol) occasionally, three times per year [facility] Utilities Answer Date Recorded In the past 12 months has [employer] electric, gas, oil, or water company threatened [...] week 03/10/2024 [facility]? Never 03/10/2024 Do you belong to [...] any time in the past 12 m [facility], were you homeless or living in a longterm (including now)? No 03/10/2024 Sexually Active Control Partners Comments Yes Other Male Hysterectomy Comments No Sex and Gender Information Value Date Recorded Sex Assigned at Female 01/06/2023 5:01 AM STUDY SPECIALIST Legal Sex Female 11:17 PM CDT Gender Identity Female 01/06/2023 5:01 AM STUDY SPECIALIST Sexual Orientation Not on file documented as of this encounter Miscellaneous Notes * Telephone Encounter - Norma Pan RN - 03/12/2024 11:18 AM CST Name from pharmacy: TRAZODONE 50 MG TABLET Will file in chart as: traZODone (DESYREL) 50 MG Tablet The original prescription was discontinued on 03/06/2024 by Mary Ellen Kim APRN, CRM COORDINATOR Insomnia. Taking Trazodone 50 mg nightly. Medication is no longer helpful. Difficulty falling asleep. No problem staying asleep. Y SPECIALIST documented in this encounter Plan of Treatment Upcoming Encounters Date Type Department Care Team (Late st Contact Info) Description 09/02/2024 5:15 PM CDT Office Visit [facility] - Family Medicine [facility] [address] [place] [address] Mary Ellen Kim APRN, CRM COORDINATOR [address] [place] [address] documented as of this encounter Goals Goal Patient Goal Type Associated Problems Recent Progress Patient-Stated? Author Behavioral Health Behavioral Health Yes Fish Deras, ABIMBOLA Note: I need reassurance that all the bad things that have happened to me are not my fault. documented as of this encounter Visit Diagnoses Not on filedocumented in this encounter Additional Health Concerns Assessment Noted Time PHQ-9 Depression Total Score: 0 03/10/19 25 8:19 AM STUDY SPECIALIST documented as of this encounter Care Teams Animal Control Officer Relationship Specialty Start Date End Date Mary Ellen Kim, CRUSHER SETTER, CRM COORDINATOR [address] [place] [address] PCP - General Advanced Practice Nurse 02/08/23 Sasha Martinez DPM Consulting Physician Podiatry 02/27/22 Geoff Wood MD #2 [facility], [address] [address] Consulting Physician Urology 04/10/24 documented as of this encounter
--- OUTSIDE RECORDS SUMMARY | 2024-07-09 11:08 | XMS_ITS | Clinical Summary ---
Author Organization [facility] Address [address] [place] [address] Care Team Providers Care Artificial Leather Calender Operator Name Role Phone Mary Ellen Kim NP Primary Care Provider [phone] No, Physician Unavailable Allergies No known active allergies Medications ondansetron [...] Description 07/07/2024 12:15 PM CDT Office Visit [facility] [place] [address] [place] [id number] Fiona Joya NP Abdominal pain (Primary Dx); Nausea 04/15/2024 Telephone [facility] Op[facility]mology [address] [place] [address] Heriberto George MD Scheduling Appointments from Last 3 Months Surgical History Surgery Date Site/Laterality Comments SECTION TONSILLECTOMY REDUCTION MAMMAPLASTY OVARIAN CYST REMOVAL CYST REMOVAL Medical History Medical History Date Comments Insomnia Anxiety Depression Social History Tobacco Use Types Packs/Day Years Used Date Smoking Tobacco: Never Smokeless Tobacco: Never Comments No Sex and Gender Information Value Date Recorded Sex Assigned at Not on file Legal Sex Female 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 Gender Identity Not on file Sexual Orientation Not on file Obstetrics History Last Filed Vital Signs Vital Sign Reading [...] 07/07/2024 12:19 PM CDT Plan of Treatment Health Maintenance Due Date Last Done Comments Depression Screening 1985 Hepatitis C Screening 1985 Varicella Vaccines (1 of 2 - 13+ 2-dose series) 1998 Regular Well Visit/Exam 18-64 2003 Influenza Vaccine (Season Ended) 2024 01/01/2023, 10/26/2021, 10/12/2021, Additional history exists DTaP/Tdap/Td Vaccine (2 - Td or Tdap) 01/13/2026 01/14/2016, 03/08/1999 Hepatitis B Screening Completed 03/08/1999 , 09/07/1998, 08/03/1998 HPV Vaccines Aged Out No longer eligi ble based on patient's age to complete this topic Pneumococcal vaccine <65 Aged Out No longer eligible based on patient's age to complete this topic Procedures Procedure Name Priority Date/Time Associated Diagnosis Comments POCT URINALYSIS DIPSTICK Routine 07/07/2024 12:26 PM CDT Abdominal pain from Last 3 Months Results * (ABNORMAL) POCT urinalysis dipstick (07/07/2024 12:26 PM CDT) Color, Urine, POC Yellow Clarity, ur, POC Clear Clear Glucose, ur, POC Negative Negative Bilirubin, ur, POC Negative Negative Ketones, ur, POC Negative Negative Specific [place], POC 1.025 1.003 - 1.030 Blood, ur, POC Small(A) Negative pH, ur, POC 7.0 5.0 - 8.0 Protein, ur, POC Negative Negative Urobilinogen, urine, POC 0.2 0.2 - 1.0 mg/dL Nitrite, ur, POC Negative Negative Leukocytes, ur, POC Negative Negative Lot Number [id number] Urine 07/07/2024 12:2 6 PM CDT Fiona Joya NP POINT OF CARE TEST ORDERABLES Ed ited Result - Final from Last 3 Months Insurance [facility] Care Teams Artificial Leather Calender Operator Relationship Specialty Start Date End Date Mary Ellen Kim NP [address] [place] [address] PCP - General Family Medicine 04/17/24 No, Physician 04/17/24
--- OUTSIDE RECORDS SUMMARY | 2024-07-09 11:08 | XMS_ITS | Continuity of Care Document ---
Author Organization [facility] Address [address] [place] [address] Phone Care Team Providers Care Clin Application Specialist Name Role Phone Butch Schroeder MD Unavailable [...] Diagnoses Date Provider Providers Copied on Encounter [facility], [address], [place], [address], [place] tel:[phone] [facility] No Information Alexandre Rae. [address], [place], [place], [address] , [place]. tel:[phone] Referring Provider: [address], [place], [place], [address]. tel:[phone] OFFICE/OUTPA TIENT VISIT, [facility], [address], [place], [place], [address], [place] tel:[phone] [facility] UTI1 (chief complaint) insmonia1 (chief complaint) anxiety1 (chief complaint) Generalized Anxiety DisorderInsomniaUri nary tract infection Alexandre Rae. [address], [place], [place], [address] , [place]. [phone] Referring Provider: [address], [place], [place], [address]. tel:[phone] OFFICE/OUTPA TIENT VISIT, [facility], [address], [place], [place], [address], [place] tel:[phone] [facility] anxiety1 (chief complaint) sleep apnea1 (chief complaint) InsomniaGeneralized Anxiety DisorderBody mass index (BMI) 32.0-32.9, adult Alexandre Cabrera [address], [place], [place], [address] , [place]. tel:[phone] Referring Provider: [address], [place], [place], [address]. tel:[phone] OFFICE/OUTPA TIENT VISIT, [facility], [address], [place], [place], [address], [place] tel:[phone] [facility] HLP (chief complaint) vitmai D (chief complaint) anxiety1 (chief complaint) insomnia1 (chief complaint) hand weakness1 (chief complaint) InsomniaHyperlipide miaVitamin D deficiency, unspecifiedGenerali zed Anxiety Disorder Alexandre Cabrera [address], [place], [place], [address] , [place]. tel:[phone] Referring Provider: [address], [place], [place], [address]. tel:[phone] PREV VISIT, NEW, AGE 18-39 [facility], [address], [place], [place], [address], [place] tel:[phone] [facility] Physical (chief complaint) Encounter for general adult medical exam w abnormal findingsGeneralized Anxiety DisorderInsomniaSle ep apnea May-0 7 Alexandre Rae. [address], [place], [place], [address] , [place]. [phone] Referring Provider: [address], [place], [place], [address]. tel:[phone] PREV VISIT, EST, AGE 18-39 [facility], [address], [place], [place], [address], [place] tel:[phone] [facility] Physical (chief complaint) Dietary surveillance and counselingRoutine Medical ExamRoutine Medical Exam Sep-0 3 Alexandre Rae. [address], [place], [place], [address] , [place]. [phone] Referring Provider: [address], [place], [place], [address]. tel:[phone] OFFICE/OUTPA TIENT VISIT, EST [facility], [address], [place], [place], [address], [place] [phone] [facility] ganglion cyst (chief complaint) Dietary surveillance and counselingGanglion, unspecified 3 Alexandre Rae. [address], [place], [place], [address] , [place]. [phone] Referring Provider: More [address], [place], [place], [address]. tel:[phone] Family History Family Member Type Diagnosis Age [...] Insomnia) ordered Referral Referred To: SARAH CASAREZ [id number] [facility]
[address], [phone] Ordered: Referrals: SARAH CASAREZ. Evaluate and treat [...] make appointment with [facility] anxiety1 Pt has been havi ng anxiety [...]
--- OUTSIDE RECORDS SUMMARY | 2024-07-09 11:08 | XMS_ITS | Continuity of Care Document ---
Author Organization [facility] Address [address] [place] [address] Phone Care Team Providers Care Exchange Teller Name Role Phone Butch Schroeder MD Unavailable [...] Diagnoses Date Provider Providers Copied on Encounter [facility], [address], [place], [address], [place] tel:[phone] [facility] No Information Alexandre Rae. [address], [place], [place], [address] , [place]. tel:[phone] Referring Provider: [address], [place], [place], [address]. tel:[phone] OFFICE/OUTPA TIENT VISIT, [facility], [address], [place], [place], [address], [place] tel:[phone] [facility] UTI1 (chief complaint) insmonia1 (chief complaint) anxiety1 (chief complaint) Generalized Anxiety DisorderInsomniaUri nary tract infection Alexandre Rae. [address], [place], [place], [address] , [place]. [phone] Referring Provider: [address], [place], [place], [address]. tel:[phone] OFFICE/OUTPA TIENT VISIT, [facility], [address], [place], [place], [address], [place] tel:[phone] [facility] anxiety1 (chief complaint) sleep apnea1 (chief complaint) InsomniaGeneralized Anxiety DisorderBody mass index (BMI) 32.0-32.9, adult Alexandre Cabrera [address], [place], [place], [address] , [place]. tel:[phone] Referring Provider: [address], [place], [place], [address]. tel:[phone] OFFICE/OUTPA TIENT VISIT, [facility], [address], [place], [place], [address], [place] tel:[phone] [facility] HLP (chief complaint) vitmai D (chief complaint) anxiety1 (chief complaint) insomnia1 (chief complaint) hand weakness1 (chief complaint) InsomniaHyperlipide miaVitamin D deficiency, unspecifiedGenerali zed Anxiety Disorder Alexandre Cabrera [address], [place], [place], [address] , [place]. tel:[phone] Referring Provider: [address], [place], [place], [address]. tel:[phone] PREV VISIT, NEW, AGE 18-39 [facility], [address], [place], [place], [address], [place] tel:[phone] [facility] Physical (chief complaint) Encounter for general adult medical exam w abnormal findingsGeneralized Anxiety DisorderInsomniaSle ep apnea May-0 7 Alexandre Rae. [address], [place], [place], [address] , [place]. [phone] Referring Provider: [address], [place], [place], [address]. tel:[phone] PREV VISIT, EST, AGE 18-39 [facility], [address], [place], [place], [address], [place] tel:[phone] [facility] Physical (chief complaint) Dietary surveillance and counselingRoutine Medical ExamRoutine Medical Exam Sep-0 3 Alexandre Rae. [address], [place], [place], [address] , [place]. [phone] Referring Provider: [address], [place], [place], [address]. tel:[phone] OFFICE/OUTPA TIENT VISIT, EST [facility], [address], [place], [place], [address], [place] [phone] [facility] ganglion cyst (chief complaint) Dietary surveillance and counselingGanglion, unspecified 3 Alexandre Rae. [address], [place], [place], [address] , [place]. [phone] Referring Provider: [address], [place], [place], [address]. tel:[phone] Family History Family Member Type Diagnosis Age [...] Insomnia) ordered Referral Referred To: SARAH CASAREZ [id number] [facility]
[address], [phone] Ordered: Referrals: SARAH CASAREZ. Evaluate and treat [...] busy at work to make appointment with [facility] anxiety1 Pt has been havi ng anxiety and depression Pt is getting and she has been having severe stress at work. 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 Pt recently had a emotinal breakdown at [...]
--- OUTSIDE RECORDS SUMMARY | 2024-07-09 11:08 | XMS_ITS | Continuity of Care Document ---
Author Organization [facility] Address [address] [place] [address] Phone Care Team Providers Care Veterinary Poultry Inspector Name Role Phone Ara Herman DO Unavailable [...] Provider Providers Copied on Encounter [facility], [address], [place], [place], [address] , [place] tel:[phone] [facility] No Information 2 Batsheva Bullock. [address], [place], [place], [address] , [place]. tel:[phone] [facility], [address], [place], [place], [address] , [place] tel: [phone] [facility] No Information 2 Batsheva Ara. [address], [place], [place], [address] , [place]. tel: [phone] [facility], [address], [place], [place], [address] , [place] tel: [phone] [facility] No Information 2 Batsheva Ara. [address], [place], [place], [address] , [place]. tel: [phone] [facility], [address], [place], [place], [address] , [place] tel: [phone] [facility] No Information 2 Batsheva Ara. [address], [place], [place], [address] , [place]. tel: [phone] [facility], [address], [place], [place], [address] , [place] tel: [phone] [facility] No Information 1 Batsheva Ara. [address], [place], [place], [address] , [place]. tel: [phone] OFFICE/OUTPA TIENT VISIT, [facility] IV [facility], [address], [place], [place], [address] , [place] tel: [phone] [facility] anxiety (chief complaint) insomnia (chief complaint) Body mass index (BMI) 33.0-33.9, adultAnxiety and depressionSituational insomnia 1 Batsheva Ara. [address], [place], [place], [address] , [place]. tel: [phone] Referring Provider: Ara Mann, [address], [place], [address] . tel:[phone] OFFICE/OUTPA TIENT VISIT, NEW IV [facility], [address], [place], [place], [address] , tel:[phone] [facility] anxiety (chief complaint) Anxiety and depressionDepression, unspecifiedSituationa l insomnia Batsheva Bullock. [address], [place], [place], [address] , [place]. tel:[phone] Referring Provider: Ara Mann, [address], [place], [address] . tel:[phone] Family History Family Member Type Diagnosis Age At Onset Father Problem alcoholism Mother Problem alcoholism Father Problem depression Mother Problem depression Immunizations Vaccine Date Status Comments Influenza, injectable, MDCK, preservative free, quadrivalent administered Source: Other Provider Influenza, injectable, quadr ivalent with preservative, MDCK, 0.5 mL dosage, Flucelvax Quad administered Source: Public Agency Payers Payer name Insurance type Covered green party ID Authorarnolda marii(s) [facility] [id number] Social History Type Description Quantity Date Captured [...]
--- OUTSIDE RECORDS SUMMARY | 2024-07-09 11:08 | XMS_ITS | Encounter Summary ---
Author Organization [facility] Address [address] [place] [address] Phone Care Team Providers Care Whale Fisherman Name Role Phone Kei Martinezsaharesh Woods DPM Unavailable [phone] Mary Ellen Kim PLASTIC PARTS FABRICATOR TRIMMER, WEB SEARCH EVALUATOR Primary Care Provider + Geoff Wood MD Unavailable Reason for Visit * Reason Comments Medication Refill Encounter Details Date Type Department Care Team (Late st Contact Info) Description 01/28/2024 Refill [facility] - Family Medicine [facility] [address] [place] [address] Mary Ellen Kim, YEISON, WEB SEARCH EVALUATOR [address] [place] [address] Medication Refill Social History Tobacco Use Types Packs/Day Years Used Date Smoking Tobacco: Never Smokeless Tobacco: Never Alcohol Use Standard Drinks/Week Comments Not Currently 0 (1 standard drink = 0.6 oz pure alcohol) occasionally, three times per year [facility] Utilities Answer Date Recorded In the past 12 months has [employer], gas, oil, or water company threatened [...] declined 10/30/2023 How often do you attend anabaptist or methodist serv ices? Patient declined 10/30/2023 Do you belong to any clubs o r organizations such as anabaptist groups, unions, fraternal or athletic groups, or [...] Total Score - Questions 1-9 0 11/25 [facility] - [...] any time in the past 12 m [facility], were you homeless or living in a intermediate (including now)? Patient declined 10/30/2023 Sexually Active Control Partners Comments Yes Other Male Hysterectomy Comments No Sex and Gender Information Value Date Recorded Sex Assigned at Female 01/06/2023 5:01 AM TOP FLAVOR ATTENDANT Legal Sex Female 11:17 PM CDT Gender Identity Female 01/06/2023 5:01 AM TOP FLAVOR ATTENDANT Sexual Orientation Not on file documented as of this encounter Plan of Treatment Upcoming Encounters Date Type Department Care Team (Late st Contact Info) Description 09/02/2024 5:15 PM CDT [facility] [address] [place] [address] Mary Ellen Kim APRN, WEB SEARCH EVALUATOR [address] [place] [address] documented as of this encounter Goals Goal Patient Goal Type Associated Problems Recent Progress Patient-Stated? Author Behavioral Health Behavioral Health Yes Fish Deras, BODY FORMER Note: I need reassurance that all the bad things that have happened to me are not my fault. documented as of this encounter Visit Diagnoses Not on filedocumented in this encounter Additional Health Concerns Assessment Noted Time PHQ-9 Depression Total Score: 0 12/09/19 24 2:58 PM CDT documented as of this encounter Care Teams Whale Fisherman Relationship Specialty Start Date End Date MaryE llen Kim, PLASTIC PARTS FABRICATOR TRIMMER, WEB SEARCH EVALUATOR [address] [place] [address] PCP - General Advanced Practice Nurse 02/08/23 Sasha Martinez DPM Consulting Physician Podiatry 02/27/22 Geoff Wood MD [address] [address] Consulting Physician Urology 04/10/24 documented as of this encounter
--- OUTSIDE RECORDS SUMMARY | 2024-07-09 11:08 | XMS_ITS | Clinical Summary ---
Author Organization [facility] Address [address] [place] [address] Phone Care Team Providers Care Drywall Hanger Helper Name Role Phone MichelleSasha Chuck DPM Unavailable [phone] Mary Ellen Kim NET DEVELOPER WITH [employer], TERMITE TREATER Primary Care Provider + Geoff Wood MD [...] Spinning or Whirling 30 Tablet 4 Active ACETAMINOPHEN PO Take by mouth as needed. Active methocarbamol (ROBAXIN) 750 MG Tablet Take 1 Tablet by mouth 4 times daily as needed (back pain). 30 Tablet 5 Active celecoxib (CeleBREX) 200 MG Capsule Take 1 Capsule by mouth 2 times daily as needed for Moderate or more severe pain. 60 Capsule 3 5 Active mirtazapine (REMERON) 15 MG TabletIndicatio ns:Anxiety,Inso mnia, unspecified type,Major depressive disorder, recurrent episode, moderate (HCC) Take 1 Tablet by mouth nightly. 90 Tablet 5 Active amitriptyline (ELAVIL) 25 MG Tablet Take 1 Tablet by mouth nightly. 90 Tablet 04/0207/07/19 25 Discontinu ed(Alterna te therapy) Active Problems No known active problems Encounters Date Type Department Care Team Description 07/06/2024 9:30 AM CDT Office Visit [facility] [address] [place] [address] Mary Ellen Kim APRN, TERMITE TREATER Anxiety (Primary Dx); Insomnia, unspecified type; Major depressive disorder, recurrent episode, moderate (HCC) Discharge Disposition: Discharged to home or Selfcare 07/06/2024 Travel 06/15/2024 11:00 AM CDT Office Visit [facility] [address] [place] [address] Mary Ellen Kim APRN, TERMITE TREATER Piriformis syndrome of left side (Primary Dx) Discharge Disposition: Discharged to home or Selfcare 06/15/2024 Travel 06/04/2024 1:30 PM CDT Office Visit [facility] [address] [place] [address] Justa Frances PAC Left-sided low back pain without sciatica, unspecified chronicity (Primary Dx) Discharge Disposition: Discharged to home or Selfcare 06/01/2024 Nurse Triage [facility] [address] [place] [address] Mary Ellen Kim APRN, TERMITE TREATER Advice Only; Back Pain 06/01/2024 Travel 05/27/2024 3:15 PM CDT Office Visit [facility] [address] [place] [address] Mary Ellen Kim APRN, TERMITE TREATER Insomnia, unspecified type (Primary Dx); Recurrent major depressive disorder, in full remission (HCC); Anxiety Discharge Disposition: Discharged to home or Selfcare 05/27/2024 Travel 05/26/2024 Telephone [facility] [address] [place] [phone] Mary Ellen Kim APRN, TERMITE TREATER 05/21/2024 Results Follow-Up [facility] - Family Medicine [facility] [address] [place] [address] Mary Ellen Kim APRN, TERMITE TREATER CMP (COMPREHENSIVE METABOLIC PANEL) 05/06/2024 9:30 AM CDT Procedure Visit [facility] [address] [place] [address] Geoff Wood MD Hematuria, unspecified type (Primary Dx) Discharge Disposition: Discharged to home or Selfcare 05/06/2024 Results Follow-Up [facility] [address] [place] [address] UROGRAPHY WO/W CONTRAST 05/06/2024 Travel 05/02/2024 7:26 AM GRAIN BROKER - 05/02/2024 11:59 PM GRAIN BROKER Hospital Encounter [facility] CT [address] [facility] [place] [address] Geoff Wood MD Discharge Disposition: Discharged to home or Selfcare 05/01/2024 Results Follow-Up [facility] Medical [facility] - Obstetrics & Gynecology [facility] [address] [place] [address] Mary Ellen Kim APRN, TERMITE TREATER CMP (COMPREHENSIVE METABOLIC PANEL), HEMOGLOBIN A1C W/ ESTIMATED GLUCOSE, VITAMIN B12, Additional followed-up results: 5 05/01/2024 Travel 04/24/2024 Travel from Last 3 Months Immunizations Immunization Administration Dates Next Due Influenza Vaccine, MDCK,quadrivalent, pres free 10/12/2021 Influenza, Injectable, Quadrivalent 01/01/2023 Influenza, Seasonal, Injectable, Undefined 12/11 Influenza, Trivalent, Adjuvanted, PF 10/26/2021 TDAP Vaccine 01/14/2016 Family History Medical History Relation Name Comments No Known Problems Brother No Known Problems Father Anxiety disorder Maternal Grandfather Jc Diabetes Maternal Grandfather Jc Stroke Maternal Grandmother [facility]ley [facility] Skin Cancer Mother Depression Paternal Aunt Congestive [...] pure alcohol) occasionally, three times per year [facility] Utilities Answer Date Recorded In the past 12 months has e [employer], gas, oil, or water [employer] threatened to shut off services in your [...] often do you attend chur ch or episcopalian services? Never 03/10/2024 Do you belong to any clubs o r organizations such as taoism groups, unions, fraternal or athletic groups, or [...] Recorded Total Score - Questions 1-9 0 06/25 [facility] - Occupational Stress Questionnaire Answer Date [...] any time in the past 12 m [facility], were you homeless or living in a nursing home (including now)? No 03/10/2024 Sexually Active Control Partners Comments Yes Other Male Hysterectomy Comments No Sex and Gender Information Value Date Recorded Sex Assigned at Female 01/06/2023 5:01 AM GRAIN BROKER Legal Sex Female 11:17 PM CDT Gender Identity Female 01/06/2023 5:01 AM GRAIN BROKER Sexual Orientation Not on file Last Filed Vital Signs Vital Sign Reading Time Taken Comments Blood Pressure 118/72 07/06/2024 9:46 AM CDT Pulse 76 07/06/2024 9:46 AM CDT Temperature 36.6 C (97.8 F) 07/06/2024 9:46 AM CDT Respiratory Rate 16 07/06/2024 9:46 AM CDT Oxygen Saturation 96% 07/06/2024 9:46 AM CDT Inhaled Oxygen Concentration - - Weight 79 kg (174 lb 1.6 oz) 07/06/2024 9:46 AM CDT Height 149.9 cm (4' 11 ) 07/06/2024 9:46 AM CDT Body Mass Index 35.16 07/06/2024 9:46 AM CDT Plan of Treatment Upcoming Encounters Date Type Department Care Team (Late st Contact Info) Description 09/02/2024 5:15 PM CDT [facility] [address] [place] [address] Mary Ellen Kim, NET DEVELOPER WITH [employer]CF, TERMITE TREATER [address] [place] [address] Health Maintenance Due Date Last Done Comments [...] Hepatitis C Virus (HCV) Screening Completed 06/26/2023 Human Papillomavirus (HPV) Immunization Aged Out No longer eligible based on patient's age to complete this topic Meningococcal Immunization (ACWY) Aged Out No longer [...] Behavioral Health Behavioral Health Yes Fish Deras, WAREHOUSE RECEIVER Note: I need reassurance that all the [...] UROGRAPHY WO/W CONTRAST Routine 05/02/2024 7:54 AM GRAIN BROKER Hematuria, unspecified type CBC WITH AUTO DIFFERENTIAL Routine 05/01/2024 9:26 AM GRAIN BROKER Horizontal nystagmus THYROID STIMULATING HORMONE (TSH) Routine 05/01/2024 9:26 AM GRAIN BROKER Horizontal nystagmus HIV 1 & 2 ANTIBODY & ANTIGEN SCREEN Routine 05/01/2024 9:26 AM GRAIN BROKER Horizontal nystagmus SYPHILIS IGG/IGM W/REFLEX Routine 2024 9:26 AM GRAIN BROKER Horizontal nystagmus FOLIC ACID (FOLATE) Routine 05/01/2024 9 :26 AM GRAIN BROKER Horizontal nystagmus VITAMIN B12 Routine 05/01/2024 9:26 AM GRAIN BROKER Horizontal nystagmus HEMOGLOBIN A1C W/ ESTIMATED GLUCOSE Routine 05/01/2024 9:26 AM GRAIN BROKER Horizontal nystagmus CMP (COMPREHENSIVE METABOLIC PANEL) Routine 05/01/2024 9:26 AM GRAIN BROKER Horizontal nystagmus COMPLETE BLOOD COUNT (CBC) WITH DIFF Routine 05/01/2024 9:26 AM GRAIN BROKER Horizontal nystagmus HEPATITIS C ANTIBODY Routine 06/26/2023 8:04 AM CDT Need for hepatitis C screening test from Last 3 Months or Most Recently Relevant to Health Maintenance Results * (ABNORMAL) CMP (COMPREHENSIVE METABOLIC PANEL) (05/09/2024 8:13 AM CDT) Only the most recent of2 resultswithin the time period is included. SODIUM 139 136 - 145 mmol/L 05/09/2024 10:09 AM CDT [facility] POTASSIUM 3.4(L) 3.5 - 5.1 mmol/L 05/09/2024 10:09 AM CDT [facility] CHLORIDE 104 98 - 107 mmol/L 05/09/2024 10:09 AM CDT [facility] CO2, VENOUS 27 22 - 30 mmol/L 05/09/2024 10:09 AM CDT [facility] ANION GAP 11.4 <18.0 mmol/L 05/09/2024 10:09 AM CDT [facility] GLUCOSE 103(H) 70 - 99 mg/dL 05/09/2024 10:09 AM CDT [facility] BUN 11 5 - 18 mg/dL 05/09/2024 10:09 AM CDT [facility] CREATININE, BLOOD 0.80 0.60 - 1.00 mg/dL 05/09/2024 10:09 AM CDT [facility] BUN/CREATININE RATIO 14 12 - 20 ratio 05/09/2024 10:09 AM CDT [facility] TOTAL PROTEIN 7.6 6.0 - 8.0 g/dL 05/09/2024 10:09 AM CDT [facility] ALBUMIN 3.9 3.5 - 5.0 g/dL 05/09/2024 10:09 AM T [facility] A/G RATIO 1.1 1.0 - 2.2 05/09/2024 10:09 AM CDT [facility] CALCIUM 8.4(L) 8.7 - 10.5 mg/dL 05/09/2024 10:09 AM CDT [facility] T BILI 0.3 0.2 - 1.2 mg/dL 05/09/2024 10:09 AM CDT [facility] SGOT (AST) 24 <43 U/L 05/09/2024 10:09 AM CDT [facility] SGPT (ALT) 24 <56 U/L 05/09/2024 10:09 AM CDT [facility] ALKALINE PHOSPHATASE 91 40 - 150 U/L 05/09/2024 10:09 AM CDT [facility] IS THE PATIENT REQUIRED TO BE FASTING? No 05/09/2024 10:09 AM CDT [facility] GFR, ESTIMATED >60 >=60 05/09/2024 10:09 AM CDT [facility] Comment: Creatinine Clearance is the preferred criteria for selecting drug dose adjustments in renally impaired patients. The GFR is provided as additional pertinent clinical information. GFR is reported in mL/min/1.73 sq m. Calculation based on the Chronic Kidney Disease Epidemiology Collaboration (CKD- EPI) equation refit without adjustment for race. GFR, EST. >60 >=60 025 10:09 AM CDT [facility] GFR, EST. NONAFRICAN >60 >=60 05/09/2024 10:09 AM CDT [facility] Blood Venipuncture / Unknown 05/09/2024 8:13 AM CDT 05/09/2024 9:21 AM CDT us Mary Ellen Kim NET DEVELOPER WITH WCF, TERMITE TREATER CHEMISTRY ORDERABLES Fin al Result [facility] [address] [place] [address] * POCT UA AUTOMATED W/O MICRO (05/06/2024 9:40 AM CDT) POC UA SPECIFIC GRAVITY 1.000 URINE PH [...] CLARITY Clear Urine 05/06/2024 9:40 AM CDT Geoff Wood MD POINT OF CARE TESTING [...] as prophylaxis. Tolerated well with no reactions Geoff Wood MD [place] - SURGERY Final Result * CT UROGRAPHY WO/W CONTRAST (05/02/2024 7:54 AM GRAIN BROKER) Anatomical Region Laterality Modality , Abdomen N/A [...] Electronically signed by Morgan Burgess M.D. AG: AG Report ID: [id number] Reading Location: [place] [address] Procedure Note Morgan Burgess MD - 05/06/2024 [...] Morgan Burgess M.D. AG: DANG Report ID: [id number] Reading Location: [id number] IMPRESSION: 1. Prominent right renal collecting system [...] pelvic ultrasound is recommended for further evaluation. us Geoff Wood MD IMG CT ORDERABLES Final Result * HIV 1 & 2 ANTIBODY & ANTIGEN SCREEN (05/01/2024 9:26 AM GRAIN BROKER) Pathologist [facility] HIV 1 & 2 ANTIBODY & ANTIGEN SCREEN NON DETECTED NON DETECTED 05/01/2024 3:51 PM GRAIN BROKER [facility] Blood Venipuncture / Unknown 05/01/2024 9:26 AM GRAIN BROKER 05/01/2024 10:22 AM GRAIN BROKER Mary Ellen Kim APRN, TERMITE TREATER LAB SEND OUTS Final Re sult [facility] [address] [place] [address], [place] * SYPHILIS IGG/IGM W/REFLEX (05/01/2024 9:26 AM GRAIN BROKER) [facility] SYPHILIS IGG/IGM Nonreactive Nonreactive 05/01/2024 4:04 PM GRAIN BROKER [facility] Blood Venipuncture / Unknown 05/01/2024 9:26 AM GRAIN BROKER 05/01/2024 10:22 AM GRAIN BROKER us Mary Ellen Kim APRN, TERMITE TREATER IMMUNOLOGY ORDERABLES Fi nal Result Performing Organization Address City/[facility]/ZIP Co de Phone Number [facility] [address] [place] [address], [place] * HEMOGLOBIN A1C W/ ESTIMATED GLUCOSE (05/01/2024 9:26 AM GRAIN BROKER) [facility] HGB-A1C 4.9 4.0 - 6.0 % 05/01/2024 10:52 AM GRAIN BROKER [facility] Est Average Glucose 93.9 mg/dL 05/01/2024 10:52 AM GRAIN BROKER [facility] Blood Venipuncture / Unknown 05/01/2024 9:26 AM GRAIN BROKER 05/01/2024 10:22 AM GRAIN BROKER Narrative [facility] - 05/01/2024 10:52 AM GRAIN BROKER HEMOGLOBIN A1C: DIABETIC PATIENTS: WELL-CONTROLLED: 6.2 - 7.0 INTERMEDIATE WELL-CONTROLLED: 7.0 - 9.0 POORLY-CONTROLLED: >9.0 Specimens containing greater than 5% of Hemoglobin F may result in lower than expected % HbA1C results. us Mary Ellen Kim NET DEVELOPER WITH WCF, TERMITE TREATER CHEMISTRY ORDERABLES Fin al Result [facility] [address] [place] [address] * CBC WITH AUTO DIFFERENTIAL (05/01/2024 9:26 AM GRAIN BROKER) WBC 9.59 4.00 - 12.00 10(3)/mcL 05/01/2024 10:26 AM [facility] RBC 4.35 3.80 - 5.30 10(6)/mcL 05/01/2024 10:26 AM [facility] HEMOGLOBIN (HGB) 13.2 12.0 - 15.8 g/dL 05/01/2024 10:26 AM [facility] HEMATOCRIT (HCT) 40.6 36.0 - 47.0 % 05/01/2024 10:26 AM [facility] MCV 93.3 82.0 - 96.0 fL 05/01/2024 10:26 AM [facility] MCH 30.3 26.0 - 34.0 pg 05/01/2024 10:26 AM [facility] MCHC 32.5 31.0 - 36.0 g/dL 05/01/2024 10:26 AM [facility] PLATELET COUNT 359 140 - 440 10(3)/mcL 05/01/2024 10:26 AM [facility] RDW 12.7 11.8 - 15.5 % 05/01/2024 10:26 AM [facility] MPV 10.1 9.7 - 12.4 fL 05/01/2024 10:26 AM [facility] NEUTROPHILS 68.7 47.0 - 73.0 % 05/01/2024 10:26 AM [facility] LYMPHOCYTES 24.6 18.0 - 42.0 % 05/01/2024 10:26 AM [facility] MONOCYTES 5.4 4.0 - 12.0 % 05/01/2024 10:26 AM [facility] EOSINOPHILS 1.1 0.0 - 5.0 % 05/01/2024 10:26 AM [facility] BASOPHILS 0.2 0.0 - 1.0 % 05/01/2024 10:26 AM [facility] ABSOLUTE NEUTROPHILS 6.58 1.60 - 7.70 10(3)/[facility] 05/01/2024 10:26 AM [facility] ABSOLUTE LYMPHOCYTES 2.36 1.30 - 3.20 10(3)/[facility] 05/01/2024 10:26 AM [facility] ABSOLUTE MONOCYTES 0.52 0.20 - 1.00 10(3)/[facility] 05/01/2024 10:26 AM [facility] ABSOLUTE EOSINOPHIL 0.11 0.00 - 0.40 10(3)/[facility] 05/01/2024 10:26 AM [facility] ABSOLUTE BASOPHILS 0.02 0.00 - 0.10 10(3)/[facility] 05/01/2024 10:26 AM [facility] NRBC PER 100 WBC 0 05/02/19 10:26 AM [facility] Blood Venipuncture / Unknown 05/01/2024 9:26 AM [facility] 05/01/2024 10:22 AM GRAIN BROKER us Mary Ellen Kim NET DEVELOPER WITH WCF, TERMITE TREATER HEMATOLOGY ORDERABLES Fi nal Result [id number]|2024-07-09 11:08:00|2024-07-09 11:07:00|XMS_ITS|BKG DABRANDIEON|External Medical Summaries|[id number]|" Encounter Summary Created on: July 09, 2024 Amie Hodges : 1985 Sex: Female Author Organization [facility] Address [address] [place] [address] Phone Care Team Providers Care Drywall Hanger Helper Name Role Phone Sasha Martinez DPM Unavailable [phone] Mary Ellen Kim NET DEVELOPER WITH WCF, TERMITE TREATER Primary Care Provider + Geoff Wood MD Unavailable Encounter Details Date Type Department Care Team (Late st Contact Info) Description 05/21/2024 Results Follow-Up [facility] Group - Family Medicine [facility] [address] [place] [address] Mary Ellen Kim, YEISON, TERMITE TREATER [address] [place] [address] CMP (COMPREHENSIVE METABOLIC PANEL) Social History Tobacco Use Types Packs/Day Years Used Date Smoking Tobacco: Never Smokeless Tobacco: Never Alcohol Use Standard Drinks/Week Comments Not Currently 0 (1 standard drink = 0.6 oz pure alcohol) occasionally, three times per year [facility] Utilities Answer Date Recorded In the past 12 months has IM[employer], gas, oil, or water [employer] threatened to shut off services in your [...] do you attend [facility] or episcopalian services? Never 03/10/2024 Do you belong to any clubs o r organizations such as taoism groups, unions, fraternal or athletic groups, or [...] Total Score - Questions 1-9 0 02/25 [facility] - Occupational Stress Questionnaire Answer Date [...] any time in the past 12 m [facility], were you homeless or living in a nursing home (including now)? No 03/10/2024 Sexually Active Control Partners Comments Yes Other Male Hysterectomy Comments No Sex and Gender Information Value Date Recorded Sex Assigned at Female 01/06/2023 5:01 AM GRAIN BROKER Legal Sex Female 11:17 PM CDT Gender Identity Female 01/06/2023 5:01 AM GRAIN BROKER Sexual Orientation Not on file documented as of this encounter Plan of Treatment Upcoming Encounters Date Type Department Care Team (Late st Contact Info) Description 09/02/2024 5:15 PM CDT [facility] Visit [facility] [address] [place] [address] Mary Ellen Kim, NET DEVELOPER WITH WCF, TERMITE TREATER [address] [place] [address] documented as of this encounter Goals Goal Patient Goal Type Associated Problems Recent Progress Patient-Stated? Author Behavioral Health Behavioral Health Yes Fish Deras, WAREHOUSE RECEIVER Note: I need reassurance that all the bad things that have happened to me are not my fault. documented as of this encounter Visit Diagnoses Not on filedocumented in this encounter Additional Health Concerns Assessment Noted Time PHQ-9 Depression Total Score: 0 03/10/19 25 8:19 AM GRAIN BROKER documented as of this encounter Care Teams Drywall Hanger Helper Relationship Specialty Start Date End Date Mary Ellen Kim, NET DEVELOPER WITH [employer]CF, TERMITE TREATER [address] [place] [address] PCP - General Advanced Practice Nurse 02/08/23 Sasha Martinez DPM Consulting Physician Podiatry 02/27/22 Geoff Wood MD [address] [address] Consulting Physician Urology 04/10/24 documented as of this encounter "
--- OUTSIDE RECORDS SUMMARY | 2024-07-09 11:08 | XMS_ITS | Continuity of Care Document ---
Author Organization [facility] Address [address] [place] [address] Phone Care Team Providers Care Corporate Development Analyst Name Role Phone Ara Herman DO Unavailable [...] Diagnoses Date Provider Providers Copied on Encounter [facility], [address], [place], [place], [id number] , [place] tel:[phone] [facility] No Information 2 Batsheva [place]. [address], [place], [place], [id number] , [place]. tel:[phone] [facility], [address], [place], [place], [id number] , [place] tel: [phone] [facility] No Information 2 Batsheva Ara. [address], [place], [place], [id number] , [place]. tel: [phone] [facility], [address], [place], [place], [id number] , [place] tel: [phone] [facility] No Information 2 Batsheva Ara. [address], [place], [place], [id number] , [place]. tel: [phone] [facility], [address], [place], [place], [id number] , [place] tel: [phone] [facility] No Information 2 Batsheva Ara. [address], [place], [place], [id number] , [place]. tel: [phone] [facility], [address], [place], [place], [id number] , [place] tel: [phone] [facility] No Information 1 Batsheva Ara. [address], [place], [place], [address] , [place]. tel: [phone] OFFICE/OUTPA TIENT VISIT, [facility], [address], [place], [place], [id number] , [place] tel: [phone] [facility] anxiety (chief complaint) insomnia (chief complaint) Body mass index (BMI) 33.0-33.9, adultAnxiety and depressionSituational insomnia 1 Batsheva Ara. [address], [place], [place], [id number] , [place]. tel: [phone] Referring Provider: Ara Mann, [address], [place], [address] . tel:[phone] OFFICE/OUTPA TIENT VISIT, [facility], [address], [place], [place], [id number] , tel:[phone] [facility] anxiety (chief complaint) Anxiety and depressionDepression, unspecifiedSituationa l insomnia Batsheva [place]. [address], [place], [place], [address] , [place]. tel:[phone] Referring Provider: Ara Mann, [address], [place], [address] . tel:[phone] Family History Family Member Type Diagnosis Age At Onset Father Problem alcoholism Mother Problem alcoholism Father Problem depression Mother Problem depression Immunizations Vaccine Date Status Comments Influenza, injectable, MDCK, preservative free, quadrivalent administered Source: Other Provider Influenza, injectable, quadr ivalent with preservative, MDCK, 0.5 mL dosage, Flucelvax Quad administered Source: Public Agency Payers Payer name Insurance type Covered alliance party ID Authorarnolda marii(s) [facility] [id number] Social History Type Description Quantity Date Captured [...]
[2024-07-09 11:12] VITALS: BP 136/71; PULSE 92; RESP 16; TEMP 36.6; O2SAT 96
--- NOTE | 2024-07-09 11:30 | ED.NAVMDI ---
HPI - Nausea/Vomiting/Diarrhea General Chief complaint: Nausea/Vomiting/Diarrhea Stated complaint: abdomen pain/vomiting During year old female presents to [facility] complaining of nausea, vomiting, and abdominal pain for 2 days. Patient reports having right upper and epigastric pain. Patient reports the pain as sharp and dull ache at times. Patient states the pain is worse in the right upper quadrant. Patient denies fevers, body aches, chills, diarrhea, hematochezia, constipation, bloody stools. Patient last vomited approximately 8 hours ago. Patient has been able to keep fluids and food down since vomiting. Patient says the pain gets worse shortly after she eats something. Patient rates the pain a 4/10. Patient has not tried any [id number] for relief. Patient denies recent travel outside the country. Patient denies any significant past medical history. Patient denies any problems with her gallbladder. Related Data Home Medications Medication Instructions Recorded Confirmed Last Taken Type fluoxetine 20 mg capsule 20 mg PO DAILY 09/22/23 04/16/24 Unknown History mirtazapine 15 mg tablet mg 07/09/24 Unknown History Allergies Allergy/AdvReac Type Severity Reaction Status Date / Time No Known Allergies Allergy Unknown Verified 07/09/24 11:11 Review of Systems Review of Systems: CONSTITUTIONAL: Denies fever, chills, body aches, or sweats. EYES: Denies visual changes, redness, or discharge. ENT: Denies rhinorrhea, congestion, sore throat, or otalgia. CARDIOVASCULAR: Denies chest pain, palpitations, or edema. RESPIRATORY: Denies cough or dyspnea. GASTROINTESTINAL: Denies bloody stools, constipation, diarrhea, hematochezia. Positive for abdominal pain, nausea, vomiting SKIN: Denies rash or itching. MUSCULOSKELETAL: Denies back pain, joint pain, or myalgia. NEUROLOGIC: Denies headache, numbness, or weakness. PSYCHIATRIC: Denies anxiety or depression. All other systems reviewed are negative, except as documented in HPI. REPLACED BY [facility] Past Medical History Medical History Back pain Encounter for annual routine gynecological examination Nexplanon removal (12/23/15) Nexplanon insertion (12/18/12) Arm fracture Pneumonia Frequent UTI Depression Anxiety Surgical History Surgical History History of robot-assisted laparoscopic hysterectomy (04/05/22) Robotic assisted total laparoscopic hysterectomy Bilateral salpingectomy History of dilation and curettage (05/17/16) hscope d&c/endometrial ablation--menometrorrhagia, dysmenorrhea--benign History of ovarian cystectomy (09/25/12) rt ovarian cystectomy History of bilateral breast reduction surgery (06/23/12) History of tubal ligation (11/30/10) History of 04/10/07 primary c/s--arrest of descent 11/30/10 rpt c/s w/tubal ligation History of tonsillectomy (~2002) Family History Family History Grandparent Hypertension paternal grandfather paternal grandmother Diabetes mellitus paternal grandmother paternal grandfather Cerebrovascular accident maternal grandmother paternal grandmother Heart disease paternal grandfather Mother Alcoholism Social History Social History Smoking status: Former smoker Tobacco type: cigarettes Additional smoking assessment comments: Pt stated on and off socially, does not currently Alcohol intake: current Alcohol use details: 1-2 year rare use Substance use: never Substance use type: does not use Living arrangements: with roommate(s) Additional living arrangements comments: Occupation/Education: unemployed Additional occupation/education comments: [employer] Gender identity (if verbalized by the patient): Female Sexual Orientation (if Verbalized by the Patient): Straight or Heterosexual Spiritual care concerns: No Exam Narrative: GENERAL: This is a well-nourished, well-developed adult, in no apparent distress. They are non ill-appearing, nontoxic appearing. Patient is obese. HEAD: normocephalic, atraumatic. EYES: Sclera clear/white. Vision is grossly intact. Conjunctiva normal bilaterally. Extraocular movements intact. EARS: External ears normal, Hearing grossly intact. NOSE: External nose normal THROAT: Mucous membranes moist NECK: Normal range of motion CARDIOVASCULAR: Regular rate and rhythm. Normal S1 and S2. No murmurs, clicks, gallops, rubs. RESPIRATORY: Respiratory rate normal, respiratory effort nonlabored, no respiratory distress. Lung sounds are clear auscultation throughout the lungs. Breath sounds equal bilaterally. No adventitious lung sounds. GASTROINTESTINAL: Abdomen soft, large, right upper quadrant epigastric tenderness to palpation, nondistended. Bowel sounds are active. No hepato-splenomegaly, or palpable masses. No guarding. No rebound tenderness. Positive Cuevas sign. SKIN: warm, Dry, intact with no suspicious lesions or rash, good texture and turgor. NEURO: awake, alert, and oriented to person, place and time. There were no obvious focal neurologic abnormalities. EXTREMITIES: No joint tenderness, effusion, or edema noted. BACK: Nontender without deformity. No CVA tenderness. Course Course Emergency Course: Portions of this record may have been created with voice recognition software Level of Care: Express [facility] Visit Vital Signs Vital signs: Vital Signs Temperature 97.8 F 07/09/24 11:12 Pulse Rate 92 07/09/24 11:12 Respiratory Rate 16 07/09/24 11:12 Blood Pressure 136/71 07/09/24 11:12 Pulse Oximetry 96 07/09/24 11:12 Oxygen Delivery Room Air 07/09/24 11:12 Temperature 97.8 F 07/09/24 11:12 Pulse Rate 92 07/09/24 11:12 Respiratory Rate 16 07/09/24 11:12 Blood Pressure 136/71 07/09/24 11:12 Pulse Oximetry 96 07/09/24 11:12 Oxygen Delivery Room Air 07/09/24 11:12 Transfer Transfered to: [facility] Transportation: Other (Private vehicle) Transfer rationale: Right upper quadrant pain, nausea, vomiting, positive Cuevas sign, requiring higher level care Accepting physician: Dr. Taylor MDM - Nausea/Vomiting/Diarrhea MDM Narrative Medical decision making narrative: Patient has a positive Cuevas sign. Cannot exclude cholecystitis is diagnosis. Given patient's symptoms is recommended the patient seek a higher level of care for further evaluation and management of her symptoms. Patient is agreeable to go to [facility] Emergency Department. Called over to [facility] ER and spoke with Nancy Ray who is aware of this patient. Dr. Taylor is the accepting physician. Patient advised to remain NPO in to proceed immediately to the emergency department. Differential Diagnosis Differential diagnosis: Likely other (Pancreatitis, cholecystitis, gastroenteritis, acid reflux, stomach ulcer) Discharge Plan Discharge Clinical Impression: Right upper quadrant abdominal pain Nausea & vomiting Qualifiers: Vomiting type: unspecified Qualified Code(s): R11.2 - Nausea with vomiting, unspecified Patient Disposition: Acute Care Hospital Condition: Stable Patient Language: Swedish Prescriptions: No Action fluoxetine 20 mg capsule 20 mg PO DAILY mirtazapine 15 mg tablet Follow-up/Referrals: Mary Ellen Kim RN [Primary Care Provider] - Time of Disposition: 11:30
== END 2024-07-09 11:40 | disposition short-term general hospital (02) ==
DX: R10.11 Right upper quadrant pain (principal); R11.2 Nausea with vomiting, unspecified; Z79.899 Other long term (current) drug therapy; Z87.891 Personal history of nicotine dependence
CPT/HCPCS: 99212; G0463

== ENCOUNTER 2024-07-24 10:33 | Emergency (ER) | payer OTHER, SELFPAY ==
[2024-07-24 10:40] VITALS: BP 138/73; PULSE 95; RESP 22; TEMP 36.4; O2SAT 99
--- OUTSIDE RECORDS SUMMARY | 2024-07-24 10:45 | XMS_ITS | Referral Summary ---
Author Organization [facility] Address [address] [place] [id number] Care Team Providers Care [employer] Manager Name Role Phone Mary Ellen Kim NP Primary Care Provider [phone] No, Physician Unavailable Encounters Date Type Department Care Team Description 07/07/2024 12:15 PM CDT Office Visit [facility] [address] [place] [id number] Fiona Joya NP Abdominal pain (Primary Dx); Nausea from Last 3 Months Allergies No known [...] on file Legal Sex Female 8:12 AM [employer]IOR [employer] Gender Identity Not on file Sexual Orientation [...] 12:19 PM CDT Height 149.9 cm (4' 11) 07/07/2024 12:19 PM CDT Body Mass Index [...] Negative Ketones, ur, POC Negative Negative Specific [place], POC 1.025 1.003 - 1.030 Blood, ur, POC Small(A) Negative pH, ur, POC 7.0 5.0 - 8.0 Protein, ur, POC Negative Negative Urobilinogen, urine, POC 0.2 0.2 - 1.0 mg/dL Nitrite, ur, POC Negative Negative Leukocytes, ur, POC Negative Negative Lot Number [id number] Urine 07/07/2024 12:2 6 PM CDT Fiona Joya NP POINT OF CARE TEST ORDERABLES Ed ited Result - Final from Last 3 Months Insurance Care Teams [employer] Relationship Specialty Start Date End Date Mary Ellen Kim NP [address] [place] [address] PCP - General Family Medicine 04/17/24 No, Physician 04/17/24
--- OUTSIDE RECORDS SUMMARY | 2024-07-24 10:45 | XMS_ITS | Clinical Summary ---
Author Organization [facility] [address] [facility] [place] [address] Phone Care Team Providers Care Forming Yardage Control Operator Name Role Phone Sasha Martinez Chuck DPM Unavailable [phone] Mary Ellen Kim SUPERVISOR TYPE DISK QUALITY CONTROL, NEUROLOGY TEACHER Primary Care Provider + Geoff Wood MD Unavailable Allergies No known active allergies Medications meclizine (ANTIVERT) 25 MG TabletIndicatio ns:Vertigo Take 1 Tablet by mouth 3 times daily as needed for Dizziness. Indications: Sensation of Spinning or Whirling 30 Tablet 02/07/20 24 Active ACETAMINOPHEN PO Take by mouth as needed. Active methocarbamol (ROBAXIN) 750 MG Tablet Take 1 Tablet by mouth 4 times daily as needed (back pain). 30 Tablet 06/05/19 25 Active celecoxib (CeleBREX) 200 MG Capsule Take 1 Capsule by mouth 2 times daily as needed for Moderate or more severe pain. 60 Capsule 3 06/05/19 25 Active mirtazapine (REMERON) 15 MG TabletIndicatio ns:Anxiety,Inso mnia, unspecified type,Major depressive disorder, recurrent episode, moderate (HCC) Take 1 Tablet by mouth nightly. 90 Tablet 07/07/19 25 Active FLUoxetine (PROzac) 40 MG Capsule Take 1 Capsule by mouth daily. 90 Capsule 1 07/15/19 25 Active Boric Acid Vaginal 600 MG SuppositoryIndi cations:Hermelinda glabrata infection 1 Suppository by Vaginal route daily. 14 Suppository 07/23/19 25 Active FLUoxetine (PROzac) 20 MG CapsuleIndicati ons:Major depressive disorder, recurrent episode, moderate (HCC) Take 1 Capsule by mouth daily. 90 Capsule 1 12/17/19 24 025 Discontin ued(Reord er) amitriptyline (ELAVIL) 25 MG Tablet Take 1 Tablet by mouth nightly. 90 Tablet 05/28/19 25 025 Discontin ued(Alter mk therapy) Active Problems No known active problems Encounters Date Type Department Care Team Description 07/22/2024 Results Follow-Up [facility] [address] [place] [phone] Mary Ellen Kim APRN, EMILY VAGINITIS SCREEN, MOLECULAR, CHLAMYDIA & GC DNA PROBE > 12 07/14/2024 8:15 AM CDT Office Visit [facility] [address] [place] [phone] Justa Frances PAC Depression, unspecified depression type (Primary Dx); Anxiety Discharge Disposition: Discharged to home or Selfcare 07/14/2024 Travel 07/10/2024 8:15 AM CDT Office Visit [facility] Internal Medicine [facility] [address] [place] [address] Mary Ellen Kim APRN, NEUROLOGY TEACHER Pelvic adnexal fluid collection (Primary Dx); Right ovarian cyst; Pelvic pain Discharge Disposition: Discharged to home or Selfcare 07/09/2024 3:29 PM CDT - 07/09/2024 7:26 PM CDT Emergency [facility] [address] [place] [phone] Daya Almanza APRN, EMILY Abdominal pain, unspecified abdominal location Discharge Disposition: Discharged to home or Selfcare 07/09/2024 Travel 07/06/2024 9:30 AM CDT Office Visit [facility] [address] [place] [phone] Mary Ellen Kim APRN, EMILY Anxiety (Primary Dx); Insomnia, unspecified type; Major depressive disorder, recurrent episode, moderate (HCC) Discharge Disposition: Discharged to home or Selfcare 07/06/2024 Travel 06/15/2024 11:00 AM CDT Office Visit [facility] [address] [place] [address] Mary Ellen Kim, SUPERVISOR TYPE DISK QUALITY CONTROL, NEUROLOGY TEACHER Piriformis syndrome of left side (Primary Dx) Discharge Disposition: Discharged to home or Selfcare 06/15/2024 Travel 06/04/2024 1:30 PM CDT Office Visit [facility] [address] [place] [phone] Justa Frances PAC Left-sided low back pain without sciatica, unspecified chronicity (Primary Dx) Discharge Disposition: Discharged to home or Selfcare 06/01/2024 Nurse Triage [facility] [address] [place] [phone] Mary Ellen Kim, SUPERVISOR TYPE DISK QUALITY CONTROL, NEUROLOGY TEACHER Advice Only; Back Pain 06/01/2024 Travel 05/27/2024 3:15 PM CDT Office Visit [facility] [address] [place] [phone] Mary Ellen Kim, SUPERVISOR TYPE DISK QUALITY CONTROL, NEUROLOGY TEACHER Insomnia, unspecified type (Primary Dx); Recurrent major depressive disorder, in full remission (HCC); Anxiety Discharge Disposition: Discharged to home or Selfcare 05/27/2024 Travel 05/26/2024 Telephone [facility] [address] [place] [phone] Mary Ellen Kim, SUPERVISOR TYPE DISK QUALITY CONTROL, NEUROLOGY TEACHER 05/21/2024 Results Follow-Up [facility] [address] [place] [address] Mary Ellen Kim, SUPERVISOR TYPE DISK QUALITY CONTROL, NEUROLOGY TEACHER CMP (COMPREHENSIVE METABOLIC PANEL) 05/06/2024 9:30 AM CDT Procedure Visit [facility] [address] [place] [address] Geoff Wood MD Hematuria, unspecified type (Primary Dx) Discharge Disposition: Discharged to home or Selfcare 05/06/2024 Results Follow-Up [facility] [address] [place] [address] UROGRAPHY WO/W CONTRAST 05/06/2024 Travel 05/02/2024 7:26 AM ELECTRIC VEHICLE ELECTRICIAN - 05/02/2024 11:59 PM ELECTRIC VEHICLE ELECTRICIAN Hospital Encounter [facility] [address] [place] [phone] Geoff Wood MD Discharge Disposition: Discharged to home or Selfcare 05/01/2024 Results [facility] [address] [place] [address] Mary Ellen Kim, SUPERVISOR TYPE DISK QUALITY CONTROL, NEUROLOGY TEACHER CMP (COMPREHENSIVE METABOLIC PANEL), HEMOGLOBIN A1C W/ [...] Grandfather Jc Stroke Maternal Grandmother Shelley Mini roerna Skin Cancer Mother Depression Paternal Aunt Congestive [...] pure alcohol) occasionally, three times per year [facility] Utilities Answer Date Recorded In the past 12 months has th e Information Assurance, gas, oil, or water [employer] threatened to shut off services in your [...] often do you attend chur ch or church services? Never 03/10/2024 Do you belong to any clubs o r organizations such as moravian groups, unions, fraternal or athletic groups, or [...] Date Recorded Total Score - Questions 1-9 16 06/26 [facility] of Occupat ional Health - Occupational Stress [...] any time in the past 12 m [facility], were you homeless or living in a long term (including now)? No 03/10/2024 Sexually Active Control Partners Comments Yes Other Male Hysterectomy Comments No Sex and Gender Information Value Date Recorded Sex Assigned at Female 01/06/2023 5:01 AM ELECTRIC VEHICLE ELECTRICIAN Legal Sex Female 11:17 PM CDT Gender Identity Female 01/06/2023 5:01 AM ELECTRIC VEHICLE ELECTRICIAN Sexual Orientation Not on file Last Filed Vital Signs Vital Sign Reading Time Taken Comments Blood Pressure 114/66 07/14/2024 8:26 AM CDT Pulse 88 07/14/2024 8:26 AM CDT Temperature 36.7 C (98 F) 07/14/2024 8:26 AM CDT Respiratory Rate 18 07/10/2024 8:07 AM CDT Oxygen Saturation 95% 07/14/2024 8:26 AM CDT Inhaled Oxygen Concentration - - Weight 80.7 kg (178 lb) 07/14/2024 8:26 AM CDT Height 149.9 cm (4' 11) 07/14/2024 8:26 AM CDT Body Mass Index 35.95 07/14/2024 8:26 AM CDT Plan of Treatment Upcoming Encounters Date Type Department Care Team (Late st Contact Info) Description 08/05/2024 7:30 AM CDT [facility]ointment [facility] [address] [place] [address] Mary Ellen Kim, SUPERVISOR TYPE DISK QUALITY CONTROL, NEUROLOGY TEACHER [address] [place] [address] Discharge Disposition: Discharged to home or Selfcare 09/02/2024 5:15 PM CDT Office Visit [facility] [address] [place] [address] Mary Ellen Kim, SUPERVISOR TYPE DISK QUALITY CONTROL, NEUROLOGY TEACHER [address] [place] [address] Health Maintenance Due Date Last Done Comments [...] Behavioral Health Behavioral Health Yes Fish Deras, HOME COMFORT ADVISOR Note: I need reassurance that all the bad things that have happened to me are not my fault. Procedures Procedure Name Priority Date/Time Associated Diagnosis Comments CHLAMYDIA & GC DNA PROBE Routine 07/10/2024 10:49 AM CDT Pelvic adnexal fluid collection CHLAMYDIA & GC DNA PROBE > 12 Routine 07/10/2024 10:49 AM CDT Pelvic adnexal fluid collection VAGINITIS SCREEN, MOLECULAR Routine 07/10/2024 10:44 AM CDT Pelvic adnexal fluid collection CT ABDOMEN PELVIS W/ CONTRAST Stat with Interpretation 07/09/2024 5:47 PM CDT POCT URINE HCG () STAT 07/09/2024 4:40 PM CDT URINALYSIS REFLEX IF INDICATED BY ABNORMAL RESULTS STAT 07/09/2024 4:25 PM CDT CBC WITH AUTO DIFFERENTIAL STAT 07/09/2024 4:24 PM CDT LIPASE STAT 07/09/2024 4:24 PM CDT CMP (COMPREHENSIVE METABOLIC PANEL) STAT 07/09/2024 4:24 PM CDT COMPLETE BLOOD COUNT (CBC) WITH DIFF STAT 07/09/2024 4:24 PM CDT CMP (COMPREHENSIVE METABOLIC PANEL) Routine 05/09/2024 8:13 AM CDT Hypokalemia POCT UA AUTOMATED W/O MICRO Routine 05/06/2024 9:40 AM CDT Hematuria, unspecified type CYSTOURETHROSCOPY Routine 05/06/2024 9:30 AM CDT Hematuria, unspecified type CT UROGRAPHY WO/W CONTRAST Routine 05/02/2024 7:54 AM ELECTRIC VEHICLE ELECTRICIAN Hematuria, unspecified type CBC WITH AUTO DIFFERENTIAL Routine 05/01/2024 9:26 AM ELECTRIC VEHICLE ELECTRICIAN Horizontal nystagmus THYROID STIMULATING HORMONE (TSH) Routine 05/01/2024 9:26 AM ELECTRIC VEHICLE ELECTRICIAN Horizontal nystagmus HIV 1 & 2 ANTIBODY & ANTIGEN SCREEN Routine 05/01/2024 9:26 AM ELECTRIC VEHICLE ELECTRICIAN Horizontal nystagmus SYPHILIS IGG/IGM W/REFLEX Routine 05/01/2024 9:26 AM ELECTRIC VEHICLE ELECTRICIAN Horizontal nystagmus FOLIC ACID (FOLATE) Routine 05/01/2024 9:26 AM ELECTRIC VEHICLE ELECTRICIAN Horizontal nystagmus VITAMIN B12 Routine 05/01/2024 9:26 AM ELECTRIC VEHICLE ELECTRICIAN Horizontal nystagmus HEMOGLOBIN A1C W/ ESTIMATED GLUCOSE Routine 05/01/2024 9:26 AM ELECTRIC VEHICLE ELECTRICIAN Horizontal nystagmus CMP (COMPREHENSIVE METABOLIC PANEL) Routine 05/01/2024 9:26 AM ELECTRIC VEHICLE ELECTRICIAN Horizontal nystagmus COMPLETE BLOOD COUNT (CBC) WITH DIFF Routine 05/01/2024 9:26 AM ELECTRIC VEHICLE ELECTRICIAN Horizontal nystagmus HEPATITIS C ANTIBODY Routine 06/26/2023 8:04 AM CDT Need for hepatitis C screening test from Last 3 Months or Most Recently Relevant to Health Maintenance Results * CHLAMYDIA & GC DNA PROBE > 12 (07/10/2024 10:49 AM CDT) Pathologist [facility] CHLAMYDIA DNA NEGATIVE NEGATIVE 07/11/2024 8:48 PM CDT [facility] Comment: Presumed negative for C. trachomatis. A negative result does not preclude C. trachomatis infection because results are dependent on adequate specimen collection, absence of inhibitors, and sufficient DNA to be detected. This test was performed using KERMIT 5800 Real Time PCR. GC DNA NEGATIVE NEGATIVE 07/11/2024 8:48 PM CDT [facility] Comment: Presumed negative for N. gonorrhoeae. A negative result does not preclude N. gonorrhoeae infection because results are dependent on adequate specimen collection, absence of inhibitors, and sufficient DNA to be detected. This test was performed using KERMIT 5800 Real Time PCR. Other URINE / Unknown Non-Phlebotomy Collection / Unknown 07/10/2024 10:49 AM CDT 07/10/2024 10:49 AM CDT Mary Ellen Kim APRN, NEUROLOGY TEACHER MICROBIOLOGY - GENERAL O RDERABLES Final Result Performing Organization Address City/[facility]/ZIP Co de Phone Number [facility] [address] [place] [address], [place] * (ABNORMAL) VAGINITIS SCREEN, MOLECULAR (07/10/2024 10:44 AM CDT) TRICHOMONAS NOT DETECTED NOT DETECTED 07/11/2024 3:54 AM CDT [facility] BACTERIAL VAGINOSIS NOT DETECTED NOT DETECTED 07/11/2024 3:54 AM CDT [facility] HERMELINDA DETECTED(A) NOT DETECTED 07/11/2024 3:54 AM CDT [facility] Comment: Hermelinda group DNA Detected with the following possible Hermelinda species; Hermelinda albicans and/or Hermelinda tropicalis and/or Hermelinda parapsilosis and/or Hermelinda dubliniensis HERMELINDA GLABRATA DETECTED(A) NOT DETECTED 07/11/2024 3:54 AM CDT [facility] HERMELINDA KRUSEI NOT DETECTED NOT DETECTED 07/11/2024 3:54 AM CDT [facility] Other VAGINAL STRUCTURE / Unknown Non-Phlebotomy Collection / Unknown 07/10/2024 10:44 AM CDT 07/10/2024 10:44 AM CDT Mary Ellen Kim APRN, NEUROLOGY TEACHER MICROBIOLOGY - GENERAL O RDERABLES Final Result Performing Organization Address City/[facility]/ZIP Co de Phone Number [facility] [address] [place] [address], [place] * CT ABDOMEN PELVIS W/ CONTRAST (07/09/2024 5:47 PM CDT) Anatomical Region Laterality Modality Abdomen N/A Computed Tomogra phy 07/09/2024 6:35 PM CDT Impressions 07/09/2024 6:37 PM CDT IMPRESSION: 4 cm x 3.3 cm right ovarian cyst. Small follicles are seen on the left ovary. Dilated fluid-filled tubular structure in the right adnexal region extending to the right ovary. This was present on the previous examination of 05/02/2024 but now appears larger and could represent hydrosalpinx. As noted previously, correlation with transabdominal and transvaginal pelvic ultrasound is suggested. Narrative 07/09/2024 6:37 PM CDT EXAM DESCRIPTION: CT ABDOMEN PELVIS W/ CONTRAST REASON FOR STUDY: Right sided upper abdominal pain with nausea, vomiting and diarrhea for three days. Hx of hysterectomy and ovarian cyst removal. TECHNIQUE: CT scan of the abdomen and pelvis performed with intravenous and without oral contrast using helical scanning technique with dynamic intravenous contrast injection. Reconstructed coronal and sagittal MPR images reviewed. All images stored on PACS. Automated exposure control was used as a dose optimization technique for this examination. CONTRAST TYPE/DOSE: 85mL of IOPAMIDOL 76 % IV SOLN injected via Intravenous COMPARISON: 05/02/2024 FINDINGS: LOWER CHEST: No significant pulmonary abnormalities. No effusion. LIVER: Normal size. No identified cystic or solid masses. GALLBLADDER: No stones identified. No wall thickening or inflammatory changes. BILE DUCTS: No intrahepatic or extrahepatic ductal dilatation. SPLEEN: Normal size. No focal lesions. PANCREAS: No identified cystic or solid masses. No significant calcifications. No adjacent inflammation or peripancreatic fluid collections. Pancreatic duct not dilated. ADRENALS: Normal. KIDNEYS/URINARY TRACT: No identified significant cystic or solid masses. No visualized stones. No hydronephrosis or hydroureter. Symmetric enhancement. Urinary bladder is unremarkable. GI: No dilated bowel loops. No obvious wall thickening. Normal appendix. No significant diverticular disease. PERITONEUM: No ascites or free air. RETROPERITONEUM: No mass or adenopathy. REPRODUCTIVE: 4 cm x 3.3 cm right ovarian cyst. Small follicles are seen on the left ovary. There is a dilated fluid-filled tubular structure in the right adnexal region extending to the right ovary. This was present on the previous examination of 05/02/2024 but now appears larger and could represent hydrosalpinx. As noted previously, correlation with transabdominal and transvaginal pelvic ultrasound is suggested. Hysterectomy. VASCULATURE: No abdominal aortic aneurysm. MUSCULOSKELETAL: No significant abnormality. OTHER: No other abnormality. THIS IS AN ELECTRONICALLY VERIFIED FINAL REPORT 07/09/2024 6:35 PM - Electronically signed by Julio Murdock M.D. KT: ANN Report ID: [id number] Reading Location: [id number] Procedure Note Julio Murdock MD - 07/09/2024 EXAM DESCRIPTION: CT ABDOMEN PELVIS W/ CONTRAST REASON FOR STUDY: Right sided upper abdominal pain with nausea, vomiting and diarrhea for three days. Hx of hysterectomy and ovarian cyst removal. TECHNIQUE: CT scan of the abdomen and pelvis performed with intravenous and without oral contrast using helical scanning technique with dynamic intravenous contrast injection. Reconstructed coronal and sagittal MPR images reviewed. All images stored on PACS. Automated exposure control was used as a dose optimization technique for this examination. CONTRAST TYPE/DOSE: 85mL of IOPAMIDOL 76 % IV SOLN injected via Intravenous COMPARISON: 05/02/2024 FINDINGS: LOWER CHEST: No significant pulmonary abnormalities. No effusion. LIVER: Normal size. No identified cystic or solid masses. GALLBLADDER: No stones identified. No wall thickening or inflammatory changes. BILE DUCTS: No intrahepatic or extrahepatic ductal dilatation. SPLEEN: Normal size. No focal lesions. PANCREAS: No identified cystic or solid masses. No significant calcifications. No adjacent inflammation or peripancreatic fluid collections. Pancreatic duct not dilated. ADRENALS: Normal. KIDNEYS/URINARY TRACT: No identified significant cystic or solid masses. No visualized stones. No hydronephrosis or hydroureter. Symmetric enhancement. Urinary bladder is unremarkable. GI: No dilated bowel loops. No obvious wall thickening. Normal appendix. No significant diverticular disease. PERITONEUM: No ascites or free air. RETROPERITONEUM: No mass or adenopathy. REPRODUCTIVE: 4 cm x 3.3 cm right ovarian cyst. Small follicles are seen on the left ovary. There is a dilated fluid-filled tubular structure in the right adnexal region extending to the right ovary. This was present on the previous examination of 05/02/2024 but now appears larger and could represent hydrosalpinx. As noted previously, correlation with transabdominal and transvaginal pelvic ultrasound is suggested. Hysterectomy. VASCULATURE: No abdominal aortic aneurysm. MUSCULOSKELETAL: No significant abnormality. OTHER: No other abnormality. THIS IS AN ELECTRONICALLY VERIFIED FINAL REPORT 07/09/2024 6:35 PM - Electronically signed by Julio Murdock M.D. KT: ANN Report ID: [id number] Reading Location: [id number] IMPRESSION: 4 cm x 3.3 cm right ovarian cyst. Small follicles are seen on the left ovary. Dilated fluid-filled tubular structure in the right adnexal region extending to the right ovary. This was present on the previous examination of 05/02/2024 but now appears larger and could represent hydrosalpinx. As noted previously, correlation with transabdominal and transvaginal pelvic ultrasound is suggested. Daya Almanza APRN, CNP IMG CT ORDERABLES Final Result * POCT Urine HCG () (07/09/2024 4:40 PM CDT) [facility] POC URINE Negative POC URINE CONTROL Shingles Roofer [place] Urine 07/09/2024 4:40 PM CDT Daya Almanza APRN, CNP POINT OF CARE TEST ING (MANUAL) Final Result * (ABNORMAL) Urinalysis w/ Reflex (07/09/2024 4:25 PM CDT) Pathologist [facility] SPECIFIC GRAVITY 1.010 1.003 - 1.030 07/09/2024 5:19 PM CDT [facility] URINE PH 7.0 5.0 - 9.0 07/09/2024 5:19 PM CDT [facility] WBC ESTERASE Negative Negative 07/09/2024 5:19 PM CDT [facility] NITRITE Negative Negative 07/09/2024 5:19 PM CDT [facility] PROTEIN, RANDOM URINE 15 mg/dL(A) Negative 07/09/2024 5:19 PM CDT [facility] UR[facility] GLUCOSE, QUAL Negative Negative 07/09/2024 5:19 PM CDT [facility] URINE KETONES Negative Negative 07/09/2024 5:19 PM CDT [facility] UROBILINOGEN Normal Normal mg/dL 07/09/2024 5:19 PM CDT [facility] URINE BLOOD 25 /uL(A) Negative heath/ul 07/09/2024 5:19 PM CDT [facility] URINALYSIS COLOR Yellow 07/10/19 5:19 PM CDT [facility] URINALYSIS CLARITY Slightly Cloudy 07/09/2024 5:19 PM CDT [facility] WBC (Urine) 0-5 Negative, 0-5 /hpf 07/09/2024 5:19 PM CDT [facility] URINE RBC'S 11-20(A) Negative, 0-2 /hpf 07/09/2024 5:19 PM CDT [facility] EPITHELIAL CELLS Small amount /lpf 2024 5:19 PM CDT [facility] BACTERIA, URINE Few(A) Negative /hpf 07/09/2024 5:19 PM CDT [facility] URINE MUCOUS Few 07/09/2024 5:19 PM CDT [facility] Urine URINE SPECIMEN / Unknown Non-Phlebotomy Collection / Unknown 07/09/2024 4:25 PM CDT 07/09/2024 4:43 PM CDT us Vale Taylor MD URINE ORDERABLES Final Result [facility] [address] [place] [address] * CBC with Auto Differential (07/09/2024 4:24 PM CDT) Only the most recent of2 resultswithin the time period is included. WBC 8.72 4.00 - 12.00 10(3)/mcL 07/09/2024 4:45 PM CDT [facility] RBC 4.07 3.80 - 5.30 10(6)/mcL 07/09/2024 4:45 PM CDT [facility] HEMOGLOBIN (HGB) 12.3 12.0 - 15.8 g/dL 07/09/2024 4:45 PM CDT [facility] HEMATOCRIT (HCT) 38.3 36.0 - 47.0 % 07/09/2024 4:45 PM CDT [facility] MCV 94.1 82.0 - 96.0 fL 07/09/2024 4:45 PM CDT [facility] MCH 30.2 26.0 - 34.0 pg 07/09/2024 4:45 PM CDT [facility] MCHC 32.1 31.0 - 36.0 g/dL 07/09/2024 4:45 PM CDT [facility] PLATELET COUNT 336 140 - 440 10(3)/mcL 07/09/2024 4:45 PM CDT [facility] RDW 12.2 11.8 - 15.5 % 07/09/2024 4:45 PM CDT [facility] MPV 9.8 9.7 - 12.4 fL 07/09/2024 4:45 PM CDT [facility] NEUTROPHILS 55.7 47.0 - 73.0 % 07/09/2024 4:45 PM CDT [facility] LYMPHOCYTES 34.4 18.0 - 42.0 % 07/09/2024 4:45 PM CDT [facility] MONOCYTES 8.0 4.0 - 12.0 % 07/09/2024 4:45 PM CDT [facility] EOSINOPHILS 1.8 0.0 - 5.0 % 07/09/2024 4:45 PM CDT [facility] BASOPHILS 0.1 0.0 - 1.0 % 07/09/2024 4:45 PM CDT [facility] ABSOLUTE NEUTROPHILS 4.85 1.60 - 7.70 10(3)/[facility] 07/09/2024 4:45 PM CDT [facility] ABSOLUTE LYMPHOCYTES 3.00 1.30 - 3.20 10(3)/[facility] 07/09/2024 4:45 PM CDT [facility] ABSOLUTE MONOCYTES 0.70 0.20 - 1.00 10(3)/[facility] 07/09/2024 4:45 PM CDT [facility] ABSOLUTE EOSINOPHIL 0.16 0.00 - 0.40 10(3)/[facility] 07/09/2024 4:45 PM CDT [facility] ABSOLUTE BASOPHILS 0.01 0.00 - 0.10 10(3)/[facility] 07/09/2024 4:45 PM CDT [facility] NRBC PER 100 WBC 0 07/10/19 4:45 PM CDT [facility] Blood Venipuncture / Unknown 07/09/2024 4:24 PM CDT 07/09/2024 4:43 PM CDT us Vale Taylor MD HEMATOLOGY ORDERABLES Final R esult Performing Organization Address City/[facility]/ZIP Co de Phone Number [facility] [address] [place] [address] * Lipase (07/09/2024 4:24 PM CDT) LIPASE 32 8 - 78 U/L 07/09/2024 5:05 PM CDT [facility] Blood Venipuncture / Unknown 07/09/2024 4:24 PM CDT 07/09/2024 4:43 PM CDT us Vale Taylor MD CHEMISTRY ORDERABLES Final Re sult [facility] [address] [place] [address] * (ABNORMAL) CMP (07/09/2024 4:24 PM CDT) Only the most recent of3 resultswithin the time period is included. SODIUM 140 136 - 145 mmol/L 07/09/2024 5:05 PM CDT [facility] POTASSIUM 3.4(L) 3.5 - 5.1 mmol/L 07/09/2024 5:05 PM CDT [facility] CHLORIDE 106 98 - 107 mmol/L 07/09/2024 5:05 PM CDT [facility] CO2, VENOUS 28 22 - 30 mmol/L 07/09/2024 5:05 PM CDT [facility] ANION GAP 9.4 <18.0 mmol/L 07/09/2024 5:05 PM CDT [facility] GLUCOSE 86 70 - 99 mg/dL 07/09/2024 5:05 PM CDT [facility] BUN 7 5 - 18 mg/dL 07/09/2024 5:05 PM CDT [facility] CREATININE, BLOOD 0.71 0.60 - 1.00 mg/dL 07/09/2024 5:05 PM CDT [facility] BUN/CREATININE RATIO 10(L) 12 - 20 ratio 07/09/2024 5:05 PM CDT [facility] [facility] TOTAL PROTEIN 7.6 6.0 - 8.0 g/dL 07/09/2024 5:05 PM CDT [facility] ALBUMIN 3.8 3.5 - 5.0 g/dL 07/09/2024 5:05 PM CDT [facility] A/G RATIO 1.0 1.0 - 2.2 07/09/2024 5:05 PM CDT [facility] CALCIUM 8.5(L) 8.7 - 10.5 mg/dL 07/09/2024 5:05 PM CDT [facility] T BILI 0.3 0.2 - 1.2 mg/dL 07/09/2024 5:05 PM CDT [facility] SGOT (AST) 24 <43 U/L 07/09/2024 5:05 PM CDT [facility] SGPT (ALT) 22 <56 U/L 07/09/2024 5:05 PM CDT [facility] ALKALINE PHOSPHATASE 88 40 - 150 U/L 07/09/2024 5:05 PM CDT [facility] GFR, ESTIMATED >60 >=60 07/09/2024 5:05 PM CDT [facility] Comment: Creatinine Clearance is the preferred criteria for selecting drug dose adjustments in renally impaired patients. The GFR is provided as additional pertinent clinical information. GFR is reported in mL/min/1.73 sq m. Calculation based on the Chronic Kidney Disease Epidemiology Collaboration (CKD- EPI) equation refit without adjustment for race. GFR, EST. >60 >=60 025 5:05 PM CDT [facility] GFR, EST. NONAFRICAN >60 >=60 07/09/2024 5:05 PM CDT [facility] Blood Venipuncture / Unknown 07/09/2024 4:24 PM CDT 07/09/2024 4:43 PM CDT us Vale Taylor MD CHEMISTRY ORDERABLES Final Re sult [facility] [address] [place] [address] * POCT UA AUTOMATED W/O MICRO (05/06/2024 [...] with no reactions us Geoff Wood MD [place] - SURGERY Final Result * CT UROGRAPHY WO/W CONTRAST (05/02/2024 7:54 AM ELECTRIC VEHICLE ELECTRICIAN) Anatomical Region Laterality Modality , Abdomen N/A [...] Morgan Burgess M.D. AG: AG Report ID: [id number] Reading Location: [id number] Procedure Note Morgan Burgess MD - 05/06/2024 [...] Morgan Burgess M.D. AG: DANG Report ID: [id number] Reading Location: [id number] IMPRESSION: 1. Prominent right renal collecting system [...] for further evaluation. us Geoff Wood MD [facility] CT ORDERABLES Final Result * HIV 1 & 2 ANTIBODY & ANTIGEN SCREEN (05/01/2024 9:26 AM ELECTRIC VEHICLE ELECTRICIAN) HIV 1 & 2 ANTIBODY & ANTIGEN SCREEN NON DETECTED NON DETECTED 05/01/2024 3:51 PM ELECTRIC VEHICLE ELECTRICIAN [facility] Blood Venipuncture / Unknown 05/01/2024 9:26 AM ELECTRIC VEHICLE ELECTRICIAN 05/01/2024 10:22 AM ELECTRIC VEHICLE ELECTRICIAN Mary Ellen Kim APRN, CNP LAB SEND OUTS Final Re sult Performing Organization Address City/[facility]/ZIP Co de Phone Number [facility] [address] [place] [address], [place] * SYPHILIS IGG/IGM W/REFLEX (05/01/2024 9:26 AM ELECTRIC VEHICLE ELECTRICIAN) SYPHILIS IGG/IGM Nonreactive Nonreactive 05/01/2024 4:04 PM ELECTRIC VEHICLE ELECTRICIAN [facility] Blood Venipuncture / Unknown 05/01/2024 9:26 AM ELECTRIC VEHICLE ELECTRICIAN 05/01/2024 10:22 AM ELECTRIC VEHICLE ELECTRICIAN Mary Ellen Kim APRN, CNP IMMUNOLOGY ORDERABLES Fi nal Result Performing Organization Address [facility] Co de Phone Number [facility] [address] [place] [address], [place] * HEMOGLOBIN A1C W/ ESTIMATED GLUCOSE (05/01/2024 9:26 AM ELECTRIC VEHICLE ELECTRICIAN) HGB-A1C 4.9 4.0 - 6.0 % 05/01/2024 10:52 AM ELECTRIC VEHICLE ELECTRICIAN [facility] Est Average Glucose 93.9 mg/dL 05/01/2024 10:52 AM ELECTRIC VEHICLE ELECTRICIAN [facility] Blood Venipuncture / Unknown 05/01/2024 9:26 AM ELECTRIC VEHICLE ELECTRICIAN 05/01/2024 10:22 AM ELECTRIC VEHICLE ELECTRICIAN Narrative [facility] - 05/01/2024 10:52 AM ELECTRIC VEHICLE ELECTRICIAN HEMOGLOBIN A1C: DIABETIC PATIENTS: WELL-CONTROLLED: 6.2 - 7.0 INTERMEDIATE WELL-CONTROLLED: 7.0 - 9.0 POORLY-CONTROLLED: >9.0 Specimens containing greater than 5% of Hemoglobin F may result in lower than expected % HbA1C results. Mary Ellen Kim APRN, CNP CHEMISTRY ORDERABLES Fin al Result Performing Organization Address City/[facility]/ZIP Co de Phone Number [facility] [address] [place] [address] * VITAMIN B12 (05/01/2024 9:26 AM ELECTRIC VEHICLE ELECTRICIAN) VITAMIN B12 334 213 - 816 pg/mL 05/01/2024 11:23 AM ELECTRIC VEHICLE ELECTRICIAN [facility] Blood Venipuncture / Unknown 05/01/2024 9:26 AM ELECTRIC VEHICLE ELECTRICIAN 05/01/2024 10:22 AM ELECTRIC VEHICLE ELECTRICIAN Mary Ellen Kim APRN, NEUROLOGY TEACHER CHEMISTRY ORDERABLES Fin al Result Performing Organization Address City/[facility] Co de Phone Number [facility] [address] [place] [address] * THYROID STIMULATING HORMONE (TSH) (05/01/2024 9:26 AM ELECTRIC VEHICLE ELECTRICIAN) TSH 1.685 0.300 - 5.000 mIU/L 05/01/2024 11:10 AM ELECTRIC VEHICLE ELECTRICIAN [facility] Blood Venipuncture / Unknown 05/01/2024 9:26 AM ELECTRIC VEHICLE ELECTRICIAN 05/01/2024 10:21 AM ELECTRIC VEHICLE ELECTRICIAN Mary Ellen Kim APRN, NEUROLOGY TEACHER CHEMISTRY ORDERABLES Fin al Result Performing Organization Address City/[facility] Co de Phone Number [facility] [address] [place] [address] * FOLIC ACID (FOLATE) (05/01/2024 9:26 AM ELECTRIC VEHICLE ELECTRICIAN) FOLATE 11.9 7.0 - 31.4 ng/mL 05/01/2024 11:23 AM ELECTRIC VEHICLE ELECTRICIAN [facility] IS THE PATIENT REQUIRED TO BE FASTING? No 05/01/2024 11:23 AM ELECTRIC VEHICLE ELECTRICIAN [facility] Blood Venipuncture / Unknown 05/01/2024 9:26 AM ELECTRIC VEHICLE ELECTRICIAN 05/01/2024 10:22 AM ELECTRIC VEHICLE ELECTRICIAN Mary Ellen Kim SUPERVISOR TYPE DISK QUALITY CONTROL, NEUROLOGY TEACHER CHEMISTRY ORDERABLES Fin al Result [facility] [address] [place] [address] * HEPATITIS C ANTIBODY (06/26/2023 8:04 AM CDT) hepatitis C antibody 0.08 <1 S/CO 06/26/2023 11:33 PM CDT [facility] Comment: Signal/Cutoff ratio < 0.79 is Nondetected Signal/Cutoff ratio 0.80-0.99 is Grayzone Signal/Cutoff ratio > 0.99 is Detected Supplemental assays are recommended if signal/cutoff ratio is >/=1.00. Signal/cutoff ratio result >/= 5.00 is 97% predictive of positivity for recombinant immunoblot assay (RIBA) and will be reported to the [place] [facility] Public [facility] as required. Blood Venipuncture / Unknown 06/26/2023 8:04 AM CDT 06/26/2023 8:05 AM CDT Mary Ellen Kim SUPERVISOR TYPE DISK QUALITY CONTROL, NEUROLOGY TEACHER CHEMISTRY ORDERABLES Fin al Result Performing Organization Address City/[facility] Co de Phone Number [facility] [address] [place] [address], [place] from Last 3 Months or Most Recently Relevant to Health Maintenance Insurance MEDICAID [facility] GENER[facility] Care Teams Forming Yardage Control Operator Relationship Specialty Start Date End Date Mary Ellen Kim, SUPERVISOR TYPE DISK QUALITY CONTROL, NEUROLOGY TEACHER [address] [place] [address] PCP - General Advanced Practice Nurse 02/08/23 Sasha Martinez DPM Consulting Physician Podiatry 02/27/22 Geoff Wood MD [address] [address] Consulting Physician Urology 04/10/24
--- OUTSIDE RECORDS SUMMARY | 2024-07-24 10:45 | XMS_ITS | Clinical Summary ---
Author Organization [facility] Address [address] [place] [address] Care Team Providers Care Child Care Centre Manager Name Role Phone Mary Ellen Kim NP Primary Care Provider [phone] No, Physician Unavailable Allergies No known active [...] Description 07/07/2024 12:15 PM CDT Office Visit [facility] Medical [facility] [place] [address] [place] [address] Fiona Joya NP Abdominal pain (Primary Dx); Nausea from Last 3 Months Surgical History Surgery Date Site/Laterality Comments SECTION TONSILLECTOMY REDUCTION MAMMAPLASTY OVARIAN CYST REMOVAL CYST REMOVAL Medical History Medical History Date Comments Insomnia Anxiety Depression Social History Tobacco Use Types Packs/Day Years Used Date Smoking Tobacco: Never Smokeless Tobacco: Never Comments No Sex and Gender Information Value Date Recorded Sex Assigned at Not on file Legal Sex Female 8:12 AM CAR CHECKER Gender Identity Not on file Sexual Orientation [...] Negative Ketones, ur, POC Negative Negative Specific [place], POC 1.025 1.003 - 1.030 Blood, ur, POC Small(A) Negative pH, ur, POC 7.0 5.0 - 8.0 Protein, ur, POC Negative Negative Urobilinogen, urine, POC 0.2 0.2 - 1.0 mg/dL Nitrite, ur, POC Negative Negative Leukocytes, ur, POC Negative Negative Lot Number [id number] Urine 07/07/2024 12:2 6 PM CDT Fiona Joya NP POINT OF CARE TEST ORDERABLES Ed ited Result - Final from Last [address] [place] [address] [facility] [place] [place] [address] Care Teams Child Care Centre Manager Relationship Specialty Start Date End Date Mary Ellen Kim NP [address] [place] [address] PCP - General Family Medicine 04/17/24 No, Physician 04/17/24
--- OUTSIDE RECORDS SUMMARY | 2024-07-24 10:45 | XMS_ITS | Encounter Summary ---
Author Organization [facility] Address [address] [place] [address] Phone Care Team Providers Care Gear Shaper Set Up Operator Name Role Phone Michelle Sasha D DPM Unavailable [phone] Mary Ellen Kim WINDLACE MACHINE OPERATOR, CERTIFIED PEDORTHOTIST Primary Care Provider + Geoff Wood MD Unavailable Reason for Visit * Reason Comments Medication Refill Encounter Details Date Type Department Care Team (Late st Contact Info) Description 03/12/2024 Refill [facility] - Family Medicine [facility] [address] [place] [address] Mary Ellen Kim, YEISON, CERTIFIED PEDORTHOTIST [address] [place] [address] Medication Refill Social History Tobacco Use Types Packs/Day Years Used Date Smoking Tobacco: Never Smokeless Tobacco: Never Alcohol Use Standard Drinks/Week Comments Not Currently 0 (1 standard drink = 0.6 oz pure alcohol) occasionally, three times per year [facility] Utilities Answer Date Recorded In the past 12 months has [employer] electric, gas, oil, or water company threatened [...] week 03/10/2024 How often do you attend [facility] or anabaptist services? Never 03/10/2024 Do you belong to any clubs o r organizations such as adventist groups, unions, fraternal or athletic groups, or [...] Total Score - Questions 1-9 0 02/25 [facility] Occup[facility] ional Health - Occupational Stress [...] any time in the past [address] [facility], were you homeless or living in a long-term (including now)? No 03/10/2024 Sexually Active Control Partners Comments Yes Other Male Hysterectomy Comments No Sex and Gender Information Value Date Recorded Sex Assigned at Female 01/06/2023 5:01 AM PRINCIPAL ANDROID DEVELOPER Legal Sex Female 11:17 PM CDT Gender Identity Female 01/06/2023 5:01 AM PRINCIPAL ANDROID DEVELOPER Sexual Orientation Not on file documented as of this encounter Miscellaneous Notes * Telephone Encounter - Norma Pan RN - 03/12/2024 11:18 AM CST Name from pharmacy: TRAZODONE 50 MG TABLET Will file in chart as: traZODone (DESYREL) 50 MG Tablet The original prescription was discontinued on 03/06/2024 by Mary Ellen Kim APRN, CERTIFIED PEDORTHOTIST Insomnia. Taking Trazodone 50 mg nightly. Medication is no longer helpful. Difficulty falling asleep. No problem staying asleep. CIPAL ANDROID DEVELOPER documented in this encounter Plan of Treatment Upcoming Encounters Date Type Department Care Team (Late st Contact Info) Description 08/05/2024 7:30 AM CDT [facility] [address] [place] [address] Mary Ellen Kim APRN, CERTIFIED PEDORTHOTIST [address] [place] [address] Discharge Disposition: Discharged to home or Selfcare 09/02/2024 5:15 PM CDT [facility] [place] [address] Mary Ellen Kim, WINDLACE MACHINE OPERATOR, CERTIFIED PEDORTHOTIST [address] [facility] [place] [address] documented as of this encounter Goals Goal Patient Goal Type Associated Problems Recent Progress Patient-Stated? Author Behavioral Health Behavioral Health Yes Fish Deras, ORCHESTRATOR Note: I need reassurance that all the bad things that have happened to me are not my fault. documented as of this encounter Visit Diagnoses Not on filedocumented in this encounter Additional Health Concerns Assessment Noted Time PHQ-9 Depression Total Score: 0 03/10/19 25 8:19 AM PRINCIPAL ANDROID DEVELOPER documented as of this encounter Care Teams Gear Shaper Set Up Operator Relationship Specialty Start Date End Date Mary Ellen Kim, WINDLACE MACHINE OPERATOR, CERTIFIED PEDORTHOTIST [address] [place] [address] PCP - General Advanced Practice Nurse 02/08/23 Sasha Martinez DPM Consulting Physician Podiatry 02/27/22 Geoff Wood MD [address] [address] Consulting Physician Urology 04/10/24 documented as of this encounter
--- OUTSIDE RECORDS SUMMARY | 2024-07-24 10:45 | XMS_ITS | Continuity of Care Document ---
Author Organization [facility] Address [address] [place] [address] Phone Care Team Providers Care Tire Shop Mechanic Name Role Phone Butch Schroeder MD Unavailable [...] Diagnoses Date Provider Providers Copied on Encounter [facility], [address], [place], [id number], [place] tel:[phone] [facility] No Information Alexandre Rae. [address], [place], [place], [address] , [place]. tel:[phone] Referring Provider: [address], [place], [place], [address]. tel:[phone] OFFICE/OUTPA TIENT VISIT, [facility], [address], [place], [place], [address], [place] tel:[phone] [facility] UTI1 (chief complaint) insmonia1 (chief complaint) anxiety1 (chief complaint) Generalized Anxiety DisorderInsomniaUri nary tract infection Alexandre Rae. [address], [place], [place], [address] , [place]. [phone] Referring Provider: [address], [place], [place], [address]. tel:[phone] OFFICE/OUTPA TIENT VISIT, [facility], [address], [place], [place], [address], [place] tel:[phone] [facility] anxiety1 (chief complaint) sleep apnea1 (chief complaint) InsomniaGeneralized Anxiety DisorderBody mass index (BMI) 32.0-32.9, adult Alexandre Cabrera [address], [place], [place], [address] , [place]. tel:[phone] Referring Provider: [address], [place], [place], [address]. tel:[phone] OFFICE/OUTPA TIENT VISIT, [facility], [address], [place], [place], [address], [place] tel:[phone] [facility] HLP (chief complaint) vitmai D (chief complaint) anxiety1 (chief complaint) insomnia1 (chief complaint) hand weakness1 (chief complaint) InsomniaHyperlipide miaVitamin D deficiency, unspecifiedGenerali zed Anxiety Disorder Alexandre Cabrera [address], [place], [place], [address] , [place]. tel:[phone] Referring Provider: [address], [place], [place], [address]. tel:[phone] PREV VISIT, NEW, AGE 18-[address] [facility], [address], [place], [place], [address], [place] tel:[phone] [facility] Physical (chief complaint) Encounter for general adult medical exam w abnormal findingsGeneralized Anxiety DisorderInsomniaSle ep apnea May-0 7 Alexandre Rae. [address], [place], [place], [address] , [place]. [phone] Referring Provider: [address], [place], [place], [address]. tel:[phone] PREV VISIT, EST, AGE 18-39 [facility], [address], [place], [place], [address], [place] tel:[phone] [facility] Physical (chief complaint) Dietary surveillance and counselingRoutine Medical ExamRoutine Medical Exam Sep-0 3 Alexandre Rae. [address], [place], [place], [address] , [place]. [phone] Referring Provider: [address], [place], [place], [address]. tel:[phone] OFFICE/OUTPA TIENT VISIT, EST [facility], [address], [place], [place], [address], [place] [phone] [facility] ganglion cyst (chief complaint) Dietary surveillance and counselingGanglion, unspecified 3 Alexandre Rae. [address], [place], [place], [address] , [place]. [phone] Referring Provider: [address], [place], [place], [address]. tel:[phone] Family History Family Member Type Diagnosis Age [...] Insomnia) ordered Referral Referred To: SARAH CASAREZ [address] [facility]
[address], [phone] Ordered: Referrals: SARAH CASAREZ. 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 Pt recently had a emotinal breakdown at [...] busy at work to make appointment with [facility] hand weakness1 Pt states that s [...]
--- OUTSIDE RECORDS SUMMARY | 2024-07-24 10:46 | XMS_ITS | Encounter Summary ---
Author Organization [facility] Address [address] [place] [address] Phone Care Team Providers Care Director Of Curriculum Name Role Phone Kei Martinezsaharesh Woods DPM Unavailable [phone] Mary Ellen Kim CHEMICAL TANK WORKER, DESTATICIZER FEEDER Primary Care Provider + Geoff Wood MD Unavailable Reason for Visit * Reason Comments Medication Refill Encounter Details Date Type Department Care Team (Late st Contact Info) Description 01/28/2024 Refill [facility] - Family Medicine [facility] [address] [place] [address] Mary Ellen Kim, YEISON, DESTATICIZER FEEDER [address] [place] [address] Medication Refill Social History Tobacco Use Types Packs/Day Years Used Date Smoking Tobacco: Never Smokeless Tobacco: Never Alcohol Use Standard Drinks/Week Comments Not Currently 0 (1 standard drink = 0.6 oz pure alcohol) occasionally, three times per year [facility] Utilities Answer Date Recorded In the past 12 months has [employer] electric, gas, oil, or water company threatened [...] declined 10/30/2023 How often do you attend methodist or anabaptist serv ices? Patient declined 10/30/2023 Do you belong to any clubs o r organizations such as methodist groups, unions, fraternal or athletic groups, or [...] Total Score - Questions 1-9 0 11/25 [facility] Occupat ional Health - [...] any time in the past 12 m [facility], were you homeless or living in a long term (including now)? Patient declined 10/30/2023 Sexually Active Control Partners Comments Yes Other Male Hysterectomy Comments No Sex and Gender Information Value Date Recorded Sex Assigned at Female 01/06/2023 5:01 AM OPERATOR AND TRUCK DRIVER Legal Sex Female 11:17 PM CDT Gender Identity Female 01/06/2023 5:01 AM OPERATOR AND TRUCK DRIVER Sexual Orientation Not on file documented as of this encounter Plan of Treatment Upcoming Encounters Date Type Department Care Team (Late st Contact Info) Description 08/05/2024 7:30 AM CDT Appointment [facility] Ultrasound [address] [place] [address] Mary Ellen Kim, CHEMICAL TANK WORKER, DESTATICIZER FEEDER [address] [place] [address] Discharge Disposition: Discharged to home or Selfcare 09/02/2024 5:15 PM CDT Office Visit [facility] - [facility] [address] [place] [address] Mary Ellen Kim, CHEMICAL TANK WORKER, DESTATICIZER FEEDER [address] [place] [address] documented as of this encounter Goals Goal Patient Goal Type Associated Problems Recent Progress Patient-Stated? Author Behavioral Health Behavioral Health Yes Fish Deras, SUPERVISOR HOME ENERGY CONSULTANT Note: I need reassurance that all the bad things that have happened to me are not my fault. documented as of this encounter Visit Diagnoses Not on filedocumented in this encounter Additional Health Concerns Assessment Noted Time PHQ-9 Depression Total Score: 0 12/09/19 2:58 PM CDT documented as of this encounter Care Teams Director Of Curriculum Relationship Specialty Start Date End Date Mary Ellen Kim, CHEMICAL TANK WORKER, DESTATICIZER FEEDER #2 [facility] [address] PCP - General Advanced Practice Nurse 02/08/23 Sasha Martinez DPM Consulting Physician Podiatry 02/27/22 Geoff Wood MD [address] [place], [address] [address] Consulting Physician Urology 04/10/24 documented as of this encounter
--- OUTSIDE RECORDS SUMMARY | 2024-07-24 10:46 | XMS_ITS | Continuity of Care Document ---
Author Organization [facility] Address [address] [place] [address] Phone Care Team Providers Care Home Security Professional Name Role Phone Ara Herman DO Unavailable [...] Diagnoses Date Provider Providers Copied on Encounter [facility], [address], [place], [place], [address] , [place] tel:[phone] [facility] No Information 2 Batsheva Bullock. [address], [place], [place], [address] , [place]. tel:[phone] [facility], [address], [place], [place], [address] , [place] tel: [phone] [facility] No Information 2 Batsheva Ara. [address], [place], [place], [address] , [place]. tel: [phone] [facility], [address], [place], [place], [address] , [place] tel: [phone] [facility] No Information 2 Batsheva Ara. [address], [place], [place], [address] , [place]. tel: [phone] [facility], [address], [place], [place], [address] , [place] tel: [phone] [facility] No Information 2 Batsheva Ara. [address], [place], [place], [address] , [place]. tel: [phone] [facility], [address], [place], [place], [address] , [place] tel: [phone] [facility] No Information 1 Batsheva Ara. [address], [place], [place], [address] , [place]. tel: [phone] OFFICE/OUTPA TIENT VISIT, [facility] IV [facility], [address], [place], [place], [address] , [place] tel: [phone] [facility] anxiety (chief complaint) insomnia (chief complaint) Body mass index (BMI) 33.0-33.9, adultAnxiety and depressionSituational insomnia 1 Batsheva Ara. [address], [place], [place], [address] , [place]. tel: [phone] Referring Provider: Ara Mann, [address], [place], [address] . tel:[phone] OFFICE/OUTPA TIENT VISIT, NEW [facility], [address], [place], [place], [address] , tel:[phone] [facility] anxiety (chief complaint) Anxiety and depressionDepression, unspecifiedSituationa l insomnia Batsheva Bullock. [address], [place], [place], [address] , [place]. tel:[phone] Referring Provider: Ara Mann, [address], [place], [address] . tel:[phone] Family History Family Member Type Diagnosis Age At Onset Father Problem alcoholism Mother Problem alcoholism Father Problem depression Mother Problem depression Immunizations Vaccine Date Status Comments Influenza, injectable, MDCK, preservative free, quadrivalent administered Source: Other Provider Influenza, injectable, quadr ivalent with preservative, MDCK, 0.5 mL dosage, Flucelvax Quad administered Source: Public Agency Payers Payer name Insurance type Covered republican ID Authorarnolda marii(s) [facility] [id number] Social History Type Description Quantity Date Captured [...]
--- OUTSIDE RECORDS SUMMARY | 2024-07-24 10:47 | XMS_ITS | Continuity of Care Document ---
Author Organization [facility] Address [address] [place] [address] Phone Care Team Providers Care Store Clerk Name Role Phone Butch Schroeder MD Unavailable [...] Diagnoses Date Provider Providers Copied on Encounter [facility], [address], [place], [address], [place] tel:[phone] [facility] No Information Alexandre Rae. [address], [place], [place], [address] , [place]. tel:[phone] Referring Provider: [address], [place], [place], [address]. tel:[phone] OFFICE/OUTPA TIENT VISIT, [facility], [address], [place], [place], [address], [place] tel:[phone] [facility] UTI1 (chief complaint) insmonia1 (chief complaint) anxiety1 (chief complaint) Generalized Anxiety DisorderInsomniaUri nary tract infection Alexandre Rae. [address], [place], [place], [address] , [place]. [phone] Referring Provider: [address], [place], [place], [address]. tel:[phone] OFFICE/OUTPA TIENT VISIT, [facility], [address], [place], [place], [address], [place] tel:[phone] [facility] anxiety1 (chief complaint) sleep apnea1 (chief complaint) InsomniaGeneralized Anxiety DisorderBody mass index (BMI) 32.0-32.9, adult Alexandre Cabrera [address], [place], [place], [address] , [place]. tel:[phone] Referring Provider: [address], [place], [place], [address]. tel:[phone] OFFICE/OUTPA TIENT VISIT, [facility], [address], [place], [place], [address], [place] tel:[phone] [facility] HLP (chief complaint) vitmai D (chief complaint) anxiety1 (chief complaint) insomnia1 (chief complaint) hand weakness1 (chief complaint) InsomniaHyperlipide miaVitamin D deficiency, unspecifiedGenerali zed Anxiety Disorder Alexandre Cabrera [address], [place], [place], [address] , [place]. tel:[phone] Referring Provider: [address], [place], [place], [address]. tel:[phone] PREV VISIT, NEW, AGE 18-39 [facility], [address], [place], [place], [address], [place] tel:[phone] [facility] Physical (chief complaint) Encounter for general adult medical exam w abnormal findingsGeneralized Anxiety DisorderInsomniaSle ep apnea May-0 7 Alexandre Rae. [address], [place], [place], [address] , [place]. [phone] Referring Provider: [address], [place], [place], [address]. tel:[phone] PREV VISIT, EST, AGE 18-39 [facility], [address], [place], [place], [address], [place] tel:[phone] [facility] Physical (chief complaint) Dietary surveillance and counselingRoutine Medical ExamRoutine Medical Exam Sep-0 3 Alexandre Rae. [address], [place], [place], [address] , [place]. [phone] Referring Provider: [address], [place], [place], [address]. tel:[phone] OFFICE/OUTPA TIENT VISIT, EST [facility], [address], [place], [place], [address], [place] [phone] [facility] ganglion cyst (chief complaint) Dietary surveillance and counselingGanglion, unspecified 3 Alexandre Rae. [address], [place], [place], [address] , [place]. [phone] Referring Provider: [address], [place], [place], [address]. tel:[phone] Family History Family Member Type Diagnosis Age [...] Insomnia) ordered Referral Referred To: SARAH CASAREZ [id number] [facility]
[address], [phone] Ordered: Referrals: SARAH CASAREZ. Evaluate and treat [...] busy at work to make appointment with [facility] anxiety1 Pt has been havi ng [...]
--- OUTSIDE RECORDS SUMMARY | 2024-07-24 10:47 | XMS_ITS | Continuity of Care Document ---
Author Organization [facility] Address [address] [place] [address] Phone Care Team Providers Care Geneticist Name Role Phone Ara Herman DO Unavailable [...] Provider Providers Copied on Encounter [facility], [address], [place], [place], [address] , [place] tel:[phone] [facility] No Information 2 Batsheva Bullock. [address], [place], [place], [address] , [place]. tel:[phone] [facility], [address], [place], [place], [address] , [place] tel: [phone] [facility] Primary Care [facility] No Information 2 Batsheva Ara. [address], [place], [place], [address] , [place]. tel: [phone] [facility], [address], [place], [place], [address] , [place] tel: [phone] [facility] Primary Care [facility] No Information 2 Batsheva Ara. [address], [place], [place], [address] , [place]. tel: [phone] [facility] Primary Care [facility], [address], [place], [place], [address] , [place] tel: [phone] [facility] No Information 2 Batsheva Ara. [address], [place], [place], [address] , [place]. tel: [phone] [facility], [address], [place], [place], [address] , [place] tel: [phone] [facility] Primary Care [facility] No Information 1 Batsheva Ara. [address], [place], [place], [address] , [place]. tel: [phone] OFFICE/OUTPA TIENT VISIT, [email or web address] IV [facility] Primary [facility], [address], [place], [place], [address] , [place] tel: [phone] [facility] Primary Care [facility] anxiety (chief complaint) insomnia (chief complaint) Body mass index (BMI) 33.0-33.9, adultAnxiety and depressionSituational insomnia 1 Batsheva Ara. [address], [place], [place], [address] , [place]. tel: [phone] Referring Provider: Ara Mann, [address], [place], [address] . tel:[phone] OFFICE/OUTPA TIENT VISIT, NEW IV [facility] Primary [facility], [address], [place], [place], [address] , tel:[phone] [facility] anxiety (chief complaint) Anxiety and depressionDepression, unspecifiedSituationa l insomnia Batsheva Bullock. [address], [place], [place], [address] , [place]. tel:[phone] Referring Provider: Ara Mann, [address], [place], [address] . tel:[phone] Family History Family Member Type Diagnosis Age At Onset Father Problem alcoholism Mother Problem alcoholism Father Problem depression Mother Problem depression Immunizations Vaccine Date Status Comments Influenza, injectable, MDCK, preservative free, quadrivalent administered Source: Other Provider Influenza, injectable, quadr ivalent with preservative, MDCK, 0.5 mL dosage, Flucelvax Quad administered Source: Public Agency Payers Payer name Insurance type Covered democrat ID Authorarnolda marii(s) [facility] [id number] Social History Type Description Quantity Date Captured [...]
--- NOTE | 2024-07-24 10:57 | ED_ITS ---
HPI - Extremity Problem General Chief complaint: Extremity Problem,Nontraumatic Stated complaint: Pain in Hands Time Seen by Provider: 07/24/24 10:50 Source: patient and RN notes reviewed Mode of arrival: ambulatory Limitations: no limitations History of Present Illness HPI Narrative: 39-year-old female presents Express Care complaining of bilateral thumb pain. Patient states symptoms started about 3-4 days ago. Patient denies any injuries. 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 Patient reports numbness tingling that sometimes shoots into her thumbs. Patient reports certain movements she will feel shooting pain into her elbows. Patient denies any swelling, redness, bruising, fevers, body aches or any other symptoms. Related Data Home Medications ?Medication ?Instructions ?Recorded ?Confirmed ?Last Taken ?Type fluoxetine 20 mg capsule 20 mg PO DAILY 09/22/23 04/16/24 Unknown History mirtazapine 15 mg tablet mg 07/09/24 Unknown History Allergies Allergy/AdvReac Type Severity Reaction Status Date / Time No Known Allergies Allergy Unknown Verified 07/09/24 11:11 Review of Systems Review of Systems: CONSTITUTIONAL: Denies fever, chills, or sweats. EYES: Denies visual changes, redness, or discharge. ENT: Denies rhinorrhea, congestion, sore throat, or otalgia. CARDIOVASCULAR: Denies chest pain, palpitations, or edema. RESPIRATORY: Denies cough or dyspnea. GASTROINTESTINAL: Denies abdominal pain, nausea, vomiting, or diarrhea. GENITOURINARY: Denies dysuria or hematuria. SKIN: Denies rash, wound, or itching. MUSCULOSKELETAL: Denies back pain, joint pain, or myalgia. Positive for bilateral thumb pain. NEUROLOGIC: Denies headache, numbness, or weakness. PSYCHIATRIC: Denies anxiety or depression. All other systems reviewed are negative, except as documented in HPI. [facility] Past Medical History Medical History Back pain Encounter for annual routine gynecological examination Nexplanon removal (12/23/15) Nexplanon insertion (12/18/12) Arm fracture Pneumonia Frequent UTI Depression Anxiety Surgical History Surgical History History of robot-assisted laparoscopic hysterectomy (04/05/22) Robotic assisted total laparoscopic hysterectomy Bilateral salpingectomy History of dilation and curettage (05/17/16) hscope d&c/endometrial ablation--menometrorrhagia, dysmenorrhea--benign History of ovarian cystectomy (09/25/12) rt ovarian cystectomy History of bilateral breast reduction surgery (06/23/12) History of tubal ligation (11/30/10) History of 04/10/07 primary c/s--arrest of descent 11/30/10 rpt c/s w/tubal ligation History of tonsillectomy (~2002) Family History Family History Grandparent Hypertension paternal grandfather paternal grandmother Diabetes mellitus paternal grandmother paternal grandfather Cerebrovascular accident maternal grandmother paternal grandmother Heart disease paternal grandfather Mother Alcoholism Social History Social History Smoking status: Former smoker Tobacco type: cigarettes Additional smoking assessment comments: Pt stated on and off socially, does not currently Alcohol intake: current Alcohol use details: 1-2 year rare use Substance use: never Substance use type: does not use Living arrangements: with roommate(s) Additional living arrangements comments: Occupation/Education: unemployed 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 There is no relevant family history pertinent to the patient complaint. Exam Narrative: GENERAL: This is a well-nourished, well-developed adult, in no apparent distress. They are non ill-appearing, nontoxic appearing. HEAD: normocephalic, atraumatic. EYES: Sclera clear/white. Vision is grossly intact. Conjunctiva normal. Extraocular movement intact. EARS: External ears normal Hearing grossly intact. NOSE: External nose normal THROAT: Mucous membranes moist NECK: Neck supple CARDIOVASCULAR: Regular rate and rhythm RESPIRATORY: Respiratory rate normal, respiratory effort nonlabored, no respiratory distress NEURO: awake, alert, and oriented to person, place and time. There were no obvious focal neurologic abnormalities. EXTREMITIES: Bilateral hands//wrist: No obvious deformity, injury, swelling, bruising, redness. Normal range of motion to bilateral wrist and hand. No bony tenderness. Capillary refill less than 3 seconds. Radial pulse Pulse 2 +palpable bilaterally. Normal sensation. Neurovascular status intact distal injury. Negative Tinel sign. Positive Wm test and Phalen test. Patient is able to wiggle her fingers, make a stop sign, thumbs-up sign, okay sign, and a fist bilaterally. BACK: Nontender without deformity. Course Course Emergency Course: Portions of this record may have been created with voice recognition software Level of Care: Express Care Visit Vital Signs Vital signs: Vital Signs Temperature 97.6 F 07/24/24 10:40 Pulse Rate 95 07/24/24 10:40 Respiratory Rate 22 H 07/24/24 10:40 Blood Pressure 138/73 07/24/24 10:40 Pulse Oximetry 99 07/24/24 10:40 Oxygen Delivery Autopap 07/24/24 10:40 Temperature 97.6 F 07/24/24 10:40 Pulse Rate 95 07/24/24 10:40 Respiratory Rate 22 H 07/24/24 10:40 Blood Pressure 138/73 07/24/24 10:40 Pulse Oximetry 99 07/24/24 10:40 Oxygen Delivery Autopap 07/24/24 10:40 Reviewed MDM - Extremity (Nontraumatic) MDM Narrative Medical decision making narrative: No apparent injury, no x-ray indicated. Likely patient has a tendinitis. Recommend ortho referral and conservative therapy. Discussed physical exam findings. Patient is given Conor wraps for comfort. Advised supportive measures and signs/symptoms to go to the ER. Pt is appropriate for outpt treatment and f/u. Differential Diagnosis Differential diagnosis: Likely other (Tendinitis, arthritis, De Quervain's tenosynovitis) Critical Care Time Critical Care Time Critical Care Time: No Discharge Plan Discharge Clinical Impression: Bilateral thumb pain Patient Disposition: Home Condition: Stable Instructions: Tendinitis (ED) Additional Instructions: Apply ice 15-20 minute intervals several times a day Keep it wrapped with CONOR or use thumb spica splint for comfort. Motrin 600mg -800mg every 8 hours, alternate with Tylenol 1000mg every 8 hours as needed Follow up with your primary care provider or orthopedist in 1 week. Go to ER for any worsening concerns or symptoms. Patient Language: Paraguayan Prescriptions: No Action fluoxetine 20 mg capsule 20 mg PO DAILY mirtazapine 15 mg tablet Follow-up/Referrals: Mary Ellen Kim RN [Primary Care Provider] - Theo Espino MD [Physician] - Stand Alone Forms: Work/School Release IP Time of Disposition: 10:53
== END 2024-07-24 11:13 | disposition home or self-care (01) ==
DX: M79.644 Pain in right finger(s) (principal); M79.645 Pain in left finger(s); Z87.891 Personal history of nicotine dependence; F41.9 Anxiety disorder, unspecified; F32.A Depression, unspecified
CPT/HCPCS: 99212; G0463

== ENCOUNTER 2024-09-22 14:00 | Emergency (ER) | payer OTHER, SELFPAY ==
--- OUTSIDE RECORDS SUMMARY | 2024-09-22 14:10 | XMS_ITS | Clinical Summary ---
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 Gender Identity Not on file Sexual Orientation [...] series) 1998 Regular Well Visit/Exam 18-64 2003 HPV Vaccines (1 - 3-dose SCDM series) 02/15/2012 Influenza Vaccine (#1) 2024 3, 10/26/2021, 10/12/2021, Additional history exists DTaP/Tdap/Td Vaccine (2 - Td or Tdap) 01/13/2026 01/14/2016, 03/08/1999 Hepatitis B Screening Completed 03/08/1999 , 09/07/1998, 08/03/1998 Pneumococcal vaccine <65 Aged Out No longer [...] Negative Ketones, ur, POC Negative Negative Specific [place], POC 1.025 1.003 - 1.030 Blood, ur, POC Small(A) Negative pH, ur, POC 7.0 5.0 - 8.0 Protein, ur, POC Negative Negative Urobilinogen, urine, POC 0.2 0.2 - 1.0 mg/dL Nitrite, ur, POC Negative Negative Leukocytes, ur, POC Negative Negative Lot Number [id number] Urine 07/07/2024 12:2 6 PM CDT Fiona Joya NP POINT OF CARE TEST ORDERABLES Ed ited Result - Final from Last 3 Months Insurance Care Teams Ekg Manager Relationship Specialty Start Date End Date Mary Ellen Kim NP [address] [place] [address] PCP - General Family Medicine 04/17/24 No, Physician 04/17/24
--- OUTSIDE RECORDS SUMMARY | 2024-09-22 14:10 | XMS_ITS | Encounter Summary ---
Author Organization [facility] Address [address] [place] [address] Phone Care Team Providers Care Pellet Machine Operator Name Role Phone Kei Martinezsaharesh Woods DPM Unavailable [phone] Mary Ellen Kim LICENSE INSPECTOR, LINE MAINTENANCE SUPERVISOR Primary Care Provider + Geoff Wood MD Unavailable Reason for Visit * Reason Comments Medication Refill Encounter Details Date Type Department Care Team (Late st Contact Info) Description 03/12/2024 Refill [facility] Medical [facility] - Family Medicine [facility] [address] [place] [address] Mary Ellen Kim, YEISON, LINE MAINTENANCE SUPERVISOR [address] [place] [address] Medication Refill Social History Tobacco Use Types Packs/Day Years Used Date Smoking Tobacco: Never Smokeless Tobacco: Never Alcohol Use Standard Drinks/Week Comments Not Currently 0 (1 standard drink = 0.6 oz pure alcohol) occasionally, three times per year [facility] Utilities Answer Date Recorded In the past 12 months has theAudience electric, gas, oil, or water company threatened to shut off services in your home? No 03/10/2024 Social Connection and Isolation Panel Answer Date Recorded In a typical week, how many times do you talk on the phone with family, friends, or neighbors? Once a week 03/10/19 How often do you get togethe r with friends or relatives? Once a week 03/10/2024 How often do you attend [facility] or taoism services? Never 03/10/2024 Do you belong to [...] Total Score - Questions 1-9 0 02/25 [facility] - Occupational [...] any time in the past 12 [facility], were you homeless or living in a group home (including now)? No 03/10/2024 Sexually Active Control Partners Comments Yes Other Male Hysterectomy Comments No Sex and Gender Information Value Date Recorded Sex Assigned at Female 01/06/2023 5:01 AM INDUSTRIAL ENGINEERING TECHNOLOGIST Legal Sex Female 11:17 PM CDT Gender Identity Female 01/06/2023 5:01 AM INDUSTRIAL ENGINEERING TECHNOLOGIST Sexual Orientation Not on file documented as of this encounter Miscellaneous Notes * Telephone Encounter - Norma Pan RN - 03/12/2024 11:18 AM CST Name from pharmacy: TRAZODONE 50 MG TABLET Will file in chart as: traZODone (DESYREL) 50 MG Tablet The original prescription was discontinued on 03/06/2024 by Mary Ellen Kim APRN, LINE MAINTENANCE SUPERVISOR Insomnia. Taking Trazodone 50 mg nightly. Medication is no longer helpful. Difficulty falling asleep. No problem staying asleep. STRIAL ENGINEERING TECHNOLOGIST documented in this encounter Plan of Treatment Upcoming Encounters Date Type Department Care Team (Late st Contact Info) Description 01/04/2025 8:15 AM INDUSTRIAL ENGINEERING TECHNOLOGIST Office Visit [facility] Medical Group - Family Medicine [facility] [address] [place] [address] Mary Ellen Kim APRN, LINE MAINTENANCE SUPERVISOR [address] [place] [address] documented as of this encounter Goals Goal Patient Goal Type Associated Problems Recent Progress Patient-Stated? Author Behavioral Health Behavioral Health Yes Fish Deras, HOUSE NURSE Note: I need reassurance that all the bad things that have happened to me are not my fault. documented as of this encounter Visit Diagnoses Not on filedocumented in this encounter Additional Health Concerns Assessment Noted Time PHQ-9 Depression Total Score: 0 03/10/19 25 8:19 AM INDUSTRIAL ENGINEERING TECHNOLOGIST documented as of this encounter Care Teams Pellet Machine Operator Relationship Specialty Start Date End Date Mary Ellen Kim, LICENSE INSPECTOR, LINE MAINTENANCE SUPERVISOR [address] [place] [address] PCP - General Advanced Practice Nurse 02/08/23 Sasha Martinez DPM Consulting Physician Podiatry 02/27/22 Geoff Wood MD [address] [facility], [address] [address] Consulting Physician Urology 04/10/24 documented as of this encounter
--- OUTSIDE RECORDS SUMMARY | 2024-09-22 14:10 | XMS_ITS | Referral Summary ---
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 Gender Identity Not on file Sexual Orientation [...] Negative Ketones, ur, POC Negative Negative Specific [place], POC 1.025 1.003 - 1.030 Blood, ur, POC Small(A) Negative pH, ur, POC 7.0 5.0 - 8.0 Protein, ur, POC Negative Negative Urobilinogen, urine, POC 0.2 0.2 - 1.0 mg/dL Nitrite, ur, POC Negative Negative Leukocytes, ur, POC Negative Negative Lot Number [id number] Urine 07/07/2024 12:2 6 PM CDT Fiona Joya NP POINT OF CARE TEST ORDERABLES Ed ited Result - Final from Last 3 Months Insurance Care Teams Station Captain Relationship Specialty Start Date End Date Mary Ellen Kim NP [address] [place] [address] PCP - General Family Medicine 04/17/24 No, Physician 04/17/24
--- OUTSIDE RECORDS SUMMARY | 2024-09-22 14:11 | XMS_ITS | Continuity of Care Document ---
Author Organization [facility] Address [address] [place] [address] Phone Care Team Providers Care Paint Process Engineer Name Role Phone Ara Herman DO Unavailable [...] Provider Providers Copied on Encounter [facility], [address], [place], [place], [id number] , [place] tel:[phone] [facility] No Information 2 Batsheva Bullock. [address], [place], [place], [id number] , [place]. tel:[phone] [facility], [address], [place], [place], [id number] , [place] tel: [phone] [facility] No Information 2 Batsheva Ara. [address], [place], [place], [id number] , [place]. tel: [phone] [facility], [address], [place], [place], [id number] , [place] tel: [phone] [facility] No Information 2 Batsheva Ara. [address], [place], [place], [id number] , [place]. tel: [phone] [facility], [address], [place], [place], [id number] , [place] tel: [phone] [facility] No Information 2 Batsheva Ara. [address], [place], [place], [id number] , [place]. tel: [phone] [facility], [address], [place], [place], [id number] , [place] tel: [phone] [facility] No Information 1 Batsheva Ara. [address], [place], [place], [id number] , [place]. tel: [phone] OFFICE/OUTPA TIENT VISIT, [facility] IV [facility], [address], [place], [place], [id number] , [place] tel: [phone] [facility] anxiety (chief complaint) insomnia (chief complaint) Body mass index (BMI) 33.0-33.9, adultAnxiety and depressionSituational insomnia 1 Batsheva Ara. [address], [place], [place], [id number] , [place]. tel: [phone] Referring Provider: Ara Mann, [address], [place], [address] . tel:[phone] OFFICE/OUTPA TIENT VISIT, NEW [facility], [address], [place], [place], [id number] , tel:[phone] [facility] anxiety (chief complaint) Anxiety and depressionDepression, unspecifiedSituationa l insomnia Batsheva Bullock. [address], [place], [place], [id number] , [place]. tel:[phone] Referring Provider: Ara Mann, [address], [place], [address] . tel:[phone] Family History Family Member Type Diagnosis Age At Onset Father Problem alcoholism Mother Problem alcoholism Father Problem depression Mother Problem depression Immunizations Vaccine Date Status Comments Influenza, injectable, MDCK, preservative free, quadrivalent administered Source: Other Provider Influenza, injectable, quadr ivalent with preservative, MDCK, 0.5 mL dosage, Flucelvax Quad administered Source: Public Agency Payers Payer name Insurance type Covered libertarian ID Authorarnolda marii(s) [facility] [id number] Social History Type Description Quantity Date Captured [...]
--- OUTSIDE RECORDS SUMMARY | 2024-09-22 14:11 | XMS_ITS | Clinical Summary ---
Author Organization [facility] Address [address] [place] [address] Phone Care Team Providers Care Rn Telephonic Name Role Phone Sasha Martinez DPM Unavailable [phone] Mary Ellen Kim [employer], [employer] Primary Care Provider + Geoff Wood MD Unavailable Allergies No known active allergies Medications meclizine (ANTIVERT) 25 MG TabletIndication s:Vertigo Take 1 Tablet by mouth 3 times daily as needed for Dizziness. Indications: Sensation of Spinning or Whirling 30 Tablet 4 Active mirtazapine (REMERON) 15 MG TabletIndication s:Anxiety,Insomn ia, unspecified type,Major depressive disorder, recurrent episode, moderate (HCC) Take 1 Tablet by mouth nightly. 90 Tablet 5 Active FLUoxetine (PROzac) 40 MG Capsule Take 1 Capsule by mouth daily. 90 Capsule 1 5 Active Active Problems No known active problems Encounters Date Type Department Care Team Description 09/10/2024 Telephone [facility] [address] [place] [address] Mary Ellen Kim, [employer], [employer]ETING FORE[employer] Results 09/07/2024 Telephone [facility] [address] [place] [address] Mary Ellen Kim, YEISON, MARKETING FORECASTER 09/02/2024 8:00 AM CDT Office Visit [facility] [address] [place] [address] Mary Ellen Kim APRN, EMILY Recurrent major depressive disorder, in partial remission (HCC) (Primary Dx); Right carpal tunnel syndrome; Obesity (BMI 30-39.9); Insomnia, unspecified type Discharge Disposition: Discharged to home or Selfcare 09/02/2024 Travel 08/26/2024 11:00 AM CDT EMG [facility] [address] [place] [address] Tuan Vasquez APRN, EMILY Right carpal tunnel syndrome Discharge Disposition: Discharged to home or Selfcare 08/26/2024 Results Follow-Up [facility] [address] [place] [address] Tuan Vasquez APRN, EMILY EMG 1 EXTREMITY W/WO PARASPINAL RT 08/26/2024 Travel 08/05/2024 8:45 AM CDT Office Visit [facility] [address] [place] [address] Mary Ellen Kim APRN, EMILY Right carpal tunnel syndrome (Primary Dx) Discharge Disposition: Discharged to home or Selfcare 08/05/2024 7:21 AM CDT - 08/05/2024 11:59 PM CDT Hospital Encounter [facility] Ultrasound [address] [place] [address] Mary Ellen Kim APRN, EMIYL Discharge Disposition: Discharged to home or Selfcare 08/05/2024 Travel 07/31/2024 1:00 PM CDT Office Visit [facility] [address] [place] [address] Tuan Vasquez APRN, EMILY Right carpal tunnel syndrome (Primary Dx) Discharge Disposition: Discharged to home or Selfcare 07/31/2024 Results Follow-Up [facility] [address] [place] [address] Mary Ellen Kim, [employer], MARKETING FORECASTER TB INTRADERMAL TEST 07/30/2024 7:19 AM CDT - 07/30/2024 7:56 AM CDT Emergency [facility] Emergency [address] [place] [id number] Fabio Lamar MD Right carpal tunnel syndrome Discharge Disposition: Discharged to home or Selfcare 07/30/2024 Travel 07/29/2024 1:40 PM CDT Immunization [facility] [address] [place] [address] [facility] Screening for tuberculosis (Primary Dx) Discharge Disposition: Discharged to home or Selfcare 07/27/2024 9:00 AM CDT Office Visit [facility] [address] [place] [phone] Mary Ellen Kim, [employer], MARKETING FORE[employer]STER Right hand pain (Primary Dx); Hermelinda glabrata infection Discharge Disposition: Discharged to home or Selfcare 07/27/2024 Travel 07/22/2024 Results Follow-Up [facility] [address] [place] [phone] Mary Ellen Kim, [employer], MARKETING FORECASTER VAGINITIS SCREEN, MOLECULAR, CHLAMYDIA & GC DNA PROBE > 12, US PELVIS COMPLETE WITH TRANSVAG AND COLOR DOPPLER LMT-NON OB 07/14/2024 8:15 AM CDT Office Visit [facility] [address] [place] [phone] Justa Frances PAC Depression, unspecified depression type (Primary Dx); Anxiety Discharge Disposition: Discharged to home or Selfcare 07/14/2024 Travel 07/10/2024 8:15 AM CDT Office Visit [facility] [place] [address] [place] [address] Mary Ellen Kim APRN, EMILY Pelvic adnexal fluid collection (Primary Dx); Right ovarian cyst; Pelvic pain Discharge Disposition: Discharged to home or Selfcare 07/09/2024 3:29 PM CDT - 07/09/2024 7:26 PM CDT Emergency [facility] Emergency [address] [place] [address] Daya Almanza APRN, CNP Abdominal pain, unspecified abdominal location Discharge Disposition: Discharged to home or Selfcare 07/09/2024 Travel 07/06/2024 9:30 AM CDT Office Visit [facility] [address] [place] [phone] Mary Ellen Kim APRN, CNP Anxiety (Primary Dx); Insomnia, unspecified type; Major depressive disorder, recurrent episode, moderate (HCC) Discharge Disposition: Discharged to home or Selfcare 07/06/2024 Travel from Last 3 Months Immunizations Immunization [...] Jc Stroke Maternal Grandmother Shelley Mini [facility] Skin Cancer Mother Depression Paternal Aunt Congestive [...] pure alcohol) occasionally, three times per year [facility] Utilities Answer Date Recorded In [...] often do you attend chur ch or buddhist services? Never 03/10/2024 Do you belong to any clubs o r organizations such as christianity groups, unions, fraternal or athletic groups, or [...] Recorded Total Score - Questions 1-9 16 05/2 [facility] - Occupational [...] any time in the past 12 m [facility], were you homeless or living in a group home (including now)? No 03/10/2024 Sexually Active Control Partners Comments Yes Other Male Hysterectomy Comments No Sex and Gender Information Value Date Recorded Sex Assigned at Female 01/06/2023 5:01 AM CHIEF OF SERVICE Legal Sex Female 11:17 PM CDT Gender Identity Female 01/06/2023 5:01 AM CHIEF OF SERVICE Sexual Orientation Not on file Last Filed Vital Signs Vital Sign Reading Time Taken Comments Blood Pressure 118/64 09/02/2024 8:13 AM CDT Pulse 69 09/02/2024 8:13 AM CDT Temperature 36.2 C (97.2 F) 09/02/2024 8:13 AM CDT Respiratory Rate 18 09/02/2024 8:13 AM CDT Oxygen Saturation 99% 09/02/2024 8:13 AM CDT Inhaled Oxygen Concentration - - Weight 83.6 kg (184 lb 6.4 oz) 09/02/2024 8:13 A M CDT Height 149.9 cm (4' 11) 09/02/2024 8:13 AM CDT Body Mass Index 37.24 09/02/2024 8:13 AM CDT Plan of Treatment Upcoming Encounters Date Type Department Care Team (Late st Contact Info) Description 01/04/2025 8:15 AM CHIEF OF SERVICE Office Visit [facility] [address] [place] [address] Mary Ellen Kim, [employer], MARKETING [employer]STER [address] [place] [address] Health Maintenance Due Date Last Done Comments Hepatitis B Immunization (1 of 3 - 19+ 3-dose series) 02/15/2004 Human Papillomavirus (HPV) Immunization (1 - 3-dose SCDM series) 02/15/2012 SARS-COV-2 Immunization ( season) 2023 02/11/2021, 03/04/2020 Influenza Immunization (#1) 10/26/202408/2022, 10/26/2021, 10/12/2021, Additional history exists Td Immunization [...] Behavioral Health Behavioral Health Yes Fish Deras, [employer] Note: I need reassurance that all the bad things that have happened to me are not my fault. Procedures Procedure Name Priority Date/Time Associated Diagnosis Comments EMG 1 EXTREMITY W/WO PARASPINAL RT Routine 08/26/2024 12:00 AM CDT Right carpal tunnel syndrome US PELVIS COMPLETE WITH TRANSVAG AND COLOR DOPPLER LMT-NON OB Routine 08/05/2024 8:48 AM CDT Pelvic adnexal fluid collection Right ovarian cyst CHLAMYDIA & GC DNA PROBE Routine 07/10/2024 10:49 AM CDT Pelvic adnexal fluid collection CHLAMYDIA & GC DNA PROBE ADULT Routine 07/10/2024 10:49 AM CDT Pelvic adnexal [...] WITH DIFF STAT 07/09/2024 4:24 PM CDT HEPATITIS C ANTIBODY Routine 06/26/2023 8:04 AM CDT Need for hepatitis C screening test from Last 3 Months or Most Recently Relevant to Health Maintenance Results * EMG 1 EXTREMITY W/WO PARASPINAL RT (08/26/2024 12:00 AM CDT) 08/26/2024 Narrative SCAN - 08/26/2024 12:00 AM CDT Cruzito Quiroz MD 08/26/2024 5:25 PM Electromyogram Procedure Note Date of Procedure: 08/26/2024 Pre-operative Diagnosis: right upper extremity numbness, tingling and pain. Post-operative Diagnosis: Indications: Diagnostic Procedure Details Motor Nerve Conduction Studies: The right median motor nerve shows normal distal motor latency, normal motor amplitude and normal conduction velocity. The right ulnar motor nerve shows normal distal motor latency, normal motor amplitude and normal conduction velocity. Sensory Nerve Conduction Studies: The right radial sensory nerve shows normal sensory nerve peak latency and normal sensory amplitude. Median ulnar comparisons were normal, on the right. Median radial comparisons were prolonged, on the right. The right median sensory nerve shows normal sensory nerve peak latency and normal sensory amplitude. The right ulnar sensory nerve shows normal sensory nerve peak latency and normal sensory amplitude. F waves: F wave latency for the right median nerve was normal. F wave latency for the right ulnar nerve was normal. Summary This is an abnormal study consistent with very mild right median nerve entrapment at the flexor retinaculum. Clinical correlation is recommended. us Tuan Vasquez APRN, EMILY NEUROLOGY ORDERA BLES Final Result SCAN * US PELVIS COMPLETE WITH TRANSVAG AND COLOR DOPPLER LMT-NON OB (08/05/2024 8:48 AM CDT) Anatomical Region Laterality Modality Abdomen N/A Ultrasound 08/24/2024 12:4 5 AM CDT Impressions 08/24/2024 12:48 AM CDT IMPRESSION: Sequelae of hysterectomy. Fluid-filled tubelike structure in the right adnexa, likely representing a hydrosalpinx, not significantly changed from previous. Normal bilateral ovaries. Narrative 08/24/2024 12:48 AM CDT EXAM DESCRIPTION: US PELVIS COMPLETE WITH TRANSVAG AND COLOR DOPPLER LMT-NON OB REASON FOR STUDY: adnexal fluid, ovarian cyst TECHNIQUE: 2D grayscale and color Doppler ultrasound of the pelvic contents was performed with transabdominal and transvaginal transducer. COMPARISON: Comparison is made to CT of the abdomen and pelvis of July 09, 2024 and May 02, 2024. FINDINGS: UTERUS: Status post hysterectomy. RIGHT OVARY: The right ovary measures 2.4 x 1.3 x 1.8 cm. There is documentation of color and pulsed wave Doppler flow in the right ovary. The right ovary appears unremarkable. RIGHT ADNEXA: In the right adnexa, there is a anechoic, serpiginous structure corresponding to the cystic area seen on prior CT and not significantly changed since that time but also seen on the previous CT of April 2024 and slightly increased in size since that time. LEFT OVARY: The left ovary measures 3.3 x 1.3 x 1.8 cm. There is documentation of color and pulsed wave Doppler flow in the left ovary. There is a dominant follicle in the left ovary. The left ovary appears otherwise unremarkable. LEFT ADNEXA: Unremarkable. PELVIC FLUID: There is no evidence of free fluid in the pelvis. OTHER: No other significant findings. THIS IS AN ELECTRONICALLY VERIFIED FINAL REPORT 08/24/2024 12:45 AM - Electronically signed by Bethany Maldonado M.D. SN: Report ID: [id number] Reading Location: [id number] Procedure Note Bethany Maldonado MD - 08/24/2024 EXAM DESCRIPTION: US PELVIS COMPLETE WITH TRANSVAG AND COLOR DOPPLER LMT-NON OB REASON FOR STUDY: adnexal fluid, ovarian cyst TECHNIQUE: 2D grayscale and color Doppler ultrasound of the pelvic contents was performed with transabdominal and transvaginal transducer. COMPARISON: Comparison is made to CT of the abdomen and pelvis of July 09, 2024 and May 02, 2024. FINDINGS: UTERUS: Status post hysterectomy. RIGHT OVARY: The right ovary measures 2.4 x 1.3 x 1.8 cm. There is documentation of color and pulsed wave Doppler flow in the right ovary. The right ovary appears unremarkable. RIGHT ADNEXA: In the right adnexa, there is a anechoic, serpiginous structure corresponding to the cystic area seen on prior CT and not significantly changed since that time but also seen on the previous CT of April 2024 and slightly increased in size since that time. LEFT OVARY: The left ovary measures 3.3 x 1.3 x 1.8 cm. There is documentation of color and pulsed wave Doppler flow in the left ovary. There is a dominant follicle in the left ovary. The left ovary appears otherwise unremarkable. LEFT ADNEXA: Unremarkable. PELVIC FLUID: There is no evidence of free fluid in the pelvis. OTHER: No other significant findings. THIS IS AN ELECTRONICALLY VERIFIED FINAL REPORT 08/24/2024 12:45 AM - Electronically signed by Bethany Maldonado M.D. SN: SN Report ID: [id number] Reading Location: [place] [address] IMPRESSION: Sequelae of hysterectomy. Fluid-filled tubelike structure in the right adnexa, likely representing a hydrosalpinx, not significantly changed from previous. Normal bilateral ovaries. Mary Ellen Kim [employer], MARKETING FORECASTER [facility] US ORDERABLES Final Result * CHLAMYDIA & GC DNA PROBE > 12 (07/10/2024 10:49 AM CDT) CHLAMYDIA DNA NEGATIVE NEGATIVE 07/11/2024 8:48 PM CDT [facility] Comment: Presumed negative for C. trachomatis. A negative result does not preclude C. trachomatis infection because results are dependent on adequate specimen collection, absence of inhibitors, and sufficient DNA to be detected. This test was performed using KERMIT 5800 Real Time PCR. GC DNA NEGATIVE NEGATIVE 07/11/2024 8:48 PM CDT [facility] Comment: Presumed negative for N. gonorrhoeae. A negative result does not preclude N. gonorrhoeae infection because results are dependent on adequate specimen collection, absence of inhibitors, and sufficient DNA to be detected. This test was performed using KERMIT 5800 Real Time PCR. Other URINE / Unknown Non-Phlebotomy Collection / Unknown 07/10/2024 10:49 AM CDT 07/10/2024 10:49 AM CDT us Mary Ellen Kim [employer], [employer]ET[employer]STER MICROBIOLOGY - GENERAL O RDERABLES Final Result [facility] [address] [facility] [address], * (ABNORMAL) VAGINITIS SCREEN, MOLECULAR (07/10/2024 10:44 AM CDT) TRICHOMONAS NOT DETECTED NOT DETECTED 07/11/2024 3:54 AM CDT [facility] BACTERIAL VAGINOSIS NOT DETECTED NOT DETECTED 07/11/2024 3:54 AM CDT [facility] HERMELINDA DETECTED(A) NOT DETECTED 07/11/2024 3:54 AM CDT [facility] Comment: Hermelinda group DNA Detected with the following possible Hermelinda species; Hermelinda albicans and/or Hermelinda tropicalis and/or Hermelinda parapsilosis and/or Hermelinda dubliniensis HERMELINDA GLABRATA DETECTED(A) NOT DETECTED 07/11/2024 3:54 AM CDT [facility] HERMELINDA KRUSEI NOT DETECTED NOT DETECTED 07/11/2024 3:54 AM CDT [facility] Other VAGINAL STRUCTURE / Unknown Non-Phlebotomy Collection / Unknown 07/10/2024 10:44 AM CDT 07/10/2024 10:44 AM CDT us Mary Ellen Kim [employer], [employer] MICROBIOLOGY - GENERAL O RDERABLES Final Result [facility] [address] [place] [address], [place] * CT ABDOMEN PELVIS W/ CONTRAST [...] Julio Murdock M.D. KT: ANN Report ID: [id number] Reading Location: [id number] Procedure Note Julio Murdock MD - 07/09/2024 [...] Julio Murdock M.D. KT: ANN Report ID: [id number] Reading Location: [id number] IMPRESSION: 4 cm x 3.3 cm right ovarian cyst. Small follicles are seen on the left ovary. Dilated fluid-filled tubular structure in the right adnexal region extending to the right ovary. This was present on the previous examination of 05/02/2024 but now appears larger and could represent hydrosalpinx. As noted previously, correlation with transabdominal and transvaginal pelvic ultrasound is suggested. us Dayatasha Almanza APRN, CNP IMG CT ORDERABLES Final Result * POCT Urine HCG () (07/09/2024 4:40 PM CDT) POC URINE Negative POC URINE CONTROL Body [place] Urine 07/09/2024 4:40 PM CDT Daya Almanza APRN, CNP POINT OF CARE TEST ING (MANUAL) Final Result * (ABNORMAL) Urinalysis w/ Reflex (07/09/2024 4:25 PM CDT) Pathologist [facility] SPECIFIC GRAVITY 1.010 1.003 - 1.030 07/09/2024 5:19 PM CDT [facility] URINE PH 7.0 5.0 - 9.0 07/09/2024 5:19 PM CDT [facility] WBC ESTERASE Negative Negative 07/09/2024 5:19 PM CDT [facility] NITRITE Negative Negative 07/09/2024 5:19 PM CDT [facility] PROTEIN, RANDOM URINE 15 mg/dL(A) Negative 07/09/2024 5:19 PM CDT [facility] URINE GLUCOSE, QUAL Negative Negative 07/09/2024 5:19 PM CDT [facility] URINE KETONES Negative Negative 07/09/2024 5:19 PM CDT [facility] UROBILINOGEN Normal Normal mg/dL 07/09/2024 5:19 PM CDT [facility] URINE BLOOD 25 /uL(A) Negative young/ul 07/09/2024 5:19 PM CDT [facility] URINALYSIS COLOR Yellow 07/10/19 5:19 PM CDT [facility] URINALYSIS CLARITY Slightly Cloudy 07/09/2024 5:19 PM CDT [facility] WBC (Urine) 0-5 Negative, 0-5 /hpf 07/09/2024 5:19 PM CDT [facility] URINE RBC'S 11-20(A) Negative, 0-2 /hpf 07/09/2024 5:19 PM CDT [facility] EPITHELIAL CELLS Small amount /lpf 2024 5:19 PM CDT [facility] BACTERIA, URINE Few(A) Negative /hpf 07/09/2024 5:19 PM CDT [facility] URINE MUCOUS Few 07/09/2024 5:19 PM CDT [facility] Urine URINE SPECIMEN / Unknown Non-Phlebotomy Collection / Unknown 07/09/2024 4:25 PM CDT 07/09/2024 4:43 PM CDT us Vale Taylor MD URINE ORDERABLES Final Result [facility] [address] [place] [address] * CBC with Auto Differential (07/09/2024 4:24 PM CDT) WBC 8.72 4.00 - 12.00 10(3)/mcL 07/09/2024 4:45 PM CDT [facility] RBC 4.07 3.80 - 5.30 10(6)/mcL 07/09/2024 4:45 PM CDT [facility] HEMOGLOBIN (HGB) 12.3 12.0 - 15.8 g/dL 07/09/2024 4:45 PM CDT [facility] HEMATOCRIT (HCT) 38.3 36.0 - 47.0 % 07/09/2024 4:45 PM CDT [facility] MCV 94.1 82.0 - 96.0 fL 07/09/2024 4:45 PM CDT [facility] MCH 30.2 26.0 - 34.0 pg 07/09/2024 4:45 PM CDT [facility] MCHC 32.1 31.0 - 36.0 g/dL 07/09/2024 4:45 PM CDT [facility] PLATELET COUNT 336 140 - 440 10(3)/[facility] 07/09/2024 4:45 PM CDT [facility] RDW 12.2 11.8 - 15.5 % 07/09/2024 4:45 PM CDT [facility] MPV 9.8 9.7 - 12.4 fL 07/09/2024 4:45 PM CDT [facility] NEUTROPHILS 55.7 47.0 - 73.0 % 07/09/2024 4:45 PM CDT [facility] LYMPHOCYTES 34.4 18.0 - 42.0 % 07/09/2024 4:45 PM CDT [facility] MONOCYTES 8.0 4.0 - 12.0 % 07/09/2024 4:45 PM CDT [facility] EOSINOPHILS 1.8 0.0 - 5.0 % 07/09/2024 4:45 PM CDT [facility] BASOPHILS 0.1 0.0 - 1.0 % 07/09/2024 4:45 PM CDT [facility] ABSOLUTE NEUTROPHILS 4.85 1.60 - 7.70 10(3)/[facility] 07/09/2024 4:45 PM CDT [facility] ABSOLUTE LYMPHOCYTES 3.00 1.30 - 3.20 10(3)/[facility] 07/09/2024 4:45 PM CDT [facility] ABSOLUTE MONOCYTES 0.70 0.20 - 1.00 10(3)/[facility] 07/09/2024 4:45 PM CDT [facility] ABSOLUTE EOSINOPHIL 0.16 0.00 - 0.40 10(3)/[facility] 07/09/2024 4:45 PM CDT [facility] ABSOLUTE BASOPHILS 0.01 0.00 - 0.10 10(3)/[facility] 07/09/2024 4:45 PM CDT [facility] NRBC PER 100 WBC 0 07/10/19 4:45 PM [facility] Blood Venipuncture / Unknown 07/09/2024 4:24 PM CDT 07/09/2024 4:43 PM CDT us Vale Taylor MD HEMATOLOGY ORDERABLES Final R esult [facility] [address] [place] [address] * Lipase (07/09/2024 4:24 PM CDT) LIPASE 32 8 - 78 U/L 07/09/2024 5:05 PM CDT [facility] Blood Venipuncture / Unknown 07/09/2024 4:24 PM CDT 07/09/2024 4:43 PM CDT us Vale Taylor MD CHEMISTRY ORDERABLES Final Re sult Performing Organization Address City/[facility]/ZIP Co de Phone Number [facility] [address] [place] [address] * (ABNORMAL) CMP (07/09/2024 4:24 PM CDT) SODIUM 140 136 - 145 mmol/L 07/09/2024 5:05 PM CDT [facility] POTASSIUM 3.4(L) 3.5 - 5.1 mmol/L 07/09/2024 5:05 PM CDT [facility] CHLORIDE 106 98 - 107 mmol/L 07/09/2024 5:05 PM CDT [facility] CO2, VENOUS 28 22 - 30 mmol/L 07/09/2024 5:05 PM CDT [facility] ANION GAP 9.4 <18.0 mmol/L 07/09/2024 5:05 PM CDT [facility] GLUCOSE 86 70 - 99 mg/dL 07/09/2024 5:05 PM CDT [facility] BUN 7 5 - 18 mg/dL 07/09/2024 5:05 PM CDT [facility] CREATININE, BLOOD 0.71 0.60 - 1.00 mg/dL 07/09/2024 5:05 PM [facility] BUN/CREATININE RATIO 10(L) 12 - 20 ratio 07/09/2024 5:05 PM [facility] TOTAL PROTEIN 7.6 6.0 - 8.0 g/dL 07/09/2024 5:05 PM [facility] ALBUMIN 3.8 3.5 - 5.0 g/dL 07/09/2024 5:05 PM [facility] A/G RATIO 1.0 1.0 - 2.2 07/09/2024 5:05 PM [facility] CALCIUM 8.5(L) 8.7 - 10.5 mg/dL 07/09/2024 5:05 PM [facility] T BILI 0.3 0.2 - 1.2 mg/dL 07/09/2024 5:05 PM [facility] SGOT (AST) 24 <43 U/L 07/09/2024 5:05 PM [facility] SGPT (ALT) 22 <56 U/L 07/09/2024 5:05 PM [facility] ALKALINE PHOSPHATASE 88 40 - 150 U/L 07/09/2024 5:05 PM [facility] GFR, ESTIMATED >60 >=60 07/09/2024 5:05 PM [facility] Comment: Creatinine Clearance is the preferred criteria for selecting drug dose adjustments in renally impaired patients. The GFR is provided as additional pertinent clinical information. GFR is reported in mL/min/1.73 sq m. Calculation based on the Chronic Kidney Disease Epidemiology Collaboration (CKD- EPI) equation refit without adjustment for race. GFR, EST. >60 >=60 025 5:05 PM [facility] GFR, EST. NONAFRICAN >60 >=60 07/09/2024 5:05 PM [facility] Blood Venipuncture / Unknown 07/09/2024 4:24 PM CDT 07/09/2024 4:43 PM CDT us Vale Taylor MD CHEMISTRY ORDERABLES Final Re sult [facility] [address] [facility] [place] [address] * HEPATITIS C ANTIBODY (06/26/2023 8:04 AM CDT) hepatitis C antibody 0.08 <1 S/CO 06/26/2023 11:33 PM CDT [facility] Comment: Signal/Cutoff ratio < 0.79 is [...] AM CDT us Mary Ellen Kim APRN, [employer] CHEMISTRY ORDERABLES Fin al Result Performing Organization Address City/[facility] Co de Phone Number [facility] [address] [place] [address], [place] from Last 3 Months or Most Recently Relevant to Health Maintenance Insurance MEDICAID [place] Care Teams Rn Telephonic Relationship Specialty Start Date End Date Mary Ellen Kim APRN, [employer] [address] [place] [address] PCP - General Advanced Practice Nurse 02/08/23 Sasha Martinez DPM Consulting Physician Podiatry 02/27/22 Geoff Wood MD [address] [id number] Consulting Physician Urology 04/10/24
--- OUTSIDE RECORDS SUMMARY | 2024-09-22 14:11 | XMS_ITS | Continuity of Care Document ---
Author Organization [facility] Address [address] [facility] [place] [address] Phone Care Team Providers Care Rn Bariatric Name Role Phone Butch Schroeder MD Unavailable [...] Diagnoses Date Provider Providers Copied on Encounter [facility], [address], [place], [address], [place] tel:[phone] [facility] No Information Alexandre Rae. [address], [place], [place], [address] , [place]. tel:[phone] Referring Provider: [address], [place], [place], [address]. tel:[phone] OFFICE/OUTPA TIENT VISIT, [facility], [address], [place], [place], [address], [place] tel:[phone] [facility] UTI1 (chief complaint) insmonia1 (chief complaint) anxiety1 (chief complaint) Generalized Anxiety DisorderInsomniaUri nary tract infection Alexandre Rae. [address], [place], [place], [address] , [place]. [phone] Referring Provider: [address], [place], [place], [address]. tel:[phone] OFFICE/OUTPA TIENT VISIT, [facility], [address], [place], [place], [address], [place] tel:[phone] [facility] anxiety1 (chief complaint) sleep apnea1 (chief complaint) InsomniaGeneralized Anxiety DisorderBody mass index (BMI) 32.0-32.9, adult Alexandre Cabrera [address], [place], [place], [address] , [place]. tel:[phone] Referring Provider: [address], [place], [place], [address]. tel:[phone] OFFICE/OUTPA TIENT VISIT, [facility], [address], [place], [place], [address], [place] tel:[phone] [facility] HLP (chief complaint) vitmai D (chief complaint) anxiety1 (chief complaint) insomnia1 (chief complaint) hand weakness1 (chief complaint) InsomniaHyperlipide miaVitamin D deficiency, unspecifiedGenerali zed Anxiety Disorder Alexandre Cabrera [address], [place], [place], [address] , [place]. tel:[phone] Referring Provider: [address], [place], [place], [address]. tel:[phone] PREV VISIT, NEW, AGE 18-39 [facility], [address], [place], [place], [address], [place] tel:[phone] [facility] Physical (chief complaint) Encounter for general adult medical exam w abnormal findingsGeneralized Anxiety DisorderInsomniaSle ep apnea May-0 7 Alexandre Rae. [address], [place], [place], [address] , [place]. [phone] Referring Provider: [address], [place], [place], [address]. tel:[phone] PREV VISIT, EST, AGE 18-39 [facility], [address], [place], [place], [address], [place] tel:[phone] [facility] Physical (chief complaint) Dietary surveillance and counselingRoutine Medical ExamRoutine Medical Exam Sep-0 3 Alexandre Rae. [address], [place], [place], [address] , [place]. [phone] Referring Provider: [address], [place], [place], [address]. tel:[phone] OFFICE/OUTPA TIENT VISIT, EST [facility], [address], [place], [place], [address], [place] [phone] [facility] ganglion cyst (chief complaint) Dietary surveillance and counselingGanglion, unspecified 3 Alexandre Rae. [address], [place], [place], [address] , [place]. [phone] Referring Provider: [address], [place], [place], [address]. tel:[phone] Family History Family Member Type Diagnosis Age At Onset Mother Problem (finding) cancer, skin Brother Problem (finding) Alive and well Father Problem (finding) early age unknown causes Payers Payer name Insurance type Covered republican ID Authoralex colvin(s) No Information Social History [...] Insomnia) ordered Referral Referred To: SARAH CASAREZ [id number] [facility]
[address], [phone] Ordered: Referrals: SARAH CASAREZ. Evaluate and treat [...] busy at work to make appointment with [facility] anxiety1 Pt has been havi ng anxiety and depression Pt is getting and she has been having severe stress at work. Pt works up to 80 hours per week at the [employer]. Pt recently had a emotinal breakdown at [...]
--- OUTSIDE RECORDS SUMMARY | 2024-09-22 14:11 | XMS_ITS | Encounter Summary ---
Author Organization [facility] Address [address] [place] [address] Phone Care Team Providers Care Commodities Trader Name Role Phone Kei Martinezsaharesh Woods DPM Unavailable [phone] Mary Ellen Kim PRESIDENTIAL HELICOPTER CREW CHIEF, WEIGHT ANALYST Primary Care Provider + Geoff Wood MD Unavailable Reason for Visit * Reason Comments Medication Refill Encounter Details Date Type Department Care Team (Late st Contact Info) Description 01/28/2024 Refill [facility] - [facility] [address] [place] [address] Mary Ellen Kim, YEISON, WEIGHT ANALYST [address] [place] [address] Medication Refill Social History Tobacco Use Types Packs/Day Years Used Date Smoking Tobacco: Never Smokeless Tobacco: Never Alcohol Use Standard Drinks/Week Comments Not Currently 0 (1 standard drink = 0.6 oz pure alcohol) occasionally, three times per year [facility] Utilities Answer Date Recorded In the past 12 months has [employer], gas, oil, or water company threatened to shut off services in your home? Patient declined 10/30/2023 Social Connection and Isolation Panel Answer Date Recorded In a typical week, how many times do you talk on the phone with family, friends, or neighbors? Patient declined 10/30/2023 How often do you get togethe r with friends or relatives? Patient declined 10/30/2023 How often do you attend latter-day or baptist serv ices? Patient declined 10/30/2023 Do you belong to any clubs o r organizations such as latter-day groups, unions, fraternal or athletic groups, or [...] Total Score - Questions 1-9 0 11/25 [facility] - Occupational Stress Questionnaire Answer Date [...] any time in the past 12 m [facility], were you homeless or living in a intermediate (including now)? Patient declined 10/30/2023 Sexually Active Control Partners Comments Yes Other Male Hysterectomy Comments No Sex and Gender Information Value Date Recorded Sex Assigned at Female 01/06/2023 5:01 AM UTILIZATION REVIEW NURSE Legal Sex Female 11:17 PM CDT Gender Identity Female 01/06/2023 5:01 AM UTILIZATION REVIEW NURSE Sexual Orientation Not on file documented as of this encounter Plan of Treatment Upcoming Encounters Date Type Department Care Team (Late st Contact Info) Description 01/04/2025 8:15 AM UTILIZATION REVIEW NURSE [facility] Visit [facility] - [facility] [address] [place] [address] Mary Ellen Kim, PRESIDENTIAL HELICOPTER CREW CHIEF, WEIGHT ANALYST [address] [place] [address] documented as of this encounter Goals Goal Patient Goal Type Associated Problems Recent Progress Patient-Stated? Author Behavioral Health Behavioral Health Yes Fish Deras, AUTOMOBILE SEAT COVER INSTALLER Note: I need reassurance that all the bad things that have happened to me are not my fault. documented as of this encounter Visit Diagnoses Not on filedocumented in this encounter Additional Health Concerns Assessment Noted Time PHQ-9 Depression Total Score: 0 12/09/19 24 2:58 PM CDT documented as of this encounter Care Teams Commodities Trader Relationship Specialty Start Date End Date Mary Ellen Kim, PRESIDENTIAL HELICOPTER CREW CHIEF, WEIGHT ANALYST [address] [place] [address] PCP - General Advanced Practice Nurse 02/08/23 Sasha Martinez DPM Consulting Physician Podiatry 02/27/22 Geoff Wodo MD [address] [address] Consulting Physician Urology 04/10/24 documented as of this encounter
--- OUTSIDE RECORDS SUMMARY | 2024-09-22 14:11 | XMS_ITS | Encounter Summary ---
Author Organization [facility] Address [address] [place] [address] Phone Care Team Providers Care Podiatrist Orthopedic Name Role Phone Michelle Sasha D DPM Unavailable [phone] Mary Ellen Kim DELIVERY DIRECTOR, JEWELRY CASTING MODEL MAKER Primary Care Provider + Geoff Wood MD Unavailable Encounter Details Date Type Department Care Team (Late st Contact Info) Description 07/31/2024 Results Follow-Up [facility] - Family Medicine [facility] [address] [place] [address] Mary Ellen Kim, YEISON, JEWELRY CASTING MODEL MAKER [address] [place] [address] TB INTRADERMAL TEST Social History Tobacco Use Types Packs/Day Years Used Date Smoking Tobacco: Never Smokeless Tobacco: Never Alcohol Use Standard Drinks/Week Comments Not Currently 0 (1 standard drink = 0.6 oz pure alcohol) occasionally, three times per year [facility] Utilities Answer Date Recorded In the past 12 months has [employer], gas, oil, or water [employer] threatened to shut off services in your home? No 03/10/2024 Social Connection and Isolation Panel Answer Date Recorded In a typical week, how many times do you talk on the phone with family, friends, or neighbors? Once a week 03/10/19 How often do you get togethe r with friends or relatives? Once a week 03/10/2024 How often do you attend [facility] or jehovah's witness services? Never 03/10/2024 Do you belong to any clubs o r organizations such as roman catholic groups, unions, fraternal or athletic groups, or [...] Total Score - Questions 1-9 16 06/26 [facility] - Occupational Stress Questionnaire Answer Date Recorded [...] time in the past [address] [facility], were you homeless or living in a custodial (including now)? No 03/10/2024 Sexually Active Control Partners Comments Yes Other Male Hysterectomy Comments No Sex and Gender Information Value Date Recorded Sex Assigned at Female 01/06/2023 5:01 AM FLAT IRONER Legal Sex Female 11:17 PM CDT Gender Identity Female 01/06/2023 5:01 AM FLAT IRONER Sexual Orientation Not on file documented as of this encounter Plan of Treatment Upcoming Encounters Date Type Department Care Team (Late st Contact Info) Description 01/04/2025 8:15 AM FLAT IRONER [facility] Visit [facility] [address] [place] [address] Mary Ellen Kim, DELIVERY DIRECTOR, JEWELRY CASTING MODEL MAKER [address] [place] [address] documented as of this encounter Goals Goal Patient Goal Type Associated Problems Recent Progress Patient-Stated? Author Behavioral Health Behavioral Health Yes Fish Deras, ACID CUTTER Note: I need reassurance that all the bad things that have happened to me are not my fault. documented as of this encounter Visit Diagnoses Not on filedocumented in this encounter Additional Health Concerns Assessment Noted Time PHQ-9 Depression Total Score: 16 025 8:00 AM CDT documented as of this encounter Care Teams Podiatrist Orthopedic Relationship Specialty Start Date End Date Mary Ellen Kim, DELIVERY DIRECTOR, JEWELRY CASTING MODEL MAKER [address] [place] [address] PCP - General Advanced Practice Nurse 02/08/23 Sasha Martinez DPM Consulting Physician Podiatry 02/27/22 Geoff Wood MD [address] [address] Consulting Physician Urology 04/10/24 documented as of this encounter
--- OUTSIDE RECORDS SUMMARY | 2024-09-22 14:11 | XMS_ITS | Encounter Summary ---
Author Organization [facility] Address [address] [place] [address] Phone Care Team Providers Care Marketing Research Intern Name Role Phone Michelle Sasha D DPM Unavailable [phone] Mary Ellen Kim APRN, NEUROBIOLOGIST Primary Care Provider + Geoff Wood MD Unavailable Encounter Details Date Type Department Care Team (Late st Contact Info) Description 08/26/2024 Results Follow-Up [facility] - Family Medicine [facility] [address] [place] [address] Tuan Vasquez APRN, NEUROBIOLOGIST #[address] [address] EMG 1 EXTREMITY W/WO PARASPINAL RT Social History Tobacco Use Types Packs/Day Years Used Date Smoking Tobacco: Never Smokeless Tobacco: Never Alcohol Use Standard Drinks/Week Comments Not Currently 0 (1 standard drink = 0.6 oz pure alcohol) occasionally, three times per year [facility] Utilities Answer Date Recorded In the past 12 months has [employer] electric, gas, oil, or water company threatened [...] week 03/10/2024 How often do you attend [facility] or anabaptism services? Never 03/10/2024 Do you belong to any clubs o r organizations such as sabianist groups, unions, fraternal or athletic groups, or [...] Total Score - Questions 1-9 16 06/26 [facility] - Occupational Stress Questionnaire Answer Date [...] Sex Assigned at Female 01/06/2023 5:01 AM BAILIFF Legal Sex Female 11:17 PM CDT Gender Identity Female 01/06/2023 5:01 AM BAILIFF Sexual Orientation Not on file documented as of this encounter Plan of Treatment Upcoming Encounters Date Type Department Care Team (Late st Contact Info) Description 01/04/2025 8:15 AM BAILIFF [facility] Visit [facility] Family [facility] [address] [place] [address] Mary Ellen Kim, MATERIALS MGMT TECH, NEUROBIOLOGIST [address] [place] [address] documented as of this encounter Goals Goal Patient Goal Type Associated Problems Recent Progress Patient-Stated? Author Behavioral Health Behavioral Health Yes Fish Deras, DENIER CONTROL OPERATOR Note: I need reassurance that all the bad things that have happened to me are not my fault. documented as of this encounter Visit Diagnoses Not on filedocumented in this encounter Additional Health Concerns Assessment Noted Time PHQ-9 Depression Total Score: 16 07/14/ 025 8:00 AM CDT documented as of this encounter Care Teams Marketing Research Intern Relationship Specialty Start Date End Date Mary Ellen Kim, MATERIALS MGMT TECH, NEUROBIOLOGIST [address] [place] [address] PCP - General Advanced Practice Nurse 02/08/23 Sasha Martinez DPM Consulting Physician Podiatry 02/27/22 Geoff Wood MD [address] [address] Consulting Physician Urology 04/10/24 documented as of this encounter
--- OUTSIDE RECORDS SUMMARY | 2024-09-22 14:13 | XMS_ITS | Continuity of Care Document ---
Author Organization [facility] Address [address] [place] [address] Phone Care Team Providers Care Porter Used Car Lot Name Role Phone Ara Herman DO Unavailable [...] Date Provider Providers Copied on Encounter [facility], [address], [place], [place], [address] , [place] tel:[phone] [facility] No Information 2 Batsheva Bullock. [address], [place], [place], [address] , [place]. tel:[phone] [facility], [address], [place], [place], [address] , [place] tel: [phone] [facility] No Information 2 Batsheva Ara. [address], [place], [place], [address] , [place]. tel: [phone] [facility], [address], [place], [place], [address] , [place] tel: [phone] [facility] No Information 2 Batsheva Ara. [address], [place], [place], [address] , [place]. tel: [phone] [facility], [address], [place], [place], [address] , [place] tel: [phone] [facility] No Information 2 Batsheva Ara. [address], [place], [place], [address] , [place]. tel: [phone] [facility], [address], [place], [place], [address] , [place] tel: [phone] [facility] No Information 1 Batsheva Ara. [address], [place], [place], [address] , [place]. tel: [phone] OFFICE/OUTPA TIENT VISIT, [facility] IV [facility], [address], [place], [place], [address] , [place] tel: [phone] [facility] anxiety (chief complaint) insomnia (chief complaint) Body mass index (BMI) 33.0-33.9, adultAnxiety and depressionSituational insomnia 1 Batsheva Ara. [address], [place], [place], [address] , [place]. tel: [phone] Referring Provider: Ara Mann, [address], [place], [address] . tel:[phone] OFFICE/OUTPA TIENT VISIT, NEW IV [facility], [address], [place], [place], [address] , tel:[phone] [facility] anxiety (chief complaint) Anxiety and depressionDepression, unspecifiedSituationa l insomnia Batsheva Bullock. [address], [place], [place], [address] , [place]. tel:[phone] Referring Provider: Ara Mann, [address], [place], [address] . tel:[phone] Family History Family Member Type Diagnosis Age At Onset Father Problem alcoholism Mother Problem alcoholism Father Problem depression Mother Problem depression Immunizations Vaccine Date Status Comments Influenza, injectable, MDCK, preservative free, quadrivalent administered Source: Other Provider Influenza, injectable, quadr ivalent with preservative, MDCK, 0.5 mL dosage, Flucelvax Quad administered Source: Public Agency Payers Payer name Insurance type Covered green party ID Authorarnolda marii(s) [facility] [id number] Social History Type Description Quantity Date Captured [...] No Information Instructions Date Instruction Additional Infor martian Lifestyle education regarding di et Related to Body mass index [BMI] 33.0-33.9, adult Assessments Type Assessment Date No Information Patient Care Teams Name Effective Dates (start - stop) Status Members No Information
--- OUTSIDE RECORDS SUMMARY | 2024-09-22 14:13 | XMS_ITS | Continuity of Care Document ---
Author Organization [facility] Address [address] [place] [address] Phone Care Team Providers Care Monorail Charger Operator Name Role Phone Butch Schroeder MD [...] Diagnoses Date Provider Providers Copied on Encounter [facility], [address] [place], [place], [address], [place] tel:[phone] [facility] No Information Alexandre Rae. [address], [place], [place], [address] , [place]. tel:[phone] Referring Provider: [address], [place], [place], [address]. tel:[phone] OFFICE/OUTPA TIENT VISIT, [facility], [address], [place], [place], [address], [place] tel:[phone] [facility] UTI1 (chief complaint) insmonia1 (chief complaint) anxiety1 (chief complaint) Generalized Anxiety DisorderInsomniaUri nary tract infection Alexandre Rae. [address], [place], [place], [address] , [place]. [phone] Referring Provider: [address], [place], [place], [address]. tel:[phone] OFFICE/OUTPA TIENT VISIT, [facility], [address], [place], [place], [address], [place] tel:[phone] [facility] anxiety1 (chief complaint) sleep apnea1 (chief complaint) InsomniaGeneralized Anxiety DisorderBody mass index (BMI) 32.0-32.9, adult Alexandre Cabrera [address], [place], [place], [address] , [place]. tel:[phone] Referring Provider: [address], [place], [place], [address]. tel:[phone] OFFICE/OUTPA TIENT VISIT, [facility], [address], [place], [place], [address], [place] tel:[phone] [facility] HLP (chief complaint) vitmai D (chief complaint) anxiety1 (chief complaint) insomnia1 (chief complaint) hand weakness1 (chief complaint) InsomniaHyperlipide miaVitamin D deficiency, unspecifiedGenerali zed Anxiety Disorder Alexandre Cabrera [address], [place], [place], [address] , [place]. tel:[phone] Referring Provider: [address], [place], [address]. tel:[phone] PREV VISIT, NEW, AGE 18-39 [facility], [address], [place], [place], [address], [place] tel:[phone] [facility] Physical (chief complaint) Encounter for general adult medical exam w abnormal findingsGeneralized Anxiety DisorderInsomniaSle ep apnea May-0 7 Alexandre Rae. [address], [place], [place], [address] , [place]. [phone] Referring Provider: [address], [place], [place], [address]. tel:[phone] PREV VISIT, EST, AGE 18-39 [facility], [address], [place], [address], [place] tel:[phone] [facility] Physical (chief complaint) Dietary surveillance and counselingRoutine Medical ExamRoutine Medical Exam Sep-0 3 Alexandre Rae. [address], [place], [place], [address] , [place]. [phone] Referring Provider: [address], [place], [address]. tel:[phone] OFFICE/OUTPA TIENT VISIT, EST [facility], [address], [place], [address], [place] [phone] [facility] ganglion cyst (chief complaint) Dietary surveillance and counselingGanglion, unspecified 3 Alexandre Rae. [address], [place], [place], [address] , [place]. [phone] Referring Provider: [address], [place], [place], [address]. tel:[phone] Family History Family Member Type Diagnosis Age [...] Insomnia) ordered Referral Referred To: SARAH CASAREZ [id number] [facility]
[address], [phone] Ordered: Referrals: SARAH CASAREZ. 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 Pt recently had a emotinal breakdown at [...]
[2024-09-22 14:25] VITALS: BP 115/42; PULSE 98; RESP 16; TEMP 36.6; O2SAT 98
--- NOTE | 2024-09-22 14:34 | ED.GENADULT ---
HPI - General Adult General Chief complaint: Nausea/Vomiting/Diarrhea Stated complaint: diarrhea / nausea Time Seen by Provider: 09/22/24 14:35 Source: patient, RN notes reviewed and old records reviewed Mode of arrival: ambulatory Limitations: no limitations History of Present Illness HPI narrative: 39-year-old female presents to the [facility] complaints of diarrhea yesterday 3-4 times. Has had nausea, 1 episode of vomiting this morning. Denies any abdominal pain Denies any urinary symptoms. Hysterectomy No treatment prior to arrival Related Data Home Medications ?Medication ?Instructions ?Recorded ?Confirmed ?Last Taken ?Type fluoxetine 20 mg capsule 20 mg PO DAILY 09/22/23 04/16/24 Unknown History mirtazapine 15 mg tablet mg 07/09/24 Unknown History Allergies Allergy/AdvReac Type Severity Reaction Status Date / Time No Known Allergies Allergy Unknown Verified 07/09/24 11:11 Review of Systems Review of Systems: All systems reviewed & are unremarkable except as noted in HPI and below Constitutional: Constitutional: Reports no additional constitutional complaints ENT: Reports system reviewed and no additional complaints, except as documented Cardiovascular: Cardiovascular: Reports no additional cardiovascular complaints, Denies chest pain and Denies dyspnea Respiratory: Respiratory: Reports no additional respiratory complaints, Denies chest congestion, Denies cough and Denies dyspnea Gastrointestinal: Gastrointestinal: Reports as per HPI Musculoskeletal: Musculoskeletal: Reports no additional musculoskeletal complaints Integumentary/Breasts: Skin/Breast: Reports system reviewed and no additional complaints, except as docu PMFSH Past Medical History Medical History Back pain Encounter for annual routine gynecological examination Nexplanon removal (12/23/15) Nexplanon insertion (12/18/12) Arm fracture Pneumonia Frequent UTI Depression Anxiety Surgical History Surgical History History of robot-assisted laparoscopic hysterectomy (04/05/22) Robotic assisted total laparoscopic hysterectomy Bilateral salpingectomy History of dilation and curettage (05/17/16) hscope d&c/endometrial ablation--menometrorrhagia, dysmenorrhea--benign History of ovarian cystectomy (09/25/12) rt ovarian cystectomy History of bilateral breast reduction surgery (06/23/12) History of tubal ligation (11/30/10) History of 04/10/07 primary c/s--arrest of descent 11/30/10 rpt c/s w/tubal ligation History of tonsillectomy (~2002) Family History Family History Grandparent Hypertension paternal grandfather paternal grandmother Diabetes mellitus paternal grandmother paternal grandfather Cerebrovascular accident maternal grandmother paternal grandmother Heart disease paternal grandfather Mother Alcoholism Social History Social History Smoking status: Former smoker Tobacco type: cigarettes Additional smoking assessment comments: Pt stated on and off socially, does not currently Alcohol intake: current Alcohol use details: 1-2 year rare use Substance use: never Substance use type: does not use Living arrangements: with roommate(s) Additional living arrangements comments: Occupation/Education: unemployed 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 There is no relevant family history pertinent to the patient complaint. Exam Const: General: cooperative, healthy appearing, comfortable, no acute distress, well developed, alert and well nourished Nutritional Appearance: well nourished and obese Orientation/consciousness: patient oriented x3 Limitations: no limitations HENMT: Head: normal to inspection Ears: hearing grossly normal bilaterally, external ears normal, TM's normal bilaterally, EAC's normal, mastoids normal and no periauricular adenopathy Mouth: Yes Normal oral and palatal mucosa present, Yes lip normal, Yes tongue normal and Yes moist mucous membranes Throat: posterior oropharynx normal, uvula midline and no uvular edema Eyes: General: appearance normal, both eyes and all related structures Alignment and Position: alignment normal Neck: Neck: normal visual inspection, full ROM, no lymphadenopathy and no meningeal signs Chest: Chest palpation & inspection: normal inspection of the chest Resp: Effort & Inspection: normal respiratory effort and able to speak in complete sentences Auscultation: clear to auscultation bilaterally, no crackles, no rales, no rhonchi and no wheezes Cardio: Rate: regular rate GI: GI Palp: No abdominal tenderness Auscultation: normal bowel sounds : General: Yes no CVA tenderness Skin: General skin exam: normal color and no rashes or lesions noted Neuro: General: patient oriented x3, gait normal, moves all extremities and no meningeal signs Cognition (Neuro): normal cognition Speech: normal speech Gait exam (Neuro): Normal gait present Extrem: General: normal to inspection, full ROM, capillary refill normal and normal gait Psych: Appearance: grossly normal and well kempt Mental Status: mental status grossly normal Speech and movement: Normal speech and movement present and Clear speech present Affect: normal affect Attitude: cooperative Course Course Level of Care: Express Care Visit Vital Signs Vital signs: Vital Signs Temperature 98 F 09/22/24 14:25 Pulse Rate 98 09/22/24 14:25 Respiratory Rate 16 09/22/24 14:25 Blood Pressure 115/42 L 09/22/24 14:25 Pulse Oximetry 98 09/22/24 14:25 Oxygen Delivery Room Air 09/22/24 14:25 Temperature 98 F 09/22/24 14:25 Pulse Rate 98 09/22/24 14:25 Respiratory Rate 16 09/22/24 14:25 Blood Pressure 115/42 L 09/22/24 14:25 Pulse Oximetry 98 09/22/24 14:25 Oxygen Delivery Room Air 09/22/24 14:25 Reviewed Medical Decision Making MDM Narrative Medical decision making narrative: Patient sitting comfortably in exam room. Nontoxic, vitals stable. Patient in no acute distress Patient presents with diarrhea yesterday No acute findings noted on exam. Patient is requesting a work note for today. Discussed ukzp-eny-[id number] products, the importance of taking in fluids, simple diet. Discussed signs and symptoms proceed to the emergency room which she verbalized understanding Discharge instructions reviewed with patient, as well as provided in writing per nursing staff. The instructions also include specific and strict return/GO TO THE ER as well as f/u information. All questions have been answered, and the patient deny any further questions with discharge and discharge plan. Some parts of this dictation were generated by voice recognition software and may contain typographical and/or grammatical inaccuracies. Differential Diagnosis Differential Diagnosis: Sure gastroenteritis, Medical Records Medical records reviewed: Yes I reviewed the external patient's medical records. Vital Signs Vital Signs: Vital Signs Temperature 98 F 09/22/24 14:25 Pulse Rate 98 09/22/24 14:25 Respiratory Rate 16 09/22/24 14:25 Blood Pressure 115/42 L 09/22/24 14:25 Pulse Oximetry 98 09/22/24 14:25 Oxygen Delivery Room Air 09/22/24 14:25 Temperature 98 F 09/22/24 14:25 Pulse Rate 98 09/22/24 14:25 Respiratory Rate 16 09/22/24 14:25 Blood Pressure 115/42 L 09/22/24 14:25 Pulse Oximetry 98 09/22/24 14:25 Oxygen Delivery Room Air 09/22/24 14:25 Reviewed Lab Data Lab results reviewed: Yes I reviewed the patient's lab results. Labs: Reviewed Critical Care Time Critical Care Time Critical Care Time: No Discharge Plan Discharge Clinical Impression: Nausea, Diarrhea Patient Disposition: Home Condition: Stable Instructions: Acute Nausea and Vomiting (DC), Acute Diarrhea (ED) Additional Instructions: Keep your diet very simple. Nothing fried, greasy, spicy or highly processed. Increase your fluids. This includes water, Gatorade, Pedialyte, ice pops in Jell-O. Avoid anything caffeinated or carbonated If you continue with diarrhea take Imodium For new or worsening symptoms please go directly to the nearest emergency room Patient Language: Gibraltarian Prescriptions: No Action fluoxetine 20 mg capsule 20 mg PO DAILY mirtazapine 15 mg tablet Follow-up/Referrals: Mary Ellen Kim RN [Primary Care Provider] - 1 Week ([facility] follow-up ) Stand Alone Forms: Work/School Release IP Time of Disposition: 14:42
== END 2024-09-22 14:45 | disposition home or self-care (01) ==
PROVIDERS: Emergency Provider Nurse Practitioner
DX: R11.0 Nausea (principal); R19.7 Diarrhea, unspecified; Z87.891 Personal history of nicotine dependence; F41.9 Anxiety disorder, unspecified; F32.A Depression, unspecified
CPT/HCPCS: 99211; G0463

== ENCOUNTER 2024-11-11 14:41 | Emergency (ER) | payer MEDICAID, SELFPAY ==
--- OUTSIDE RECORDS SUMMARY | 2016-10-08 04:06 | XMS_ITS | Continuity of Care Document ---
Author Organization [facility] Address [address] [facility] [place] [address] Phone Care Team Providers Care Bush Hog Operator Name Role Phone Butch Schroeder MD Unavailable Unavailable Allergies, Adverse Reactions, Alerts Substance Reaction Status Criticality No Known Allergies Active No Inform ation Medications Medication Instructions Dosage Effective Dates (start - stop) Status Comments buspirone 7.5 mg tablet take 1 tablet by oral route 2 times every day 7.5 MG - Active avoid drivign or operate machines Macrobid 100 mg capsule take 1 capsule by oral route every 12 hours with food 100 MG - Active Ativan 0.5 mg tablet take 1 Tablet by oral route every bedtime as needed 0.5 MG - Active PRN for insomn ia Lexapro 20 mg tablet take 1 tablet by oral route every day 20 MG - Active Vitamin D2 50,000 unit capsule take 1 capsule by oral route every week - Active Procedures Procedure Date OFFICE/OUTPATIENT VISIT, EST OFFICE/OUTPATIENT VISIT, EST OFFICE/OUTPATIENT VISIT, EST PREV VISIT, NEW, AGE 18-39 OFFICE/OUTPATIENT VISIT, NEW PREV VISIT, EST, AGE 18-39 OFFICE/OUTPATIENT VISIT, EST Advance Directives Directive Yes / No Effective Date File Name No Information Encounters Encounter Description Practice Location Reason(s) For Visit Diagnoses Date Provider Providers Copied on Encounter [facility], [address], [place], [id number], [place] tel:[phone] [facility] No Information Alexandre Rae. [address], [place], [place], [address] , [place]. tel:[phone] Referring Provider: [address], [place], [place], [address]. tel:[phone] OFFICE/OUTPA TIENT VISIT, [facility], [address], [place], [place], [address], [place] tel:[phone] [facility] UTI1 (chief complaint) insmonia1 (chief complaint) anxiety1 (chief complaint) Generalized Anxiety DisorderInsomniaUri nary tract infection Alexandre Rae. [address], [place], [place], [address] , [place]. [phone] Referring Provider: [address], [place], [place], [address]. tel:[phone] OFFICE/OUTPA TIENT VISIT, [facility], [address], [place], [place], [address], [place] tel:[phone] [facility] anxiety1 (chief complaint) sleep apnea1 (chief complaint) InsomniaGeneralized Anxiety DisorderBody mass index (BMI) 32.0-32.9, adult Alexandre Cabrera [address], [place], [place], [address] , [place]. tel:[phone] Referring Provider: [address], [place], [place], [address]. tel:[phone] OFFICE/OUTPA TIENT VISIT, [facility], [address], [place], [place], [address], [place] tel:[phone] [facility] HLP (chief complaint) vitmai D (chief complaint) anxiety1 (chief complaint) insomnia1 (chief complaint) hand weakness1 (chief complaint) InsomniaHyperlipide miaVitamin D deficiency, unspecifiedGenerali zed Anxiety Disorder Alexandre Cabrera [address], [place], [place], [address] , [place]. tel:[phone] Referring Provider: [address], [place], [place], [address]. tel:[phone] PREV VISIT, NEW, AGE 18-39 [facility], [address], [place], [place], [address], [place] tel:[phone] [facility] Physical (chief complaint) Encounter for general adult medical exam w abnormal findingsGeneralized Anxiety DisorderInsomniaSle ep apnea May-0 7 Alexandre Rae. [address], [place], [place], [address] , [place]. [phone] Referring Provider: [address], [place], [place], [address]. tel:[phone] PREV VISIT, EST, AGE 18-39 [facility], [address], [place], [place], [address], [place] tel:[phone] [facility] Physical (chief complaint) Dietary surveillance and counselingRoutine Medical ExamRoutine Medical Exam Sep-0 3 Alexandre Rae. [address], [place], [place], [address] , [place]. [phone] Referring Provider: [address], [place], [place], [address]. tel:[phone] OFFICE/OUTPA TIENT VISIT, EST [facility], [address], [place], [place], [address], [place] [phone] [facility] ganglion cyst (chief complaint) Dietary surveillance and counselingGanglion, unspecified 3 Alexandre Rae. [address], [place], [place], [address] , [place]. [phone] Referring Provider: [address], [place], [place], [address]. tel:[phone] Family History Family Member Type Diagnosis Age At Onset Mother Problem (finding) cancer, skin Brother Problem (finding) Alive and well Father Problem (finding) early age unknown causes Payers Payer name Insurance type Covered constitution party ID Authoralex colvin(s) No Information Social History Type Description Quantity Date Captured Comments Alcohol Use Details Unknown Caffeine Use Details Unknown Tobacco Use Status No Information Smoking Status No Information Sex Female Chief Complaint And Reason For Visit No Information Plan Of Treatment Date Type Action Status Goal Td vaccine. Due on due Goal Tdap. Due on due Goal Pap/HPV testing. Due on due Goal Depression screening. Due on due Goal Depression screening. Due on due Goal Tdap. Due on due Goal Td vaccine. Due on due Goal Pap/HPV testing. Due on due Goal Tdap. Due on due Goal Depression screening. Due on due Goal Td vaccine. Due on due Goal Pap/HPV testing. Due on due Goal Depression screening. Due on due Goal Pap/HPV testing. Due on due Goal Td vaccine. Due on due Goal Tdap. Due on due Referral Ordered: Psychiatry (related to Generalized Anxiety Disorder) ordered Referral Ordered: Referrals: Psychiatry. Evaluate and treat ordered Referral Referred To: Occupational Therapy Ordered: Referrals: Occupational Therapy. Evaluate and treat Appointment date/timeframe: 3 Months ordered Referral Ordered: SARAH CASAREZ (related to Insomnia) ordered Referral Referred To: SARAH CASAREZ [id number] [facility]
[address], [id number] Ordered: Referrals: SARAH CASAREZ. Evaluate and treat ordered Referral Ordered: Otolaryngology (related to Sleep apnea) ordered Referral Ordered: Referrals: Otolaryngology. Evaluate and treat ordered Referral Ordered: Referral: Plastic Surg. ordered History Of Present Illness Encounter Date Complaint History Of Prese nt Illness UTI1 Pt states that s he notices urinary burning and frequency for 4 days. Pt denies any flank pain, fever, chill. Pt denies any pelvic pain insmonia1 pt takse ativan qhs PRN for insomnia Pt states that she has been taking 1-2 per day due to severe anxiety recenlty pt has depression also. Pt also takes lexapro. Pt denies any suicidal or homicidal thought Pt run out of ativan. . anxiety1 Pt has chronic a nxiety and depression. Pt takes lexapro. Pt states that her anxiety is getting worse due to stress. Pt has been taking ativan more during the day due to stress Pt is getting and she is not able to see her kids until the weekend and she is very stressed out about it. Pt denies any suicidal or homicdial thought sleep apnea1 Pt has snoring a nd fatigue and he has not done the sleep study yet Pt states that she is too busy at work to make appointment with [facility] anxiety1 Pt has been havi ng anxiety and depression Pt is getting and she has been having severe stress at work. Pt works up to 80 hours per week at the [employer]. Pt recently had a emotinal breakdown at work. Pt had to leave work due to stress Pt has been having crying spells. Pt states that she has hard time coping with her stress at work and at home. Pt denies any suicidal or homicidal thought. Pt has been taking ativan at night which helps her with sleep. Pt has been taking lexapro and ativan and doing ok until recenlty HLP Pt has mild HLP. pt is not on any diet vitmai D Pt has low D. Pt denies any bony fracture anxiety1 Pt has chronic a nxiety and depression Pt states that lexapro is helping her pt denies any suicidal or homicidal thought insomnia1 Pt states that a tivan is helping her falling asleep but she keeps waking up at night. Pt does snore. Pt feels fatigue in AM hand weakness1 Pt states that s he has mild bilateral hand weakness. NO numbness for several months. Pt denies any wiggins or injury Physical Pt needs annual physical. Pt has anxiety and depression and she feels extremely crandall and irritable and she is short tempered for many years. Pt used to have diagnosis of bipolar. Pt currently is not on any medication. Pt statse that lexapro did work in the past but she has not been taking it for long time. Pt denies any suicidal or homicidal thought. Pt has chronic insomnia and she has difficulty falling and staying aleep also. Pt wakes up tired all the time. pt states that she works 96 hours per week at work and she is very stressed and she states that it is causing her to have mood disorder and extremely fatigue and irritable due to the long hours. Pt gets in to work at 6 am and leaves after 10 mg daily saturday to saturday. pt states that she dose snore at night Instructions Date Instruction Additional Infor mation Weight management Related to Ins omnia Weight management Related to Gen eralized Anxiety Disorder Prescribed Diet Educ ation/Lifestyle Education Regarding Diet Related to Dietary Surveillance and Counseling Prescribed Activity and Exercise Education Related to Dietary Surveillance and Counseling Prescribed Diet Educ ation/Lifestyle Education Regarding Diet Related to Dietary Surveillance and Counseling Prescribed Activity and Exercise Education Related to Dietary Surveillance and Counseling Prescribed Diet Educ ation/Lifestyle Education Regarding Diet Related to Dietary Surveillance and Counseling Prescribed Activity and Exercise Education Related to Dietary Surveillance and Counseling Prescribed Diet Educ ation/Lifestyle Education Regarding Diet Related to Dietary Surveillance and Counseling Prescribed Activity and Exercise Education Related to Dietary Surveillance and Counseling Decrease caloric intake Related to Dietary surveillance counseling Dietary counseling Related to Di etary surveillance counseling Dietary counseling Related to Di etary surveillance counseling Decrease caloric intake Related to Dietary surveillance counseling Assessments Type Assessment Date No Information
--- OUTSIDE RECORDS SUMMARY | 2016-10-08 04:06 | XMS_ITS | Continuity of Care Document ---
Author Organization [facility] Address [address] [facility] [place] [address] Phone Care Team Providers Care Temper Mill Roller Name Role Phone Butch Schroeder MD Unavailable Unavailable Allergies, Adverse Reactions, Alerts Substance Reaction Status Criticality No Known Allergies Active No Inform ation Medications Medication Instructions Dosage Effective Dates (start - stop) Status Comments Macrobid 100 mg capsule take 1 capsule by oral route every 12 hours with food 100 MG - Active buspirone 7.5 mg tablet take 1 tablet by oral route 2 times every day 7.5 MG - Active avoid drivign or operate machines Lexapro 20 mg tablet take 1 tablet by oral route every day 20 MG - Active Ativan 0.5 mg tablet take 1 Tablet by oral route every bedtime as needed 0.5 MG - Active PRN for insomn ia Vitamin D2 50,000 unit capsule take 1 [...] Diagnoses Date Provider Providers Copied on Encounter [facility], [address], [place], [address], [place] tel:[phone] [facility] No Information Alexandre Rae. [address], [place], [place], [address] , [place]. tel:[phone] Referring Provider: [address], [place], [place], [address]. tel:[phone] OFFICE/OUTPA TIENT VISIT, [facility], [address], [place], [place], [address], [place] tel:[phone] [facility] UTI1 (chief complaint) insmonia1 (chief complaint) anxiety1 (chief complaint) Generalized Anxiety DisorderInsomniaUri nary tract infection Alexandre Rae. [address], [place], [place], [address] , [place]. [phone] Referring Provider: [address], [place], [place], [address]. tel:[phone] OFFICE/OUTPA TIENT VISIT, [facility], [address], [place], [place], [address], [place] tel:[phone] [facility] anxiety1 (chief complaint) sleep apnea1 (chief complaint) InsomniaGeneralized Anxiety DisorderBody mass index (BMI) 32.0-32.9, adult Alexandre Cabrera [address], [place], [place], [address] , [place]. tel:[phone] Referring Provider: [address], [place], [place], [address]. tel:[phone] OFFICE/OUTPA TIENT VISIT, [facility], [address], [place], [place], [address], [place] tel:[phone] [facility] HLP (chief complaint) vitmai D (chief complaint) anxiety1 (chief complaint) insomnia1 (chief complaint) hand weakness1 (chief complaint) InsomniaHyperlipide miaVitamin D deficiency, unspecifiedGenerali zed Anxiety Disorder Alexandre Cabrera [address], [place], [place], [address] , [place]. tel:[phone] Referring Provider: [address], [place], [place], [address]. tel:[phone] PREV VISIT, NEW, AGE 18-39 [facility], [address], [place], [place], [address], [place] tel:[phone] [facility] Physical (chief complaint) Encounter for general adult medical exam w abnormal findingsGeneralized Anxiety DisorderInsomniaSle ep apnea May-0 7 Alexandre Rae. [address], [place], [place], [address] , [place]. [phone] Referring Provider: [address], [place], [place], [address]. tel:[phone] PREV VISIT, EST, AGE 18-39 [facility], [address], [place], [place], [address], [place] tel:[phone] [facility] Physical (chief complaint) Dietary surveillance and counselingRoutine Medical ExamRoutine Medical Exam Sep-0 3 Alexandre Rae. [address], [place], [place], [address] , [place]. [phone] Referring Provider: [address], [place], [place], [address]. tel:[phone] OFFICE/OUTPA TIENT VISIT, EST [facility], [address], [place], [place], [address], [place] [phone] [facility] ganglion cyst (chief complaint) Dietary surveillance and counselingGanglion, unspecified 3 Alexandre Rae. [address], [place], [place], [address] , [place]. [phone] Referring Provider: [address], [place], [place], [address]. tel:[phone] Family History Family Member Type Diagnosis Age At Onset Mother Problem (finding) cancer, skin Brother Problem (finding) Alive and well Father Problem (finding) early age unknown causes Payers Payer name Insurance type Covered libertarian ID Authoralex colvin(s) No Information Social History [...] (related to Generalized Anxiety Disorder) ordered Referral Referred To: Occupational Therapy Ordered: Referrals: Occupational Therapy. Evaluate and treat Appointment date/timeframe: 3 Months ordered Referral Ordered: Referrals: Psychiatry. Evaluate and treat ordered Referral Ordered: SARAH CASAREZ (related to Insomnia) ordered Referral Referred To: SARAH CASAREZ [id number] [facility]
[address], [phone] Ordered: Referrals: SARAH CASAREZ. Evaluate and treat [...] busy at work to make appointment with [facility] anxiety1 Pt has been havi ng anxiety and depression Pt is getting and she has been having severe stress at work. Pt works up to 80 hours per week at the [employer]. Pt recently had a emotinal breakdown at [...] at night Instructions Date Instruction Additional Infor yvonneion Prescribed Activity and Exercise Education Related to Dietary Surveillance and Counseling Prescribed Diet Educ ation/Lifestyle Education Regarding Diet Related to Dietary Surveillance and Counseling Weight management Related to Gen eralized Anxiety Disorder Weight management Related to Ins omnia Prescribed Activity and Exercise Education Related to [...] Diet Related to Dietary Surveillance and Counseling Dietary counseling Related to Di etary surveillance counseling Decrease caloric intake Related to Dietary surveillance counseling Dietary counseling Related to Di etary surveillance counseling Decrease caloric intake Related to Dietary surveillance counseling Assessments Type Assessment Date No Information
--- OUTSIDE RECORDS SUMMARY | 2021-12-04 03:03 | XMS_ITS | Continuity of Care Document ---
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 [address], [place], [place], [address] , [place]. tel:[phone] [facility], [address], [place], [place], [address] , [place] tel: [phone] [facility] No Information 2 Batsheva Ara. [address], [place], [place], [address] , [place]. tel: [phone] [facility], [address], [place], [place], [address] , [place] tel: [phone] [facility] No Information 2 Batsheva Ara. [address], [place], [place], [address] , [place]. tel: [phone] [facility], [address], [place], [place], [address] , [place] tel: [phone] [facility] No Information 2 Batsheva Ara. [address], [place], [place], [address] , [place]. tel: [phone] [facility], [address], [place], [place], [address] , [place] tel: [phone] [facility] No Information 1 Batsheva Ara. [address], [place], [place], [address] , [place]. tel: [phone] OFFICE/OUTPA TIENT VISIT, [facility] IV [facility], [address], [place], [place], [address] , [place] tel: [phone] [facility] anxiety (chief complaint) insomnia (chief complaint) Body mass index (BMI) 33.0-33.9, adultAnxiety and depressionSituational insomnia 1 Batsheva Ara. [address], [place], [place], [address] , [place]. tel: [phone] Referring Provider: Ara Mann, [address], [place], [address] . tel:[phone] OFFICE/OUTPA TIENT VISIT, NEW IV [facility], [address], [place], [place], [address] , tel:[phone] [facility] anxiety (chief complaint) Anxiety and depressionDepression, unspecifiedSituationa l insomnia Batsheva Bullock. [address], [place], [place], [address] , [place]. tel:[phone] Referring Provider: Ara Mann, [address], [place], [address] . tel:[phone] Family History Family Member Type Diagnosis Age At Onset Father Problem alcoholism Mother Problem alcoholism Father Problem depression Mother Problem depression Immunizations Vaccine Date Status Comments Influenza, injectable, MDCK, preservative free, quadrivalent administered Source: Other Provider Influenza, injectable, quadr ivalent with preservative, MDCK, 0.5 mL dosage, Flucelvax Quad administered Source: Public Agency Payers Payer name Insurance type Covered alliance party ID Authorarnolda marii(s) [facility] [id number] Social History Type Description Quantity Date Captured [...]
--- OUTSIDE RECORDS SUMMARY | 2021-12-04 03:03 | XMS_ITS | Continuity of Care Document ---
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 [address], [place], [place], [address] , [place]. tel:[phone] [facility], [address], [place], [address] , [place] tel: [phone] [facility] No Information 2 Batsheva Ara. [address], [place], [address] , [place]. tel: [phone] [facility], [address], [place], [address] , [place] tel: [phone] [facility] No Information 2 Batsheva Ara. [address], [place], [place], [address] , [place]. tel: [phone] [facility], [address], [place], [place], [address] , [place] tel: [phone] [facility] No Information 2 Batsheva Ara. [address], [place], [address] , [place]. tel: [phone] [facility], [address], [place], [place], [address] , [place] tel: [phone] [facility] No Information 1 Batsheva Ara. [address], [place], [place], [address] , [place]. tel: [phone] OFFICE/OUTPA TIENT VISIT, [facility] IV [facility], [address], [place], [address] , [place] tel: [phone] [facility] anxiety (chief complaint) insomnia (chief complaint) Body mass index (BMI) 33.0-33.9, adultAnxiety and depressionSituational insomnia 1 Batsheva Ara. [address], [place], [address] , [place]. tel: [phone] Referring Provider: Ara Mann, [address], [place], [address] . tel:[phone] OFFICE/OUTPA TIENT VISIT, NEW [facility], [address], [place], [place], [address] , tel:[phone] [facility] anxiety (chief complaint) Anxiety and depressionDepression, unspecifiedSituationa l insomnia Batsheva Bullock. [address], [place], [place], [address] , [place]. tel:[phone] Referring Provider: Ara Mann, [address], [place], [address] . tel:[phone] Family History Family Member Type Diagnosis Age At Onset Father Problem alcoholism Mother Problem alcoholism Father Problem depression Mother Problem depression Immunizations Vaccine Date Status Comments Influenza, injectable, MDCK, preservative free, quadrivalent administered Source: Other Provider Influenza, injectable, quadr ivalent with preservative, MDCK, 0.5 mL dosage, Flucelvax Quad administered Source: Public Agency Payers Payer name Insurance type Covered green party ID Authorarnolda marii(s) [facility] [id number] Social History Type Description Quantity Date Captured [...] due Goal Tdap. Due on due Goal Influenza vaccine. Due on No due Goal Pap/HPV testing. Due on due Goal Td vaccine. Due on due Goal Tdap. Due on due Goal Lifestyle education mathew delgado diet completed Goal Influenza vaccine. Due on [...]
[2024-11-11 14:44] VITALS: BP 114/60; PULSE 78; RESP 18; TEMP 36.4; O2SAT 99
--- OUTSIDE RECORDS SUMMARY | 2024-11-11 15:22 | XMS_ITS | Encounter Summary ---
Author Organization [facility] Address [address] [place] [address] Phone Care Team Providers Care Salesperson [employer] Name Role Phone Kei Martinezsaharesh Woods DPM Unavailable [phone] Mary Ellen Kim COMPOSITE WORKER, SOLAR SALES SPECIALIST Primary Care Provider + Geoff Wood MD Unavailable Reason for Visit * Reason Comments Medication Refill Encounter Details Date Type Department Care Team (Late st Contact Info) Description 01/28/2024 Refill [facility] - Family Medicine [facility] [address] [place] [address] Mary Ellen Kim, YEISON, SOLAR SALES SPECIALIST [address] [place] [address] Medication Refill Social History Tobacco Use Types Packs/Day Years Used Date Smoking Tobacco: Never Smokeless Tobacco: Never Alcohol Use Standard Drinks/Week Comments Not Currently 0 (1 standard drink = 0.6 oz pure alcohol) occasionally, three times per year [facility] Utilities Answer Date Recorded In the past 12 months has [employer] electric, gas, oil, or water company threatened [...] declined 10/30/2023 How often do you attend gnosticist or islam serv ices? Patient declined 10/30/2023 Do you belong to any clubs o r organizations such as gnosticist groups, unions, fraternal or athletic groups, or [...] Total Score - Questions 1-9 0 11/25 [facility] - [facility] Stress Questionnaire Answer Date [...] any time in the past 12 m [facility], were you homeless or living in a snf (including now)? Patient declined 10/30/2023 Sexually Active Control Partners Comments Yes Other Male Hysterectomy Comments No Sex and Gender Information Value Date Recorded Sex Assigned at Female 01/06/2023 5:01 AM FRONT OF HOUSE MANAGER Legal Sex Female 11:17 PM CDT Gender Identity Female 01/06/2023 5:01 AM FRONT OF HOUSE MANAGER Sexual Orientation Not on file documented as of this encounter Plan of Treatment Upcoming Encounters Date Type Department Care Team (Late st Contact Info) Description 01/04/2025 8:15 AM FRONT OF HOUSE MANAGER [facility] [address] [place] [address] Mary Ellen Kim, COMPOSITE WORKER, SOLAR SALES SPECIALIST [address] [place] [address] documented as of this encounter Goals Goal Patient Goal Type Associated Problems Recent Progress Patient-Stated? Author Behavioral Health Behavioral Health Yes Fish Deras, REGISTER OF WILLS Note: I need reassurance that all the bad things that have happened to me are not my fault. documented as of this encounter Visit Diagnoses Not on filedocumented in this encounter Additional Health Concerns Assessment Noted Time PHQ-9 Depression Total Score: 0 12/09/19 24 2:58 PM CDT documented as of this encounter Care Teams Salesperson [employer] Relationship Specialty Start Date End Date Mary Ellen Kim, COMPOSITE WORKER, SOLAR SALES SPECIALIST [address] [place] [address] PCP - General Advanced Practice Nurse 02/08/23 Sasha Martinez DPM Consulting Physician Podiatry 02/27/22 Geoff Wood MD [address] [phone] Consulting Physician Urology 04/10/24 documented as of this encounter
--- OUTSIDE RECORDS SUMMARY | 2024-11-11 15:22 | XMS_ITS | Encounter Summary ---
Author Organization [facility] Address [address] [place] [address] Phone Care Team Providers Care Assembler Convertible Top Name Role Phone Kei Martinezsaharesh Woods DPM Unavailable [phone] Mary Ellen Kim BUSINESS CENTER ATTENDANT, ANALYTICAL STRATEGIST Primary Care Provider + Geoff Wood MD Unavailable Reason for Visit * Reason Comments Medication Refill Encounter Details Date Type Department Care Team (Late st Contact Info) Description 03/12/2024 Refill [facility] - Family Medicine [facility] [address] [place] [address] Mary Ellen Kim, YEISON, ANALYTICAL STRATEGIST [address] [place] [address] Medication Refill Social History Tobacco Use Types Packs/Day Years Used Date Smoking Tobacco: Never Smokeless Tobacco: Never Alcohol Use Standard Drinks/Week Comments Not Currently 0 (1 standard drink = 0.6 oz pure alcohol) occasionally, three times per year [facility] Utilities Answer Date Recorded In the past 12 months has [employer] electric, gas, oil, or water company threatened [...] week 03/10/2024 How often do you attend [facility] or yazidism services? Never 03/10/2024 Do you belong to any clubs o r organizations such as sikh groups, unions, fraternal or athletic groups, or [...] Total Score - Questions 1-9 0 02/25 [facility] - Occupational [...] any time in the past 12 m [facility], were you homeless or living in a snf (including now)? No 03/10/2024 Sexually Active Control Partners Comments Yes Other Male Hysterectomy Comments No Sex and Gender Information Value Date Recorded Sex Assigned at Female 01/06/2023 5:01 AM INSTALLATION HELPER Legal Sex Female 11:17 PM CDT Gender Identity Female 01/06/2023 5:01 AM INSTALLATION HELPER Sexual Orientation Not on file documented as of this encounter Miscellaneous Notes * Telephone Encounter - Norma Pan RN - 03/12/2024 11:18 AM CST Name from pharmacy: TRAZODONE 50 MG TABLET Will file in chart as: traZODone (DESYREL) 50 MG Tablet The original prescription was discontinued on 03/06/2024 by Mary Ellen Kim APRN, ANALYTICAL STRATEGIST Insomnia. Taking Trazodone 50 mg nightly. Medication is no longer helpful. Difficulty falling asleep. No problem staying asleep. ALLATION HELPER documented in this encounter Plan of Treatment Upcoming Encounters Date Type Department Care Team (Late st Contact Info) Description 01/04/2025 8:15 AM INSTALLATION HELPER Office Visit [facility] - Family Medicine [facility] [address] [place] [address] Mary Ellen Kim APRN, ANALYTICAL STRATEGIST [address] [place] [address] documented as of this encounter Goals Goal Patient Goal Type Associated Problems Recent Progress Patient-Stated? Author Behavioral Health Behavioral Health Yes Fish Deras, DIRECTOR OF CONTENT AND PROGRAMMING Note: I need reassurance that all the bad things that have happened to me are not my fault. documented as of this encounter Visit Diagnoses Not on filedocumented in this encounter Additional Health Concerns Assessment Noted Time PHQ-9 Depression Total Score: 0 03/10/19 25 8:19 AM INSTALLATION HELPER documented as of this encounter Care Teams Assembler Convertible Top Relationship Specialty Start Date End Date Mary Ellen Kim, BUSINESS CENTER ATTENDANT, ANALYTICAL STRATEGIST [address] [place] [address] PCP - General Advanced Practice Nurse 02/08/23 Sasha Martinez DPM Consulting Physician Podiatry 02/27/22 Geoff Wood MD [address] [facility], [address] [address] Consulting Physician Urology 04/10/24 documented as of this encounter
--- OUTSIDE RECORDS SUMMARY | 2024-11-11 15:22 | XMS_ITS | Clinical Summary ---
Author Organization [facility] Address [address] [place] [address] Care Team Providers Care Residential Case Manager Name Role Phone Mary Ellen Kim NP Primary Care Provider [phone] No, Physician Unavailable Allergies No known active allergies Medications ondansetron ODT (ZOFRAN-ODT) 4 mg disintegrating tablet Dissolve 1 tablet oral every 4 hours as needed for nausea or vomiting. 15 tablet 03/26/19 22 Active Additional Information Patient not taking.Reported on 11/05/2024 FLUoxetine (PROzac) 20 mg capsule Take 1 capsule (20 mg total) by mouth daily Active mirtazapine (REMERON) 15 mg tablet Take 1 tablet (15 mg total) by mouth nightly 07/07/19 25 Active Active Problems No known active problems Encounters Date Type Department Care Team Description 11/05/2024 9:00 AM CDT Office Visit [facility] Orthopedics and Sports Medicine [address] [place] [phone] Fuentes Cerna MD Right hand pain (Primary Dx); Carpal tunnel syndrome, right; Carpal tunnel syndrome, left 11/05/2024 7:38 AM CDT - 11/05/2024 11:59 PM CDT Hospital Encounter [facility] Medical [facility] Orthopedics and Sports Medicine [address] [place] [phone] Discharge Disposition: Discharge to home or self care 11/05/2024 Telephone [facility]oped[facility] and Sports Medicine [address] [facility] [address] [place] [address] Fuentes Cerna MD from Last 3 Months Surgical History Surgery Date Site/Laterality Comments SECTION TONSILLECTOMY REDUCTION MAMMAPLASTY OVARIAN CYST REMOVAL CYST REMOVAL HYSTERECTOMY 04/05/2022 Medical History Medical History Date Comments Insomnia Anxiety Depression Family History Medical History Relation Name Comments Depression Father Cancer Mother Depression Mother Relation Name Status Comments Father Mother Alive Social History Tobacco Use Types Packs/Day Years Used Date Smoking Tobacco: Former Cigarettes Smokeless Tobacco: Never Comments No Sex and Gender Information Value Date Recorded Sex Assigned at Not on file Legal Sex Female 8:12 AM SLATE HANDLER Gender Identity Not on file Sexual Orientation Not on file Obstetrics History Last Filed Vital Signs Vital Sign Reading Time Taken Comments Blood Pressure 112/76 11/05/2024 8:58 AM CDT Pulse 91 11/05/2024 8:58 AM CDT Temperature 36.6 C (97.9 F) 07/07/2024 12:19 PM CDT Respiratory Rate 20 07/07/2024 12:19 PM CDT Oxygen Saturation 98% 07/07/2024 12:19 PM CDT Inhaled Oxygen Concentration - - Weight 86.6 kg (191 lb) 11/05/2024 8:58 AM CDT Height 147.3 cm (4' 10) 11/05/2024 8:58 AM CDT Body Mass Index 39.92 11/05/2024 8:58 AM CDT Plan of Treatment Health Maintenance Due Date Last Done Comments Depression Screening 1985 Hepatitis C Screening 1985 Varicella Vaccines (1 of 2 - 13+ 2-dose series) 1998 Regular Well Visit/Exam 18-64 2003 HPV Vaccines (1 - 3-dose SCDM series) 02/15/2012 Influenza Vaccine (#1) 2024 , 10/26/2021, 10/12/2021, Additional history exists DTaP/Tdap/Td Vaccine (2 - Td or Tdap) 01/13/2026 01/14/2016, 03/08/1999 Hepatitis B Screening Completed 03/08/1999 , 09/07/1998, 08/03/1998 Pneumococcal vaccine <65 Aged Out No longer eligible based on patient's age to complete this topic Procedures Procedure Name Priority Date/Time Associated Diagnosis Comments XR HAND BILATERAL 3 OR MORE VIEWS OF EACH Routine 11/05/2024 8:56 AM CDT Right hand pain from Last 3 Months Results * XR Hand Bilateral 3 or More Views of Each (11/05/2024 8:56 AM CDT) Anatomical Region Laterality Modality Upper Extremities, Hand Digital Radiography Narrative 11/05/2024 2:27 PM CDT No bony abnormalities or pathology noted Fuentes Cerna MD IMG XR PROCEDURES Final Result from Last 3 [place] [address] Care Teams Residential Case Manager Relationship Specialty Start Date End Date Mary Ellen Kim BANQUET SERVER ON CALL [address] [place] [address] PCP - General Family Medicine 04/17/24 No, Physician 04/17/24
--- OUTSIDE RECORDS SUMMARY | 2024-11-11 15:22 | XMS_ITS | Encounter Summary ---
Author Organization [facility] Address [address] [place] [address] Care Team Providers Care Tuft Machine Operator Name Role Phone Mary Ellen Kim NP Primary Care Provider [phone] No, Physician Unavailable Encounter Details Date Type Department Care Team (Late st Contact Info) Description 11/05/2024 Telephone [facility] Group Orthopedics and Sports Medicine [address] [facility] [address] [place] [phone] Fuentes Cerna MD [address] [facility] [address] [place], [place] [id number] Social History Tobacco Use Types Packs/Day Years Used Date Smoking Tobacco: Former Cigarettes Smokeless Tobacco: Never Comments No Sex and Gender Information Value Date Recorded Sex Assigned at Not on file Legal Sex Female 8:12 AM UNDERCOVER OPERATOR Gender Identity Not on file Sexual Orientation Not on file documented as of this encounter Miscellaneous Notes * Telephone Encounter - Shanon Mane MA - 11/11/2024 2:20 PM CDT Called and spoke with pt. Surgery date moved to 11/30/24. Pt offered to make a new post op date now and was unable to and will call back. * Telephone Encounter - Anne Marie Bedoya - 11/06/2024 12:19 PM CDT Patient called in and left message stating she would like to move her surgery to next year. Returned call and message was left that we would be in touch with her on Saturday * Telephone Encounter - Indira Whittington MA - 11/05/2024 2:03 PM CDT Procedure: Right carpal tunnel release [x] Outpatient [] Overnight DOS: 11/23/2024 Surgery Clearance Checklist: [x] No Clearance Needed per Physician [] PCP: [] Cardiology: [] Endocrinology: [] Pulmonology: [] Neurology: [] Other: Blood Thinner: [] Yes Name of medication: [x] No Is patient a Diabetic: [] Yes [x] No 1. Have you ever had a total joint replacement before? N/A 2. Have you ever had a problem with anesthesia? N/A 3. Do you have anyone at home who can care for you? N/A 4. Do you have a preference of home health or outpatient therapy for the first two weeks? N/A 5. Lower extremity only Do you own a walker? N/A 6. What Pharmacy do you prefer [facility] 7. What outpatient therapy location do you prefer - N/A Reviewed with patient surgery clearance requirements that forms must be returned to our office no later than 72 hours prior to surgery. Later than 72 hours may cause patients surgery to be cancelled and/or rescheduled. Reviewed with patient that appointments with the above provider should be scheduled in a timely manner, and recommend appointments be made no later than 3 weeks prior to surgery. For Total Arthoplasty Surgery: Reviewed with patient labs to be completed prior to surgery, advisedthese must be completed no more than 30 days prior to surgery. Patient was advised to completely these early on in the 30 day window to allow time to address abnormal results if they arise. Labs are to be completed at: N/A Medications to be discontinued prior to surgery were reviewed with patient, and hand out provided listing when to stop prior to surgery. Patient instructed to contact PCP and/or prescribing provider with questions about when to discontinue prior to surgery. For blood thinners, patient was instructed to speak with prescribing provider about when to discontinue and was advised our office needs documentation on when to stop prior to surgery. This can be completed on the form provided for the patient. Reviewed with patient use of surgical soap prior to surgery. Patient was instructed to use the evening before and the morning of surgery. Advised to not wash hair, face, genital, or rectal area. Patient expressed full understanding of the above in preparation for surgery. Patient was advised to contact our office if any questions or concerns arise prior to surgery. MA/FELIPA Name: Indira FLORES documented in this encounter Plan of Treatment Not on file documented as of this encounter Visit Diagnoses Not on filedocumented in this encounter Care Teams Tuft Machine Operator Relationship Specialty Start Date End Date Mary Ellen Kim NP [address] [place] [address] PCP - General Family Medicine 04/17/24 No, Physician 04/17/24 documented as of this encounter
--- OUTSIDE RECORDS SUMMARY | 2024-11-11 15:22 | XMS_ITS | Clinical Summary ---
Author Organization [facility] Address [address] [place] [address] Phone Care Team Providers Care Commercial Truck Driver Name Role Phone Sasha Martinez DPM Unavailable [phone] Mary Ellen Kim APRN, SUPERIOR COURT CLERK Primary Care Provider + Geoff Wood MD Unavailable Allergies No known active allergies Medications meclizine (ANTIVERT) 25 MG TabletIndication s:Vertigo Take 1 Tablet by mouth 3 times daily as needed for Dizziness. Indications: Sensation of Spinning or Whirling 30 Tablet 4 Active FLUoxetine (PROzac) 40 MG Capsule Take 1 Capsule by mouth daily. 90 Capsule 1 5 Active mirtazapine (REMERON) 15 MG TabletIndication s:Anxiety,Insomn ia, unspecified type,Major depressive disorder, recurrent episode, moderate (HCC) TAKE 1 TABLET BY MOUTH EVERY DAY AT NIGHT 90 Tablet 1 5 Active Active Problems No known active problems Encounters Date Type Department Care Team Description 10/02/2024 Refill [facility] [address] [place] [address] Mary Ellen Kim APRN, SUPERIOR COURT CLERK Medication Refill 09/10/2024 Telephone [facility] [address] [place] [phone] Mary Ellen Kim APRN, SUPERIOR COURT CLERK Results 09/07/2024 Telephone [facility] [address] [place] [phone] Mary Ellen Kim APRN, CNP 09/02/2024 8:00 AM CDT Office Visit [facility] [address] [place] [address] Mary Ellen Kim APRN, EMILY Recurrent major depressive disorder, in partial remission (HCC) (Primary Dx); Right carpal tunnel syndrome; Obesity (BMI 30-39.9); Insomnia, unspecified type Discharge Disposition: Discharged to home or Selfcare 09/02/2024 Travel 08/26/2024 11:00 AM CDT [facility] [address] [place] [address] Tuan Vasquez APRN, CNP Right carpal tunnel syndrome Discharge Disposition: Discharged to home or Selfcare 08/26/2024 Results Follow-Up [facility] [address] [place] [address] Tuan Vasquez APRN, CNP EMG 1 EXTREMITY W/WO PARASPINAL RT 08/26/2024 Travel from Last 3 Months Immunizations Immunization [...] pure alcohol) occasionally, three times per year [facility] Utilities Answer Date Recorded In the [...] often do you attend chur ch or voodoo services? Never 03/10/2024 Do you belong to any clubs o r organizations such as jainism groups, unions, fraternal or athletic groups, or [...] Total Score - Questions 1-9 16 06/26 [facility] [place] [facility] Occupat ional Health - Occupational Stress [...] any time in the past 12 m [facility], were you homeless or living in a half-way (including now)? No 03/10/2024 Sexually Active Control Partners Comments Yes Other Male Hysterectomy Comments No Sex and Gender Information Value Date Recorded Sex Assigned at Female 01/06/2023 5:01 AM DRUM REEL CUTTER Legal Sex Female 11:17 PM CDT Gender Identity Female 01/06/2023 5:01 AM DRUM REEL CUTTER Sexual Orientation Not on file Last Filed [...] st Contact Info) Description 01/04/2025 8:15 AM DRUM REEL CUTTER Office Visit [facility] [address] [place] [address] Mary Ellen Kim, RAILROAD PASSENGER AGENT, SUPERIOR COURT CLERK [address] [place] [address] Health Maintenance Due Date Last Done Comments Hepatitis B Immunization (1 of 3 - 19+ 3-dose series) 02/15/2004 Human Papillomavirus (HPV) Immunization (1 - 3-dose SCDM series) 02/15/2012 Influenza Immunization (#1) 10/26/202408/2022, 10/26/2021, 10/12/2021, Additional history exists SARS-COV-2 Immunization ( season) 2024 02/11/2021, 03/04/2020 Td Immunization Every 10 Years [...] Behavioral Health Behavioral Health Yes Fish Deras, LEAVE SPECIALIST Note: I need reassurance that all the bad things that have happened to me are not my fault. Procedures Procedure Name Priority Date/Time Associated Diagnosis Comments EMG 1 EXTREMITY W/WO PARASPINAL RT Routine 08/26/2024 12:00 AM CDT Right carpal tunnel syndrome HEPATITIS C ANTIBODY Routine 06/26/2023 8:04 AM [...] correlation is recommended. us Tuan Vasquez APRN, SUPERIOR COURT CLERK NEUROLOGY ORDERA BLES Final Result SCAN * HEPATITIS C ANTIBODY (06/26/2023 8:04 AM CDT) hepatitis C antibody 0.08 <1 S/CO 06/26/2023 11:33 PM CDT [facility] Comment: Signal/Cutoff ratio < 0.79 is Nondetected Signal/Cutoff ratio 0.80-0.99 is Grayzone Signal/Cutoff ratio > 0.99 is Detected Supplemental assays are recommended if signal/cutoff ratio is >/=1.00. Signal/cutoff ratio result >/= 5.00 is 97% predictive of positivity for recombinant immunoblot assay (RIBA) and will be reported to the [place] Department of Public Health as required. Blood Venipuncture / Unknown 06/26/2023 8:04 AM CDT 06/26/2023 8:05 AM CDT us Mary Ellen Kim RAILROAD PASSENGER AGENT, SUPERIOR COURT CLERK CHEMISTRY ORDERABLES Fin al Result [facility] [address] [place] [address], [place] from Last 3 Months or Most Recently Relevant to Health Maintenance Insurance [place]ICA[place] [facility] Care Teams Commercial Truck Driver Relationship Specialty Start Date End Date Mary Ellen Kim, RAILROAD PASSENGER AGENT, SUPERIOR COURT CLERK [address] [place] [address] PCP - General Advanced Practice Nurse 02/08/23 Sasha Martinez DPM Consulting Physician Podiatry 02/27/22 Geoff Wood MD [address] [address] Consulting Physician Urology 04/10/24
--- NOTE | 2024-11-11 15:49 | ED.EAR ---
HPI - Ear Problem General Chief complaint: Ear Stated complaint: right ear Time Seen by Provider: 11/11/24 15:45 Source: patient and RN notes reviewed Mode of arrival: ambulatory Limitations: no limitations History of Present Illness HPI Narrative: Patient presents today complaining 5 day history of sensation of fluid in the right ear. Reports only occasional discomfort. Normal hearing. She has tried ibuprofen without improvement. No recent illness. Related Data Home Medications ?Medication ?Instructions ?Recorded ?Confirmed ?Last Taken ?Type mirtazapine 15 mg tablet mg 07/09/24 10/13/24 Unknown History Allergies Allergy/AdvReac Type Severity Reaction Status Date / Time No Known Allergies Allergy Unknown Verified 11/11/24 14:45 [facility] Past Medical History Medical History Back pain Encounter for annual routine gynecological examination Nexplanon removal (12/23/15) Nexplanon insertion (12/18/12) Arm fracture Pneumonia Frequent UTI Depression Anxiety Surgical History Surgical History History of robot-assisted laparoscopic hysterectomy (04/05/22) Robotic assisted total laparoscopic hysterectomy Bilateral salpingectomy History of dilation and curettage (05/17/16) hscope d&c/endometrial ablation--menometrorrhagia, dysmenorrhea--benign History of ovarian cystectomy (09/25/12) rt ovarian cystectomy History of bilateral breast reduction surgery (06/23/12) History of tubal ligation (11/30/10) History of 04/10/07 primary c/s--arrest of descent 11/30/10 rpt c/s w/tubal ligation History of tonsillectomy (~2002) Family History Family History Grandparent Hypertension paternal grandfather paternal grandmother Diabetes mellitus paternal grandmother paternal grandfather Cerebrovascular accident maternal grandmother paternal grandmother Heart disease paternal grandfather Mother Alcoholism Social History Social History Smoking status: Former smoker Tobacco type: cigarettes Second hand tobacco smoke exposure: No Additional smoking assessment comments: Pt stated on and off socially, does not currently Alcohol intake: former Alcohol use details: 1-2 year rare use Substance use: never Substance use type: does not use Do You Feel Safe in your Home?: Yes Lack of Transportation: No Lack of Food: Never True Current Housing: I Have Housing Concerned About Future Housing: No Difficulty Paying Gas/Electric Bills: No Difficulty Paying for Meds: No Currently Unemployed: YES Education: High School Diploma/GED Difficulty w/ Childcare or Family Care: No Living arrangements: with roommate(s) Additional living arrangements comments: Occupation/Education: occupation Additional occupation/education comments: [employer] [facility] Gender identity (if verbalized by the patient): Female Sexual Orientation (if Verbalized by the Patient): Straight or Heterosexual Spiritual care concerns: No Comments At time of signature, I have reviewed and agree with nursing past medical, surgical, social and family history unless otherwise noted. Please see nursing chart for further information. There is no relevant family history pertinent to the presenting complaint Exam Narrative: GENERAL: Well-appearing, well-nourished, and in no acute distress. HEAD: Normocephalic, atraumatic. EYES: EOMI. No redness or drainage. Conjunctivae normal. ENT: Mucous membranes pink and moist. Nares clear. No rhinorrhea. Left ear normal. Right TM with very mild middle ear effusion without evidence of bacterial infection. NECK: Normal AROM. Supple. CHEST: No respiratory distress. EXTREMITIES: Normal range of motion. No edema. SKIN: Warm, dry, no rash. Capillary refill normal. Normal skin turgor. NEURO: No focal deficits. Alert and oriented x3. Gait steady. PSYCH: Normal affect. No signs of depression or anxiety. Course Course Level of Care: Express Care Visit Vital Signs Vital signs: Vital Signs Temperature 97.6 F 11/11/24 14:44 Pulse Rate 78 11/11/24 14:44 Respiratory Rate 18 11/11/24 14:44 Blood Pressure 114/60 11/11/24 14:44 Pulse Oximetry 99 11/11/24 14:44 Oxygen Delivery Room Air 11/11/24 14:44 Temperature 97.6 F 11/11/24 14:44 Pulse Rate 78 11/11/24 14:44 Respiratory Rate 18 11/11/24 14:44 Blood Pressure 114/60 11/11/24 14:44 Pulse Oximetry 99 11/11/24 14:44 Oxygen Delivery Room Air 11/11/24 14:44 Reviewed Medical Decision Making MDM Narrative Medical decision making narrative: 39-year-old female patient presents today with a 5 day history of sensation of fluid in her right ear with occasional pain. No recent illness. Upon exam come patient has a slight right middle ear effusion without infection, otherwise normal exam. Recommend Flonase and Mucinex. PCP or ENT follow-up if symptoms persist. Patient agrees with plan. Vital signs stable. Anticipatory guidance given. Differential Diagnosis Differential Diagnosis: Otitis media, otitis externa, ruptured TM, serous otitis, cerumen impaction Vital Signs Vital Signs: Vital Signs Temperature 97.6 F 11/11/24 14:44 Pulse Rate 78 11/11/24 14:44 Respiratory Rate 18 11/11/24 14:44 Blood Pressure 114/60 11/11/24 14:44 Pulse Oximetry 99 11/11/24 14:44 Oxygen Delivery Room Air 11/11/24 14:44 Temperature 97.6 F 11/11/24 14:44 Pulse Rate 78 11/11/24 14:44 Respiratory Rate 18 11/11/24 14:44 Blood Pressure 114/60 11/11/24 14:44 Pulse Oximetry 99 11/11/24 14:44 Oxygen Delivery Room Air 11/11/24 14:44 Critical Care Time Critical Care Time Critical Care Time: No Discharge Plan Discharge Clinical Impression: Acute serous otitis media of right ear Qualifiers: Recurrence: non-recurrent Qualified Code(s): H65.01 - Acute serous otitis media, right ear Patient Disposition: Home Condition: Stable Instructions: Fluid In The Ear (Serous Otitis Media) (ED) Additional Instructions: You have a small amount of fluid behind your right ear drum but no evidence of infection. Please use [id number] intranasal steroid such as Flonase to help drain the fluid. Follow-up with your PCP or ENT if symptoms persist. Patient Language: Slovak Prescriptions: No Action mirtazapine 15 mg tablet Follow-up/Referrals: Mary Ellen Kim RN [Primary Care Provider, Nursing] Niles Foster MD [Physician, Ear, Nose, Throat] Time of Disposition: 15:54
== END 2024-11-11 15:55 | disposition home or self-care (01) ==
PROVIDERS: Emergency Provider Nurse Practitioner
DX: H65.01 Acute serous otitis media, right ear (principal); Z87.891 Personal history of nicotine dependence
CPT/HCPCS: 99211; G0463

== ENCOUNTER 2025-01-01 12:03 | Emergency (ER) | payer OTHER, SELFPAY ==
--- OUTSIDE RECORDS SUMMARY | 2021-12-04 02:03 | XMS_ITS | Continuity of Care Document ---
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 Role Phone Ara Herman DO Unavailable Unavailable Allergies, Adverse Reactions, Alerts Substance Reaction Status Criticality No Known Allergies Active No Inform ation Medications Medication Instructions Dosage Effective Dates (start - stop) Status Comments ESCITALOPRAM 20 MG TABLET TAKE 1 TABLET BY MOUTH DAILY - Active TRAZODONE 50 MG TABLET TAKE 1 TABLET BY MOUTH EVERY DAY AT BEDTIME NEEDED SLEEP - Active lorazepam 0.5 mg tablet take 1 Tablet by ORAL route every 8 hours prn anxiety 0.5 MG - Active Procedures Procedure Date OFFICE/OUTPATIENT VISIT, EST IV OFFICE/OUTPATIENT VISIT, NEW IV 021 Advance Directives Directive Yes / No Effective Date File Name No Information Encounters Encounter Description Practice Location Reason(s) For Visit Diagnoses Date Provider Providers Copied on Encounter [facility], [address], [place], [place], [address] , [place] tel:[phone] [facility] No Information 2 Batsheva Bullock. [address], [place], [place], [address] , [place]. tel:[phone] [facility], [address], [place], [place], [address] , [place] tel: [phone] [facility] No Information 2 Batsheva Ara. [address], [place], [place], [address] , [place]. tel: [phone] [facility], [address], [place], [place], [address] , [place] tel: [phone] [facility] No Information 2 Batsheva Ara. [address], [place], [place], [address] , [place]. tel: [phone] [facility], [address], [place], [place], [address] , [place] tel: [phone] [facility] No Information 2 Batsheva Ara. [address], [place], [place], [address] , [place]. tel: [phone] [facility], [address], [place], [place], [address] , [place] tel: [phone] [facility] No Information 1 Batsheva Ara. [address], [place], [place], [address] , [place]. tel: [phone] OFFICE/OUTPA TIENT VISIT, [facility] IV [facility], [address], [place], [place], [address] , [place] tel: [phone] [facility] anxiety (chief complaint) insomnia (chief complaint) Body mass index (BMI) 33.0-33.9, adultAnxiety and depressionSituational insomnia 1 Batsheva Ara. [address], [place], [place], [address] , [place]. tel: [phone] Referring Provider: Ara Mann, [address], [place], [address] . tel:[phone] OFFICE/OUTPA TIENT VISIT, NEW IV [facility], [address], [place], [place], [address] , tel:[phone] [facility] anxiety (chief complaint) Anxiety and depressionDepression, unspecifiedSituationa l insomnia Batsheva Bullock. [address], [place], [place], [address] , [place]. tel:[phone] Referring Provider: Ara Mann, [address], [place], [address] . tel:[phone] Family History Family Member Type Diagnosis Age At Onset Father Problem alcoholism Mother Problem alcoholism Father Problem depression Mother Problem depression Immunizations Vaccine Date Status Comments Influenza, injectable, MDCK, preservative free, quadrivalent administered Source: Other Provider Influenza, injectable, quadr ivalent with preservative, MDCK, 0.5 mL dosage, Flucelvax Quad administered Source: Public Agency Payers Payer name Insurance type Covered republican ID Authorarnolda marii(s) [facility] [id number] Social History Type Description Quantity Date Captured Comments Sex Female Smoking Status No Information Gender Identity Female Chief Complaint And Reason For Visit No Information Reason For Referral Reason For Referral No Information Plan Of Treatment Date Type Action Status Goal Tdap. Due on due Goal Td vaccine. Due on due Goal Pap/HPV testing. Due on due Goal Influenza vaccine. Due on No due Goal Tdap. Due on due Goal Td vaccine. Due on due Goal Pap/HPV testing. Due on due Goal Influenza vaccine. Due on No due Goal Lifestyle education mathew delgado diet completed Goal Pap/HPV testing. Due on due Goal Tdap. Due on due Goal Td vaccine. Due on 21 due Goal Influenza vaccine. Due on Oc due History Of Present Illness Encounter Date Complaint History Of Prese nt Illness anxiety This is a follow up visit. The patient presents with loss of appetite but denies anxious/fearful thoughts, compulsive thoughts, depressed mood, difficulty concentrating, difficulty falling asleep, difficulty staying asleep, excessive worry, fatigue, racing thoughts or restlessness. The patient denies any headache, irritability, nausea and vomiting. insomnia The patient pres ents with sleep problems. Relevant history: a BMI of 33.73. The patient is experiencing changes in appetite and depression. The patient denies awakening with choking, awakening with shortness of breath, difficulty concentrating, difficulty initiating sleep, difficulty maintaining sleep, headache upon awakening, increased fatigue, irritability, non-restorative sleep, sleep walking, snoring (reported by patient), snoring (reported by others), wheezing or witnessed apnea or irregular nighttime breathing. anxiety This is an initi al visit. The patient presents with anxious/fearful thoughts, difficulty falling asleep, excessive worry and fatigue but denies compulsive thoughts, depressed mood, difficulty concentrating, difficulty staying asleep, loss of appetite, racing thoughts or restlessness. The patient denies any headache, nausea, urinary frequency and vomiting. Functional Status Date Functional Assessmen t No Information Instructions Date Instruction Additional Infor martina Lifestyle education regarding di et Related to Body mass index [BMI] 33.0-33.9, adult Assessments Type Assessment Date No Information Patient Care Teams Name Effective Dates (start - stop) Status Members No Information
--- OUTSIDE RECORDS SUMMARY | 2021-12-04 02:03 | XMS_ITS | Continuity of Care Document ---
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 [address], [place], [place], [address] , [place]. tel:[phone] [facility], [address], [place], [place], [address] , [place] tel: [phone] [facility] No Information 2 Batsheva Ara. [address], [place], [place], [address] , [place]. tel: [phone] [facility], [address], [place], [place], [address] , [place] tel: [phone] [facility] No Information 2 Batsheva Ara. [address], [place], [place], [address] , [place]. tel: [phone] [facility], [address], [place], [place], [address] , [place] tel: [phone] [facility] No Information 2 Batsheva Ara. [address], [place], [place], [address] , [place]. tel: [phone] [facility], [address], [place], [place], [address] , [place] tel: [phone] [facility] No Information 1 Batsheva Ara. [address], [place], [place], [address] , [place]. tel: [phone] OFFICE/OUTPA TIENT VISIT, [facility] IV [facility], [address], [place], [place], [address] , [place] tel: [phone] [facility] anxiety (chief complaint) insomnia (chief complaint) Body mass index (BMI) 33.0-33.9, adultAnxiety and depressionSituational insomnia 1 Batsheva Ara. [address], [place], [place], [address] , [place]. tel: [phone] Referring Provider: Ara Mann, [address], [place], [address] . tel:[phone] OFFICE/OUTPA TIENT VISIT, NEW [facility], [address], [place], [place], [address] , tel:[phone] [facility] anxiety (chief complaint) Anxiety and depressionDepression, unspecifiedSituationa l insomnia Batsheva Bullock. [address], [place], [place], [address] , [place]. tel:[phone] Referring Provider: Ara Mann, [address], [place], [address] . tel:[phone] Family History Family Member Type Diagnosis Age At Onset Father Problem alcoholism Mother Problem alcoholism Father Problem depression Mother Problem depression Immunizations Vaccine Date Status Comments Influenza, injectable, MDCK, preservative free, quadrivalent administered Source: Other Provider Influenza, injectable, quadr ivalent with preservative, MDCK, 0.5 mL dosage, Flucelvax Quad administered Source: Public Agency Payers Payer name Insurance type Covered democrat ID Authorarnolda marii(s) [facility] [id number] Social History Type Description Quantity Date Captured Comments Sex Female Smoking Status No Information Gender Identity Female Chief Complaint And Reason For Visit No Information Reason For Referral Reason For Referral No Information Plan Of Treatment Date Type Action Status Goal Influenza vaccine. Due on due Goal Pap/HPV testing. Due on due Goal Td vaccine. Due on due Goal Tdap. Due on due Goal Tdap. Due on due Goal Td vaccine. Due on due Goal Pap/HPV testing. Due on due Goal Influenza vaccine. Due on due Goal Lifestyle education malathiin g diet completed Goal Influenza vaccine. Due on Oc due Goal Td vaccine. Due on 21 due Goal Tdap. Due on due Goal Pap/HPV testing. Due on due History Of Present Illness Encounter Date Complaint History Of Prese nt Illness insomnia The patient pres ents with sleep [...] or irregular nighttime breathing. anxiety This is a follow up visit. The patient presents with loss of appetite but denies anxious/fearful thoughts, compulsive thoughts, depressed mood, difficulty concentrating, difficulty falling asleep, difficulty staying asleep, excessive worry, fatigue, racing thoughts or restlessness. The patient denies any headache, irritability, nausea and vomiting. anxiety This is an initi al visit. [...]
[2025-01-01 12:14] VITALS: BP 120/54; PULSE 89; RESP 18; TEMP 36.4; O2SAT 98
--- OUTSIDE RECORDS SUMMARY | 2025-01-01 12:25 | XMS_ITS | Encounter Summary ---
Author Organization [facility] Address [address] [place] [address] Phone Care Team Providers Care Wrapper Sizer Name Role Phone MichelleSasha Chuck DPM Unavailable [phone] Mary Ellen Kim LEAF SIZE PICKER, RECEIVING ROOM CLERK Primary Care Provider + Geoff Wood MD Unavailable Reason for Visit * Reason Comments Medication Refill Encounter Details Date Type Department Care Team (Late st Contact Info) Description 01/28/2024 Refill [facility] [address] [place] [address] Mary Ellen Kim, YEISON, RECEIVING ROOM CLERK [address] [place] [address] Medication Refill Social History Tobacco Use Types Packs/Day Years Used Date Smoking Tobacco: Never Smokeless Tobacco: Never Alcohol Use Standard Drinks/Week Comments Not Currently 0 (1 standard drink = 0.6 oz pure alcohol) occasionally, three times per year [facility] Utilities Answer Date Recorded In the past 12 months has [employer], gas, oil, or water [employer] threatened to shut off services in your home? Patient declined 10/30/2023 Social Connection and Isolation Panel Answer Date Recorded In a typical week, how many times do you talk on the phone with family, friends, or neighbors? Patient declined 10/30/2023 How often do you get togethe r with friends or relatives? Patient declined 10/30/2023 How often do you attend mosque or christian serv ices? Patient declined 10/30/2023 Do you belong to any clubs o r organizations such as mosque groups, unions, fraternal or athletic groups, or [...] Total Score - Questions 1-9 0 11/25 [facility] - Occupational Stress Questionnaire Answer Date [...] any time in the past 12 m [facility], were you homeless or living in a chcf (including now)? Patient declined 10/30/2023 Sexually Active Control Partners Comments Yes Other Male Hysterectomy Comments No Sex and Gender Information Value Date Recorded Sex Assigned at Female 01/06/2023 5:01 AM CLASSROOM TEACHER Legal Sex Female 11:17 PM CDT Gender Identity Female 01/06/2023 5:01 AM CLASSROOM TEACHER Sexual Orientation Not on file documented as of this encounter Plan of Treatment Upcoming Encounters Date Type Department Care Team (Late st Contact Info) Description 02/15/2025 7:45 AM CLASSROOM TEACHER [facility]ment [facility] [address] [place] [address] Mary Ellen Kim, LEAF SIZE PICKER, RECEIVING ROOM CLERK [address] [place] [address] 04/23/2025 8:00 AM CLASSROOM TEACHER Office Visit [facility] [address] [place] [address] Mary Ellen Kim, LEAF SIZE PICKER, RECEIVING ROOM CLERK [address] [place] [address] documented as of this encounter Goals Goal Patient Goal Type Associated Problems Recent Progress Patient-Stated? Author Behavioral Health Behavioral Health Yes Fish Deras, EXTRACTIONS TECHNOLOGIST Note: I need reassurance that all the bad things that have happened to me are not my fault. documented as of this encounter Visit Diagnoses Not on filedocumented in this encounter Additional Health Concerns Assessment Noted Time PHQ-9 Depression Total Score: 0 12/09/19 24 2:58 PM CDT documented as of this encounter Care Teams Wrapper Sizer Relationship Specialty Start Date End Date Mary Ellen Kim, LEAF SIZE PICKER, RECEIVING ROOM CLERK [address] [facility] [place] [address] PCP - General Advanced Practice Nurse 02/08/23 Sasha Martinez DPM Consulting Physician Podiatry 02/27/22 Geoff Wood MD [address]2 [facility], [facility] [address] [place] [address] Consulting Physician Urology 04/10/24 documented as of this encounter
--- OUTSIDE RECORDS SUMMARY | 2025-01-01 12:25 | XMS_ITS | Encounter Summary ---
Author Organization [facility] Address [address] [place] [address] Phone Care Team Providers Care Home Improvement Contractor Name Role Phone MichelleSasha Chuck DPM Unavailable [phone] Mary Ellen Kim WELDER EXPERIMENTAL, CIVIL ENGINEERING INTERN Primary Care Provider + Geoff Wood MD Unavailable Reason for Visit * Reason Comments Medication Refill Encounter Details Date Type Department Care Team (Late st Contact Info) Description 03/12/2024 Refill [facility] [place] [address] [place] [address] Mary Ellen Kim, YEISON, CIVIL ENGINEERING INTERN [address] [place] [address] Medication Refill Social History Tobacco Use Types Packs/Day Years Used Date Smoking Tobacco: Never Smokeless Tobacco: Never Alcohol Use Standard Drinks/Week Comments Not Currently 0 (1 standard drink = 0.6 oz pure alcohol) occasionally, three times per year [facility] Utilities Answer Date Recorded In the past 12 months has [email or web address], gas, oil, or water [employer] threatened to shut off services in your home? No 03/10/2024 Social Connection and Isolation Panel Answer Date Recorded In a typical week, how many times do you talk on the phone with family, friends, or neighbors? Once a week 03/10/19 How often do you get togethe r with friends or relatives? Once a week 03/10/2024 How often do you attend [facility] or mormonism services? Never 03/10/2024 Do you belong to any clubs o r organizations such as episcopal groups, unions, fraternal or athletic groups, or [...] Total Score - Questions 1-9 0 02/25 [facility] - Occupational Stress Questionnaire Answer Date Recorded [...] any time in the past 12 m [facility], were you homeless or living in a [facility] (including now)? No 03/10/2024 Sexually Active Control Partners Comments Yes Other Male Hysterectomy Comments No Sex and Gender Information Value Date Recorded Sex Assigned at Female 01/06/2023 5:01 AM STATISTICAL CLERK Legal Sex Female 11:17 PM CDT Gender Identity Female 01/06/2023 5:01 AM STATISTICAL CLERK Sexual Orientation Not on file documented as of this encounter Miscellaneous Notes * Telephone Encounter - Norma Pan RN - 03/12/2024 11:18 AM CST Name from pharmacy: TRAZODONE 50 MG TABLET Will file in chart as: traZODone (DESYREL) 50 MG Tablet The original prescription was discontinued on 03/06/2024 by Mary Ellen Kim APRN, CIVIL ENGINEERING INTERN Insomnia. Taking Trazodone 50 mg nightly. Medication is no longer helpful. Difficulty falling asleep. No problem staying asleep. ISTICAL CLERK documented in this encounter Plan of Treatment Upcoming Encounters Date Type Department Care Team (Late st Contact Info) Description 02/15/2025 7:45 AM STATISTICAL CLERK [facility] [address] [place] [address] Mary Ellen Kim, WELDER EXPERIMENTAL, CIVIL ENGINEERING INTERN [address] [place] [address] 04/23/2025 8:00 AM STATISTICAL CLERK Office Visit [facility] [place] [address] [place] [address] Mary Ellen Kim APRN, CIVIL ENGINEERING INTERN [address] [place] [address] documented as of this encounter Goals Goal Patient Goal Type Associated Problems Recent Progress Patient-Stated? Author Behavioral Health Behavioral Health Yes Fish Deras, CUFF PRESSER Note: I need reassurance that all the bad things that have happened to me are not my fault. documented as of this encounter Visit Diagnoses Not on filedocumented in this encounter Additional Health Concerns Assessment Noted Time PHQ-9 Depression Total Score: 0 03/10/19 25 8:19 AM STATISTICAL CLERK documented as of this encounter Care Teams Home Improvement Contractor Relationship Specialty Start Date End Date Mary Ellen Kim, WELDER EXPERIMENTAL, CIVIL ENGINEERING INTERN [address] [place] [address] PCP - General Advanced Practice Nurse 02/08/23 Sasha Martinez DPM Consulting Physician Podiatry 02/27/22 Geoff Wood MD [address] [address] Consulting Physician Urology 04/10/24 documented as of this encounter
--- OUTSIDE RECORDS SUMMARY | 2025-01-01 12:25 | XMS_ITS | Clinical Summary ---
Author Organization [facility] Address [address] [place] [address] Care Team Providers Care Digital Asset Specialist Name Role Phone Mary Ellen Kim NP Primary Care Provider [phone] No, Physician Unavailable Allergies No known active allergies Medications mirtazapine (REMERON) 15 mg tablet Take 1 tablet (15 mg total) by mouth nightly 07/06/2024 Active FLUoxetine (PROzac) 40 mg capsule Take 1 capsule (40 mg total) by mouth daily Active Active Problems Problem Noted Date Diagnosed Date Carpal tunnel syndrome on right 11/20/2024 Encounters Date Type Department Care Team Description 11/30/2024 Hospital Encounter [facility] Operating Room [address] [place] [address] Fuentes Cerna MD 11/05/2024 9:00 AM CDT Office Visit [facility] Medicine [address] [place] [address] [place] [phone] Fuentes Cerna MD Right hand pain (Primary Dx); Carpal tunnel syndrome, right; Carpal tunnel syndrome, left 11/05/2024 7:38 AM CDT - 11/05/2024 11:59 PM CDT Hospital Encounter [facility] [address] [place] [address] [place] [phone] Discharge Disposition: Discharge to home or self care 11/05/2024 Telephone [facility] [address] [place] [phone] Fuentes Cerna MD from Last 3 Months Surgical History Surgery Date Site/Laterality Comments SECTION TONSILLECTOMY REDUCTION MAMMAPLASTY OVARIAN CYST REMOVAL HYSTERECTOMY 04/05/2022 Medical History Medical History Date Comments Insomnia Anxiety Depression Family History Medical History Relation Name Comments Depression Father Cancer Mother Depression Mother Relation Name Status Comments Father Mother Alive Social History Tobacco Use Types Packs/Day Years Used Date Smoking Tobacco: Former Cigarettes Smokeless Tobacco: Never Alcohol Use Standard Drinks/Week Comments Never 0 (1 standard drink = 0.6 oz pur e alcohol) AUDIT-C Answer Date Recorded Q1: How often do you have a drink containing alcohol? Never 11/25/2024 Q2: How many drinks containi ng alcohol do you have on a typical day when you are drinking? Patient does not drink Q3: How often do you have si x or more drinks on one occasion? Never 11/25/2024 Comments No Sex and Gender Information Value Date Recorded Sex Assigned at Not on file Legal Sex Female 8:12 AM HUMAN RESOURCES MANAGER Gender Identity Not on file Sexual Orientation Not on file Last Filed Vital Signs Vital Sign Reading Time Taken Comments Blood Pressure 112/76 11/05/2024 8:58 AM CDT Pulse 91 11/05/2024 8:58 AM CDT Temperature 36.6 C (97.9 F) 07/07/2024 12:19 PM CDT Respiratory Rate 20 07/07/2024 12:1 9 PM CDT Oxygen Saturation 98% 07/07/2024 12: 19 PM CDT Inhaled Oxygen Concentration - - Weight 86.6 kg (190 lb 14.7 oz) 11/05/2024 2:57 PM CDT Height 147.3 cm (4' 9.99) 11/05/2024 2:57 PM CD T Body Mass Index 39.91 11/05/2024 2:57 PM CDT Plan of Treatment Health Maintenance [...] Final Result from Last 3 Months Insurance [facility] Care Teams Digital Asset Specialist Relationship Specialty Start Date End Date Mary Ellen Kim NP [address] [place] [address] PCP - General Family Medicine 04/17/24 No, Physician 04/17/24
--- OUTSIDE RECORDS SUMMARY | 2025-01-01 12:25 | XMS_ITS | Encounter Summary ---
Author Organization [facility] Healthcare Address [address] [place] [id number] Care Team Providers Care Station Cleaning Porter Name Role Phone Mary Ellen Kim NP Primary Care Provider No, Physician Unavailable Reason for Visit * Auth/Cert (Routine) Specialty Diagnoses / Procedures Referred By Contac t Referred To Contact Diagnoses Carpal tunnel syndrome on right Carpal tunnel syndrome on right [G56.01] Procedures MT NEUROPLASTY &/TRANSPOS MEDIAN NRV CARPAL TUNNE Right Carpal Tunnel Release- Hand Table Referral ID Status Reason Start Date Expiration Date Visits Re quested Visits Authorized [id number] 1 1 Encounter Details Date Type Department Care Team (Late st Contact Info) Description 11/30/2024 Hospital Encounter 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 Never 11/25/2024 8:58 AM LIANAT Shira Dey RN Q2: How many drinks containing alcohol do you have on a typical day when you are drinking? Patient does not drink 11/25/2024 8:58 AM LIANAT Shira Dey RN Q3: How often do you have six or more drinks on one occasion? Never 11/25/2024 8:58 AM LIANAT Shira Dey RN documented as of this encounter Miscellaneous Notes * Perioperative Nursing Note - Shira Dey RN - 11/25/2024 9:10 AM CDT Images from the original note were not included. Pre Anesthesia Testing Perioperative Nursing Note Telephone Preoperative Evaluation - TELEPHONE ONLY, NO PHYSICAL EXAM - [facility] PAT Date: 11/25/24 PAT RN completed assessment with the patient. Amie Hodges is a 39 y.o. female Right Carpal Tunnel Release- Hand Table (Right: Wrist) Pre-Op Diagnosis Codes: * Carpal tunnel syndrome on right [G56.01] There were no vitals filed for this visit. Social History Tobacco Use Smoking Status Former Types: Cigarettes Smokeless Tobacco Never Substance and Sexual Activity Drug Use Never Alcohol Use Q1: How often do you have a drink containing alcohol?: Never Q2: How many drinks containing alcohol do you have on a typical day when you are drinking?: Patientdoes not drink Q3: How often do you have six or more drinks on one occasion?: Never Past Medical History: Diagnosis Date Anxiety Depression Insomnia Past Surgical History: Procedure Laterality Date SECTION HYSTERECTOMY 04/05/2022 OVARIAN CYST REMOVAL REDUCTION MAMMAPLASTY TONSILLECTOMY OB History No obstetric history on file. No Known Allergies CURRENT MEDICATIONS Med List Status: Nurse Complete Set By: Shira Dey RN at 11/25/2024 8:56 AM Taking? Last Dose Start Date End Date Provider FLUoxetine (PROzac) 20 mg capsule -- -- -- Derick Garcia MD mirtazapine (REMERON) 15 mg tablet -- 07/06/24 -- Derick Garcia MD -- Patient not taking: Implants No active implants to display in this view. TRAVEL/EXPOSURE Travel Screening Have you traveled outside the [place] in the last 6 months?: No SCREENINGS STOP-Bang Total Score: 1 NUTRITION PATIENT CARE PLANNING Advance Directives (For Healthcare) Advance Directive: Patient does not have advance directive, Information provided, Patient would like information Information Provided on Healthcare Directives: Yes Healthcare Directive Information Provided : Durable power of criminal attorney for health care, Living will Discharge Planning Type of Residence: Private residence Living Arrangements: Spouse/significant other, Children Support Systems: Spouse/significant other, Children, Family members Patient expects to be discharged to: Private residence ADDITIONAL COMMENTS/ FOLLOW UP * Pre-Procedure Instructions - Shira Dey RN - 11/25/2024 8:58 AM CDT We are pleased that you and your doctor have chosen [facility] for your surgery. We hope that the following information will help make your visit a pleasant one. Surgery Date: 11/30/2024 Before your surgery: Notify your doctor of ANY change in your health such as a cold, sore throat, fever, any infection or a change in the problem for which you are having your surgery. Follow any instructions given to you by your doctor or surgeon. Check with your doctor if you need to STOP taking: Aspirin (ordered by your doctor) Plavix Coumadin One week before surgery STOP taking: All herbal supplements Aspirin (not ordered by your doctor) Aleve, Advil, Motrin, Ibuprofen, or other similar medications (Tylenol is okay). 24 hours before your surgery: No smoking or alcoholic drinks. Night before your surgery: Do not eat or drink anything after midnight. Follow surgeon's instructions for anti-bacterial shower night before and morning of surgery. Day of surgery: Do not swallow any water when you brush your teeth. ONLY take these pills with a tiny sip of water. Pre-Surgery Instructions Medication Instructions FLUoxetine (PROzac) 40 mg capsule Take morning of surgery mirtazapine (REMERON) 15 mg tablet Take as prescribed Use no make-up, nail kosovan, lotions, oils or powders on your skin. Wear comfortable clothes that will not be tight in the area of your surgery. Leave all valuables and jewelry (including all body piercing jewelry) at home. Please bring your a photo ID and insurance cards with you. Check in at the Registration Desk downstairs in the Ambulatory Surgery Department. You will come inthe main entrance and go down the haq until you see the [facility] [facility], there will be elevators to the right, take those down to LL1. You will exist the elevators to the right and go down thehall and you will pass Medical Imaging on the left and we will be the next department on the right,you will see the sign above that says Ambulatory Surgery Department check-in. After your Outpatient Surgery: You must have a responsible adult to drive you home, you will not be allowed to drive or take a cabhome. We recommend you have someone stay with you for 24 hours after your surgery. What to bring if you are spending the night with us: Bring toiletry items such as: robe, slippers, toothbrush, toothpaste, brush or comb. Bring contact lens, hearing aids, glass cases and denture container if you use any of these items. The hospital will provide you with a gown. Questions or concerns: If you have any questions or concerns regarding your procedure, contact your surgeon as soon as possible. If you have questions regarding your Pre-Admission Testing, please call us. We can be reached at the number posted at the top of the page. documented in this encounter Plan of Treatment Not on file documented as of this encounter Visit Diagnoses Diagnosis Carpal tunnel syndrome on right- Primary Carpal tunnel syndrome documented in this encounter Admitting Diagnoses Diagnosis Carpal tunnel syndrome on right Carpal tunnel syndrome documented in this encounter Discontinued Medications Medication Sig Discontinue Reason Start Date End Da te ondansetron ODT (ZOFRAN-ODT) 4 mg disintegrating tablet Dissolve 1 tablet oral every 4 hours as needed for nausea or vomiting. Therapy completed 03/26/2021 11/25/2024 FLUoxetine (PROzac) 20 mg capsule Take 1 capsule (20 mg total) by mouth daily Therapy completed 11/25/2024 documented as of this encounter Historical Medications * This list may reflect changes made after this encounter. FLUoxetine (PROzac) 40 mg capsule Take 1 capsule (40 mg total) by mouth daily added in this encounter Care Teams Station Cleaning Porter Relationship Specialty Start Date End Date Mary Ellen Kim DEVELOPING MACHINE TENDER [address] [place] [address] PCP - General Family Medicine 04/17/24 No, Physician 04/17/24 documented as of this encounter
--- OUTSIDE RECORDS SUMMARY | 2025-01-01 12:25 | XMS_ITS | Clinical Summary ---
Author Organization [facility] Address [address] [place] [address] Phone Care Team Providers Care Event Marketing Coordinator Name Role Phone Sasha Martinez DPM Unavailable [phone] Mary Ellen Kim BLEACH CHLORINATOR, DEMOLITION CRANE OPERATOR Primary Care Provider + Geoff Wood MD Unavailable Allergies No known active allergies Medications meclizine (ANTIVERT) 25 MG TabletIndicatio ns:Vertigo Take 1 Tablet by mouth 3 times daily as needed for Dizziness. Indications: Sensation of Spinning or Whirling 30 Tablet 4 Active FLUoxetine (PROzac) 40 MG Capsule Take 1 Capsule by mouth daily. 90 Capsule 1 5 Active amitriptyline (ELAVIL) 25 MG Tablet Take 1 Tablet by mouth nightly. 90 Tablet 5 Active mirtazapine (REMERON) 15 MG TabletIndicatio ns:Anxiety,Inso mnia, unspecified type,Major depressive disorder, recurrent episode, moderate TAKE 1 TABLET BY MOUTH EVERY DAY AT NIGHT 90 Tablet 1 5 12/22/19 25 Discontinu ed(Med List Clean Up) Active Problems No known active problems Encounters Date Type Department Care Team Description 12/30/2024 1:00 PM BOX WORKER Office Visit [facility] - Family Medicine [facility] [address] [place] [address] Mary Ellen Kim, BLEACH CHLORINATOR, DEMOLITION CRANE OPERATOR Discharge Disposition: Discharged to home or Selfcare 12/30/2024 Travel 12/21/2024 8:30 AM CDT Office Visit [facility] [address] [place] [address] Mary Ellen Kim APRN, CNP Anxiety (Primary Dx); Skin lesion; Dyslipidemia; Encounter for screening mammogram for malignant neoplasm of breast; Sleep-disordered breathing; Obesity (BMI 30-39.9) Discharge Disposition: Discharged to home or Selfcare 12/21/2024 Transcribe Orders [facility] [address] [place] [address] Mary Ellen Kim APRN, CNP Sleep-disordered breathing (Primary Dx) 12/21/2024 Travel 10/02/2024 Refill [facility] [address] [place] [address] Mary Ellen Kim APRN, CNP Medication Refill from Last 3 Months Immunizations Immunization Administration Dates Next Due Influenza Vaccine, MDCK,quadrivalent, pres free 10/12/2021 Influenza, Injectable, Quadrivalent 01/01/2023 Influenza, Seasonal, Injectable, Undefined 12/11 Influenza, Trivalent, Adjuvanted, PF 10/26/2021 Influenza,Split Virus,Trivalent,Injectable,PF TDAP Vaccine 01/14/2016 Family History Medical History [...] pure alcohol) occasionally, three times per year [facility] Utilities Answer Date Recorded In the past 12 months has e [employer], gas, oil, or water [employer] threatened to shut off services in your home? No 03/10/2024 Social Connection and Isolation Panel Answer Date Recorded In a typical week, how many times do you talk on the phone with family, friends, or neighbors? Once a week 03/10/19 How often do you get togethe r with friends or relatives? Once a week 03/10/2024 How often do you attend chur ch or bahai services? Never 03/10/2024 Do you belong to any clubs o r organizations such as congregation groups, unions, fraternal or athletic groups, or [...] Recorded Total Score - Questions 1-9 16 052 [facility] [place] of Occupat ional Health - Occupational Stress [...] Sex Assigned at Female 01/06/2023 5:01 AM BOX WORKER Legal Sex Female 11:17 PM CDT Gender Identity Female 01/06/2023 5:01 AM BOX WORKER Sexual Orientation Not on file Last Filed Vital Signs Vital Sign Reading Time Taken Comments Blood Pressure 118/64 12/30/2024 12:59 PM BOX WORKER Pulse 81 12/30/2024 12:59 PM BOX WORKER Temperature 36.7 C (98 F) 12/30/2024 12:59 PM BOX WORKER Respiratory Rate 18 12/30/2024 12:5 9 PM BOX WORKER Oxygen Saturation 98% 12/30/2024 12: 59 PM BOX WORKER Inhaled Oxygen Concentration - - Weight 86.5 kg (190 lb 12.8 oz) 025 12:59 PM BOX WORKER Height 149.9 cm (4' 11) 12/30/2024 12: 59 PM BOX WORKER Body Mass Index 38.54 12/30/2024 12:59 PM BOX WORKER Plan of Treatment Upcoming Encounters Date Type Department Care Team (Late st Contact Info) Description 02/15/2025 7:45 AM BOX WORKER Appointment [facility] [address] [facility] [place] [address] Mary Ellen Kim, BLEACH CHLORINATOR, DEMOLITION CRANE OPERATOR [address] [place] [address] 04/23/2025 8:00 AM BOX WORKER [facility] [address] [place] [address] Mary Ellen Kim, YEISON, DEMOLITION CRANE OPERATOR [address] [place] [address] Health Maintenance Due Date Last Done Comments Hepatitis B Immunization (1 of 3 - 19+ 3-dose series) 02/15/2004 Human Papillomavirus (HPV) Immunization (1 - 3-dose SCDM series) 02/15/2012 SARS-COV-2 Immunization (3 - season) 2024 02/11/2021, 03/04/2020 Td Immunization Every 10 Years (Adults With 1 Tdap) 01/13/2026 01/14/2016 Respiratory Syncytial Virus (RSV) Immunization (Adult) (1 - 1-dose 75+ series) 02/15/2060 DTaP/Tdap/Td Immunization Discontinued 01/14/2016 Hepatitis C Virus (HCV) Screening Completed 06/26/2023 Influenza Immunization Completed , 01/01/2023, 10/26/2021, Additional history exists Meningococcal Immunization (ACWY) Aged Out No longer [...] Behavioral Health Behavioral Health Yes Fish Deras, ORDER TRACER Note: I need reassurance that all the bad things that have happened to me are not my fault. Procedures Procedure Name Priority Date/Time Associated Diagnosis Comments HEPATITIS C ANTIBODY Routine 06/26/2023 8:04 AM CDT Need for hepatitis C screening test from Last 3 Months or Most Recently Relevant to Health Maintenance Results * HEPATITIS C ANTIBODY (06/26/2023 8:04 AM CDT) hepatitis C antibody 0.08 <1 S/CO 06/26/2023 11:33 PM CDT [facility] Comment: Signal/Cutoff ratio < 0.79 is Nondetected Signal/Cutoff ratio 0.80-0.99 is Grayzone Signal/Cutoff ratio > 0.99 is Detected Supplemental assays are recommended if signal/cutoff ratio is >/=1.00. Signal/cutoff ratio result >/= 5.00 is 97% predictive of positivity for recombinant immunoblot assay (RIBA) and will be reported to the [place] Department of Public Health as required. Blood Venipuncture / Unknown 06/26/2023 8:04 AM CDT 06/26/2023 8:05 AM CDT us Mary Ellen Kim BLEACH CHLORINATOR, DEMOLITION CRANE OPERATOR CHEMISTRY ORDERABLES Fin al Result [facility] [address] [place] [address], [place] from Last 3 Months or Most Recently Relevant to Health Maintenance Insurance MEDICAID [facility] Care Teams Event Marketing Coordinator Relationship Specialty Start Date End Date Mary Ellen Kim, BLEACH CHLORINATOR, DEMOLITION CRANE OPERATOR [address] [place] [address] PCP - General Advanced Practice Nurse 02/08/23 Sasha Martinez DPM Consulting Physician Podiatry 02/27/22 Geoff Wood MD [address] [facility] [address] [place] [address] Consulting Physician Urology 04/10/24
--- NOTE | 2025-01-01 13:46 | ED.FEMALEGU ---
HPI - Female Genitourinary General Chief complaint: Urogenital-Female Stated complaint: UTI Time Seen by Provider: 01/01/25 13:40 Source: patient, RN notes reviewed and old records reviewed Mode of arrival: ambulatory Limitations: no limitations History of Present Illness HPI Narrative: 39 year old female presents to [facility] care with UTI symptoms for 3 days which includes burning and pain with urination and some frequency and has been taking some left over Pyridium with last dose yesterday morning. Patient reports no fevers, chills or any nausea, vomiting, or any diarrhea. Patient reports no supra pubic pain states no visible blood in urine or anyacute low back pain, does report some mild right flank discomfort. MD elicited complaint: dysuria Pertinent past history: recurrent UTIs Onset (ago): day(s) (3) Location of symptoms: urethra Severity: moderate Vaginal discharge: none Vaginal bleeding: none Treatment prior to arrival: OTC urinary analgesics (last dose yesterday morning) Related Data Home Medications ?Medication ?Instructions ?Recorded ?Confirmed ?Last Taken ?Type mirtazapine 15 mg tablet mg 07/09/24 10/13/24 Unknown History Allergies Allergy/AdvReac Type Severity Reaction Status Date / Time No Known Allergies Allergy Unknown Verified 01/01/25 12:09 Review of Systems Review of Systems: CONSTITUTIONAL: Denies fever, chills, or sweats. CARDIOVASCULAR: Denies chest pain, palpitations, or edema. RESPIRATORY: Denies cough or dyspnea. GASTROINTESTINAL: Denies abdominal pain, nausea, vomiting, or diarrhea. GENITOURINARY: Reports dysuria, frequency, urgency. Reports some right flank discomfort, denies any visible hematuria. SKIN: Denies rash or itching. MUSCULOSKELETAL: Denies acute low back pain or myalgia. Reports some right flank CVA discomfort NEUROLOGIC: Denies headache All systems reviewed & are unremarkable except as noted in HPI and below PMFSH Past Medical History Medical History Back pain Encounter for annual routine gynecological examination Nexplanon removal (12/23/15) Nexplanon insertion (12/18/12) Arm fracture Pneumonia Frequent UTI Depression Anxiety Surgical History Surgical History History of robot-assisted laparoscopic hysterectomy (04/05/22) Robotic assisted total laparoscopic hysterectomy Bilateral salpingectomy History of dilation and curettage (05/17/16) hscope d&c/endometrial ablation--menometrorrhagia, dysmenorrhea--benign History of ovarian cystectomy (09/25/12) rt ovarian cystectomy History of bilateral breast reduction surgery (06/23/12) History of tubal ligation (11/30/10) History of 04/10/07 primary c/s--arrest of descent 11/30/10 rpt c/s w/tubal ligation History of tonsillectomy (~2002) Family History Family History Grandparent Hypertension paternal grandfather paternal grandmother Diabetes mellitus paternal grandmother paternal grandfather Cerebrovascular accident maternal grandmother paternal grandmother Heart disease paternal grandfather Mother Alcoholism Social History Social History Tobacco type: cigarettes Second hand tobacco smoke exposure: No Additional smoking assessment comments: Pt stated on and off socially, does not currently Alcohol intake: former Alcohol use details: 1-2 year rare use Substance use: never Substance use type: does not use Do You Feel Safe in your Home?: Yes Lack of Transportation: No Lack of Food: Never True Current Housing: I Have Housing Concerned About Future Housing: No Difficulty Paying Gas/Electric Bills: No Difficulty Paying for Meds: No Currently Unemployed: YES Education: High School Diploma/GED Difficulty w/ Childcare or Family Care: No Living arrangements: with roommate(s) Additional living arrangements comments: Occupation/Education: occupation Additional occupation/education comments: [employer] Gender identity (if verbalized by the patient): Female Sexual Orientation (if Verbalized by the Patient): Straight or Heterosexual Spiritual care concerns: No Comments At time of signature, agree with nursing past medical, surgical, social and family history. There is no relevant family history pertinent to the presenting complaint Exam Narrative: GENERAL: Well-appearing, well-nourished, and in no acute distress. HEAD: Normocephalic, atraumatic. NECK: Supple.no lymphadenopathy CHEST: Clear to auscultation. No respiratory distress. no cough noted SAO2 98% on room air HEART: Regular rate and rhythm. No murmur heard. Normal peripheral pulses. ABDOMEN: Soft, nontender to palpation,no suprapubic or any McBurney point tenderness, nondistended, normal active bowel sounds. right CVA tenderness, urinary dysuria frequency and urgency EXTREMITIES: Normal range of motion. No edema. SKIN: Warm, dry, no rash. NEURO: No focal deficits. Alert and oriented x3. Course Course Emergency Course: Patient is aware of diagnosis, understands and agrees to treatment plan.? Anticipatory guidance given.? Patient agrees to follow-up as directed and is aware of reasons to seek care at the emergency department. Portions of this record may have been created with voice recognition software Level of Care: Express Care Visit Vital Signs Vital signs: Vital Signs Temperature 36.4 C 01/01/25 12:14 Pulse Rate 89 01/01/25 12:14 Respiratory Rate 18 01/01/25 12:14 Blood Pressure 120/54 L 01/01/25 12:14 Pulse Oximetry 98 01/01/25 12:14 Oxygen Delivery Room Air 01/01/25 12:14 Temperature 36.4 C 01/01/25 12:14 Pulse Rate 89 01/01/25 12:14 Respiratory Rate 18 01/01/25 12:14 Blood Pressure 120/54 L 01/01/25 12:14 Pulse Oximetry 98 01/01/25 12:14 Oxygen Delivery Room Air 01/01/25 12:14 reviewed MDM - Female Genitourinary MDM Narrative Medical decision making narrative: Exam findings and UA show no acute concerns or changes; patient is non-toxic appearing and is in no distress.? Patient is appropriate for outpatient treatment and follow-up. Differential Diagnosis Differential diagnosis: Likely urinary tract infection, cystitis and other (dysuria, mild right flank pain) Lab Data Attestation: I reviewed the patient's lab results. Lab results narrative: urine dip yellow clear, Glucose negative, bilirubin negative, Ketone negative, specific gravity 1.020, blood 2+, PH 7.0,Protein 2+,Urobilinogen 0.2, nitrite positive. Leuks 3+ Labs: Lab Results 01/01/25 Range/Units 13:49 POC Urine Color Yellow POC Urine Clarity Clear POC Urine pH 7.0 POC Ur Specif [place] 1.020 POC Urine Protein 2+ (Negative) POC Ur Glucose (UA) Negative (Negative) POC Urine Ketones Negative (Negative) POC Urine Blood 2+ (Negative) POC Urine Nitrite Positive (Negative) POC Urine Bilirubin Negative (Negative) POC Urine Urobilinogen 0.2 POC U Leukocyte Esteras 3+ (Negative) reviewed Critical Care Time Critical Care Time Critical Care Time: No Discharge Plan Discharge Clinical Impression: Urinary tract infection Qualifiers: Urinary tract infection type: site unspecified Hematuria presence: with hematuria Qualified Code(s): N39.0 - Urinary tract infection, site not specified Patient Disposition: Home Condition: Stable Instructions: Antibiotic Form, Urinary Tract Infection in Women (ED) Additional Instructions: Increase fluids especially cranberry juice and water Avoid caffeine and carbonated beverages Antibiotic as directed Medicine as directed--cautioned it will cause your urine to be bright orange Tylenol/ibuprofen for pain or fever Follow-up with her primary care provider if further problems or concerns Recheck if you have fever over 101, nausea and vomiting. If your symptoms persist, change or worsen significantly before you can contact your personal physician then please, without delay, go to the emergency department for further evaluation. Follow-up with PCP in 7-10 days or sooner if needed Patient Language: Croatian Prescriptions: New amoxicillin-pot clavulanate 875-125 mg tablet 1 tablet PO Q12H Qty: 20 0RF Rx Instructions: take all doses of medication recommend taking probiotic or eating activia yogurt while on the medication No Action mirtazapine 15 mg tablet Follow-up/Referrals: Mary Ellen Kim RN [Primary Care Provider, Nursing] Stand Alone Forms: Work/School Release IP Time of Disposition: 13:53 Quality Wiley Coma Scale Eyes: Open Verbal: Oriented and Alert Motor: Follows Commands Menasha Coma Total Score: 15
[2025-01-01 13:52] LABS: EDUAAPPEAR Clear; EDUABILI Negative (Negative); EDUABLOOD 2+ (Negative); EDUACOLOR1 Yellow; EDUAGLUCOSE Negative (Negative); EDUAKETONE Negative (Negative); EDUALEUKO 3+ (Negative); EDUANITRATE Positive (Negative); EDUAPH 7.0; EDUAPROTEIN 2+ (Negative); EDUASPGRAVITY 1.020; EDUAUROBILI 0.2
== END 2025-01-01 13:58 | disposition home or self-care (01) ==
PROVIDERS: Emergency Provider Registered Nurse
DX: N39.0 Urinary tract infection, site not specified (principal); F32.A Depression, unspecified; Z87.891 Personal history of nicotine dependence
CPT/HCPCS: 81003; 87077; 87086; 87186; 99213; G0463

== ENCOUNTER 2025-01-08 10:01 | Emergency (ER) | payer OTHER, SELFPAY ==
[2025-01-08 10:08] VITALS: BP 108/51; PULSE 86; RESP 18; TEMP 37.1; O2SAT 97
--- NOTE | 2025-01-08 10:41 | ED_ITS ---
HPI - Nausea/Vomiting/Diarrhea General Chief complaint: Nausea/Vomiting/Diarrhea Stated complaint: Nausea/Stomach Pain Time Seen by Provider: 01/08/25 10:41 Source: patient, RN notes reviewed and old records reviewed Mode of arrival: ambulatory Limitations: no limitations History of Present Illness HPI Narrative: 39 year old female who presents to [facility] with complaints of Nausea vomiting and diarrhea starting Saturday night into and today continues to have some nausea and upper epigastric discomfort.Patient was treated recently with Augmentin on 01/01/2025 for UTI symptoms and reports that those symptoms have improved. Patient was instructed on prescription to take either probiotic or eat Activia yogurt while on that medication and sanchez not been doing. Patient reports that she has not had any vomiting or diarrhea today reports nausea and epigastric discomfort with no ridigity of upper abdomen or no episodes of any blood noted in emesis or in stools. Patient reports that she took a Zofran with no relief and she will need work note today. MD elicited complaint: nausea, vomiting, diarrhea and abdominal pain (epigastric aching) Pertinent past history: other (treated for UTI on 01/01/2025 with Augmentin) Onset (ago): day(s) (2) Description of vomiting: food contents Description of diarrhea: lose Associated nausea: Yes Associated abdominal pain: Yes Location of pain: epigastric Pain scale (0-10): 4 Quality: aching Treatment prior to arrival: other (zofran) Related Data Home Medications ?Medication ?Instructions ?Recorded ?Confirmed ?Last Taken ?Type amitriptyline 25 mg tablet mg 01/08/25 Unknown Histor y fluoxetine 40 mg capsule mg 01/08/25 Unknown History Allergies Allergy/AdvReac Type Severity Reaction Status Date / Time No Known Allergies Allergy Unknown Verified 01/08/25 10:11 Review of Systems Review of Systems: CONSTITUTIONAL: Denies fever, chills, or sweats. ENT: Denies rhinorrhea, congestion, sore throat, or otalgia. CARDIOVASCULAR: Denies chest pain, palpitations, or edema. RESPIRATORY: Denies cough or dyspnea. GASTROINTESTINAL: Reports epigastric abdominal discomfort ,present nausea, episodes of vomiting, diarrhea. Saturday and none today GENITOURINARY: Denies dysuria or hematuria. SKIN: Denies rash or itching. MUSCULOSKELETAL: Denies back pain, joint pain, or myalgia. NEUROLOGIC: Denies headache, numbness, or weakness. All systems reviewed & are unremarkable except as noted in HPI and below PMFSH Past Medical History Medical History Back pain Encounter for annual routine gynecological examination Nexplanon removal (12/23/15) Nexplanon insertion (12/18/12) Arm fracture Pneumonia Frequent UTI Depression Anxiety Surgical History Surgical History History of robot-assisted laparoscopic hysterectomy (04/05/22) Robotic assisted total laparoscopic hysterectomy Bilateral salpingectomy History of dilation and curettage (05/17/16) hscope d&c/endometrial ablation--menometrorrhagia, dysmenorrhea--benign History of ovarian cystectomy (09/25/12) rt ovarian cystectomy History of bilateral breast reduction surgery (06/23/12) History of tubal ligation (11/30/10) History of 04/10/07 primary c/s--arrest of descent 11/30/10 rpt c/s w/tubal ligation History of tonsillectomy (~2002) Family History Family History Grandparent Hypertension paternal grandfather paternal grandmother Diabetes mellitus paternal grandmother paternal grandfather Cerebrovascular accident maternal grandmother paternal grandmother Heart disease paternal grandfather Mother Alcoholism Social History Social History Smoking status: Former smoker Tobacco type: cigarettes Second hand tobacco smoke exposure: No Additional smoking assessment comments: Pt stated on and off socially, does not currently Alcohol intake: former Alcohol use details: 1-2 year rare use Substance use: never Substance use type: does not use Do You Feel Safe in your Home?: Yes Lack of Transportation: No Lack of Food: Never True Current Housing: I Have Housing Concerned About Future Housing: No Difficulty Paying Gas/Electric Bills: No Difficulty Paying for Meds: No Currently Unemployed: YES Education: High School Diploma/GED Difficulty w/ Childcare or Family Care: No Living arrangements: with roommate(s) Additional living arrangements comments: Occupation/Education: occupation Additional occupation/education comments: [employer] Gender identity (if verbalized by the patient): Female Sexual Orientation (if Verbalized by the Patient): Straight or Heterosexual Spiritual care concerns: No Comments At time of signature, agree with nursing past medical, surgical, social and family history. There is no relevant family history pertinent to the presenting complaint Exam Narrative: GENERAL: Well-appearing, well-nourished, and in no acute distress. HEAD: Normocephalic, atraumatic. EYES: PERRLA and EOMI. ENT: Nares clear, no rhinorrhea or epistaxis. Mucous membranes moist.TM's normal throat pink with no redness or swelling NECK: Supple.no lymphadenopathy CHEST: Clear to auscultation. No respiratory distress.SAO2 97% on room air HEART: Regular rate and rhythm. No murmur heard. Normal peripheral pulses. ABDOMEN: Soft, mildly tender on palpation of epigastric abdominal area no rigidity denies any evidence of blood in emesis or in stools., nondistended, normal active bowel sounds.Last emesis and diarrhea yesterday continues with nausea EXTREMITIES: Normal range of motion. No edema. SKIN: Warm, dry, no rash. NEURO: No focal deficits. Alert and oriented x3. Course Course Emergency Course: Patient is aware of diagnosis, understands and agrees to treatment plan.? Anticipatory guidance given.? Patient agrees to follow-up as directed and is aware of reasons to seek care at the emergency department. Portions of this record may have been created with voice recognition software Level of Care: Express Care Visit Vital Signs Vital signs: Vital Signs Temperature 37.1 C 01/08/25 10:08 Pulse Rate 86 01/08/25 10:08 Respiratory Rate 18 01/08/25 10:08 Blood Pressure 108/51 L 01/08/25 10:08 Pulse Oximetry 97 01/08/25 10:08 Oxygen Delivery Room Air 01/08/25 10:08 Temperature 37.1 C 01/08/25 10:08 Pulse Rate 86 01/08/25 10:08 Respiratory Rate 18 01/08/25 10:08 Blood Pressure 108/51 L 01/08/25 10:08 Pulse Oximetry 97 01/08/25 10:08 Oxygen Delivery Room Air 01/08/25 10:08 Reviewed MDM - Nausea/Vomiting/Diarrhea Differential Diagnosis Differential diagnosis: Likely gastroenteritis, drug-induced nausea and vomiting, dehydration and other (epigastric discomfort, nausea) Medical Records Attestation: I reviewed the patient's medical records. Critical Care Time Critical Care Time Critical Care Time: No Discharge Plan Discharge Clinical Impression: Nausea vomiting and diarrhea Epigastric abdominal tenderness Qualifiers: Presence of rebound: rebound tenderness absent Qualified Code(s): R10.816 - Epigastric abdominal tenderness Patient Disposition: Home Condition: Stable Instructions: Antibiotic Form, Acute Nausea and Vomiting (ED), Epigastric Pain (ED) Additional Instructions: Clear liquids for the next 8-10 hours, then advance to a bland diet as tolerated A bland diet can consist of--BRAT diet which is bananas, rice, applesauce, and toast Avoid fried, greasy, fatty, fried foods Avoid caffeine, nicotine, and alcohol Return to your regular diet in the next 3-4 days Medication as directed for nausea and vomiting Tylenol for any pain Sometimes ibuprofen/Aleve can cause increased stomach upset [id number] Imodium if develop diarrhea Follow-up with her PCP if continued problems or uncontrolled pain Pepcid daily as prescribed Probiotic daily or eat Activia yogurt daily while on any antibiotic If your symptoms persist, change or worsen significantly before you can contact your personal physician then please, without delay, go to the emergency department for further evaluation. Follow-up with PCP in 7-10 days or sooner if needed Patient Language: [place] Prescriptions: New ondansetron 4 mg tablet,disintegrating 4 mg PO Q6H PRN (Reason: nausea and vomiting) Qty: 20 0RF Rx Instructions: take for nausea and vomiting famotidine [Pepcid] 20 mg tablet 20 mg PO DAILY Qty: 30 0RF miconazole nitrate 200 mg suppository 200 mg vaginal HS 3 Days Qty: 3 0RF No Action amoxicillin-pot clavulanate 875-125 mg tablet 1 tablet PO Q12H Qty: 20 0RF Rx Instructions: take all doses of medication recommend taking probiotic or eating activia yogurt while on the medication fluoxetine 40 mg capsule amitriptyline 25 mg tablet Follow-up/Referrals: Mary Ellen Kim RN [Primary Care Provider, Nursing] Stand Alone Forms: Work/School Release IP Time of Disposition: 10:54 Quality [place] Coma Scale Eyes: Open Verbal: Oriented and Alert Motor: Follows Commands [place] Coma Total Score: 15
== END 2025-01-08 10:59 | disposition home or self-care (01) ==
PROVIDERS: Emergency Provider Registered Nurse
DX: R11.2 Nausea with vomiting, unspecified (principal); R19.7 Diarrhea, unspecified; R10.816 Epigastric abdominal tenderness; Z79.899 Other long term (current) drug therapy; Z87.891 Personal history of nicotine dependence
CPT/HCPCS: 99213; G0463